=== PATIENT | female | born 1945 | race Caucasian/White ===

== ENCOUNTER 2024-04-16 16:54 | Observation (INO) | payer BC, SELFPAY ==
[2024-04-16] VITALS (7 sets, daily range): BP systolic 158–219; BP diastolic 82–92; PULSE 80–108; RESP 14–18; TEMP 36.3–36.9; O2SAT 91–98; BMI 30.1
--- NOTE | ~2024-04-16 | XR_ITS ---
CHEST RADIOGRAPH CLINICAL HISTORY: r sided weakness . COMPARISON: 08/12/2018 TECHNIQUE: Single portable view of the chest. FINDINGS Worsening prominence of the right hilum when compared with 2019 examination, possibly vascular in [place]. The remainder of the cardiomediastinal silhouette is otherwise unremarkable. Increased interstitial markings are identified bilaterally, findings suggesting mild pulmonary vascul ar congestion. The remainder of the lungs are clear. Visualized osseous structures and soft tissues are unremarkable. IMPRESSION: Mild pulmonary vascular congestion with worsening prominence of the right hilum, without focal infilt rate or effusion. Reviewed, dictated and finalized at location A. IMPRESSION: Mild pulmonary vascular congestion with worsening prominence of the right hilum , without focal infiltrate or effusion.
--- NOTE | ~2024-04-16 | US_ITS ---
EXAMINATION: US carotid duplex BI DATE: 04/19/2024 14:34 INDICATION: Transient ischemic attack. Infarct in left caudate nucleus. TECHNIQUE: Grayscale, color Doppler, and pulsed Doppler images of the cervical carotid arteries were obtained. The degree of vessel stenosis is placed in one of the following categories: normal, <50%, 5 0-69%, >=70% but less than near-occlusion, near-occlusion, or total occlusion. Note that percent sten osis relative to normal distal artery lumen diameter is indirectly measured from velocity measurement s as described by Wang, et al. Radiology 2003; 229:340-346. COMPARISON: Ultrasound 04/12/2019 FINDINGS: RIGHT: The right common carotid artery (CCA) peak systolic velocity (PSV) is 60 cm/s. The right internal car otid artery (ICA) PSV is 132 cm/s. The right ICA end-diastolic velocity (EDV) is 31 cm/s. The right I CA/CCA PSV ratio is 2.2. Grayscale and color Doppler images yield an estimate of <50% diameter reduct ion from plaque in the ICA. There is antegrade flow in the right vertebral artery. LEFT: The left CCA PSV is 67 cm/s. The left ICA PSV is 94 cm/s. The left ICA EDV is 27 cm/s. The left ICA/C CA PSV ratio is 1.4. Grayscale and color Doppler images yield an estimate of <50% diameter reduction from plaque in the ICA. There is antegrade flow in the left vertebral artery. IMPRESSION: 1. <50% stenosis in the right internal carotid artery. 2. <50% stenosis in the left internal carotid artery. Reviewed, dictated and finalized at location B.
--- NOTE | ~2024-04-16 | CT_ITS ---
CT brain wo con Ordering provider: Oh Huerta MD History: 79 years Female with . r sided weakness . Comparison: August 20, 2018 Technique: CT of the head without contrast. FINDINGS: BRAIN PARENCHYMA AND CSF SPACES: Mild leukoaraiosis and diffuse cortical atrophy. Mild atheromatous d isease. No midline shift, mass effect or hemorrhage. The brain parenchyma and CSF spaces are otherwi se normal. VISUALIZED PARANASAL SINUSES: Right maxillary sinus disease. MASTOIDS: Well aerated. BONES: The bones appear intact. SOFT TISSUES: Visualized nasopharynx is normal. Superficial soft tissues are normal. IMPRESSION: No acute intracranial findings. Reviewed, dictated and finalized at location A.
--- NOTE | ~2024-04-16 | MR_ITS ---
EXAMINATION: MR brain/brain stem wo con DATE: 04/17/2024 12:28 INDICATION: Right hemiparesis. Confusion. Stroke like symptoms. TECHNIQUE: Magnetic resonance imaging (MRI) of the brain and brainstem was performed without intraven ous contrast. COMPARISON: Brain MRI 08/13/2018, head CT 04/16/2024 FINDINGS: There are scattered areas of nonspecific increased T2-weighted signal intensity in the cere bral white matter and [place]. There is an old infarct involving the left caudate nucleus and adjacent w marcella matter. There is no intracranial hemorrhage, acute infarction, or abnormal intracranial mass les ion. The ventricles are normal in size. There are likely changes of ocular lens replacement surgeries . There is mild mucosal thickening in the paranasal sinuses. There are bilateral mastoid effusions. IMPRESSION: 1. 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 2. Mild nonspecific cerebral white matter disease and pontine disease, which likely represents chroni c small vessel ischemic disease. Reviewed, dictated and finalized at location A. IMPRESSION: 1. 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 2. Mild nonspecific cerebral white matter disease and pontine disease, which brooklynn bailon represents chronic small vessel ischemic disease.
--- NOTE | 2024-04-16 16:55 | ECG_ITS ---
Test Date: 2024-04-16 18:56:54 Measurements Intervals Amelia Rate: 96 P: 35 TX: 189 QRS: -1 QRSD: 84 T: 78 QT: 332 QTc: 421 Interpretive Statements SINUS RHYTHM LEFT VENTRICULAR HYPERTROPHY AND ST-T CHANGE [VOLTAGE CRITERIA PLUS ST/T ABNORMALITY] POOR R-WAVE PROGRESSION ABNORMAL ECG No previous ECG available for comparison Electronically Signed On 04-17-2024 13:11:21 CDT by Miguelangel Blevins M.D.
[2024-04-16] MEDS: LORazepam INJ (*CRX) 2 MG/ML VIAL 0.5 MG IV PUSH (17:15)
[2024-04-16 17:20] LABS: Estimated Glomerular Filt Rate 54
--- NOTE | 2024-04-16 17:20 | PC.NURSE ---
pt was unable to keep head/neck still for CT of head and was not following instructions. Dr. Huerta VORB 0.5mg Ativan IV to assist with pt anxiety.
[2024-04-16 17:36] LABS: Basophils Absolute Auto 0.1 K/mm3 (0.0-0.1); Basophils Percent Auto 0.7 % (0.2-1.2); Eosinophils Absolute Auto 0.1 K/mm3 (0-0.3); Eosinophils Percent Auto 1.5 % (0-4.4); Hematocrit 40.1 % (37.0-47.0); Hemoglobin 13.1 g/dL (12.0-15.0); Immature Granulocyte Absolute 0.03 K/mm3 (0.00-0.031); Immature Granulocyte Percent A 0.4 % (0-0.5); Lymphocytes Absolute Auto 2.12 K/mm3 (0.9-3.2); Lymphocytes Percent Auto 29.3 % (18.3-44.2); Mean Corpuscular HGB Conc 32.7 g/dl (32-36); Mean Corpuscular Hemoglobin 30.2 pg (26-34); Mean Corpuscular Volume 92.4 fl (80-100); Mean Platelet Volume 10.9 fl (7.4-10.4); Monocytes Absolute Auto 0.5 K/mm3 (0.1-0.6); Neutrophils Absolute Auto 4.4 K/mm3 (1.3-6.7); Neutrophils Percent Auto 61.1 % (45.5-73.1); Platelet Count Result 293 k/mm3 (150-375); Red Blood Count 4.34 M/mm3 (4.2-5.4); Red Cell Distribution Width 15.2 % (11.5-14.5); White Blood Count 7.2 K/mm3 (4.5-10.0)
--- NOTE | 2024-04-16 17:41 | ED_ITS ---
HPI - Neuro Symptoms/Deficit General Chief Complaint: Suspected CVA Stated Complaint: right sided weakness Time Seen by Provider: 04/16/24 16:56 History of Present Illness HPI Narrative: Patient is a 79-year-old female who presents ER with concerns for CVA according . Patient was last normal at 3:30 a.m. Patient woke up this morning and could not get off the toilet due to weakness in her leg and arm. She also could not feed herself food that he made her this afternoon because of weakness in her arm. He reports she has not been able to speak to him coherently. This is sim ilar to previous CVA she has had in the past. At this time patient is orient x1 and will occasionally slurs her speech. She can follow commands. She has no facial droop. No arm or leg drift. Her blood sugars within normal limits. She will be sent to the scanner for further evaluation. Chart review shows she is on aspirin and Plavix. Related Data Home Medications Medication Instructions Recorded Confirmed aspirin 81 mg tablet,delayed 81 mg PO DAILY 07/16/19 12/30/23 release flash glucose scanning reader #1 ea 07/16/19 12/30/23 (FreeStyle Arvin 14 Day [place]) sennosides 8.6 mg-docusate sodium 1 tab-cap PO QHS 01/16/22 12/30/23 50 mg tablet glucosamine HCl 1,500 mg tablet 1,500 mg PO BID 06/27/22 12/30/23 Allergies Allergy/AdvReac Type Severity Reaction Status Date / Time adhesive tape Allergy Mild Rash Verified 08/26/23 13:21 Iodinated Contrast Media Allergy Unknown Unknown Verified 08/26/23 13:21 iodine Allergy Unknown ITCHING Verified 08/26/23 13:21 tetracycline Allergy Unknown Unknown Verified 08/26/23 13:21 Tetracyclines Allergy Unknown Skin Verified 08/26/23 13:21 Reaction Review of Systems Review of Systems: ROS unobtainable: Yes unobtainable due to medical condition PMFSH Past Medical History Medical History Arthritis Diabetes GERD (gastroesophageal reflux disease) Heart disease Stroke Thyroid disorder Surgical History Surgical History History of thyroid surgery Hx of eye surgery Hx of total knee replacement Family History Family History Mother Family history of osteoporosis Family history of hearing loss Hypertension Sibling Family history of alcoholism Diabetes mellitus Family history of lymphoma Family history of throat cancer Grandparent Family history of arthritis Hypertension Family history of kidney disease Family history of malignant neoplasm of brain Father Family history of diabetes mellitus in first degree relative Diabetes mellitus Social History Social History Smoking status: Never smoker Alcohol intake: never Substance use: never Lack of Transportation: No Lack of Food: Never True Current Housing: I Have Housing Concerned About Future Housing: No Difficulty Paying Gas/Electric Bills: No Difficulty Paying for Meds: No Currently Unemployed: No Education: High School Diploma/GED Difficulty w/ Childcare or Family Care: No Living arrangements: with family Gender identity (if verbalized by the patient): Female Spiritual care concerns: No Exam Narrative: GENERAL: Well-appearing, well-nourished, and in no acute distress. HEAD: Normocephalic, atraumatic. ENT: Dry mucous membranes. NECK: Supple. CHEST: Clear to auscultation. No respiratory distress. HEART: Regular rate and rhythm. Normal peripheral pulses. ABDOMEN: Soft, nontender, nondistended. EXTREMITIES: Normal range of motion. No edema. SKIN: Warm, dry, no rash. NEURO: See NIH stroke scale. No facial droop. Mild slurred speech and aphasia the could be from altered mental status. No upper lower extremity drift. Normal finger-nose and [id number] testing. Sensation grossly intact in all extremities. Course Course Emergency Course: Patient resting comfortably but still confused. Oriented to self and place then slurs her speech. May be related to CVA. Blood pressure elevated will receive hydralazine. Admit to hospitalist service. reports patient cannot have IV contrast for CTA because she loses consciousness. Will have Neurology consult in the morning. Patient would not sit still in the CT scan originally and had to receive lorazepam 0.5 mg. Discussed that patient is not a candidate for TNK as her last known well was greater than 4-1/2 hours ago. Vital Signs Vital signs: Vital Signs Temperature 97.4 F L 04/16/24 17:27 Pulse Rate 92 04/16/24 17:27 Respiratory Rate 14 04/16/24 17:27 Blood Pressure 219/88 H 04/16/24 17:27 Pulse Oximetry 91 04/16/24 17:27 Oxygen Delivery Room Air 04/16/24 17:27 Temperature 97.4 F L 04/16/24 17:27 Pulse Rate 80 04/16/24 20:20 Respiratory Rate 16 04/16/24 20:20 Blood Pressure 190/83 H 04/16/24 20:20 Pulse Oximetry 96 04/16/24 20:20 Oxygen Delivery Room Air 04/16/24 17:27 MDM - Neuro Symptoms/Deficit Lab Data 04/16/24 17:25 04/16/24 18:11 Labs: Lab Results 04/16/24 04/16/24 04/16/24 Range/Units 17:05 17:25 17:53 WBC 7.2 (4.5-10.0) K/mm3 RBC 4.34 (4.2-5.4) M/mm3 Hgb 13.1 (12.0-15.0) g/dL Hct 40.1 (37.0-47.0) % MCV 92.4 (80-100) fl MCH 30.2 (26-34) pg MCHC 32.7 (32-36) g/dl RDW 15.2 H (11.5-14.5) % Plt Count 293 (150-375) k/mm3 MPV 10.9 H (7.4-10.4) fl Immature Gran % (Auto) 0.4 (0-0.5) % Neut % (Auto) 61.1 (45.5-73.1) % Lymph % (Auto) 29.3 (18.3-44.2) % [place] % (Auto) 7.0 (2.6-8.5) % Eos % (Auto) 1.5 (0-4.4) % Baso % (Auto) 0.7 (0.2-1.2) % Lymph # (Auto) 2.12 (0.9-3.2) K/mm3 [place] # (Auto) 0.5 (0.1-0.6) K/mm3 Eos # (Auto) 0.1 (0-0.3) K/mm3 Baso # (Auto) 0.1 (0.0-0.1) K/mm3 Abs Immat Gran (auto) 0.03 (0.00-0.031) K/mm3 Absolute Neuts (auto) 4.4 (1.3-6.7) K/mm3 Absolute Nucleated RBC 0.000 (0.0-0.012) K/mm3 Nucleated RBC % 0.0 (0.0-0.2) % PT 13.3 (11.1-14.7) Seconds INR 1.0 APTT 26.4 (22.3-36.8) Seconds Sodium (137-145) mmol/L Potassium (3.4-5.0) mmol/L Chloride (98-107) mmol/L Carbon Dioxide (22-30) mmol/L Anion Gap (4-12) mmol/L BUN (7-17) mg/dL Creatinine 1.00 (0.7-1.2) mg/dL Estim Creat Clear Calc Not Reportable Estimated GFR 54 L (59 - ) Glucose (65-110) mg/dL Calcium (8.4-10.2) mg/dL Total Bilirubin (0.2-1.3) mg/dL AST (14-36) U/L ALT (6-35) U/L Alkaline Phosphatase (38-126) U/L Troponin I (0.000-0.034) ng/mL Total Protein (6.3-8.2) g/dL Albumin (3.5-5.1) g/dL Urine Color Yellow (Yellow) Urine Appearance Clear (Clear) Urine pH 5.5 (5.0-9.0) Ur Specific [place] 1.016 (1.001-1.035) Urine Protein 2+ H (Negative) mg/dL Urine Glucose (UA) 1+ H (Negative) mg/dL Urine Ketones Trace H (Negative) mg/dL Ur Blood (Man) Negative (Negative) Urine Nitrate Negative (Negative) Urine Bilirubin Negative (Negative) Urine Urobilinogen 1.0 (<2.0) mg/dL Add Ur Microanalysis Reviewed Leukocyte Esterase Rfl Negative (Negative) ONEIDA/UL Urine RBC 0-2 (0-2) /hpf Urine WBC 0-5 (0-3) /hpf Ur Squamous Epith Cells None seen (Few) /hpf Urine Bacteria None seen /hpf Urine Casts 11-20 10/25/24 Range/Units 18:11 WBC (4.5-10.0) K/mm3 RBC (4.2-5.4) M/mm3 Hgb (12.0-15.0) g/dL Hct (37.0-47.0) % MCV (80-100) fl MCH (26-34) pg MCHC (32-36) g/dl RDW (11.5-14.5) % Plt Count (150-375) k/mm3 MPV (7.4-10.4) fl Immature Gran % (Auto) (0-0.5) % Neut % (Auto) (45.5-73.1) % Lymph % (Auto) (18.3-44.2) % [place] % (Auto) (2.6-8.5) % Eos % (Auto) (0-4.4) % Baso % (Auto) (0.2-1.2) % Lymph # (Auto) (0.9-3.2) K/mm3 [place] # (Auto) (0.1-0.6) K/mm3 Eos # (Auto) (0-0.3) K/mm3 Baso # (Auto) (0.0-0.1) K/mm3 Abs Immat Gran (auto) (0.00-0.031) K/mm3 Absolute Neuts (auto) (1.3-6.7) K/mm3 Absolute Nucleated RBC (0.0-0.012) K/mm3 Nucleated RBC % (0.0-0.2) % PT (11.1-14.7) Seconds INR APTT (22.3-36.8) Seconds Sodium 140 (137-145) mmol/L Potassium 4.0 (3.4-5.0) mmol/L Chloride 100 (98-107) mmol/L Carbon Dioxide 28 (22-30) mmol/L Anion Gap 12 (4-12) mmol/L BUN 20 H (7-17) mg/dL Creatinine 0.80 (0.7-1.2) mg/dL Estim Creat Clear Calc Not Reportable Estimated GFR > 60 (59 - ) Glucose 183 H (65-110) mg/dL Calcium 10.5 H (8.4-10.2) mg/dL Total Bilirubin 0.9 (0.2-1.3) mg/dL AST 23 (14-36) U/L ALT 16 (6-35) U/L Alkaline Phosphatase 81 (38-126) U/L Troponin I < 0.012 (0.000-0.034) ng/mL Total Protein 8.0 (6.3-8.2) g/dL Albumin 4.2 (3.5-5.1) g/dL Urine Color (Yellow) Urine Appearance (Clear) Urine pH (5.0-9.0) Ur Specific [place] (1.001-1.035) Urine Protein (Negative) mg/dL Urine Glucose (UA) (Negative) mg/dL Urine Ketones (Negative) mg/dL Ur Blood (Man) (Negative) Urine Nitrate (Negative) Urine Bilirubin (Negative) Urine Urobilinogen (<2.0) mg/dL Add Ur Microanalysis Leukocyte Esterase Rfl (Negative) ONEIDA/UL Urine RBC (0-2) /hpf Urine WBC (0-3) /hpf Ur Squamous Epith Cells (Few) /hpf Urine Bacteria /hpf Urine Casts Imaging Data Radiologist's impression: ITS Impressions Head CT 04/16/24 17:35 IMPRESSION: No acute intracranial findings. Chest X-Ray 04/16/24 17:39 IMPRESSION: Mild pulmonary vascular congestion with worsening prominence of the right hilum, without focal infiltrate or effusion. ECG Data EKG #1: ECG completion date: 04/16/24 ECG completion time: 18:56 EKG Interpretation: normal rate (96), sinus rhythm, no ectopy, no ST changes, normal QRS, normal QT and NL axis Critical Care Time Critical Care Time Critical Care Time: No Discharge Plan Discharge Clinical Impression: Stroke-like symptoms, Elevated blood pressure reading, Altered mental status Patient Disposition: Still a Patient Condition: Stable Prescriptions: No Action aspirin 81 mg tablet,delayed release (DR/EC) 81 mg PO DAILY (DME) FreeStyle Arvin 14 Day [place] Misc See Rx Instructions .ROUTE .MEDSUPPLY Qty: 1 Rx Instructions: As directed sennosides-docusate sodium 8.6-50 mg tablet 1 tab-cap PO QHS glucosamine HCl 1,500 mg tablet 1,500 mg PO BID Rx Instructions: administer with a meal Levemir FlexTouch U100 Insulin 100 unit/mL (3 mL) insulin pen See Rx Instructions .ROUTE .COMPLEX Qty: 45 5RF Dose Instruction: INJECT 50 UNITS SUBCUTANEOUSLY ONCE DAILY AT BEDTIME Rx Instructions: INJECT 50 UNITS SUBCUTANEOUSLY ONCE DAILY AT BEDTIME (DME) pen needle, diabetic 32 gauge x 5/32 needle See Rx Instructions .ROUTE .MEDSUPPLY Qty: 100 11RF Rx Instructions: 5x/day (DME) FreeStyle Arvin 14 Day Sensor Kit See Rx Instructions .ROUTE .MEDSUPPLY Qty: 6 8RF Rx Instructions: As directed atorvastatin 40 mg tablet See Rx Instructions .ROUTE .COMPLEX Qty: 90 1RF Dose Instruction: Take 1 tablet by mouth once daily Rx Instructions: Take 1 tablet by mouth once daily ferrous sulfate 324 mg (65 mg iron) tablet,delayed release (DR/EC) 324 mg PO DAILY Qty: 90 1RF lisinopril 20 mg tablet 20 mg PO DAILY Qty: 90 1RF pantoprazole 40 mg tablet,delayed release (DR/EC) 40 mg PO QAM Qty: 90 1RF clopidogrel 75 mg tablet 75 mg PO DAILY Qty: 90 1RF Mounjaro 2.5 mg/0.5 mL pen injector See Rx Instructions .ROUTE .COMPLEX Qty: 2 0RF Dose Instruction: INJECT 2.5MG SUBCUTANEOUSLY ONCE WEEKLY Rx Instructions: INJECT 2.5MG SUBCUTANEOUSLY ONCE WEEKLY insulin aspart U-100 [Novolog FlexPen U-100 Insulin] 100 unit/mL (3 mL) insulin pen 18 unit subcut TID Qty: 15 5RF metformin 1,000 mg tablet See Rx Instructions .ROUTE .COMPLEX Qty: 180 1RF Dose Instruction: Take 1 tablet by mouth twice daily Rx Instructions: Take 1 tablet by mouth twice daily Follow-up/Referrals: Cami Ng DO [Primary Care Provider] - Quality Stroke Scale Stroke Scale 1: Stroke scale date:: 04/16/24 Stroke scale time:: 16:57 1a Level of consciousness: alert-0 1b Level of consciousness questions: answers one correctly-1 1c Level of consciousness commands: obeys both correctly-0 2 Best gaze: normal-0 3 Visual: no visual loss-0 4 Facial palsy: normal-0 5a Motor: left arm: no drift-0 5b Motor: right arm: no drift-0 6a Motor: left leg: no drift-0 6b Motor: right leg: no drift-0 7 Limb ataxia: absent-0 8 Sensory: normal-0 9 Best language: some loss of fluency-1 10 Dysarthria: slurs some words-1 11 Extinction and inattention: no abnormality-0 Level:: 3
[2024-04-16 17:46] LABS: Prothrombin Time 13.3 Seconds (11.1-14.7)
[2024-04-16 17:47] LABS: Partial Thromboplastin Time 26.4 Seconds (22.3-36.8)
[2024-04-16 18:25] LABS: Add Urine Microscopic? YES; Appearance Urine Clear (Clear); Bacteria Urine None Seen /hpf; Bilirubin Urine Negative (Negative); Blood Urine Negative (Negative); Color Urine Yellow (Yellow); Glucose Urine UA 1+ mg/dL (Negative); Ketones Urine Trace mg/dL (Negative); Leukocyte Esterase Ur Negative LEU/UL (Negative); Need Manual Microscopic Reviewed; Nitrate Urine Negative (Negative); Protein Urine 2+ mg/dL (Negative); RBC Urine 0-2 /hpf (0-2); Specific Grav Ur 1.016 (1.001-1.035); Squamous Epithelial Cell Urine None Seen /hpf (Few); WBC Urine 0-5 /hpf (0-3); pH Urine 5.5 (5.0-9.0)
[2024-04-16 18:39] LABS: Alanine Aminotransferase 16 U/L (6-35); Albumin Level 4.2 g/dL (3.5-5.1); Alkaline Phosphatase 81 U/L (38-126); Anion Gap 12 mmol/L (4-12); Aspartate Amino Transferase 23 U/L (14-36); Bilirubin,Total 0.9 mg/dL (0.2-1.3); Blood Urea Nitrogen 20 mg/dL (7-17); Calcium 10.5 mg/dL (8.4-10.2); Carbon Dioxide 28 mmol/L (22-30); Chloride 100 mmol/L (98-107); Estimated Glomerular Filt Rate > 60; Glucose 183 mg/dL (65-110); Sodium 140 mmol/L (137-145)
[2024-04-16 18:46] LABS: Troponin I < 0.012 ng/mL (0.000-0.034)
[2024-04-16] MEDS: SODIUM CHLORIDE 0.9% IV 1,000 ML 999 ML IV CONT (19:34)
--- NOTE | 2024-04-16 19:34 | PC.NURSE ---
Per Md Huerta, no need to administer ordered hydralazine at this time d/t BP of 161/91.
[2024-04-16] MEDS: hydrALAZINE HCL 20 MG/ML VIAL 10 MG IV PUSH (20:19)
[2024-04-16] MEDS: ACETAMINOPHEN 325 MG TABLET 650 MG PO (21:21)
--- NOTE | 2024-04-16 22:36 | PM.IMHP ---
H&P: HPI History of Present Illness Date/Time: 04/16/24 22:36 Chief Complaint: Confusion, dysarthria/aphasia, right arm and leg weakness Narrative: 79-year-old female who lives at home with her . History is taken from the at bedside in ER. She has a history of RACIEL not wanting to use CPAP, history of remote CVA x2, insulin-dependent diabetes mellitus with diabetic neuropathy,, chronic anemia, GERD, arthritis status post bilateral knee replacement, chronic hypercalcemia asymptomatic, hypertension, mixed hyperlipidemia. Has been brings the patient in to [facility] ER on 04/16/2024 with complaint that the patient had stroke-like symptoms around 3:30 a.m.. After her last strokes many years ago she has had gait difficulties but no other residual deficits. When the patient woke up she was confused and appeared to not be able to speak. Her right arm and right leg were weak. The patient had been well up until waking up. She has been compliant with aspirin and statin. A few hours into the ER visit her symptoms had resolved completely. Blood pressure 219/88, temperature 97.4?, heart rate 92, respiratory rate 14, 90% O2 saturation on room air. WBC 7.2, hemoglobin 13.1, serum creatinine 0.8, glucose 183, calcium 10.5, troponin within normal limit, urinalysis not indicative infectious etiology. Chest x-ray with mild pulmonary vascular congestion. CT head without contrast does not demonstrate acute intracranial findings. Patient was given Ativan, hydralazine 10 mg IV x1, 1 L normal saline bolus. Admitted on 04/16/2024 under the hospitalist service for suspected TIA. Review of Systems Review of Systems: All systems reviewed & are unremarkable except as noted in HPI and below (Subjective) [facility] Past Medical History Medical History Arthritis Diabetes GERD (gastroesophageal reflux disease) Heart disease Stroke Thyroid disorder Surgical History Surgical History History of thyroid surgery Hx of eye surgery Hx of total knee replacement Family History Family History Mother Family history of osteoporosis Family history of hearing loss Hypertension Sibling Family history of alcoholism Diabetes mellitus Family history of lymphoma Family history of throat cancer Grandparent Family history of arthritis Hypertension Family history of kidney disease Family history of malignant neoplasm of brain Father Family history of diabetes mellitus in first degree relative Diabetes mellitus Social History Social History Smoking status: Never smoker Alcohol intake: never Substance use: never Do You Feel Safe in your Home?: Yes Lack of Transportation: No Lack of Food: Never True Current Housing: I Have Housing Concerned About Future Housing: No Difficulty Paying Gas/Electric Bills: No Difficulty Paying for Meds: No Currently Unemployed: No Education: High School Diploma/GED Difficulty w/ Childcare or Family Care: No Living arrangements: with family Gender identity (if verbalized by the patient): Female Spiritual care concerns: No Meds Home Medications and Allergies Home Medications Medication Instructions Recorded Confirmed Type aspirin 81 mg tablet,delayed 81 mg PO DAILY 07/16/19 04/16/24 History release flash glucose scanning reader #1 ea 07/16/19 04/16/24 History (FreeStyle Arvin 14 Day [place]) glucosamine HCl 1,500 mg tablet 1,500 mg PO BID 06/27/22 04/16/24 History insulin detemir U-100 100 unit/mL See Rx Instructions .Route 06/30/23 04/16/24 Rx (3 mL) subcutaneous pen .COMPLEX #45 mL pen needle, diabetic 32 gauge x #100 ea 09/08/23 04/16/24 Rx flash glucose sensor (FreeStyle #6 ea 12/11/23 04/16/24 Rx Arvin 14 Day Sensor kit) atorvastatin 40 mg tablet See Rx Instructions .Route 01/21/24 04/16/24 Rx .COMPLEX #90 tabs ferrous sulfate 324 mg (65 mg 324 mg PO DAILY #90 tabs 01/30/24 04/16/24 Rx iron) tablet,delayed release pantoprazole 40 mg tablet,delayed 40 mg PO QAM #90 tabs 03/11/24 04/16/24 Rx release clopidogrel 75 mg tablet 75 mg PO DAILY #90 tabs 03/12/24 04/16/24 Rx insulin aspart U-100 100 unit/mL 18 unit (0.18 mL) subcut TID #15 mL 03/18/24 04/16/24 Rx (3 mL) subcutaneous pen (Novolog FlexPen U-100 Insulin aspart) metformin 1,000 mg tablet See Rx Instructions .Route 04/12/24 04/16/24 Rx .COMPLEX #180 tabs biotin 1 mg tablet 1 mg PO ONCE 04/16/24 04/16/24 History quinapril-hydrochlorothiazide 10 mg PO ONCE 04/16/24 04/16/24 History tirzepatide 2.5 mg/0.5 mL mg subcut 04/16/24 History subcutaneous pen injector (Shawna) Allergies Allergy/AdvReac Type Severity Reaction Status Date / Time Iodinated Contrast Media Allergy Severe Unknown Verified 04/16/24 22:46 adhesive tape Allergy Mild Rash Verified 08/26/23 13:21 iodine Allergy Unknown ITCHING Verified 08/26/23 13:21 tetracycline Allergy Unknown Unknown Verified 08/26/23 13:21 Tetracyclines Allergy Unknown Skin Verified 08/26/23 13:21 Reaction Vital Signs Vital Signs - 24 hr 04/16/24 17:27 04/16/24 17:54 04/16/24 19:00 Temperature 97.4 F L Pulse Rate 92 100 97 Respiratory Rate 14 14 14 Blood Pressure 219/88 H 187/90 H 158/92 H Pulse Oximetry 91 91 92 Oxygen Delivery Room Air 04/16/24 19:35 04/16/24 20:20 04/16/24 21:15 Temperature Pulse Rate 84 80 108 H Respiratory Rate 18 16 16 Blood Pressure 161/91 H 190/83 H 187/82 H Pulse Oximetry 97 96 97 Oxygen Delivery 04/16/24 22:16 04/16/24 22:00 Temperature 98.4 F Pulse Rate 108 H Respiratory Rate 18 Blood Pressure 193/90 H Pulse Oximetry 98 Oxygen Delivery Room Air Exam Const: General: comfortable and no acute distress Eyes: Pupils: Equal, round and reactive pupils present Neck: Neck: supple Resp: Effort & Inspection: normal respiratory effort Auscultation: clear to auscultation bilaterally Cardio: Rate: regular rate Rhythm: regular rhythm Heart sounds: no gallops, no murmurs and no rubs GI: Inspection: non-distended GI Palp: Yes Soft to palpation and No Tenderness to palpation present (GI) Auscultation: normal bowel sounds : General: Yes bladder normal to palpation Neuro: Other: Cranial nerves 2-12 grossly intact. Sensation and strength intact. No ataxia. No facial droop. Extrem: General: no edema H&P: Results Labs Labs: Short CBC 04/16/24 Range/Units 17:25 WBC 7.2 (4.5-10.0) K/mm3 Hgb 13.1 (12.0-15.0) g/dL Hct 40.1 (37.0-47.0) % Plt Count 293 (150-375) k/mm3 BMP 04/16/24 04/16/24 17:05 18:11 Sodium 140 Potassium 4.0 Chloride 100 Carbon Dioxide 28 BUN 20 H Creatinine 1.00 0.80 Glucose 183 H Calcium 10.5 H Cardiac Enzymes 04/16/24 Range/Units 18:11 Troponin I < 0.012 (0.000-0.034) ng/mL Liver Function 04/16/24 Range/Units 18:11 Total Bilirubin 0.9 (0.2-1.3) mg/dL AST 23 (14-36) U/L ALT 16 (6-35) U/L Alkaline Phosphatase 81 (38-126) U/L Albumin 4.2 (3.5-5.1) g/dL Urine 04/16/24 Range/Units 17:53 Urine Color Yellow (Yellow) Urine Appearance Clear (Clear) Urine pH 5.5 (5.0-9.0) Ur Specific [place] 1.016 (1.001-1.035) Urine Protein 2+ H (Negative) mg/dL Urine Glucose (UA) 1+ H (Negative) mg/dL Assessment and Plan Assessment and plan (1) Stroke-like symptoms: Code(s): R29.90 - Unspecified symptoms and signs involving the nervous system Status: Acute (2) Elevated blood pressure reading: Code(s): R03.0 - Elevated blood-pressure reading, without diagnosis of hypertension Status: Acute (3) Altered mental status: Code(s): R41.82 - Altered mental status, unspecified Status: Acute (4) History of CVA (cerebrovascular accident): Code(s): Z86.73 - Personal history of transient ischemic attack (TIA), and cerebral infarction without residual deficits Status: Acute (5) Hypercalcemia: Code(s): E83.52 - Hypercalcemia Status: Acute (6) Essential (primary) hypertension: Code(s): I10 - Essential (primary) hypertension Status: Acute (7) Type 2 diabetes mellitus with diabetic neuropathy, unspecified: Code(s): E11.40 - Type 2 diabetes mellitus with diabetic neuropathy, unspecified Status: Acute Plan 79-year-old female who lives at home with her . History is taken from the at bedside in ER. She has a history of RACIEL not wanting to use CPAP, history of remote CVA x2, insulin-dependent diabetes mellitus with diabetic neuropathy,, chronic anemia, GERD, arthritis status post bilateral knee replacement, chronic hypercalcemia asymptomatic, hypertension, mixed hyperlipidemia. Has been brings the patient in to [facility] ER on 04/16/2024 with complaint that the patient had stroke-like symptoms around 3:30 a.m.. After her last strokes many years ago she has had gait difficulties but no other residual deficits. When the patient woke up she was confused and appeared to not be able to speak. Her right arm and right leg were weak. The patient had been well up until waking up. She has been compliant with aspirin and statin. A few hours into the ER visit her symptoms had resolved completely. Blood pressure 219/88, temperature 97.4?, heart rate 92, respiratory rate 14, 90% O2 saturation on room air. WBC 7.2, hemoglobin 13.1, serum creatinine 0.8, glucose 183, calcium 10.5, troponin within normal limit, urinalysis not indicative infectious etiology. Chest x-ray with mild pulmonary vascular congestion. CT head without contrast does not demonstrate acute intracranial findings. Patient was given Ativan, hydralazine 10 mg IV x1, 1 L normal saline bolus. Admitted on 04/16/2024 under the hospitalist service for suspected TIA. ----- The patient has stroke-like symptoms since the morning of 04/16/2024. They have resolved after being in the ER for a few hours. There is nothing suspicious so far to indicate etiology causing recrudescence of symptoms however previous strokes did affect her right side. CT brain negative. MRI brain with and without contrast pending. Neurology consultation pending. Restart ONLINE MERCHANDISING COORDINATOR aspirin. Increase her ONLINE MERCHANDISING COORDINATOR atorvastatin 40 mg to 80 mg p.o. q.day. Patient and refuse CT with contrast. Report patient previously had syncope with contrast. Stroke protocol. Permissive hypertension, elevate head of bed, PPI, check HbA1c. Neurologic checks q.4 hours. Fall precautions, PT OT speech therapy. Up with assistance. Telemetry. ----- Saline lock IV. Cardiac diet, heart healthy diet. Continue ONLINE MERCHANDISING COORDINATOR PPI SCDs only for now. Patient wishes to be DNR. She lives at home with her . She uses a walker at baseline. Hospitalist [facility] Advance Care Plan I have confirmed that the patient's Advanced Care Plan is present, code status is documented, or surrogate decision maker is listed in patient medical record.: Yes Medication Reconciliation I have utilized all available resources to obtain, update and review the patients current medications (includes all prescriptions, OTC, herbals, cannabis, and nutritional supplements).: Yes
[2024-04-16] MEDS: ASPIRIN 81 MG ENTERIC TABLET PO (23:06)
[2024-04-16] MEDS: ATORVASTATIN 40 MG TABLET 80 MG PO (23:06)
[2024-04-16] MEDS: FERROUS SULFATE 325 MG TABLET DR 324 MG PO (23:07)
[2024-04-16] MEDS: PANTOPRAZOLE 40 MG TABLET PO (23:07)
[2024-04-17] VITALS (10 sets, daily range): BP systolic 150–185; BP diastolic 68–84; PULSE 73–107; RESP 16–18; TEMP 36.4–37.2; O2SAT 92–95
--- NOTE | 2024-04-17 00:01 | ADMGEN ---
This patient, Kathe Wheeler, was admitted to Medical Room 345-. Patient/family oriented to hospital policies and general routines including ID bracelet, bed and alarms, visiting hours, pain management, procedures, bathroom and other care routines, personal items, smoking policy, room service/diet, and visiting hours. Information on how to activate the Rapid Response Team has been discussed. Patient/Family are encouraged to report perceived risks to care and to ask questions if they do not understand what they are told or what they should do.
[2024-04-17 05:42] LABS: Hematocrit 33.7 % (37.0-47.0); Mean Corpuscular HGB Conc 32.6 g/dl (32-36); Mean Corpuscular Hemoglobin 30.1 pg (26-34); Mean Corpuscular Volume 92.3 fl (80-100); Mean Platelet Volume 10.9 fl (7.4-10.4); Platelet Count Result 253 k/mm3 (150-375); Red Blood Count 3.65 M/mm3 (4.2-5.4); Red Cell Distribution Width 15.2 % (11.5-14.5); White Blood Count 6.7 K/mm3 (4.5-10.0)
[2024-04-17 05:53] LABS: Anion Gap 7 mmol/L (4-12); Blood Urea Nitrogen 19 mg/dL (7-17); Calcium 10.2 mg/dL (8.4-10.2); Carbon Dioxide 29 mmol/L (22-30); Chloride 103 mmol/L (98-107); Estimated CRCL calculation 43 ml/min; Estimated Glomerular Filt Rate > 60; Glucose 284 mg/dL (65-110); Potassium 4.1 mmol/L (3.4-5.0); Sodium 139 mmol/L (137-145)
[2024-04-17 06:02] LABS: Hemoglobin A1C 7.3 % (<5.7)
[2024-04-17 08:47] LABS: Glucose Point of Care 201 mg/dl (65-105)
[2024-04-17] MEDS: FERROUS SULFATE 325 MG TABLET DR 324 MG PO (09:03)
[2024-04-17] MEDS: MAGNESIUM SULFATE 3GM/D5W100ML 3 GM/100 ML BAG IVPB (09:03)
[2024-04-17] MEDS: ASPIRIN 81 MG ENTERIC TABLET PO (09:03)
[2024-04-17] MEDS: PANTOPRAZOLE 40 MG TABLET PO (09:03)
[2024-04-17] MEDS: INSULIN ASPART (*BKC) 100 UNITS/ML SUB-Q ×4 (09:04→20:26)
--- NOTE | 2024-04-17 09:54 | P.PNIM_ITS ---
Progress Note: A&P Assessment and Plan (1) Stroke-like symptoms: Code(s): R29.90 - Unspecified symptoms and signs involving the nervous system Status: Acute Assessment and Plan: * Neurology following. * Monitor symptoms and blood pressure. * Passed swallow study. (2) Hypomagnesemia: Code(s): E83.42 - Hypomagnesemia Status: Acute Assessment and Plan: * Magnesium 1.0. * Patient given a 3 gram Magnesium run, repeat magnesium 2.0. * Follow Magnesium. (3) Type 2 diabetes mellitus with diabetic neuropathy, unspecified: Code(s): E11.40 - Type 2 diabetes mellitus with diabetic neuropathy, unspecified Status: Acute Assessment and Plan: * Diabetes protocol * SSI (4) Altered mental status: Code(s): R41.82 - Altered mental status, unspecified Status: Acute Assessment and Plan: * Improved. Alert. Sitting up in chair watching TV. * Passed swallow test. (5) Essential (primary) hypertension: Code(s): I10 - Essential (primary) hypertension Status: Acute Assessment and Plan: * Blood pressure 151/68. * Lisinopril 20 mg PO daily. (6) History of CVA (cerebrovascular accident): Code(s): Z86.73 - Personal history of transient ischemic attack (TIA), and cerebral infarction without residual deficits Status: Acute Assessment and Plan: * Monitor symptoms. * Neurology following. Plan Patient and refuse CT with contrast. Report patient previously had syncope with contrast. Subjective Date/time seen: 04/17/24 09:54 Interval history: Patient sitting up in a chair. Patient denies chest pain, palpitations, headache, dizziness, nausea, or vomiting. Review of Systems Review of Systems: All systems reviewed & are unremarkable except as noted in HPI and below Exam Const: General: comfortable and no acute distress Eyes: Sclera: sclerae normal Resp: Effort & Inspection: normal respiratory effort Auscultation: clear to auscultation bilaterally Cardio: Rate: regular rate Rhythm: regular rhythm GI: GI Palp: Yes Soft to palpation Auscultation: normal bowel sounds Skin: General skin exam: no rashes or lesions noted Extrem: General: no pedal edema Psych: Affect: normal affect Objective Data Vital Signs Vital Signs: Vital Signs - 24 hr 04/16/24 17:27 04/16/24 17:54 04/16/24 19:00 Temperature 97.4 F L Pulse Rate 92 100 97 Respiratory Rate 14 14 14 Blood Pressure 219/88 H 187/90 H 158/92 H Pulse Oximetry 91 91 92 Oxygen Delivery Room Air Fraction of Inspired Oxygen 04/16/24 19:35 04/16/24 20:20 04/16/24 21:15 Temperature Pulse Rate 84 80 108 H Respiratory Rate 18 16 16 Blood Pressure 161/91 H 190/83 H 187/82 H Pulse Oximetry 97 96 97 Oxygen Delivery Fraction of Inspired Oxygen 04/16/24 22:16 04/16/24 22:00 04/17/24 00:00 Temperature 98.4 F Pulse Rate 108 H 107 H Respiratory Rate 18 Blood Pressure 193/90 H Pulse Oximetry 98 Oxygen Delivery Room Air Fraction of Inspired Oxygen 04/17/24 04:00 04/17/24 06:00 04/17/24 07:31 Temperature 98.4 F Pulse Rate 82 80 Respiratory Rate 18 Blood Pressure 150/79 H Pulse Oximetry 94 92 Oxygen Delivery Room Air Fraction of Inspired Oxygen 04/17/24 08:37 04/17/24 08:00 Temperature Pulse Rate Respiratory Rate Blood Pressure Pulse Oximetry Oxygen Delivery Room Air Room Air Fraction of Inspired Oxygen Intake/Output Intake/Output: Intake & Output 04/14/24 04/15/24 04/16/24 04/17/24 23:59 23:59 23:59 23:59 Intake Total 1000 720 Output Total 600 Balance 1000 120 Meds/Results Medications: Active Medications Generic Name Dose Route Start Last Admin Trade Name Freq PRN Reason Stop Dose Admin Acetaminophen 650 mg 04/16/24 20:21 04/16/24 21:21 Acetaminophen 325 Mg Tablet PO 650 mg Q4H PRN Administration Mild Pain (1-3) or Fever Aspirin 81 mg 04/16/24 22:35 04/17/24 09:03 Aspirin 81 Mg Enteric Tablet PO 81 mg DAILY ZENOBIA Administration Atorvastatin Calcium 80 mg 04/16/24 22:40 04/16/24 23:06 Atorvastatin 40 Mg Tablet PO 80 mg QHS ZENOBIA Administration Dextrose 12.5 gm 04/16/24 22:32 Dextrose 50% 25 Gm/50 Ml Syringe IV PUSH PRN PRN Hypoglycemia Protocol Ferrous Sulfate 324 mg 04/16/24 22:35 04/17/24 09:03 Ferrous Sulfate [address] PO 05/16/24 22:34 324 mg DAILY ZENOBIA Administration Glucagon 1 mg 04/16/24 22:32 Glucagon For Inj 1 Mg Vial IM PRN PRN Hypoglycemia Protocol Glucose 15 gm 04/16/24 22:32 Glucose Oral Gel 15 Gm Of Glucse In 37.5 Gm Tube PO PRN PRN Hypoglycemia Protocol Dextrose 1,000 mls @ 100 mls/hr 04/16/24 22:32 Dextrose 5% 1,000 Ml IVPB PRN PRN Hypoglycemia Protocol Magnesium Sulfate/Dextrose 3 gm in 100 mls @ 33.333 mls/hr 04/17/24 08:30 04/17/24 09:03 Magnesium Sulfate 3gm/[id number] IVPB 04/17/24 11:29 33.33 mls/hr ONCE ONE Administration Insulin Aspart 2 - 5 units 04/17/24 08:00 04/17/24 09:04 Insulin Aspart (*Bkc) 100 Units/Ml SUB-Q 2 units TIDWM ZENOBIA Administration Protocol Insulin Aspart 1 - 2 units 04/17/24 21:00 Insulin Aspart (*Bkc) 100 Units/Ml SUB-Q HS ZENOBIA Protocol Miscellaneous Information 1 each 04/16/24 00:01 Glucosamine Hcl 1,500 Mg Tablet Is Nonformulary, Can Patient Bring From Home? XX 05/16/24 00:00 CLARIFY ZENOBIA Non-Formulary Medication 1,500 mg 04/17/24 09:00 Glucosamine Hcl PO 05/17/24 08:59 BID ZENOBIA Ondansetron HCl 4 mg 04/16/24 20:21 Ondansetron Inj 4 Mg/2 Ml Vial IV PUSH Q4H PRN Nausea Pantoprazole Sodium 40 mg 04/16/24 22:35 04/17/24 09:03 Pantoprazole 40 Mg Tablet PO 40 mg QAM ZENOBIA Administration Radiology Results: ITS Impressions Head CT 04/16/24 17:35 IMPRESSION: No acute intracranial findings. Chest X-Ray 04/16/24 17:39 IMPRESSION: Mild pulmonary vascular congestion with worsening prominence of the right hilum, without focal infiltrate or effusion. Labs Labs: Laboratory Results - last 24 hr 04/16/24 04/16/24 04/16/24 17:05 17:25 17:53 WBC 7.2 RBC 4.34 Hgb 13.1 Hct 40.1 MCV 92.4 MCH 30.2 MCHC 32.7 RDW 15.2 H Plt Count 293 MPV 10.9 H Immature Gran % (Auto) 0.4 Neut % (Auto) 61.1 Lymph % (Auto) 29.3 [place] % (Auto) 7.0 Eos % (Auto) 1.5 Baso % (Auto) 0.7 Lymph # (Auto) 2.12 [place] # (Auto) 0.5 Eos # (Auto) 0.1 Baso # (Auto) 0.1 Abs Immat Gran (auto) 0.03 Absolute Neuts (auto) 4.4 Absolute Nucleated RBC 0.000 Nucleated RBC % 0.0 PT 13.3 INR 1.0 APTT 26.4 Sodium Potassium Chloride Carbon Dioxide Anion Gap BUN Creatinine 1.00 Estim Creat Clear Calc Not Reportable Estimated GFR 54 L Glucose POC Capillary Glucose Hemoglobin A1c Calcium Magnesium Total Bilirubin AST ALT Alkaline Phosphatase Troponin I Total Protein Albumin Urine Color Yellow Urine Appearance Clear Urine pH 5.5 Ur Specific [place] 1.016 Urine Protein 2+ H Urine Glucose (UA) 1+ H Urine Ketones Trace H Ur Blood (Man) Negative Urine Nitrate Negative Urine Bilirubin Negative Urine Urobilinogen 1.0 Add Ur Microanalysis Reviewed Leukocyte Esterase Rfl Negative Urine RBC 0-2 Urine WBC 0-5 Ur Squamous Epith Cells None seen Urine Bacteria None seen Urine Casts 11-20 04/16/24 04/17/24 04/17/24 18:11 05:28 08:41 WBC 6.7 RBC 3.65 L Hgb 11.0 L Hct 33.7 L MCV 92.3 MCH 30.1 MCHC 32.6 RDW 15.2 H Plt Count 253 MPV 10.9 H Immature Gran % (Auto) Neut % (Auto) Lymph % (Auto) [place] % (Auto) Eos % (Auto) Baso % (Auto) Lymph # (Auto) [place] # (Auto) Eos # (Auto) Baso # (Auto) Abs Immat Gran (auto) Absolute Neuts (auto) Absolute Nucleated RBC Nucleated RBC % PT INR APTT Sodium 140 139 Potassium 4.0 4.1 Chloride 100 103 Carbon Dioxide 28 29 Anion Gap 12 7 BUN 20 H 19 H Creatinine 0.80 0.90 Estim Creat Clear Calc Not Reportable 43 Estimated GFR > 60 > 60 Glucose 183 H 284 H POC Capillary Glucose 201 H Hemoglobin A1c 7.3 H Calcium 10.5 H 10.2 Magnesium 1.0 L Total Bilirubin 0.9 AST 23 ALT 16 Alkaline Phosphatase 81 Troponin I < 0.012 Total Protein 8.0 Albumin 4.2 Urine Color Urine Appearance Urine pH Ur Specific [place] Urine Protein Urine Glucose (UA) Urine Ketones Ur Blood (Man) Urine Nitrate Urine Bilirubin Urine Urobilinogen Add Ur Microanalysis Leukocyte Esterase Rfl Urine RBC Urine WBC Ur Squamous Epith Cells Urine Bacteria Urine Casts Quality VTE Prophylaxis VTE prophylaxis: mechanical ordered
--- NOTE | 2024-04-17 11:48 | P.CONNEU_ITS ---
Assessment and Plan Assessment and plan (1) TIA (transient ischemic attack): Code(s): G45.9 - Transient cerebral ischemic attack, unspecified Status: Acute (2) Encounter for immunization: Code(s): Z23 - Encounter for immunization Status: Acute (3) Type 2 diabetes mellitus with diabetic neuropathy, unspecified: Code(s): E11.40 - Type 2 diabetes mellitus with diabetic neuropathy, unspecified Status: Acute Plan With negative sed CT scan of the head a major bleed or major stroke treatment will be continued as such MRI of the brain will be obtained to document any new stroke and if that happened obtain the echocardiogram as well the meantime treatment will be continued as such I discussed thoroughly with her her symptomatology of gait dysfunction could be related to the diabetic peripheral neuropathy, as she is able to feed herself and talk as per the further evaluation will be done and she is more arousable On repeat exam. Consult date: 04/17/24 HPI: Kathe Wheeler is a 79 year old female Admitted to the hospital through the emergency room for the possibility of stroke. Patient was reportedly last normal at 3:30 a.m. woke up in the morning and could not get off the toilet due to weakness in her leg and arm. She was unable to feed herself because of the weakness in her arm and also she was unable to speak coherently patient's reported in the ER this is similar to previous stroke she has had in the past. By the time she was evaluated by the physician in the ER she was oriented x1 and was occasionally slurring her speech. She was able to follow the commands she had no obvious facial droop or drooping of the arms or legs. Her blood sugar was within normal limits. She has been taking aspirin 81mg daily, and she has been known to have multiple allergies as outlined, she has ongoing history of diabetes mellitus, cardiac disease, and previous stroke in addition to thyroid disorder. She has had total knee replacement in addition to the thyroid surgery and eye surgery. She has never smoker or alcohol intake. Initial exam in the emergency room documented mild slurring of the speech, with aphasia no obvious drift of the upper or lower extremities and her vital signs were with blood pressure of 219/88, initial CBC was normal, blood sugar of 183, otherwise mast scan was normal and initial head scan documented no bleed, x-ray chest was negative. Patient lives at home with her she does have a history of obstructive sleep apnea without the use of CPAP, and history of remote stroke x2 in the past in addition to diabetes insulin dependent with diabetic neuropathy and history of bilateral knee replacement. She has been continued on aspirin 81mg daily, atorvastatin daily, clopidogrel 75mg daily, and her insulin dosage as well. Review of Systems Review of Systems: All systems reviewed & are unremarkable except as noted in HPI and below PMFSH Past Medical History Medical History Arthritis Diabetes GERD (gastroesophageal reflux disease) Heart disease Stroke Thyroid disorder Surgical History Surgical History History of thyroid surgery Hx of eye surgery Hx of total knee replacement Family History Family History Mother Family history of osteoporosis Family history of hearing loss Hypertension Sibling Family history of alcoholism Diabetes mellitus Family history of lymphoma Family history of throat cancer Grandparent Family history of arthritis Hypertension Family history of kidney disease Family history of malignant neoplasm of brain Father Family history of diabetes mellitus in first degree relative Diabetes mellitus Social History Social History Smoking status: Never smoker Alcohol intake: never Substance use: never Do You Feel Safe in your Home?: Yes Lack of Transportation: No Lack of Food: Never True Current Housing: I Have Housing Concerned About Future Housing: No Difficulty Paying Gas/Electric Bills: No Difficulty Paying for Meds: No Currently Unemployed: No Education: High School Diploma/GED Difficulty w/ Childcare or Family Care: No Living arrangements: with family Gender identity (if verbalized by the patient): Female Spiritual care concerns: No Meds Home Medications and Allergies Home Medications Medication Instructions Recorded Confirmed Type aspirin 81 mg tablet,delayed 81 mg PO DAILY 07/16/19 04/16/24 History release flash glucose scanning reader #1 ea 07/16/19 04/16/24 History (FreeStyle Arvin 14 Day [place]) glucosamine HCl 1,500 mg tablet 1,500 mg PO BID 06/27/22 04/16/24 History insulin detemir U-100 100 unit/mL See Rx Instructions .Route 06/30/23 04/16/24 Rx (3 mL) subcutaneous pen .COMPLEX #45 mL pen needle, diabetic 32 gauge x #100 ea 09/08/23 04/16/24 Rx 5/32 flash glucose sensor (FreeStyle #6 ea 12/11/23 04/16/24 Rx Arvin 14 Day Sensor kit) atorvastatin 40 mg tablet See Rx Instructions .Route 01/21/24 04/16/24 Rx .COMPLEX #90 tabs ferrous sulfate 324 mg (65 mg 324 mg PO DAILY #90 tabs 01/30/24 04/16/24 Rx iron) tablet,delayed release pantoprazole 40 mg tablet,delayed 40 mg PO QAM #90 tabs 03/11/24 04/16/24 Rx release clopidogrel 75 mg tablet 75 mg PO DAILY #90 tabs 03/12/24 04/16/24 Rx insulin aspart U-100 100 unit/mL 18 unit (0.18 mL) subcut TID #15 mL 03/18/24 04/16/24 Rx (3 mL) subcutaneous pen (Novolog FlexPen U-100 Insulin aspart) metformin 1,000 mg tablet See Rx Instructions .Route 04/12/24 04/16/24 Rx .COMPLEX #180 tabs biotin 1 mg tablet 1 mg PO ONCE 04/16/24 04/16/24 History quinapril-hydrochlorothiazide 10 mg PO ONCE 04/16/24 04/16/24 History tirzepatide 2.5 mg/0.5 mL mg subcut 04/16/24 History subcutaneous pen injector (Shawna) Allergies Allergy/AdvReac Type Severity Reaction Status Date / Time Iodinated Contrast Media Allergy Severe Unknown Verified 04/16/24 22:46 adhesive tape Allergy Mild Rash Verified 08/26/23 13:21 iodine Allergy Unknown ITCHING Verified 08/26/23 13:21 tetracycline Allergy Unknown Unknown Verified 08/26/23 13:21 Tetracyclines Allergy Unknown Skin Verified 08/26/23 13:21 Reaction Vital Signs Vital Signs - 24 hr 04/16/24 17:27 04/16/24 17:54 04/16/24 19:00 Temperature 36.3 C L Pulse Rate 92 100 97 Respiratory Rate 14 14 14 Blood Pressure 219/88 H 187/90 H 158/92 H Pulse Oximetry 91 91 92 Oxygen Delivery Room Air Fraction of Inspired Oxygen 04/16/24 19:35 04/16/24 20:20 04/16/24 21:15 Temperature Pulse Rate 84 80 108 H Respiratory Rate 18 16 16 Blood Pressure 161/91 H 190/83 H 187/82 H Pulse Oximetry 97 96 97 Oxygen Delivery Fraction of Inspired Oxygen 04/16/24 22:16 04/16/24 22:00 04/17/24 00:00 Temperature 36.9 C Pulse Rate 108 H 107 H Respiratory Rate 18 Blood Pressure 193/90 H Pulse Oximetry 98 Oxygen Delivery Room Air Fraction of Inspired Oxygen 04/17/24 04:00 04/17/24 06:00 04/17/24 07:31 Temperature 36.9 C Pulse Rate 82 80 Respiratory Rate 18 Blood Pressure 150/79 H Pulse Oximetry 94 92 Oxygen Delivery Room Air Fraction of Inspired Oxygen 21 04/17/24 08:37 04/17/24 08:00 Temperature Pulse Rate Respiratory Rate Blood Pressure Pulse Oximetry Oxygen Delivery Room Air Room Air Fraction of Inspired Oxygen Exam Narrative: revealed her to be laying in bed sleeping with no obvious difficulties in breathing, at the bedside who gave the other information as outlined, head normocephalic with no bruit, ear nose throat examination normal, neck supple with no meningeal signs, and no cervical bruit, heart regular, lungs without any crepitations, abdomen is soft nontender with normal bowel sounds, neurologically she was arousable she was sluggish in following verbal commands appropriately at this particular time pupils were round regular feels the vision were unreliable but she responded to threat stimuli extraocular movements are spontaneously full with no nystagmus, MS was symmetric and motor examination revealed to have generally decreased strength in upper and lower extremities with sluggish reflexes and downgoing plantar responses she also had decreased sensation distally in both lower extremities. Results Labs 04/17/24 05:28 04/17/24 05:28 Labs: Short CBC 04/16/24 04/17/24 Range/Units 17:25 05:28 WBC 7.2 6.7 (4.5-10.0) K/mm3 Hgb 13.1 11.0 L (12.0-15.0) g/dL Hct 40.1 33.7 L (37.0-47.0) % Plt Count 293 253 (150-375) k/mm3 BMP 04/16/24 04/16/24 04/17/24 17:05 18:11 05:28 Sodium 140 139 Potassium 4.0 4.1 Chloride 100 103 Carbon Dioxide 28 29 BUN 20 H 19 H Creatinine 1.00 0.80 0.90 Glucose 183 H 284 H Calcium 10.5 H 10.2 Cardiac Enzymes 04/16/24 Range/Units 18:11 Troponin I < 0.012 (0.000-0.034) ng/mL Liver Function 04/16/24 Range/Units 18:11 Total Bilirubin 0.9 (0.2-1.3) mg/dL AST 23 (14-36) U/L ALT 16 (6-35) U/L Alkaline Phosphatase 81 (38-126) U/L Albumin 4.2 (3.5-5.1) g/dL Urine 04/16/24 Range/Units 17:53 Urine Color Yellow (Yellow) Urine Appearance Clear (Clear) Urine pH 5.5 (5.0-9.0) Ur Specific [place] 1.016 (1.001-1.035) Urine Protein 2+ H (Negative) mg/dL Urine Glucose (UA) 1+ H (Negative) mg/dL
--- NOTE | 2024-04-17 12:41 | PCSTNOTE ---
Please refer to the Bedside Swallow Evaluation in the EMR. Please note, silent aspiration cannot be ruled out at bedside.
[2024-04-17 12:45] LABS: Glucose Point of Care 246 mg/dl (65-105)
[2024-04-17 17:49] LABS: Glucose Point of Care 210 mg/dl (65-105)
[2024-04-17] MEDS: lisinopriL 20 MG TABLET PO (18:01)
[2024-04-17] MEDS: ATORVASTATIN 40 MG TABLET 80 MG PO (20:11)
[2024-04-17 20:46] LABS: Glucose Point of Care 285 mg/dl (65-105)
[2024-04-18] VITALS (7 sets, daily range): BP systolic 137–185; BP diastolic 79–87; PULSE 69–79; RESP 14–16; TEMP 36.7–36.8; O2SAT 90–97
--- NOTE | 2024-04-18 05:28 | PC.NURSE ---
[facility] spoke with Dr Alexis by telephone at 0515. Verbal order given to [facility] tele at this time.
[2024-04-18 05:53] LABS: Basophils Percent Auto 0.6 % (0.2-1.2); Eosinophils Absolute Auto 0.2 K/mm3 (0-0.3); Eosinophils Percent Auto 3.5 % (0-4.4); Hematocrit 35.1 % (37.0-47.0); Hemoglobin 11.4 g/dL (12.0-15.0); Immature Granulocyte Absolute 0.03 K/mm3 (0.00-0.031); Immature Granulocyte Percent A 0.4 % (0-0.5); Lymphocytes Absolute Auto 2.34 K/mm3 (0.9-3.2); Lymphocytes Percent Auto 33.7 % (18.3-44.2); Mean Corpuscular HGB Conc 32.5 g/dl (32-36); Mean Corpuscular Hemoglobin 30.2 pg (26-34); Mean Corpuscular Volume 93.1 fl (80-100); Mean Platelet Volume 10.6 fl (7.4-10.4); Monocytes Absolute Auto 0.5 K/mm3 (0.1-0.6); Monocytes Percent Auto 6.8 % (2.6-8.5); Neutrophils Absolute Auto 3.8 K/mm3 (1.3-6.7); Platelet Count Result 259 k/mm3 (150-375); Red Blood Count 3.77 M/mm3 (4.2-5.4); Red Cell Distribution Width 15.5 % (11.5-14.5); White Blood Count 6.9 K/mm3 (4.5-10.0)
[2024-04-18 06:06] LABS: Alanine Aminotransferase 16 U/L (6-35); Albumin Level 4.1 g/dL (3.5-5.1); Alkaline Phosphatase 85 U/L (38-126); Anion Gap 7 mmol/L (4-12); Aspartate Amino Transferase 18 U/L (14-36); Blood Urea Nitrogen 14 mg/dL (7-17); Calcium 11.1 mg/dL (8.4-10.2); Carbon Dioxide 31 mmol/L (22-30); Chloride 101 mmol/L (98-107); Estimated CRCL calculation 43 ml/min; Estimated Glomerular Filt Rate > 60; Glucose 208 mg/dL (65-110); Magnesium 1.4 mg/dL (1.6-2.3); Potassium 4.3 mmol/L (3.4-5.0); Sodium 139 mmol/L (137-145)
[2024-04-18 08:29] LABS: Glucose Point of Care 182 mg/dl (65-105)
[2024-04-18] MEDS: lisinopriL 20 MG TABLET PO (08:54)
[2024-04-18] MEDS: ASPIRIN 81 MG ENTERIC TABLET PO (08:54)
[2024-04-18] MEDS: PANTOPRAZOLE 40 MG TABLET PO (08:54)
[2024-04-18] MEDS: FERROUS SULFATE 325 MG TABLET DR 324 MG PO (08:54)
[2024-04-18] MEDS: MAGNESIUM SULF 2 GM/WATER 50ML 2 GM/50 ML BAG IVPB (08:55)
--- NOTE | 2024-04-18 10:06 | P.PNIM_ITS ---
Progress Note: A&P Assessment and Plan (1) Stroke-like symptoms: Code(s): R29.90 - Unspecified symptoms and signs involving the nervous system Status: Acute Assessment and Plan: * Neurology following. * Monitor symptoms and blood pressure. * Passed swallow study. (2) Hypomagnesemia: Code(s): E83.42 - Hypomagnesemia Status: Acute Assessment and Plan: * Magnesium 1.4 today. * Patient given a 2 gram Magnesium run IVPB, repeat magnesium 1.9. * Follow Magnesium. (3) Type 2 diabetes mellitus with diabetic neuropathy, unspecified: Code(s): E11.40 - Type 2 diabetes mellitus with diabetic neuropathy, unspecified Status: Acute Assessment and Plan: * Blood sugars 182-344. * Diabetes protocol * SSI increased to moderate. * Add Lantus 20 units subq at bedtime. (4) Altered mental status: Code(s): R41.82 - Altered mental status, unspecified Status: Acute Assessment and Plan: * Improved. Alert. Sitting up in chair watching TV. * Passed swallow test. (5) Essential (primary) hypertension: Code(s): I10 - Essential (primary) hypertension Status: Acute Assessment and Plan: * Blood pressure 160/84. * Lisinopril 20 mg PO daily. (6) History of CVA (cerebrovascular accident): Code(s): Z86.73 - Personal history of transient ischemic attack (TIA), and cerebral infarction without residual deficits Status: Acute Assessment and Plan: * Monitor symptoms. * Neurology following. Plan Patient and refuse CT with contrast. Report patient previously had syncope with contrast. Subjective Date/time seen: 04/18/24 10:06 Interval history: Patient sitting up in bed. Patient denies chest pain, palpitations, headache, dizziness, nausea, or vomiting. Review of Systems Review of Systems: All systems reviewed & are unremarkable except as noted in HPI and below Exam Const: General: comfortable and no acute distress Eyes: Sclera: sclerae normal Resp: Effort & Inspection: normal respiratory effort Auscultation: clear to auscultation bilaterally Cardio: Rate: regular rate Rhythm: regular rhythm GI: GI Palp: Yes Soft to palpation Auscultation: normal bowel sounds Skin: General skin exam: no rashes or lesions noted Extrem: General: no pedal edema Psych: Affect: normal affect Objective Data Vital Signs Vital Signs: Vital Signs - 24 hr 04/17/24 13:23 04/17/24 14:00 04/17/24 12:00 Temperature 97.6 F Pulse Rate 85 85 Respiratory Rate 16 Blood Pressure 151/68 H Pulse Oximetry 94 Oxygen Delivery Room Air 04/17/24 16:00 04/17/24 20:31 04/17/24 20:54 Temperature 99.0 F Pulse Rate 73 78 Respiratory Rate 18 Blood Pressure 185/84 H Pulse Oximetry 95 Oxygen Delivery Room Air 04/17/24 20:00 04/18/24 00:00 04/18/24 04:00 Temperature Pulse Rate 73 77 69 Respiratory Rate Blood Pressure Pulse Oximetry Oxygen Delivery 04/18/24 06:00 04/18/24 07:36 04/18/24 08:50 Temperature 98.2 F Pulse Rate 72 Respiratory Rate 16 Blood Pressure 160/84 H Pulse Oximetry 94 95 Oxygen Delivery Room Air Room Air Intake/Output Intake/Output: Intake & Output 04/15/24 04/16/24 04/17/24 04/18/24 23:59 23:59 23:59 23:59 Intake Total 1000 1600 720 Output Total 1050 800 Balance 1000 550 -80 Meds/Results Medications: Active Medications Generic Name Dose Route Start Last Admin Trade Name Freq PRN Reason Stop Dose Admin Acetaminophen 650 mg 04/16/24 20:21 04/16/24 21:21 Acetaminophen 325 Mg Tablet PO 650 mg Q4H PRN Administration Mild Pain (1-3) or Fever Aspirin 81 mg 04/16/24 22:35 04/18/24 08:54 Aspirin 81 Mg Enteric Tablet PO 81 mg DAILY ZENOBIA Administration Atorvastatin Calcium 80 mg 04/16/24 22:40 04/17/24 20:11 Atorvastatin 40 Mg Tablet PO 80 mg QHS ZENOBIA Administration Dextrose 12.5 gm 04/16/24 22:32 Dextrose 50% 25 Gm/50 Ml Syringe IV PUSH PRN PRN Hypoglycemia Protocol Ferrous Sulfate 324 mg 04/16/24 22:35 04/18/24 08:54 Ferrous Sulfate [address] PO 05/16/24 22:34 324 mg DAILY ZENOBIA Administration Glucagon 1 mg 04/16/24 22:32 Glucagon For Inj 1 Mg Vial IM PRN PRN Hypoglycemia Protocol Glucose 15 gm 04/16/24 22:32 Glucose Oral Gel 15 Gm Of Glucse In 37.5 Gm Tube PO PRN PRN Hypoglycemia Protocol Dextrose 1,000 mls @ 100 mls/hr 04/16/24 22:32 Dextrose 5% 1,000 Ml IVPB PRN PRN Hypoglycemia Protocol Insulin Aspart 2 - 5 units 04/17/24 08:00 04/18/24 08:33 Insulin Aspart (*Bkc) 100 Units/Ml SUB-Q Not Given TIDWM ZENOBIA Protocol Insulin Aspart 1 - 2 units 04/17/24 21:00 04/17/24 20:26 Insulin Aspart (*Bkc) 100 Units/Ml SUB-Q 1 units HS ZENOBIA Administration Protocol Lisinopril 20 mg 04/17/24 16:20 04/18/24 08:54 Lisinopril 20 Mg Tablet PO 20 mg QAM ZENOBIA Administration Ondansetron HCl 4 mg 04/16/24 20:21 Ondansetron Inj 4 Mg/2 Ml Vial IV PUSH Q4H PRN Nausea Pantoprazole Sodium 40 mg 04/16/24 22:35 04/18/24 08:54 Pantoprazole 40 Mg Tablet PO 40 mg QAM ZENOBIA Administration Radiology Results: ITS Impressions Head CT 04/16/24 17:35 IMPRESSION: No acute intracranial findings. Chest X-Ray 04/16/24 17:39 IMPRESSION: Mild pulmonary vascular congestion with worsening prominence of the right hilum, without focal infiltrate or effusion. Brain MRI 04/17/24 12:47 IMPRESSION: 1. 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 2. Mild nonspecific cerebral white matter disease and pontine disease, which likely represents chronic small vessel ischemic disease. Labs Labs: Laboratory Results - last 24 hr 04/17/24 04/17/24 04/17/24 12:37 14:02 17:06 WBC RBC Hgb Hct MCV MCH MCHC RDW Plt Count MPV Immature Gran % (Auto) Neut % (Auto) Lymph % (Auto) [place] % (Auto) Eos % (Auto) Baso % (Auto) Lymph # (Auto) [place] # (Auto) Eos # (Auto) Baso # (Auto) Abs Immat Gran (auto) Absolute Neuts (auto) Absolute Nucleated RBC Nucleated RBC % Sodium Potassium Chloride Carbon Dioxide Anion Gap BUN Creatinine Estim Creat Clear Calc Estimated GFR Glucose POC Capillary Glucose 246 H 210 H Calcium Magnesium 2.0 Total Bilirubin AST ALT Alkaline Phosphatase Total Protein Albumin 04/17/24 04/18/24 04/18/24 20:11 05:45 08:23 WBC 6.9 RBC 3.77 L Hgb 11.4 L Hct 35.1 L MCV 93.1 MCH 30.2 MCHC 32.5 RDW 15.5 H Plt Count 259 MPV 10.6 H Immature Gran % (Auto) 0.4 Neut % (Auto) 55.0 Lymph % (Auto) 33.7 [place] % (Auto) 6.8 Eos % (Auto) 3.5 Baso % (Auto) 0.6 Lymph # (Auto) 2.34 [place] # (Auto) 0.5 Eos # (Auto) 0.2 Baso # (Auto) 0.0 Abs Immat Gran (auto) 0.03 Absolute Neuts (auto) 3.8 Absolute Nucleated RBC 0.000 Nucleated RBC % 0.0 Sodium 139 Potassium 4.3 Chloride 101 Carbon Dioxide 31 H Anion Gap 7 BUN 14 D Creatinine 0.90 Estim Creat Clear Calc 43 Estimated GFR > 60 Glucose 208 H POC Capillary Glucose 285 H 182 H Calcium 11.1 H Magnesium 1.4 L Total Bilirubin 1.0 AST 18 ALT 16 Alkaline Phosphatase 85 Total Protein 7.0 Albumin 4.1 Quality VTE Prophylaxis VTE prophylaxis: mechanical ordered
[2024-04-18 11:45] LABS: Glucose Point of Care 344 mg/dl (65-105)
[2024-04-18] MEDS: INSULIN ASPART (*BKC) 100 UNITS/ML SUB-Q ×3 (12:13→21:06)
[2024-04-18 13:52] LABS: Glucose Point of Care 304 mg/dl (65-105)
[2024-04-18 14:43] LABS: Magnesium 1.9 mg/dL (1.6-2.3)
[2024-04-18 17:04] LABS: Glucose Point of Care 268 mg/dl (65-105)
[2024-04-18] MEDS: ATORVASTATIN 40 MG TABLET 80 MG PO (20:56)
[2024-04-18 21:05] LABS: Glucose Point of Care 274 mg/dl (65-105)
[2024-04-18] MEDS: INSULIN GLARGINE (*BKC) 100 UNITS/ML 20 UNITS SUB-Q (21:06)
[2024-04-19] VITALS (8 sets, daily range): BP systolic 154–178; BP diastolic 60–86; PULSE 67–91; RESP 18; TEMP 36.1–37.2; O2SAT 94–97
[2024-04-19 05:45] LABS: Basophils Percent Auto 0.5 % (0.2-1.2); Eosinophils Absolute Auto 0.2 K/mm3 (0-0.3); Eosinophils Percent Auto 3.2 % (0-4.4); Hematocrit 34.6 % (37.0-47.0); Hemoglobin 11.3 g/dL (12.0-15.0); Immature Granulocyte Absolute 0.02 K/mm3 (0.00-0.031); Immature Granulocyte Percent A 0.3 % (0-0.5); Lymphocytes Absolute Auto 1.57 K/mm3 (0.9-3.2); Mean Corpuscular HGB Conc 32.7 g/dl (32-36); Mean Corpuscular Hemoglobin 30.3 pg (26-34); Mean Corpuscular Volume 92.8 fl (80-100); Mean Platelet Volume 10.9 fl (7.4-10.4); Monocytes Absolute Auto 0.5 K/mm3 (0.1-0.6); Monocytes Percent Auto 8.1 % (2.6-8.5); Neutrophils Absolute Auto 3.7 K/mm3 (1.3-6.7); Neutrophils Percent Auto 61.9 % (45.5-73.1); Platelet Count Result 263 k/mm3 (150-375); Red Blood Count 3.73 M/mm3 (4.2-5.4); Red Cell Distribution Width 15.5 % (11.5-14.5)
[2024-04-19 05:57] LABS: Alanine Aminotransferase 18 U/L (6-35); Albumin Level 3.8 g/dL (3.5-5.1); Alkaline Phosphatase 91 U/L (38-126); Anion Gap 7 mmol/L (4-12); Aspartate Amino Transferase 20 U/L (14-36); Bilirubin,Total 0.9 mg/dL (0.2-1.3); Blood Urea Nitrogen 16 mg/dL (7-17); Calcium 10.9 mg/dL (8.4-10.2); Carbon Dioxide 29 mmol/L (22-30); Chloride 101 mmol/L (98-107); Estimated CRCL calculation 43 ml/min; Estimated Glomerular Filt Rate > 60; Glucose 294 mg/dL (65-110); Magnesium 1.6 mg/dL (1.6-2.3); Potassium 4.2 mmol/L (3.4-5.0); Sodium 137 mmol/L (137-145)
[2024-04-19 07:32] LABS: Glucose Point of Care 282 mg/dl (65-105)
[2024-04-19] MEDS: MAGNESIUM SULF 2 GM/WATER 50ML 2 GM/50 ML BAG IVPB (08:54)
[2024-04-19] MEDS: lisinopriL 20 MG TABLET PO (08:54)
[2024-04-19] MEDS: FERROUS SULFATE 325 MG TABLET DR 324 MG PO (08:54)
[2024-04-19] MEDS: ASPIRIN 81 MG ENTERIC TABLET PO (08:54)
[2024-04-19] MEDS: PANTOPRAZOLE 40 MG TABLET PO (08:54)
[2024-04-19] MEDS: INSULIN ASPART (*BKC) 100 UNITS/ML SUB-Q ×5 (08:59→21:36)
--- NOTE | 2024-04-19 10:50 | P.PNIM_ITS ---
Progress Note: A&P Assessment and Plan (1) Stroke-like symptoms: Code(s): R29.90 - Unspecified symptoms and signs involving the nervous system Status: Acute Assessment and Plan: * Neurology following. * Monitor symptoms and blood pressure. * Passed swallow study. * Add Carotid Dopplers: results showed IMPRESSION: 1. <50% stenosis in the right internal carotid artery. 2. <50% stenosis in the left internal carotid artery. * Add Lipid panel (2) Hypomagnesemia: Code(s): E83.42 - Hypomagnesemia Status: Acute Assessment and Plan: * Magnesium 1.6 today. * Patient given a 2 gram Magnesium run IVPB. * Follow Magnesium. (3) Type 2 diabetes mellitus with diabetic neuropathy, unspecified: Code(s): E11.40 - Type 2 diabetes mellitus with diabetic neuropathy, unspecified Status: Acute Assessment and Plan: * Blood sugars 258-282. * Diabetes protocol * SSI increased to moderate. * Increase Lantus 30 units subq at bedtime. (4) Altered mental status: Code(s): R41.82 - Altered mental status, unspecified Status: Acute Assessment and Plan: * Improved. Alert. * Passed swallow test. (5) Essential (primary) hypertension: Code(s): I10 - Essential (primary) hypertension Status: Acute Assessment and Plan: * Blood pressure 166/75. * Lisinopril 20 mg PO daily. (6) History of CVA (cerebrovascular accident): Code(s): Z86.73 - Personal history of transient ischemic attack (TIA), and cerebral infarction without residual deficits Status: Acute Assessment and Plan: * Monitor symptoms. * Neurology following. Plan Patient and refuse CT with contrast. Report patient previously had sync ope with contrast. Subjective Date/time seen: 04/19/24 10:50 Interval history: Patient sitting up in bed with at bedside. Patient denies chest pain, palpitations, headache, dizziness, nausea, or vomiting. Review of Systems Review of Systems: All systems reviewed & are unremarkable except as noted in HPI and below Exam Const: General: comfortable and no acute distress Eyes: Sclera: sclerae normal Resp: Effort & Inspection: normal respiratory effort Auscultation: clear to auscultation bilaterally Cardio: Rate: regular rate Rhythm: regular rhythm Other: Telemetry- SR 73. GI: GI Palp: Yes Soft to palpation Auscultation: normal bowel sounds Skin: General skin exam: no rashes or lesions noted Extrem: General: no pedal edema Psych: Affect: normal affect Objective Data Vital Signs Vital Signs: Vital Signs - 24 hr 04/18/24 14:39 04/18/24 21:36 04/18/24 20:00 Temperature 98.2 F 98.1 F Pulse Rate 72 79 77 Respiratory Rate 16 14 Blood Pressure 137/87 185/79 H Pulse Oximetry 90 97 Oxygen Delivery 04/19/24 04:00 04/19/24 06:00 04/19/24 09:05 Temperature 98.4 F Pulse Rate 74 73 Respiratory Rate 18 Blood Pressure 165/75 H Pulse Oximetry 94 Oxygen Delivery Room Air 04/19/24 08:00 Temperature Pulse Rate 67 Respiratory Rate Blood Pressure Pulse Oximetry Oxygen Delivery Intake/Output Intake/Output: Intake & Output 04/16/24 04/17/24 04/18/24 04/19/24 23:59 23:59 23:59 23:59 Intake Total 1000 1600 1300 360 Output Total 1050 1650 250 Balance 1000 550 -350 110 Meds/Results Medications: Active Medications Generic Name Dose Route Start Last Admin Trade Name Freq PRN Reason Stop Dose Admin Acetaminophen 650 mg 04/16/24 20:21 04/16/24 21:21 Acetaminophen 325 Mg Tablet PO 650 mg Q4H PRN Administration Mild Pain (1-3) or Fever Aspirin 81 mg 04/16/24 22:35 04/19/24 08:54 Aspirin 81 Mg Enteric Tablet PO 81 mg DAILY ZENOBIA Administration Atorvastatin Calcium 80 mg 04/16/24 22:40 04/18/24 20:56 Atorvastatin 40 Mg Tablet PO 80 mg QHS ZENOBIA Administration Dextrose 12.5 gm 04/16/24 22:32 Dextrose 50% 25 Gm/50 Ml Syringe IV PUSH PRN PRN Hypoglycemia Protocol Ferrous Sulfate 324 mg 04/16/24 22:35 04/19/24 08:54 Ferrous Sulfate [address] PO 05/16/24 22:34 324 mg DAILY ZENOBIA Administration Glucagon 1 mg 04/16/24 22:32 Glucagon For Inj 1 Mg Vial IM PRN PRN Hypoglycemia Protocol Glucose 15 gm 04/16/24 22:32 Glucose Oral Gel 15 Gm Of Glucse In 37.5 Gm Tube PO PRN PRN Hypoglycemia Protocol Dextrose 1,000 mls @ 100 mls/hr 04/16/24 22:32 Dextrose 5% 1,000 Ml IVPB PRN PRN Hypoglycemia Protocol Insulin Aspart 3 - 6 units 04/18/24 17:00 04/19/24 08:59 Insulin Aspart (*Bkc) 100 Units/Ml SUB-Q 4 units TIDWM ZENOBIA Administration Protocol Insulin Aspart 1 - 3 units 04/18/24 21:00 04/18/24 21:06 Insulin Aspart (*Bkc) 100 Units/Ml SUB-Q 2 units HS ZENOBIA Administration Protocol Insulin Glargine 20 units 04/18/24 21:00 04/18/24 21:06 Insulin Glargine (*Bkc) 100 Units/Ml SUB-Q 20 units HS ZENOBIA Administration Lisinopril 20 mg 04/17/24 16:20 04/19/24 08:54 Lisinopril 20 Mg Tablet PO 20 mg QAM ZENOBIA Administration Ondansetron HCl 4 mg 04/16/24 20:21 Ondansetron Inj 4 Mg/2 Ml Vial IV PUSH Q4H PRN Nausea Pantoprazole Sodium 40 mg 04/16/24 22:35 04/19/24 08:54 Pantoprazole 40 Mg Tablet PO 40 mg QAM ZENOBIA Administration Radiology Results: ITS Impressions Head CT 04/16/24 17:35 IMPRESSION: No acute intracranial findings. Chest X-Ray 04/16/24 17:39 IMPRESSION: Mild pulmonary vascular congestion with worsening prominence of the right hilum, without focal infiltrate or effusion. Brain MRI 04/17/24 12:47 IMPRESSION: 1. 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 2. Mild nonspecific cerebral white matter disease and pontine disease, which likely represents chronic small vessel ischemic disease. Labs Labs: Laboratory Results - last 24 hr 04/18/24 04/18/24 04/18/24 11:39 13:48 14:26 WBC RBC Hgb Hct MCV MCH MCHC RDW Plt Count MPV Immature Gran % (Auto) Neut % (Auto) Lymph % (Auto) [place] % (Auto) Eos % (Auto) Baso % (Auto) Lymph # (Auto) [place] # (Auto) Eos # (Auto) Baso # (Auto) Abs Immat Gran (auto) Absolute Neuts (auto) Absolute Nucleated RBC Nucleated RBC % Sodium Potassium Chloride Carbon Dioxide Anion Gap BUN Creatinine Estim Creat Clear Calc Estimated GFR Glucose POC Capillary Glucose 344 H 304 H Calcium Magnesium 1.9 Total Bilirubin AST ALT Alkaline Phosphatase Total Protein Albumin 04/18/24 04/18/24 04/19/24 16:43 21:02 05:26 WBC 6.0 RBC 3.73 L Hgb 11.3 L Hct 34.6 L MCV 92.8 MCH 30.3 MCHC 32.7 RDW 15.5 H Plt Count 263 MPV 10.9 H Immature Gran % (Auto) 0.3 Neut % (Auto) 61.9 Lymph % (Auto) 26.0 [place] % (Auto) 8.1 Eos % (Auto) 3.2 Baso % (Auto) 0.5 Lymph # (Auto) 1.57 [place] # (Auto) 0.5 Eos # (Auto) 0.2 Baso # (Auto) 0.0 Abs Immat Gran (auto) 0.02 Absolute Neuts (auto) 3.7 Absolute Nucleated RBC 0.000 Nucleated RBC % 0.0 Sodium 137 Potassium 4.2 Chloride 101 Carbon Dioxide 29 Anion Gap 7 BUN 16 Creatinine 0.90 Estim Creat Clear Calc 43 Estimated GFR > 60 Glucose 294 H POC Capillary Glucose 268 H 274 H Calcium 10.9 H Magnesium 1.6 Total Bilirubin 0.9 AST 20 ALT 18 Alkaline Phosphatase 91 Total Protein 7.0 Albumin 3.8 04/19/24 07:27 WBC RBC Hgb Hct MCV MCH MCHC RDW Plt Count MPV Immature Gran % (Auto) Neut % (Auto) Lymph % (Auto) [place] % (Auto) Eos % (Auto) Baso % (Auto) Lymph # (Auto) [place] # (Auto) Eos # (Auto) Baso # (Auto) Abs Immat Gran (auto) Absolute Neuts (auto) Absolute Nucleated RBC Nucleated RBC % Sodium Potassium Chloride Carbon Dioxide Anion Gap BUN Creatinine Estim Creat Clear Calc Estimated GFR Glucose POC Capillary Glucose 282 H Calcium Magnesium Total Bilirubin AST ALT Alkaline Phosphatase Total Protein Albumin Quality VTE Prophylaxis VTE prophylaxis: mechanical ordered
--- NOTE | 2024-04-19 11:29 | P.PNNEUR_ITS ---
Progress Note: A&P Assessment and Plan (1) TIA (transient ischemic attack): Code(s): G45.9 - Transient cerebral ischemic attack, unspecified Status: Acute (2) History of CVA (cerebrovascular accident): Code(s): Z86.73 - Personal history of transient ischemic attack (TIA), and cerebral infarction without residual deficits Status: Acute (3) Type 2 diabetes mellitus with diabetic neuropathy, unspecified: Code(s): E11.40 - Type 2 diabetes mellitus with diabetic neuropathy, unspecified Status: Acute Plan Patient has had several episodes of weakness in the right side as well as speech disturbance suggestive of left hemispheric event. I would suggest at least a carotid Doppler study and recheck her lipid profile increase atorvastatin to 80 mg a day. Subjective Date/time seen: 04/19/24 11:29 Interval history: The patient is 79-year-old presented with the slurring of speech and right-sided weakness. This is a 30 spell in the last 2 years according to . The spell lasted for about a on hour or so. The patient has history of diabetes mellitus for around 10 years or so. She is already on aspirin Plavix and Lipi tor. There is also history of obstructive sleep apnea syndrome but she is not on CPAP. MRI of the brain shows old infarct in the left caudate nucleus area. After the last stroke she was left with some difficulty with walking and has some residual weakness in the right lower limb and some slurring of the speech. She is also hard of hearing. Review of Systems Review of Systems: All systems reviewed & are unremarkable except as noted in HPI and below Exam Narrative: Fully conscious alert oriented to self time place and person. She appears to have some difficulty with comprehension due to hearing problem otherwise she does seem to follow commands. Examination head and neck were unremarkable. Cranial nerves annual testing did not show any facial weakness visual [place]anez by confrontation are normal. Facial sensation is normal. Motor system normal power and both upper and lower limbs. Rapid alternating movement of the upper and lower limbs also did not show any significant asymmetry. She appears to have since he had normal strength in both upper and lower limbs. Objective Data Vital Signs Vital Signs: Vital Signs - 24 hr 04/18/24 14:39 04/18/24 21:36 04/18/24 20:00 Temperature 98.2 F 98.1 F Pulse Rate 72 79 77 Respiratory Rate 16 14 Blood Pressure 137/87 185/79 H Pulse Oximetry 90 97 Oxygen Delivery 04/19/24 04:00 04/19/24 06:00 04/19/24 09:05 Temperature 98.4 F Pulse Rate 74 73 Respiratory Rate 18 Blood Pressure 165/75 H Pulse Oximetry 94 Oxygen Delivery Room Air 04/19/24 08:00 Temperature Pulse Rate 67 Respiratory Rate Blood Pressure Pulse Oximetry Oxygen Delivery Intake/Output Intake/Output: Intake & Output 04/16/24 04/17/24 04/18/24 04/19/24 23:59 23:59 23:59 23:59 Intake Total 1000 1600 1300 360 Output Total 1050 1650 250 Balance 1000 550 -350 110 Meds/Results Medications: Active Medications Generic Name Dose Route Start Last Admin Trade Name Freq PRN Reason Stop Dose Admin Acetaminophen 650 mg 04/16/24 20:21 04/16/24 21:21 Acetaminophen 325 Mg Tablet PO 650 mg Q4H PRN Administration Mild Pain (1-3) or Fever Aspirin 81 mg 04/16/24 22:35 04/19/24 08:54 Aspirin 81 Mg Enteric Tablet PO 81 mg DAILY ZENOBIA Administration Atorvastatin Calcium 80 mg 04/16/24 22:40 04/18/24 20:56 Atorvastatin 40 Mg Tablet PO 80 mg QHS ZENOBIA Administration Dextrose 12.5 gm 04/16/24 22:32 Dextrose 50% 25 Gm/50 Ml Syringe IV PUSH PRN PRN Hypoglycemia Protocol Ferrous Sulfate 324 mg 04/16/24 22:35 04/19/24 08:54 Ferrous Sulfate [address] PO 05/16/24 22:34 324 mg DAILY ZENOBIA Administration Glucagon 1 mg 04/16/24 22:32 Glucagon For Inj 1 Mg Vial IM PRN PRN Hypoglycemia Protocol Glucose 15 gm 04/16/24 22:32 Glucose Oral Gel 15 Gm Of Glucse In 37.5 Gm Tube PO PRN PRN Hypoglycemia Protocol Dextrose 1,000 mls @ 100 mls/hr 04/16/24 22:32 Dextrose 5% 1,000 Ml IVPB PRN PRN Hypoglycemia Protocol Insulin Aspart 3 - 6 units 04/18/24 17:00 04/19/24 08:59 Insulin Aspart (*Bkc) 100 Units/Ml SUB-Q 4 units TIDWM ZENOBIA Administration Protocol Insulin Aspart 1 - 3 units 04/18/24 21:00 04/18/24 21:06 Insulin Aspart (*Bkc) 100 Units/Ml SUB-Q 2 units HS ZENOBIA Administration Protocol Insulin Glargine 20 units 04/18/24 21:00 04/18/24 21:06 Insulin Glargine (*Bkc) 100 Units/Ml SUB-Q 20 units HS ZENOBIA Administration Lisinopril 20 mg 04/17/24 16:20 04/19/24 08:54 Lisinopril 20 Mg Tablet PO 20 mg QAM ZENOBIA Administration Ondansetron HCl 4 mg 04/16/24 20:21 Ondansetron Inj 4 Mg/2 Ml Vial IV PUSH Q4H PRN Nausea Pantoprazole Sodium 40 mg 04/16/24 22:35 04/19/24 08:54 Pantoprazole 40 Mg Tablet PO 40 mg QAM ZENOBIA Administration Radiology Results: ITS Impressions Head CT 04/16/24 17:35 IMPRESSION: No acute intracranial findings. Chest X-Ray 04/16/24 17:39 IMPRESSION: Mild pulmonary vascular congestion with worsening prominence of the right hilum, without focal infiltrate or effusion. Brain MRI 04/17/24 12:47 IMPRESSION: 1. 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 2. Mild nonspecific cerebral white matter disease and pontine disease, which likely represents chronic small vessel ischemic disease. Labs Labs: Laboratory Results - last 24 hr 04/18/24 04/18/24 04/18/24 11:39 13:48 14:26 WBC RBC Hgb Hct MCV MCH MCHC RDW Plt Count MPV Immature Gran % (Auto) Neut % (Auto) Lymph % (Auto) [place] % (Auto) Eos % (Auto) Baso % (Auto) Lymph # (Auto) [place] # (Auto) Eos # (Auto) Baso # (Auto) Abs Immat Gran (auto) Absolute Neuts (auto) Absolute Nucleated RBC Nucleated RBC % Sodium Potassium Chloride Carbon Dioxide Anion Gap BUN Creatinine Estim Creat Clear Calc Estimated GFR Glucose POC Capillary Glucose 344 H 304 H Calcium Magnesium 1.9 Total Bilirubin AST ALT Alkaline Phosphatase Total Protein Albumin 04/18/24 04/18/24 04/19/24 16:43 21:02 05:26 WBC 6.0 RBC 3.73 L Hgb 11.3 L Hct 34.6 L MCV 92.8 MCH 30.3 MCHC 32.7 RDW 15.5 H Plt Count 263 MPV 10.9 H Immature Gran % (Auto) 0.3 Neut % (Auto) 61.9 Lymph % (Auto) 26.0 [place] % (Auto) 8.1 Eos % (Auto) 3.2 Baso % (Auto) 0.5 Lymph # (Auto) 1.57 [place] # (Auto) 0.5 Eos # (Auto) 0.2 Baso # (Auto) 0.0 Abs Immat Gran (auto) 0.02 Absolute Neuts (auto) 3.7 Absolute Nucleated RBC 0.000 Nucleated RBC % 0.0 Sodium 137 Potassium 4.2 Chloride 101 Carbon Dioxide 29 Anion Gap 7 BUN 16 Creatinine 0.90 Estim Creat Clear Calc 43 Estimated GFR > 60 Glucose 294 H POC Capillary Glucose 268 H 274 H Calcium 10.9 H Magnesium 1.6 Total Bilirubin 0.9 AST 20 ALT 18 Alkaline Phosphatase 91 Total Protein 7.0 Albumin 3.8 04/19/24 07:27 WBC RBC Hgb Hct MCV MCH MCHC RDW Plt Count MPV Immature Gran % (Auto) Neut % (Auto) Lymph % (Auto) [place] % (Auto) Eos % (Auto) Baso % (Auto) Lymph # (Auto) [place] # (Auto) Eos # (Auto) Baso # (Auto) Abs Immat Gran (auto) Absolute Neuts (auto) Absolute Nucleated RBC Nucleated RBC % Sodium Potassium Chloride Carbon Dioxide Anion Gap BUN Creatinine Estim Creat Clear Calc Estimated GFR Glucose POC Capillary Glucose 282 H Calcium Magnesium Total Bilirubin AST ALT Alkaline Phosphatase Total Protein Albumin
[2024-04-19 11:34] LABS: Cholesterol 98 mg/dL (0-200); HDL Direct 30 mg/dL; Triglycerides 103 mg/dL (<150)
[2024-04-19 11:45] LABS: LDL Cholesterol Direct 45 mg/dL
[2024-04-19 11:46] LABS: Glucose Point of Care 258 mg/dl (65-105)
--- NOTE | 2024-04-19 13:53 | PCOTNOTE ---
Attempted to see Patient at this time. Patient being taken down for for testing (ultrasound). Patient unable to be seen.
[2024-04-19 17:02] LABS: Glucose Point of Care 313 mg/dl (65-105)
[2024-04-19 21:34] LABS: Glucose Point of Care 372 mg/dl (65-105)
[2024-04-19] MEDS: ATORVASTATIN 40 MG TABLET 80 MG PO (21:36)
[2024-04-19] MEDS: INSULIN GLARGINE (*BKC) 100 UNITS/ML 30 UNITS SUB-Q (21:36)
[2024-04-20] VITALS: PULSE 76
[2024-04-20 04:00] VITALS: PULSE 71
[2024-04-20 04:51] VITALS: BP 168/84; PULSE 77; RESP 18; TEMP 36.6; O2SAT 97
[2024-04-20 06:31] LABS: Basophils Percent Auto 0.4 % (0.2-1.2); Eosinophils Absolute Auto 0.2 K/mm3 (0-0.3); Eosinophils Percent Auto 2.5 % (0-4.4); Hemoglobin 11.1 g/dL (12.0-15.0); Immature Granulocyte Absolute 0.03 K/mm3 (0.00-0.031); Immature Granulocyte Percent A 0.4 % (0-0.5); Lymphocytes Absolute Auto 1.62 K/mm3 (0.9-3.2); Lymphocytes Percent Auto 22.8 % (18.3-44.2); Mean Corpuscular HGB Conc 32.6 g/dl (32-36); Mean Corpuscular Hemoglobin 30.7 pg (26-34); Mean Corpuscular Volume 94.2 fl (80-100); Mean Platelet Volume 10.6 fl (7.4-10.4); Monocytes Absolute Auto 0.6 K/mm3 (0.1-0.6); Monocytes Percent Auto 8.9 % (2.6-8.5); Neutrophils Absolute Auto 4.6 K/mm3 (1.3-6.7); Platelet Count Result 244 k/mm3 (150-375); Red Blood Count 3.61 M/mm3 (4.2-5.4); Red Cell Distribution Width 15.3 % (11.5-14.5); White Blood Count 7.1 K/mm3 (4.5-10.0)
[2024-04-20 06:46] LABS: Alanine Aminotransferase 21 U/L (6-35); Albumin Level 3.8 g/dL (3.5-5.1); Alkaline Phosphatase 90 U/L (38-126); Anion Gap 6 mmol/L (4-12); Aspartate Amino Transferase 23 U/L (14-36); Bilirubin,Total 0.8 mg/dL (0.2-1.3); Blood Urea Nitrogen 18 mg/dL (7-17); Carbon Dioxide 33 mmol/L (22-30); Chloride 100 mmol/L (98-107); Estimated CRCL calculation 39 ml/min; Estimated Glomerular Filt Rate 54; Glucose 249 mg/dL (65-110); Magnesium 1.6 mg/dL (1.6-2.3); Sodium 139 mmol/L (137-145)
[2024-04-20 07:30] LABS: Glucose Point of Care 242 mg/dl (65-105)
[2024-04-20 08:00] VITALS: PULSE 80
[2024-04-20] MEDS: lisinopriL 20 MG TABLET PO ×2 (09:20→12:49)
[2024-04-20] MEDS: MAGNESIUM OXIDE 400 MG TABLET PO (09:20)
[2024-04-20] MEDS: ASPIRIN 81 MG ENTERIC TABLET PO (09:20)
[2024-04-20] MEDS: PANTOPRAZOLE 40 MG TABLET PO (09:20)
[2024-04-20] MEDS: FERROUS SULFATE 325 MG TABLET DR 324 MG PO (09:21)
[2024-04-20] MEDS: INSULIN ASPART (*BKC) 100 UNITS/ML SUB-Q ×2 (09:22→12:47)
[2024-04-20] MEDS: MAGNESIUM SULF 2 GM/WATER 50ML 2 GM/50 ML BAG IVPB (09:23)
--- NOTE | 2024-04-20 09:53 | PM.DS ---
DS: Admitting Diagnosis Discharge Date 04/20/2024 Admitting Diagnosis Right sided weakness DS: Discharge Diagnosis Discharge Diagnosis (1) TIA (transient ischemic attack): Code(s): G45.9 - Transient cerebral ischemic attack, unspecified Status: Acute (2) Hypomagnesemia: Code(s): E83.42 - Hypomagnesemia Status: Acute (3) Type 2 diabetes mellitus with diabetic neuropathy, unspecified: Code(s): E11.40 - Type 2 diabetes mellitus with diabetic neuropathy, unspecified Status: Acute (4) Essential (primary) hypertension: Code(s): I10 - Essential (primary) hypertension Status: Acute DS: Summary Hospital Course Hospital Course: Patient in ER on 04/16/2024 with complaint that the patient had stroke-like symptoms around 3:30 a.m. After her last strokes many years ago she has had gait difficulties but no other residual deficits. When the patient woke up she was confused and appeared to not be able to speak. Her right arm and right leg were weak. The patient had been well up until waking up. She has been compliant with aspirin and statin.A few hours into the ER visit her symptoms had resolved completely. Blood pressure 219/88, temperature 97.4?, heart rate 92, respiratory rate 14, 90% O2 saturation on room air. WBC 7.2, hemoglobin 13.1, serum creatinine 0.8, glucose 183, calcium 10.5, troponin within normal limit, urinalysis not indicative infectious etiology. Chest x-ray with mild pulmonary vascular congestion. CT head without contrast does not demonstrate acute intracranial findings.Patient was given Ativan, hydralazine 10 mg IV x1, 1 L normal saline bolus. Patient improved, right sided weakness improved. Neurology consulted. Carotid dopplers completed and <50% in both the right and left. PT/OT worked with patient. Patient did have a low magnesium of 1.0 and received Magnesium replacement, patient given oral Magnesium to take daily and do a follow up Magnesium in one week post discharge. Patient and requested that patient be discharged to home. Status at Discharge Functional status at discharge: uses cane/walker Overall status at discharge: patient is progressing back to baseline Time Spent with Patient Time attestation: Total time spent providing and/or coordinating discharge services: Time spent: Greater than 30 minutes Exam Const: General: comfortable and no acute distress Eyes: Sclera: sclerae normal Resp: Effort & Inspection: normal respiratory effort Auscultation: clear to auscultation bilaterally Cardio: Rate: regular rate Rhythm: regular rhythm GI: GI Palp: Yes Soft to palpation Auscultation: normal bowel sounds Extrem: General: no pedal edema Psych: Affect: normal affect DS: Data Data Completed and Pending Labs on day of discharge: Labs from last 24 hours 04/20/24 04/20/24 04/19/24 07:21 06:20 20:32 WBC 7.1 RBC 3.61 L Hgb 11.1 L Hct 34.0 L MCV 94.2 MCH 30.7 MCHC 32.6 RDW 15.3 H Plt Count 244 MPV 10.6 H Immature Gran % (Auto) 0.4 Neut % (Auto) 65.0 Lymph % (Auto) 22.8 [place] % (Auto) 8.9 H Eos % (Auto) 2.5 Baso % (Auto) 0.4 Lymph # (Auto) 1.62 [place] # (Auto) 0.6 Eos # (Auto) 0.2 Baso # (Auto) 0.0 Abs Immat Gran (auto) 0.03 Absolute Neuts (auto) 4.6 Absolute Nucleated RBC 0.000 Nucleated RBC % 0.0 Sodium 139 Potassium 5.0 Chloride 100 Carbon Dioxide 33 H Anion Gap 6 BUN 18 H Creatinine 1.00 Estim Creat Clear Calc 39 Estimated GFR 54 L Glucose 249 H POC Capillary Glucose 242 H 372 H Calcium 11.0 H Magnesium 1.6 Total Bilirubin 0.8 AST 23 ALT 21 Alkaline Phosphatase 90 Total Protein 7.0 Albumin 3.8 Triglycerides Cholesterol LDL Cholesterol Direct HDL Direct 04/19/24 04/19/24 04/19/24 16:58 11:44 05:26 WBC RBC Hgb Hct MCV MCH MCHC RDW Plt Count MPV Immature Gran % (Auto) Neut % (Auto) Lymph % (Auto) [place] % (Auto) Eos % (Auto) Baso % (Auto) Lymph # (Auto) [place] # (Auto) Eos # (Auto) Baso # (Auto) Abs Immat Gran (auto) Absolute Neuts (auto) Absolute Nucleated RBC Nucleated RBC % Sodium Potassium Chloride Carbon Dioxide Anion Gap BUN Creatinine Estim Creat Clear Calc Estimated GFR Glucose POC Capillary Glucose 313 H 258 H Calcium Magnesium Total Bilirubin AST ALT Alkaline Phosphatase Total Protein Albumin Triglycerides 103 Cholesterol 98 LDL Cholesterol Direct 45 HDL Direct 30 Discharge Plan Discharge Attending physician on discharge: Timothy Cohn Consulting providers: Valentin Amaya Discharging Clinician: Brielle Reynolds Anticipated Discharge Date/Time: 04/20/24 12:30 Patient Disposition: Home, Self-Care Activity: may shower Diet: heart healthy and diabetic Discharge Instructions: Have Magnesium level checked in 1 week. Discuss with primary Mounjaro and if you should restart. Patient Instructions: Antibiotic Form, Apixaban (By mouth), Transient Ischemic Attack (DC), Hypomagnesemia (DC) Stand Alone Forms: General Discharge Information Follow-up/Referrals: Cami Ng DO [Primary Care Provider] - 1 Week Discharge Medications: New magnesium oxide 400 mg (241.3 mg magnesium) Tablet 400 mg PO DAILY Qty: 30 0RF atorvastatin 80 mg tablet 80 mg PO HS Qty: 30 0RF lisinopril 40 mg tablet 40 mg PO DAILY Qty: 30 0RF Continued aspirin 81 mg tablet,delayed release (DR/EC) 81 mg PO DAILY (DME) FreeStyle Arvin 14 Day [place] Misc See Rx Instructions .ROUTE .MEDSUPPLY Qty: 1 Rx Instructions: As directed glucosamine HCl 1,500 mg tablet 1,500 mg PO BID Rx Instructions: administer with a meal biotin 1 mg Tablet 1 mg PO ONCE Rx Instructions: once daily in the morning insulin detemir U-100 100 unit/mL (3 mL) insulin pen See Rx Instructions .ROUTE .COMPLEX Qty: 45 5RF Dose Instruction: INJECT 50 UNITS SUBCUTANEOUSLY ONCE DAILY AT BEDTIME Rx Instructions: INJECT 40 UNITS SUBCUTANEOUSLY ONCE DAILY AT BEDTIME (DME) pen needle, diabetic 32 gauge x 5/32 needle See Rx Instructions .ROUTE .MEDSUPPLY Qty: 100 11RF Rx Instructions: 5x/day (DME) FreeStyle Arvin 14 Day Sensor Kit See Rx Instructions .ROUTE .MEDSUPPLY Qty: 6 8RF Rx Instructions: As directed ferrous sulfate 324 mg (65 mg iron) tablet,delayed release (DR/EC) 324 mg PO DAILY Qty: 90 1RF pantoprazole 40 mg tablet,delayed release (DR/EC) 40 mg PO QAM Qty: 90 1RF clopidogrel 75 mg tablet 75 mg PO DAILY Qty: 90 1RF insulin aspart U-100 [Novolog FlexPen U-100 Insulin] 100 unit/mL (3 mL) insulin pen 18 unit subcut TID Qty: 15 5RF metformin 1,000 mg tablet See Rx Instructions .ROUTE .COMPLEX Qty: 180 1RF Dose Instruction: Take 1 tablet by mouth twice daily Rx Instructions: Take 1 tablet by mouth twice daily Discontinued Mounjaro 2.5 mg/0.5 mL pen injector SUBCUT Rx Instructions: given once weekly on wednesdays lisinopril 20 mg tablet 20 mg PO DAILY atorvastatin 40 mg tablet See Rx Instructions .ROUTE .COMPLEX Qty: 90 1RF Dose Instruction: Take 1 tablet by mouth once daily Rx Instructions: Take 1 tablet by mouth once daily Other Ambulatory Orders: OT Outpatient Eval and Treat (ONCE) Timeframe: 20240421 Location: Determined by Patient Ordered By: Brielle Reynolds PT Outpatient Eval and Treat (ONCE) Timeframe: 20240421 Location: Determined by Patient Ordered By: Brielle Reynolds Magnesium (Routine) Timeframe: 1 Week Location: Determined by Patient Ordered By: Brielle Reynolds Date of admission: 04/16/24 20:21 Primary Care Provider: Cami Ng Admitting Provider: Marie Alexis Attending physician on admission: Marie Alexis Condition: Stable Hospitalist MIPS Heart Failure (Exclusion) Patient has history of Heart Transplant or Left Ventricular Assistive Device?: No IF YES, STOP HERE Heart Failure (Qualifier) Patient has current or prior documentation of LVEF less than or equal to 40%, or mod/servere depressed LVSF?: No IF NO, STOP HERE
[2024-04-20 12:00] VITALS: PULSE 72
[2024-04-20 12:28] LABS: Glucose Point of Care 397 mg/dl (65-105)
== END 2024-04-20 14:36 | disposition home or self-care (01) ==
LOC: ANHED 21:13 → ANH3MED 21:25
PROVIDERS: Admitting Provider General Practice; Emergency Provider Emergency Medicine; PCP Family Medicine; Visit Provider Nurse Practitioner Family
DX: G45.9 Transient cerebral ischemic attack, unspecified (principal); E83.42 Hypomagnesemia; E83.52 Hypercalcemia; E11.40 Type 2 diabetes mellitus with diabetic neuropathy, unspecified; I10 Essential (primary) hypertension; E78.2 Mixed hyperlipidemia; G47.33 Obstructive sleep apnea (adult) (pediatric); D64.9 Anemia, unspecified; K21.9 Gastro-esophageal reflux disease without esophagitis; R29.703 NIHSS score 3; Z23 Encounter for immunization; Z79.4 Long term (current) use of insulin; Z79.85 Long-term (current) use of injectable non-insulin antidiabetic drugs; Z79.02 Long term (current) use of antithrombotics/antiplatelets; Z79.84 Long term (current) use of oral hypoglycemic drugs; Z79.82 Long term (current) use of aspirin; Z86.73 Personal history of transient ischemic attack (TIA), and cerebral infarction without residual deficits; Z96.653 Presence of artificial knee joint, bilateral; Z66 Do not resuscitate
CPT/HCPCS: 36415; 70450; 70551; 71045; 80048; 80053; 80061; 81001; 82948; 83036; 83735; 84484; 85025; 85027; 85610; 85730; 92610; 93005; 93880; 96361; 96365; 96366; 96374; 96375; 96376; 97110; 97116; 97161; 97165; 99285; A9270; G0378; J0360; J1815; J2060; J3475; J7030

== ENCOUNTER 2024-07-26 16:54 | Inpatient (IN) | payer MEDICARE, BC, SELFPAY ==
--- NOTE | ~2024-07-26 | XR_ITS ---
EXAMINATION: XR chest 1V portable Exam Date/Time: 07/26/2024 23:04 ANIMAL ECOLOGIST HISTORY: Cough Comparison: 04/16/2024, 08/12/2018, 12/27/2017, 03/17/2007. RESULT: Lines, tubes, and devices: None. Lungs and pleura: No focal consolidation, pleural effusion, or pneumothorax. Senescent/emphysematous change. Cardiomediastinal silhouette: Lobular appearance of the right hilum, stable since at least 2017 given interval differences in technique, may represent chronic adjacent lymphadenopathy or prominence of a vascular structure. Other: No acute osseous or upper abdominal finding. IMPRESSION: No acute cardiopulmonary process. Reviewed, dictated and finalized at location K. AL ECOLOGIST
--- NOTE | ~2024-07-26 | CT_ITS ---
CT head without contrast Indication: Dysarthria, altered mental status COMPARISON: 04/16/2024 Technique: Serial scans were obtained through the brain without the administration of contrast. Dose reduction technique was used on this scan by utilizing automated exposure control and iterative recon struction technique. The dose-length product (DLP) was 1059.33 mGy-cm. Findings: There is no evidence of intracranial hemorrhage, mass lesion, or acute infarct. The ventri cles and subarachnoid spaces are dilated, consistent with mild atrophy. Low attenuation regions are seen within the periventricular white matter bilaterally, likely representing changes from chronic mi crovascular ischemic disease. There is no evidence of edema, mass effect or midline shift. The visu alized paranasal sinuses and mastoid air cells are clear. Impression: No intracranial hemorrhage, mass, or acute infarct. Atrophy and chronic white matter changes, as above. Reviewed, dictated and finalized at [facility]. IT COLLECTIONS SPECIALIST Impression: No intracranial hemorrhage, mass, or acute infarct. Atrophy and chronic white matter changes, as above.
--- NOTE | ~2024-07-26 | XR_ITS ---
EXAMINATION: XR chest 1V portable DATE: 07/31/2024 06:57 INDICATION: Shortness of breath. TECHNIQUE: A single frontal view of the chest was obtained. COMPARISON: Chest view 07/26/2024 FINDINGS: There is no pneumonia, pleural effusion, or pneumothorax. The heart size is normal. IMPRESSION: 1. No acute cardiopulmonary disease. Reviewed, dictated and finalized at location [facility]. [facility]
--- OUTSIDE RECORDS SUMMARY | 2024-07-26 16:57 | XMS_ITS | Clinical Summary ---
Author Organization [facility] [place] [address] Address [address] [place] [address] Care Team Providers Care Physical Medicine Physician Name Role Phone Cami Ng DO Primary Care Provider [phone] Allergies Active Allergy Reactions Criticality Noted Date Comments Adhesive Tape-Silicones Unknown 11/05/2018 Dye Unknown 11/05/2018 Tetracycline Unknown 11/05/2018 Medications atorvastatin (LIPITOR) 40 mg tablet 1 tablet daily 3 09/10/2018 Active NOVOLOG FLEXPEN U-100 INSULIN 100 unit/mL (3 mL) insulin pen 3 10/22/2018 Act farooq multivitamin-Ca- iron-minerals tablet Take by mouth Active pantoprazole DR (PROTONIX) 40 mg EC tablet Take 40 mg by mouth daily Active aspirin 81 mg enteric coated tablet Take 81 mg by mouth daily Active metFORMIN (GLUCOPHAGE) 1,000 mg tablet Take 1,000 mg by mouth 2 (two) times a day with meals Active quinapril-hydroc hlorothiazide (ACCURETIC) 10-12.5 mg per tablet Take 1 tablet by mouth daily Active docusate sodium (COLACE) 50 mg capsuleIndicatio ns:constipation Take by mouth 2 (two) times a day Active Active Problems Problem Noted Date Diagnosed Date 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/05/2018 Social History Tobacco Use Types Packs/Day Years Used Date Smoking Tobacco: Never Smokeless Tobacco: Never Alcohol Use Standard Drinks/Week Comments Never 0 (1 standard drink = 0.6 oz pur e alcohol) AUDIT-C Answer Date Recorded Frequency of Alcohol Consumption Never 11/05/2018 Average Number of Drinks Not on file 019 Frequency of Binge Drinking Not on file 10/21 Personal Safety Answer Date Recorded Getting School Help Needed Not on file 09/05 Comments Unknown Sex and Gender Information Value Date Recorded Sex Assigned at Not on file Legal 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 Gender Identity Not on file Sexual Orientation Not on file Obstetrics History Last Filed Vital Signs Vital Sign Reading Time Taken Comments Blood Pressure 138/64 11/05/2018 4:30 PM CDT Pulse 98 11/05/2018 4:30 PM CDT Temperature - - Respiratory Rate - - Oxygen Saturation 95% 11/05/2018 4:30 PM CDT Inhaled Oxygen Concentration - - Weight 80.7 kg (178 lb) 11/05/2018 4:30 PM CDT Height 157.5 cm (5' 2 ) 11/05/2018 4:30 PM CDT Body Mass Index 32.56 11/05/2018 4:30 PM CDT Plan of Treatment Not on file Insurance MEDICARE [facility] Care Teams Physical Medicine Physician Relationship Specialty Start Date End Date Cami Ng DO PCP - General Family Medicine 05/26/20
--- OUTSIDE RECORDS SUMMARY | 2024-07-26 16:57 | XMS_ITS | Clinical Summary ---
Author Organization [facility] Address [address] [place] [address] Care Team Providers Care Supervisor [employer] Name Role Phone Cami Ng DO Primary Care Provider [phone] Source Comments [facility],non-owned Affiliates and Associated Physician Practices is amultiple site organization consisting of ambulatory clinics and hospital sitesin [place], [place], [place] and [place]. This disclosure is being madepursuant to the Care Everywhere program and may not contain all information available regarding this patient. Last updated 18.[facility] [email or web address] Social History Tobacco Use Types Packs/Day Years Used Date Smoking Tobacco: Never Assessed Sex and Gender Information Value Date Recorded Sex Assigned at Not on file Gender Identity Not on file Sexual Orientation Not on file Plan of Treatment Health Maintenance Due Date Last Done Comments BONE DENSITY TESTING 1945 HEPATITIS C SCREENING 03/09/1965 DTAP/TDAP/TD VACCINES (1 - Tdap) 1966 PNEUMOCOCCAL VACCINE 50+ (1 of 1 - PCV) 1997 ZOSTER VACCINE (1 of 2) 1997 Respiratory Syncytial Virus (RSV) Vaccine Pt: or over 60 yrs (1 - 1-dose 75+ series) 2022 COVID-19 VACCINE ( - 2023-2 5 season) 2024 INFLUENZA VACCINE (#1) 2024 DEPRESSION SCREENING 06/23/2024 HEPATITIS B VACCINE Aged Out No longe r eligible based on patient's age to complete this topic HIB VACCINE Aged Out No longer eligi ble based on patient's age to complete this topic HPV VACCINE Aged Out No longer eligi ble based on patient's age to complete this topic MENINGOCOCCAL (Group B) VACCINE Aged Out No longer eligible based on patient's age to complete this topic MENINGOCOCCAL VACCINE Aged Out No mirza maria de jesus eligible based on patient's age to complete this topic Care Teams Supervisor [employer] Relationship Specialty Start Date End Date Cami Ng DO [address] [place] [address] PCP - General Family Medicine 06/19/20
--- OUTSIDE RECORDS SUMMARY | 2024-07-26 16:57 | XMS_ITS | Referral Summary ---
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
--- OUTSIDE RECORDS SUMMARY | 2024-07-26 16:57 | XMS_ITS | Patient Health Summary ---
Author Organization [facility] Address [address] [place] [address] Care Team Providers Care Practice Or Student Teacher Name Role Phone Cami Ng DO Primary Care Provider [phone] Note from [facility],non-owned Affiliates and Associated Physician Practices is amultiple site organization consisting of ambulatory clinics and hospital sitesin [place], [place], [place] and [place]. This disclosure is being madepursuant to the Care Everywhere program and may not contain all information available regarding this patient. Last updated 18.[facility] Social History Tobacco Use Types Packs/Day Years Used Date Smoking Tobacco: Never Assessed Sex and Gender Information Value Date Recorded Sex Assigned at Not on file Gender Identity Not on file Sexual Orientation Not on file Procedures * SARS-COV-2 (COVID-19) IN HOUSE(Performed 09/08/2020) Performed for Preop examination * SARS-COV-2 (COVID-19) IN HOUSE(Performed 06/19/2020) Performed for Preop examination Results * SARS-COV-2 (COVID-19) IN HOUSE (09/08/2020 12:04 PM CDT) Only the most recent of2 resultswithin the time period is included. COVID-19 PCR Not detected Not detected 09/08/2020 8:02 PM CDT [facility] Microbiology SPECIMEN FROM NASOPHARYNGEAL STRUCTURE / Unknown Collection / Unknown 09/08/2020 12:04 PM CDT 09/08/2020 2:07 PM CDT Narrative [facility] - 09/08/2020 8:02 PM CDT This nucleic acid amplification assay performance was validated by [facility]. This test has been authorized by the Food and Drug administration (FDA)under an Emergency??Use Authorization (EUA). This test has been validated in accordance with the FDA's guidance document Policy for Diagnostic Testing in Laboratories Certified to perform High Complexity Testing under CLIA prior to Emergency Use Authorization for Coronavirus Disease-2019 during the Public Health Emergency issued on August 21, 2019. FDA independent review of this validation is pending. This test is only authorized for the duration of time the declaration that circumstances exist justifying the authorization of emergency use of in vitro diagnostic tests for detection of SARS-CoV-2 virus and/or diagnosis of COVID-19 infection under section 564(b)(1) of the Act, 21 U.S.C 360bbb-3 (b)(1), unless the authorization is terminated or revoked sooner. Fact Sheets for this EUA assay are available upon request. Trent Jurado MD LAB - MICROBIOLOGY O [facility] [address] [place] [address], [facility] [phone] Care Teams Practice Or Student Teacher Relationship Specialty Start Date End Date Cami Ng DO [address] [place] [address] PCP - General Family Medicine 06/19/20
--- OUTSIDE RECORDS SUMMARY | 2024-07-26 16:57 | XMS_ITS | Referral Summary ---
Author Organization [facility] Address [address] [place] [address] Care Team Providers Care Environmental Restoration Planner Name Role Phone Cami Ng DO Primary Care Provider [phone] Source Comments [facility],non-owned Affiliates and Associated Physician Practices is amultiple site organization consisting of ambulatory clinics and hospital sitesin [place], [place], [place] and [place]. This disclosure is being madepursuant to the Care Everywhere program and may not contain all information available regarding this patient. Last updated 18.[facility] Social History Tobacco Use Types Packs/Day Years Used Date Smoking Tobacco: Never Assessed Sex and Gender Information Value Date Recorded Sex Assigned at Not on file Gender Identity Not on file Sexual Orientation Not on file Plan of Treatment Not on file Care Teams Environmental Restoration Planner Relationship Specialty Start Date End Date Cami Ng DO [address] [place] [address] PCP - General Family Medicine 06/19/20
[2024-07-26 17:33] VITALS: BP 137/64; PULSE 87; RESP 15; TEMP 36.9; O2SAT 95
--- NOTE | 2024-07-26 22:35 | ECG_ITS ---
Test Date: 2024-07-26 23:21:20 Measurements Intervals [place] Rate: 81 P: 73 MI: 171 QRS: 1 QRSD: 88 T: 61 QT: 344 QTc: 400 Interpretive Statements SINUS RHYTHM LEFT VENTRICULAR HYPERTROPHY MINIMAL Q WAVES- HIGH LATERAL LEADS POSSIBLE ANTERIOR MYOCARDIAL INFARCTION , OF INDETERMINATE AGE BASELINE ARTIFACT- I, II, AVR, V4-V6 ABNORMAL ECG Compared to ECG 04/16/2024 18:56:54 NO SIGNIFICANT CHANGE Electronically Signed On 07-27-2024 07:12:38 GOLF BALL MARKER by Jack Lopez D.O.
--- OUTSIDE RECORDS SUMMARY | 2024-07-26 22:42 | XMS_ITS | Referral Summary ---
Author Organization [facility] Address [address] [place] [address] Care Team Providers Care Drawstring Knotter Name Role Phone Cami Ng DO Primary Care Provider [phone] Source Comments [facility],non-owned Affiliates and Associated Physician Practices is amultiple site organization consisting of ambulatory clinics and hospital sitesin [place], [place], [place] and [place]. This disclosure is being madepursuant to the Care Everywhere program and may not contain all information available regarding this patient. Last updated 18.[facility] Social History Tobacco Use Types Packs/Day Years Used Date Smoking Tobacco: Never Assessed Sex and Gender Information Value Date Recorded Sex Assigned at Not on file Gender Identity Not on file Sexual Orientation Not on file Plan of Treatment Not on file Care Teams Drawstring Knotter Relationship Specialty Start Date End Date Cami Ng DO [address] [place] [address] PCP - General Family Medicine 06/19/20
--- OUTSIDE RECORDS SUMMARY | 2024-07-26 22:42 | XMS_ITS | Clinical Summary ---
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
--- OUTSIDE RECORDS SUMMARY | 2024-07-26 22:42 | XMS_ITS | Patient Health Summary ---
Author Organization [facility] Address [address] [place] [address] Care Team Providers Care Residential Treatment Staff Name Role Phone Cami Ng DO Primary Care Provider [phone] Note from [facility],non-owned Affiliates and Associated Physician Practices is amultiple site organization consisting of ambulatory clinics and hospital sitesin [place], [place] and [place]. This disclosure is being madepursuant to the Care Everywhere program and may not contain all information available regarding this patient. Last updated 18.[facility] Social History Tobacco Use Types Packs/Day Years [...] detected Not detected 09/08/2020 8:02 PM CDT [facility]CRO[facility] Microbiology SPECIMEN FROM NASOPHARYNGEAL STRUCTURE / Unknown Collection / Unknown 09/08/2020 12:04 PM CDT 09/08/2020 2:07 PM CDT Narrative [facility] - 09/08/2020 8:02 PM CDT This nucleic acid amplification assay performance was validated by [facility]. This test has been authorized [...] Jurado MD LAB - MICROBIOLOGY O [facility]INA [facility] [address] [place] [address], [facility] [phone] Care Teams Residential Treatment Staff Relationship Specialty Start Date End Date Cami Ng DO [address] [place] [address] PCP - General Family Medicine 06/19/20
--- OUTSIDE RECORDS SUMMARY | 2024-07-26 22:42 | XMS_ITS | Clinical Summary ---
Author Organization [facility] Address [address] [place] [address] Care Team Providers Care Air Quality Engineer Name Role Phone Cami Ng DO Primary Care Provider [phone] Source Comments [facility],non-owned Affiliates and Associated Physician Practices is amultiple site organization consisting of ambulatory clinics and hospital sitesin [place], [place], [place] and [place]. This disclosure is being madepursuant to the Care Everywhere program and may not contain all information available regarding this patient. Last updated 18.[facility] [facility] Social History Tobacco Use Types Packs/Day Years [...] age to complete this topic Care Teams Air Quality Engineer Relationship Specialty Start Date End Date Cami Ng DO [address] [place] [address] PCP - General Family Medicine 06/19/20
--- OUTSIDE RECORDS SUMMARY | 2024-07-26 22:42 | XMS_ITS | Referral Summary ---
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
[2024-07-26] MEDS: SODIUM CHLORIDE 0.9% IV 1,000 ML 999 ML IV CONT (23:16)
[2024-07-26 23:27] LABS: Basophils Absolute Auto 0.1 K/mm3 (0.0-0.1); Basophils Percent Auto 0.6 % (0.2-1.2); Eosinophils Absolute Auto 0.2 K/mm3 (0-0.3); Eosinophils Percent Auto 2.3 % (0-4.4); Hematocrit 36.1 % (37.0-47.0); Hemoglobin 11.6 g/dL (12.0-15.0); Immature Granulocyte Absolute 0.05 K/mm3 (0.00-0.031); Immature Granulocyte Percent A 0.6 % (0-0.5); Lymphocytes Percent Auto 19.9 % (18.3-44.2); Mean Corpuscular HGB Conc 32.1 g/dl (32-36); Mean Corpuscular Hemoglobin 30.7 pg (26-34); Mean Corpuscular Volume 95.5 fl (80-100); Mean Platelet Volume 10.7 fl (7.4-10.4); Monocytes Absolute Auto 0.5 K/mm3 (0.1-0.6); Monocytes Percent Auto 6.2 % (2.6-8.5); Neutrophils Percent Auto 70.4 % (45.5-73.1); Platelet Count Result 266 k/mm3 (150-375); Red Blood Count 3.78 M/mm3 (4.2-5.4); Red Cell Distribution Width 15.9 % (11.5-14.5); White Blood Count 8.5 K/mm3 (4.5-10.0)
[2024-07-26 23:36] LABS: Lactic Acid Reflex 1.6 mmol/L (0.7-2.0)
[2024-07-26 23:38] LABS: Alanine Aminotransferase 17 U/L (6-35); Albumin Level 4.1 g/dL (3.5-5.1); Alkaline Phosphatase 90 U/L (38-126); Anion Gap 12 mmol/L (4-12); Aspartate Amino Transferase 17 U/L (14-36); Blood Urea Nitrogen 36 mg/dL (7-17); Calcium 11.3 mg/dL (8.4-10.2); Carbon Dioxide 26 mmol/L (22-30); Chloride 102 mmol/L (98-107); Estimated Glomerular Filt Rate 30; Glucose 148 mg/dL (65-110); Magnesium 1.2 mg/dL (1.6-2.3); Potassium 5.7 mmol/L (3.4-5.0); Sodium 140 mmol/L (137-145)
[2024-07-26 23:47] VITALS: BP 144/92; PULSE 81; RESP 17; O2SAT 98
[2024-07-26 23:49] LABS: NT Pro B Type Natriuretic Pept 361 pg/mL (19.9-100); Troponin I < 0.012 ng/mL (0.000-0.034)
[2024-07-26 23:55] LABS: INR 1.1; Prothrombin Time 14.1 Seconds (11.1-14.7)
[2024-07-26 23:56] LABS: Partial Thromboplastin Time 28.5 Seconds (22.3-36.8); Procalcitonin 0.1 ng/mL
[2024-07-27] VITALS (13 sets, daily range): BP systolic 150–208; BP diastolic 60–104; PULSE 73–96; RESP 14–23; TEMP 36.2–36.9; O2SAT 94–98; BMI 29.0
--- NOTE | 2024-07-27 | ECHO_ITS ---
Patient Info Name: Kathe Wheeler Age: 79 years : 1945 Gender: Female Ht: 61 in Wt: 159 lbs BSA: 1.79 m2 HR: 90 bpm BP: 189 / 89 mmHg Technical Quality: Poor Exam Date: 07/27/2024 11:29 AM Exam Location: Echo Lab Patient Status: Outpatient Admit Date: 07/27/2024 Staff Ordering Physician: Veto Dalton MD [employer] Set Up Operator Radial: Lilia Cali RDCS Attending Provider: Bela Tamez APRN Referring Physician: Krystle TUTTLE; Exam Type: CA echo dop bubble study w con Study Info Indications - STROKE LIKE SYMPTOMS Complete two-dimentional, color flow and Doppler transthoracic echocardiogram is performed with agitated saline and with contrast to opacify the left ventricle and to improve the delineation of the left ventricle endocardial borders. Contrast/Agitated Saline Contrast/Ag. Saline: Definity Amount: 2.00 ml Existing IV Access: Yes Contrast/Ag. Saline: Agitated Saline Amount: 20.00 ml Existing IV Access: Yes Reason for Poor Study: poor echocardiographic windows Summary 1. Left ventricular chamber dimension is normal. 2. Left ventricular systolic function is normal, estimated at >70%. 3. The left ventricular diastolic function is grade I diastolic dysfunction. 4. Right ventricular systolic function is normal. 5. The mitral valve annulus is severely calcified. 6. There is mild tricuspid valve regurgitation. Left Ventricle Left ventricular chamber dimension is normal. Left ventricular systolic function is normal, estimated at >70%. There is moderately increased left ventricular wall thickness. The left ventricular diastolic function is grade I diastolic dysfunction. Right Ventricle Right ventricular chamber dimension is normal. Right ventricular systolic function is normal. Left Atria Left atrial chamber dimension is normal. Right Atria Right atrial chamber dimension is normal. Atrial Septum Intact interatrial septum visualized by color flow and agitated saline imaging. Aortic Valve The aortic valve is not well visualized. There is no aortic valve stenosis. There is no aortic valve regurgitation. Pulmonic Valve The pulmonic valve is not well visualized. There is trace pulmonic regurgitation. Mitral Valve There is trace mitral valve regurgitation. The mitral valve annulus is severely calcified. Tricuspid Valve There is mild tricuspid valve regurgitation. Pericardium/Pleural There is no pericardial effusion. Inferior Vena Cava Normal inferior vena cava with >50% collapse upon inspiration consistent with normal right atrial pressure, 3 mmHg. Aorta The aortic root size at the sinus of Valsalva is normal. Left Ventricular Outflow Tract Name Value Normal LVOT 2D LVOT Diameter 1.8 cm LVOT Doppler LVOT Peak Gradient 5 mmHg LVOT Mean Gradient 3 mmHg LVOT VTI 20 cm LVOT VTI/AV VTI Ratio 0.8 LVOT Stroke Volume 51 ml LVOT CO 4.6 l/min LVOT CI 2.6 l/min/m2 Pulmonic Valve Name Value Normal RVOT Doppler RVOT Peak Gradient 3 mmHg PV Doppler PV Peak Gradient 7 mmHg PV Regurgitation Doppler SD Peak End Diastolic Velocity 81 cm/s Mitral Valve Name Value Normal MV Doppler MV Decel [place] 2,093 cm/s2 MV PHT 12 ms MV Area (PHT) 18.7 cm2 4.0-5.0 MV Diastolic Function MV E Peak Velocity 85 cm/s MV A Peak Velocity 154 cm/s MV E/A 0.6 MV Decel Time 40 ms MV Annular TDI MV E/e' (Septal) 34.1 <=8.0 MV E/e' (Lateral) 18.0 <=8.0 MV E/e' (Average) 26.1 Tricuspid Valve Name Value Normal TV Regurgitation Doppler TR Peak Velocity 312 cm/s TR Peak Gradient 38 mmHg Estimated PAP/RSVP RA Pressure 3 mmHg <=5 PA Systolic Pressure 42 mmHg <36 RV Systolic Pressure 42 mmHg <36 Aorta Name Value Normal Ascending Aorta Ao Root Diameter (MM) 4.8 cm Ao Root Diam Index (MM) 2.7 cm/m2 Aortic Valve Name Value Normal AV Doppler AV Peak Velocity 123 cm/s AV Peak Gradient 5 mmHg AV Mean Gradient 3 mmHg AV VTI 25 cm AV Area (Cont Eq VTI) 2.0 cm2 >=3.0 AV Area (Cont Eq Jonn) 2.3 cm2 AV Regurgitation 2D LVOT Area 2.6 cm2 Ventricles Name Value Normal LV Dimensions 2D/MM IVS Diastolic Thickness (2D) 1.5 cm 0.6-1.0 LVID Diastole (2D) 3.1 cm 3.8-5.2 LVIW Diastolic Thickness (2D) 1.1 cm 0.6-0.9 LVID Systole (2D) 1.7 cm 2.2-3.5 LVOT Diameter 1.8 cm LV Mass (2D Cubed) 129.60 g 67.00-162.00 LV Mass Index (2D Cubed) 72 g/m2 43-95 Relative Wall Thickness (2D) 0.69 LV Fractional Shortening/Ejection Fraction 2D/MM LV Fractional Shortening (2D) 38 % 27-45 LV EF (2D Teicholz) 70 % 54-74 LV Diastolic Volume (4C MOD) 54 ml LV EF (4C MOD) 77 % LV Diastolic Volume (2C MOD) 53 ml LV EF (2C MOD) 70 % LV Diastolic Volume (BP MOD) 57 ml 46-106 LV Diastolic Volume Index (BP MOD) 32 ml/m2 29-61 LV Systolic Volume (BP MOD) 14 ml 14-42 LV Systolic Volume Index (BP MOD) 8 ml/m2 8-24 LV EF (BP MOD) 76 % 54-74 LV Diastolic Length (4C) 6.6 cm LV Systolic Length (4C) 5.1 cm LV Stroke Volume (4C MOD) 42 ml Atria Name Value Normal LA Dimensions LA Dimension (MM) 1.7 cm 2.7-3.8 LA Volume (4C A-L) 50 ml LA Volume (BP A-L) 46 ml RA Dimensions RA Area (4C) 8.4 cm2 <=18.0 Report Signatures
[2024-07-27 00:07] LABS: Add Urine Microscopic? YES; Appearance Urine Clear (Clear); Bacteria Urine None Seen /hpf; Bilirubin Urine Negative (Negative); Blood Urine Negative (Negative); Color Urine Dark Yellow (Yellow); Glucose Urine UA Negative (Negative); Ketones Urine Trace mg/dL (Negative); Leukocyte Esterase Ur Trace LEU/UL (Negative); Need Manual Microscopic Reviewed; Nitrate Urine Negative (Negative); Non Pathogenic Casts >20; Protein Urine 1+ mg/dL (Negative); RBC Urine 0-2 /hpf (0-2); Specific Grav Ur 1.021 (1.001-1.035); Squamous Epithelial Cell Urine Occasional /hpf (Few); WBC Urine 0-5 /hpf (0-3)
[2024-07-27 00:15] LABS: Influenza A QL RT-PCR Negative (Negative); Influenza B QL RT-PCR Negative (Negative); RSV RNA, RT-PCR Negative (Negative); SARS-CoV-2 RNA PCR Negative (Negative)
[2024-07-27] MEDS: MAGNESIUM SULF 2 GM/WATER 50ML 2 GM/50 ML BAG IVPB (00:33)
--- NOTE | 2024-07-27 01:37 | ED.GENADULT ---
HPI - General Adult General Chief complaint: Neuro Symptoms/Deficit Stated complaint: poss cva Time Seen by Provider: 07/26/24 22:24 History of Present Illness HPI narrative: Patient 79-year-old female who presents emergency department chief complaint stroke-like symptoms. Patient reports that for the last 5 days she has been having increasing weakness unable to walk unable to care for herself and has had garbled speech. The patient is only able to provide alert orientation x2 the family reports the symptoms been ongoing since reports that she has prior history of a TIA reports that she takes aspirin and Plavix Related Data Home Medications ?Medication ?Instructions ?Recorded ?Confirmed ?Last Taken ?Type aspirin 81 mg tablet,delayed 81 mg PO DAILY 07/16/19 07/06/24 04/15/24 History release flash glucose scanning reader #1 ea 07/16/19 07/06/24 Unknown History (FreeStyle Arvin 14 Day [place]) biotin 1 mg tablet 1 mg PO ONCE 04/16/24 07/06/24 04/15/24 History Allergies Allergy/AdvReac Type Severity Reaction Status Date / Time Iodinated Contrast Media Allergy Severe Unknown Verified 07/06/24 14:04 adhesive tape Allergy Mild Rash Verified 07/06/24 14:04 iodine Allergy Unknown ITCHING Verified 07/06/24 14:04 tetracycline Allergy Unknown Unknown Verified 07/06/24 14:04 Tetracyclines Allergy Unknown Skin Verified 07/06/24 14:04 Reaction Review of Systems Review of Systems: A 10 system review of systems was completed on the patient and is negative except for what is stated in the HPI. Nursing and ancillary documentation was reviewed. FOR[facility]LY [facility] Past Medical History Medical History Thyroid disorder Stroke Heart disease GERD (gastroesophageal reflux disease) Diabetes Arthritis Surgical History Surgical History History of thyroid surgery Hx of total knee replacement Hx of eye surgery Family History Family History Mother Family history of osteoporosis Family history of hearing loss Hypertension Sibling Family history of alcoholism Diabetes mellitus Family history of lymphoma Family history of throat cancer Grandparent Family history of arthritis Hypertension Family history of kidney disease Family history of malignant neoplasm of brain Father Family history of diabetes mellitus in first degree relative Diabetes mellitus Social History Social History Smoking status: Never smoker Alcohol intake: never Substance use: never Do You Feel Safe in your Home?: Yes Lack of Transportation: No Lack of Food: Never True Current Housing: I Have Housing Concerned About Future Housing: No Difficulty Paying Gas/Electric Bills: No Difficulty Paying for Meds: No Currently Unemployed: No Education: High School Diploma/GED Difficulty w/ Childcare or Family Care: No Living arrangements: with family Gender identity (if verbalized by the patient): Female Spiritual care concerns: No Exam Narrative: GENERAL: Ill-appearing, well-nourished, and in no acute distress. HEAD: Normocephalic, atraumatic. EYES: PERRLA and EOMI. ENT: Nares clear, no rhinorrhea or epistaxis. Mucous membranes dry. NECK: Supple. CHEST: Clear to auscultation. No respiratory distress. HEART: Regular rate and rhythm. No murmur heard. Normal peripheral pulses. ABDOMEN: Soft, nontender, nondistended, normal active bowel sounds. EXTREMITIES: Normal range of motion very slow. No edema. SKIN: Warm, dry, no rash. NEURO: No focal deficits. Alert and oriented x2. Very slow speed inappropriate responses PSYCH: Normal mood and affect. Course Vital Signs Vital signs: Vital Signs Temperature 36.9 C 07/26/24 17:33 Pulse Rate 87 07/26/24 17:33 Respiratory Rate 15 07/26/24 17:33 Blood Pressure 137/64 07/26/24 17:33 Pulse Oximetry 95 07/26/24 17:33 Temperature 36.9 C 07/26/24 17:33 Pulse Rate 79 07/27/24 01:24 Respiratory Rate 14 07/27/24 01:24 Blood Pressure 150/75 H 07/27/24 01:24 Pulse Oximetry 97 07/27/24 01:24 Medical Decision Making Vital Signs Vital Signs: Vital Signs Temperature 36.9 C 07/26/24 17:33 Pulse Rate 87 07/26/24 17:33 Respiratory Rate 15 07/26/24 17:33 Blood Pressure 137/64 07/26/24 17:33 Pulse Oximetry 95 07/26/24 17:33 Temperature 36.9 C 07/26/24 17:33 Pulse Rate 79 07/27/24 01:24 Respiratory Rate 14 07/27/24 01:24 Blood Pressure 150/75 H 07/27/24 01:24 Pulse Oximetry 97 07/27/24 01:24 Lab Data 07/26/24 23:18 07/26/24 23:18 Labs: Lab Results 07/26/24 07/26/24 07/27/24 Range/Units 23:18 23:29 02:19 WBC 8.5 (4.5-10.0) K/mm3 RBC 3.78 L (4.2-5.4) M/mm3 Hgb 11.6 L (12.0-15.0) g/dL Hct 36.1 L (37.0-47.0) % MCV 95.5 (80-100) fl MCH 30.7 (26-34) pg MCHC 32.1 (32-36) g/dl RDW 15.9 H (11.5-14.5) % Plt Count 266 (150-375) k/mm3 MPV 10.7 H (7.4-10.4) fl Immature Gran % (Auto) 0.6 H (0-0.5) % Neut % (Auto) 70.4 (45.5-73.1) % Lymph % (Auto) 19.9 (18.3-44.2) % [place] % (Auto) 6.2 (2.6-8.5) % Eos % (Auto) 2.3 (0-4.4) % Baso % (Auto) 0.6 (0.2-1.2) % Lymph # (Auto) 1.70 (0.9-3.2) K/mm3 [place] # (Auto) 0.5 (0.1-0.6) K/mm3 Eos # (Auto) 0.2 (0-0.3) K/mm3 Baso # (Auto) 0.1 (0.0-0.1) K/mm3 Abs Immat Gran (auto) 0.05 H (0.00-0.031) K/mm3 Absolute Neuts (auto) 6.0 (1.3-6.7) K/mm3 Absolute Nucleated RBC 0.000 (0.0-0.012) K/mm3 Nucleated RBC % 0.0 (0.0-0.2) % PT 14.1 (11.1-14.7) Seconds INR 1.1 APTT 28.5 (22.3-36.8) Seconds Sodium 140 (137-145) mmol/L Potassium 5.7 H (3.4-5.0) mmol/L Chloride 102 (98-107) mmol/L Carbon Dioxide 26 (22-30) mmol/L Anion Gap 12 (4-12) mmol/L BUN 36 H D (7-17) mg/dL Creatinine 1.66 H (0.7-1.0) mg/dL Estim Creat Clear Calc Not Reportable Estimated GFR 30 L (59 - ) Glucose 148 H (65-110) mg/dL Lactic Acid 1.6 (0.7-2.0) mmol/L Calcium 11.3 H (8.4-10.2) mg/dL Magnesium 1.2 L (1.6-2.3) mg/dL Total Bilirubin 1.0 (0.2-1.3) mg/dL AST 17 (14-36) U/L ALT 17 (6-35) U/L Alkaline Phosphatase 90 (38-126) U/L Troponin I < 0.012 < 0.012 (0.000-0.034) ng/mL NT-Pro-B Natriuret Pep 361 H (19.9-100) pg/mL Total Protein 7.0 (6.3-8.2) g/dL Albumin 4.1 (3.5-5.1) g/dL Procalcitonin 0.1 ng/mL Urine Color Dark yellow (Yellow) Urine Appearance Clear (Clear) Urine pH 5.0 (5.0-9.0) Ur Specific [place] 1.021 (1.001-1.035) Urine Protein 1+ H (Negative) mg/dL Urine Glucose (UA) Negative (Negative) mg/dL Urine Ketones Trace H (Negative) mg/dL Ur Blood (Man) Negative (Negative) Urine Nitrate Negative (Negative) Urine Bilirubin Negative (Negative) Urine Urobilinogen 1.0 (<2.0) mg/dL Add Ur Microanalysis Reviewed Leukocyte Esterase Rfl Trace H (Negative) ONEIDA/UL Urine RBC 0-2 (0-2) /hpf Urine WBC 0-5 (0-3) /hpf Ur Squamous Epith Cells Occasional (Few) /hpf Urine Bacteria None seen /hpf Urine Casts >20 Influenza A (RT-PCR) Negative (Negative) Influenza B (RT-PCR) Negative (Negative) RSV (RT-PCR) Negative (Negative) SARS-CoV-2 RNA (RT-PCR) Negative (Negative) Discharge Plan Discharge Clinical Impression: Altered mental status, Hypomagnesemia Patient Disposition: Still a Patient Condition: Stable
[2024-07-27 02:45] LABS: Troponin I < 0.012 ng/mL (0.000-0.034)
[2024-07-27] MEDS: SODIUM CHLORIDE 0.9% IV 1,000 ML 100 ML IV CONT ×2 (03:21→17:36)
--- NOTE | 2024-07-27 05:21 | ADMGEN ---
This patient, Kathe Wheeler, was admitted to Medical Room 343-01. Patient/family oriented to hospital policies and general routines including ID bracelet, bed and alarms, visiting hours, pain management, procedures, bathroom and other care routines, personal items, smoking policy, room service/diet, and visiting hours. Information on how to activate the Rapid Response Team has been discussed. Patient/Family are encouraged to report perceived risks to care and to ask questions if they do not understand what they are told or what they should do.
[2024-07-27] MEDS: METOPROLOL TARTRATE INJ 5 MG/5 ML VIAL IV PUSH (06:31)
[2024-07-27 06:38] LABS: Anion Gap 11 mmol/L (4-12); Blood Urea Nitrogen 32 mg/dL (7-17); Calcium 11.2 mg/dL (8.4-10.2); Carbon Dioxide 27 mmol/L (22-30); Chloride 104 mmol/L (98-107); Estimated Glomerular Filt Rate 40; Glucose 121 mg/dL (65-110); Potassium 5.3 mmol/L (3.4-5.0); Sodium 142 mmol/L (137-145)
[2024-07-27 07:19] LABS: Magnesium 3.5 mg/dL (1.6-2.3)
--- NOTE | 2024-07-27 08:49 | PCSTNOTE ---
Please refer to the Bedside Swallow Evaluation in the EMR. Please note, silent aspiration cannot be ruled out at bedside. The above pleasant and cooperative pt was seen for a swallow evaluation at bedside. The pt was positioned upright in the bed. She was alert & able to follow commands. She is currently NPO awaiting swallow eval. Pt denies dysphagia. Oral mucosa is dry normal; natural dentition is in fair/poor condition; oral peripheral exam revealed lingual and labial structures to be within functional limits. She was able to dry swallow on command and exhibited a strong cough and clear vocal quality. She was tested with ice chips, pudding, cracker, and thin liquids in controlled and uncontrolled amounts. The oral stages appeared WFL. No oral leakage or pocketing was noted. During the pharyngeal stage, swallow reflex appeared prompt & laryngeal elevation adequate. No overt s/s of aspiration were exhibited; however, silent aspiration cannot be ruled out at bedside. General impression is normal swallow ability. Recommendation: Regular diet and regular liquids. Thank you for this referral.
[2024-07-27] MEDS: PERFLUTREN LIPID MICROSPHERES 1.5 ML VIAL DILUTED TO 10 ML TOTAL VOLUME IV PUSH (12:10)
[2024-07-27 12:14] LABS: Glucose Point of Care 194 mg/dl (65-105)
--- NOTE | 2024-07-27 13:17 | P.HP_ITS ---
H&P: HPI History of Present Illness Date/Time: 07/27/24 13:17 Chief Complaint: AMS stroke-like symptoms Narrative: This is a 79-year-old female with a significant past medical history thyroid disorder, stroke, heart disease, GERD, diabetes, arthritis presented to the hospital with stroke-like symptoms. Patient is a poor historian and most medical history was obtained from the EMR. She was reported to have increased weakness, unable to walk, unable to care for herself along with garbled speech. family who was at the bedside in the ED stated that she had prior history of TIA and has been taking aspirin and Plavix. Workup in the hospital included a chest x-ray which was negative. Head CT which was negative for any acute intracranial hemorrhage, mass, acute infarct, shown atrophy and chronic white matter changes. Initial labs showed Normal white blood cell count of 8.5, hemoglobin 11.6, potassium 5.7, creatinine 1.66, EGFR 30, blood sugars ranging 121-148, lactic acid was normal at 1.6, magnesium was 1.2, calcium level 11.3, troponin was negative x2, proBNP 361, procalcitonin 0.1. UA was obtained which showed 1+ urine protein, trace urine ketone, trace leukocytes, Urine cast greater than 20, otherwise negative. respiratory panel was negative for influenza a and B, RSV, COVID. EKG showed sinus rhythm with a rate of 81, QTC 400. Patient was given 1 L of normal saline, 2 g of magnesium while in the ED. neurology was consulted. Review of Systems Review of Systems: ROS unobtainable: Yes unobtainable due to mental status PMFSH Past Medical History Medical History Thyroid disorder Stroke Heart disease GERD (gastroesophageal reflux disease) Diabetes Arthritis Surgical History Surgical History History of thyroid surgery Hx of total knee replacement Hx of eye surgery Family History Family History Mother Family history of osteoporosis Family history of hearing loss Hypertension Sibling Family history of alcoholism Diabetes mellitus Family history of lymphoma Family history of throat cancer Grandparent Family history of arthritis Hypertension Family history of kidney disease Family history of malignant neoplasm of brain Father Family history of diabetes mellitus in first degree relative Diabetes mellitus Social History Social History Smoking status: Never smoker Alcohol intake: never Substance use: never Do You Feel Safe in your Home?: Yes Lack of Transportation: No Lack of Food: Never True Current Housing: I Have Housing Concerned About Future Housing: No Difficulty Paying Gas/Electric Bills: No Difficulty Paying for Meds: No Currently Unemployed: No Education: High School Diploma/GED Difficulty w/ Childcare or Family Care: No Living arrangements: with family Gender identity (if verbalized by the patient): Female Spiritual care concerns: No Meds Home Medications and Allergies Home Medications ?Medication ?Instructions ?Recorded ?Confirmed ?Type aspirin 81 mg tablet,delayed 81 mg PO DAILY 07/16/19 07/27/24 History release flash glucose scanning reader #1 ea 07/16/19 07/27/24 History (FreeStyle Arvin 14 Day [place]) pen needle, diabetic 32 gauge x #100 ea 09/08/23 07/27/24 Rx flash glucose sensor (FreeStyle #6 ea 12/11/23 07/27/24 Rx Arvin 14 Day Sensor kit) pantoprazole 40 mg tablet,delayed 40 mg PO QAM #90 tabs 03/11/24 07/27/24 Rx release clopidogrel 75 mg tablet 75 mg PO DAILY #90 tabs 03/12/24 07/27/24 Rx metformin 1,000 mg tablet See Rx Instructions .Route 04/12/24 07/27/24 Rx .COMPLEX #180 tabs biotin 1 mg tablet 5,000 mg PO ONCE 04/16/24 07/27/24 History magnesium oxide 400 mg (241.3 mg 400 mg PO DAILY #90 tabs 04/22/24 07/27/24 Rx magnesium) tablet tirzepatide 2.5 mg/0.5 mL 2.5 mg (0.5 mL) subcut WEEKLY #6 mL 04/22/24 07/27/24 Rx subcutaneous pen injector (Shawna) atorvastatin 80 mg tablet 80 mg PO HS #90 tabs 05/18/24 07/27/24 Rx lisinopril 40 mg tablet 80 mg (2 x 40 mg) PO DAILY #180 05/18/24 07/27/24 Rx tabs ondansetron 8 mg disintegrating See Rx Instructions .Route 05/25/24 07/27/24 Rx tablet .COMPLEX #30 tabs insulin glargine 100 unit/mL (3 40 unit (0.4 mL) subcut QPM #15 mL 06/22/24 07/27/24 Rx mL) subcutaneous pen (Basaglar KwikPen U-100 Insulin) ferrous sulfate 324 mg (65 mg 324 mg PO DAILY #90 tabs 07/26/24 07/27/24 Rx iron) tablet,delayed release Allergies Allergy/AdvReac Type Severity Reaction Status Date / Time Iodinated Contrast Media Allergy Severe Unknown Verified 07/06/24 14:04 adhesive tape Allergy Mild Rash Verified 07/06/24 14:04 iodine Allergy Unknown ITCHING Verified 07/06/24 14:04 tetracycline Allergy Unknown Unknown Verified 07/06/24 14:04 Tetracyclines Allergy Unknown Skin Verified 07/06/24 14:04 Reaction Vital Signs Vital Signs - 24 hr 07/26/24 17:33 07/26/24 23:47 07/26/24 23:47 Temperature 98.5 F Pulse Rate 87 81 Respiratory Rate 15 Blood Pressure 137/64 Pulse Oximetry 95 98 Oxygen Delivery 07/26/24 23:47 07/27/24 01:24 07/27/24 03:00 Temperature Pulse Rate 81 79 Respiratory Rate 17 14 Blood Pressure 144/92 H 150/75 H Pulse Oximetry 98 97 95 Oxygen Delivery 07/27/24 04:59 07/27/24 05:45 07/27/24 05:48 Temperature Pulse Rate 90 Respiratory Rate 23 H Blood Pressure 189/89 H 208/104 H 172/86 H Pulse Oximetry 98 Oxygen Delivery 07/27/24 06:31 07/27/24 08:04 07/27/24 09:25 Temperature Pulse Rate 96 Respiratory Rate Blood Pressure Pulse Oximetry 96 Oxygen Delivery Room Air Room Air 07/27/24 09:25 07/27/24 12:00 07/27/24 12:44 Temperature 98.4 F Pulse Rate 81 81 73 Respiratory Rate 18 Blood Pressure 152/66 H Pulse Oximetry 94 Oxygen Delivery Exam Narrative: General: In no acute distress, well nourished Head: atraumatic, no encephalopathy Eyes: PERRLA, sclera clear ENT: tachy mucous membranes, nasal passages clear Neck: supple, no JVD, no adenopathy, trachea midline Cardiac: Normal S1 and S2. No murmur, gallops or friction rubs, peripheral pulses intact. Respiratory: Lungs clear to auscultation, no adventitious lung sounds, currently on room air Gastrointestinal: soft, non-distended, non-tender, normoactive bowel sounds. : voiding without difficulty. Extremities: moves all extremities well, no edema Skin: clean, dry, intact. No wounds or lesions. Neuro: Alert and oriented x1, cranial nerves intact, no neuro deficits. slurred/garbled speech Psych: normal mood, normal affect, interactive H&P: Results Labs Labs: Short CBC 07/26/24 Range/Units 23:18 WBC 8.5 (4.5-10.0) K/mm3 Hgb 11.6 L (12.0-15.0) g/dL Hct 36.1 L (37.0-47.0) % Plt Count 266 (150-375) k/mm3 BMP 07/26/24 07/27/24 23:18 06:19 Sodium 140 142 Potassium 5.7 H 5.3 H Chloride 102 104 Carbon Dioxide 26 27 BUN 36 H D 32 H Creatinine 1.66 H 1.29 H Glucose 148 H 121 H Calcium 11.3 H 11.2 H Cardiac Enzymes 07/26/24 07/27/24 Range/Units 23:18 02:19 Troponin I < 0.012 < 0.012 (0.000-0.034) ng/mL Liver Function 07/26/24 Range/Units 23:18 Total Bilirubin 1.0 (0.2-1.3) mg/dL AST 17 (14-36) U/L ALT 17 (6-35) U/L Alkaline Phosphatase 90 (38-126) U/L Albumin 4.1 (3.5-5.1) g/dL Urine 07/26/24 Range/Units 23:29 Urine Color Dark yellow (Yellow) Urine Appearance Clear (Clear) Urine pH 5.0 (5.0-9.0) Ur Specific [place] 1.021 (1.001-1.035) Urine Protein 1+ H (Negative) mg/dL Urine Glucose (UA) Negative (Negative) mg/dL Imaging Chest x-ray: Radiologist's impression: EXAMINATION: XR chest 1V portable Exam Date/Time: 07/26/2024 23:04 RN INTERVENTIONAL HISTORY: Cough Comparison: 04/16/2024, 08/12/2018, 12/27/2017, 03/17/2007. RESULT: Lines, tubes, and devices: None. Lungs and pleura: No focal consolidation, pleural effusion, or pneumothorax. Senescent/emphysematous change. Cardiomediastinal silhouette: Lobular appearance of the right hilum, stable since at least 2018 given interval differences in technique, may represent chronic adjacent lymphadenopathy or prominence of a vascular structure. Other: No acute osseous or upper abdominal finding. IMPRESSION: No acute cardiopulmonary process. Reviewed, dictated and finalized at location K. INTERVENTIONAL CT scan - head: Radiologist's impression: CT head without contrast Indication: Dysarthria, altered mental status COMPARISON: 04/16/2024 Technique: Serial scans were obtained through the brain without the administration of contrast. Dose reduction technique was used on this scan by utilizing automated exposure control and iterative reconstruction technique. The dose-length product (DLP) was 1059.33 mGy-cm. Findings: There is no evidence of intracranial hemorrhage, mass lesion, or acute infarct. The ventricles and subarachnoid spaces are dilated, consistent with mild atrophy. Low attenuation regions are seen within the periventricular white matter bilaterally, likely representing changes from chronic microvascular ischemic disease. There is no evidence of edema, mass effect or midline shift. The visualized paranasal sinuses and mastoid air cells are clear. Impression: No intracranial hemorrhage, mass, or acute infarct. Atrophy and chronic white matter changes, as above. Reviewed, dictated and finalized at location M. INTERVENTIONAL Assessment and Plan Assessment and plan (1) Altered mental status: Code(s): R41.82 - Altered mental status, unspecified Status: Acute Assessment and Plan: * head CT showed atrophy and chronic white matter changes, no acute intracranial process * could be do to electrolyte imbalance versus hypercalcemia, versus TIA * patient passed to the bedside swallow with speech therapy today * PT and OT ordered * echocardiogram ordered * brain MRI ordered * neurology consulted * continue neuro checks q.4 hour * continue telemetry monitoring for now (2) Hypercalcemia: Code(s): E83.52 - Hypercalcemia Status: Acute Assessment and Plan: * initial calcium 11.3, now 11.2 * Will check thyroid panel, parathyroid, vitamin D * Calcitonin ordered daily (3) Hypomagnesemia: Code(s): E83.42 - Hypomagnesemia Status: Acute Assessment and Plan: * initial magnesium 1.2 * she was given 2g of magnesium while in the ED * repeat magnesium 3.5 (4) Mixed hyperlipidemia: Code(s): E78.2 - Mixed hyperlipidemia Status: Acute Assessment and Plan: * continue aspirin, atorvastatin, Plavix (5) Essential (primary) hypertension: Code(s): I10 - Essential (primary) hypertension Status: Acute Assessment and Plan: * blood pressures ranging 152/66 to 208/104 * continue lisinopril, 1st dose starting now (6) Type 2 diabetes mellitus with diabetic neuropathy, unspecified: Code(s): E11.40 - Type 2 diabetes mellitus with diabetic neuropathy, unspecified Status: Acute Assessment and Plan: * Blood sugars ranging 121-194 * Hgb A1C 7.3 on 04/17/2024 * will repeat hemoglobin A1c today * Accu checks AC/HS * moderate dose SSI ordered * restart Lantus at half the dose that she normally takes 20 units at HS * Hold Mounjaro and metformin * hypoglycemic protocol in place * Diabetic diet ordered (7) Weakness: Code(s): R53.1 - Weakness Status: Acute Assessment and Plan: * PT and OT ordered Quality VTE Prophylaxis VTE prophylaxis: pharmacologic ordered
--- NOTE | 2024-07-27 13:18 | IVDEFINITY ---
Prior to administration of IV Definity the patient was educated on the risks and benefits of the imaging enhancing agent including potential adverse side effects. The patient verbalized understanding. Allergies were verified. No exclusion criteria were identified and at least one of the following inclusion criteria were met: 1) physician request, 2) patient technically difficult to image (per the [place] [employer] guidelines of two or more segments not discernable within the apical view), or 3) questionable left ventricular function. ?
--- NOTE | 2024-07-27 14:20 | P.CONNEU_ITS ---
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 History of left basal gangliar stroke, in the past also history of left frontoparietal coronal radiata and posterior limb internal as documented by the MRI in 2018 2 considering her present neurological status and ongoing neurological dysfunction give a trial to the carbidopa levodopa if I can see some response in her speech and the general ambulation. And see her back with a follow-up tomorrow other problems remain as such Consult date: 07/27/24 HPI: Kathe Wheeler is a 79 year old female Has been admitted to the hospital through the emergency room for the complaints of stroke-like symptom and with the description that over the last 5 days she was having increasing weakness inability to walk, along with the garbled speech though at the time of initial evaluation in the emergency room she was awake alert and oriented x2 it does mention that she does have prior history of TIA and she has been taking aspirin and Plavix she has been documented to have multiple allergies as outlined and in the past in addition to stroke she has ongoing history of diabetes mellitus arthritis thyroid disorder. She has undergone thyroid surgery and total knee replacement in addition to the eye surgery as well. She is never a smoker never alcohol intake or on initial examination she appeared ill appearing but well nourished in no acute distress and there was no specific abnormal neurological finding except very slow speech and inappropriate responses. Her vital signs were normal CBC and BMP were normal except that her BUN was 36 with creatinine 1.66 her BNP was 361 he was negative for all the routine viral infections such as influenza a B RSV and SARs COVID. Subsequent evaluation included a CT scan of the head without contrast which revealed no space-occupying lesion and no bleed chest x-ray was negative. Review of Systems 2 Review of Systems: All systems reviewed & are unremarkable except as noted in HPI and below PMFSH Past Medical History Medical History Thyroid disorder Stroke Heart disease GERD (gastroesophageal reflux disease) Diabetes Arthritis Surgical History Surgical History History of thyroid surgery Hx of total knee replacement Hx of eye surgery Family History Family History Mother Family history of osteoporosis Family history of hearing loss Hypertension Sibling Family history of alcoholism Diabetes mellitus Family history of lymphoma Family history of throat cancer Grandparent Family history of arthritis Hypertension Family history of kidney disease Family history of malignant neoplasm of brain Father Family history of diabetes mellitus in first degree relative Diabetes mellitus Social History Social History Smoking status: Never smoker Alcohol intake: never Substance use: never Do You Feel Safe in your Home?: Yes Lack of Transportation: No Lack of Food: Never True Current Housing: I Have Housing Concerned About Future Housing: No Difficulty Paying Gas/Electric Bills: No Difficulty Paying for Meds: No Currently Unemployed: No Education: High School Diploma/GED Difficulty w/ Childcare or Family Care: No Living arrangements: with family Gender identity (if verbalized by the patient): Female Spiritual care concerns: No Meds Home Medications and Allergies Home Medications ?Medication ?Instructions ?Recorded ?Confirmed ?Type aspirin 81 mg tablet,delayed 81 mg PO DAILY 07/16/19 07/27/24 History release flash glucose scanning reader #1 ea 07/16/19 07/27/24 History (FreeStyle Arvin 14 Day [place]) pen needle, diabetic 32 gauge x #100 ea 09/08/23 07/27/24 Rx flash glucose sensor (FreeStyle #6 ea 12/11/23 07/27/24 Rx Arvin 14 Day Sensor kit) pantoprazole 40 mg tablet,delayed 40 mg PO QAM #90 tabs 03/11/24 07/27/24 Rx release clopidogrel 75 mg tablet 75 mg PO DAILY #90 tabs 03/12/24 07/27/24 Rx metformin 1,000 mg tablet See Rx Instructions .Route 04/12/24 07/27/24 Rx .COMPLEX #180 tabs biotin 1 mg tablet 5,000 mg PO ONCE 04/16/24 07/27/24 History magnesium oxide 400 mg (241.3 mg 400 mg PO DAILY #90 tabs 04/22/24 07/27/24 Rx magnesium) tablet tirzepatide 2.5 mg/0.5 mL 2.5 mg (0.5 mL) subcut WEEKLY #6 mL 04/22/24 07/27/24 Rx subcutaneous pen injector (Shawna) atorvastatin 80 mg tablet 80 mg PO HS #90 tabs 05/18/24 07/27/24 Rx lisinopril 40 mg tablet 80 mg (2 x 40 mg) PO DAILY #180 05/18/24 07/27/24 Rx tabs ondansetron 8 mg disintegrating See Rx Instructions .Route 05/25/24 07/27/24 Rx tablet .COMPLEX #30 tabs insulin glargine 100 unit/mL (3 40 unit (0.4 mL) subcut QPM #15 mL 06/22/24 07/27/24 Rx mL) subcutaneous pen (Basaglar KwikPen U-100 Insulin) ferrous sulfate 324 mg (65 mg 324 mg PO DAILY #90 tabs 07/26/24 07/27/24 Rx iron) tablet,delayed release Allergies Allergy/AdvReac Type Severity Reaction Status Date / Time Iodinated Contrast Media Allergy Severe Unknown Verified 07/06/24 14:04 adhesive tape Allergy Mild Rash Verified 07/06/24 14:04 iodine Allergy Unknown ITCHING Verified 07/06/24 14:04 tetracycline Allergy Unknown Unknown Verified 07/06/24 14:04 Tetracyclines Allergy Unknown Skin Verified 07/06/24 14:04 Reaction Vital Signs Vital Signs - 24 hr 07/26/24 17:33 07/26/24 23:47 07/26/24 23:47 Temperature 36.9 C Pulse Rate 87 81 Respiratory Rate 15 Blood Pressure 137/64 Pulse Oximetry 95 98 Oxygen Delivery 07/26/24 23:47 07/27/24 01:24 07/27/24 03:00 Temperature Pulse Rate 81 79 Respiratory Rate 17 14 Blood Pressure 144/92 H 150/75 H Pulse Oximetry 98 97 95 Oxygen Delivery 07/27/24 04:59 07/27/24 05:45 07/27/24 05:48 Temperature Pulse Rate 90 Respiratory Rate 23 H Blood Pressure 189/89 H 208/104 H 172/86 H Pulse Oximetry 98 Oxygen Delivery 07/27/24 06:31 07/27/24 08:04 07/27/24 09:25 Temperature Pulse Rate 96 Respiratory Rate Blood Pressure Pulse Oximetry 96 Oxygen Delivery Room Air Room Air 07/27/24 09:25 07/27/24 12:00 07/27/24 12:44 Temperature 36.9 C Pulse Rate 81 81 73 Respiratory Rate 18 Blood Pressure 152/66 H Pulse Oximetry 94 Oxygen Delivery Exam 2 Narrative: Exam today revealed her to be awake alert unable to carry on the conversation with this particular physician subsequently was able to follow the verbal commands appropriately, been happened to be at the bedside head was normocephalic with no cranial bruits, ear nose throat examination was normal, neck was supple with no cervical bruit no meningeal signs, heart was regular with no murmur, lungs were clear to auscultation with no rhonchi or crepitations, abdomen is soft nontender with normal bowel sounds, neurologically she was awake alert was able to follow the verbal command but had difficulties in responding verbally his speech at times was not coherent and also dysarthric pupils were round regular feels the vision were full to finger confrontation extraocular movements spontaneously full there was no nystagmus she was able to move her eyes in upper vertical and horizontal gaze and there was no nystagmus station was intact face was symmetric motor examination revealed her to have decreased strength generally more so on the right reflexes were kind of sluggish plantars were downgoing. She was unable to follow the verbal commands of heel to knee to fabian was able to grab some physicians hands there was no obvious ataxia. Results Labs 07/26/24 23:18 07/27/24 06:19 Labs: Short CBC 07/26/24 Range/Units 23:18 WBC 8.5 (4.5-10.0) K/mm3 Hgb 11.6 L (12.0-15.0) g/dL Hct 36.1 L (37.0-47.0) % Plt Count 266 (150-375) k/mm3 BMP 07/26/24 07/27/24 23:18 06:19 Sodium 140 142 Potassium 5.7 H 5.3 H Chloride 102 104 Carbon Dioxide 26 27 BUN 36 H D 32 H Creatinine 1.66 H 1.29 H Glucose 148 H 121 H Calcium 11.3 H 11.2 H Cardiac Enzymes 07/26/24 07/27/24 Range/Units 23:18 02:19 Troponin I < 0.012 < 0.012 (0.000-0.034) ng/mL Liver Function 07/26/24 Range/Units 23:18 Total Bilirubin 1.0 (0.2-1.3) mg/dL AST 17 (14-36) U/L ALT 17 (6-35) U/L Alkaline Phosphatase 90 (38-126) U/L Albumin 4.1 (3.5-5.1) g/dL Urine 07/26/24 Range/Units 23:29 Urine Color Dark yellow (Yellow) Urine Appearance Clear (Clear) Urine pH 5.0 (5.0-9.0) Ur Specific [place] 1.021 (1.001-1.035) Urine Protein 1+ H (Negative) mg/dL Urine Glucose (UA) Negative (Negative) mg/dL
--- NOTE | 2024-07-27 15:12 | PC.NURSE ---
Patient unable to complete MRI due to altered mental status. Patient not following commands and trying to grab at the machine.
[2024-07-27] MEDS: lisinopriL 20 MG TABLET 80 MG PO (15:39)
[2024-07-27] MEDS: CALCITONIN SALMON INJ 400 UNITS/2 ML VIAL 100 UNITS SUB-Q (15:39)
--- NOTE | 2024-07-27 17:30 | PC.NURSE ---
Addendum entered by Giuseppe Moody RN 07/27/24 18:27: RN spoke with Jeffrey () at bedside in regards to patient's evening medications as he had questions. Jeffrey monitors patient's blood sugar at home and does not want her to have the scheduled novolog for dinner. RN explained the risks and benefits and educated him that we closely monitor blood sugars. Despite education, Jeffrey states he would prefer her not have the scheduled novolog for dinner. Jeffrey also states that she takes her long acting insulin at home around 2200. RN put in orders to change long acting insulin from 1800 to 2100. Original Note: ROSANNA
[2024-07-27 17:31] LABS: Vitamin D 25 Hydroxy 29.5 ng/mL
[2024-07-27 17:31] LABS: Glucose Point of Care 206 mg/dl (65-105)
[2024-07-27] MEDS: CARBIDOPA/LEVODOPA 25/100 MG TABLET 1 TABLET PO (17:36)
[2024-07-27] MEDS: INSULIN ASPART (*BKC) 100 UNITS/ML SUB-Q (20:36)
[2024-07-27] MEDS: INSULIN GLARGINE (*BKC) 100 UNITS/ML 20 UNITS SUB-Q (20:37)
[2024-07-27 21:03] LABS: Glucose Point of Care 248 mg/dl (65-105)
[2024-07-28] VITALS (11 sets, daily range): BP systolic 145–230; BP diastolic 85–98; PULSE 81–99; RESP 18–20; TEMP 36.3–36.7; O2SAT 94–98
[2024-07-28] MEDS: SODIUM CHLORIDE 0.9% IV 1,000 ML 100 ML IV CONT (05:55)
[2024-07-28 06:35] LABS: Basophils Percent Auto 0.4 % (0.2-1.2); Eosinophils Absolute Auto 0.3 K/mm3 (0-0.3); Eosinophils Percent Auto 3.3 % (0-4.4); Hematocrit 33.1 % (37.0-47.0); Immature Granulocyte Absolute 0.04 K/mm3 (0.00-0.031); Immature Granulocyte Percent A 0.4 % (0-0.5); Lymphocytes Absolute Auto 1.84 K/mm3 (0.9-3.2); Lymphocytes Percent Auto 18.8 % (18.3-44.2); Mean Corpuscular HGB Conc 33.2 g/dl (32-36); Mean Corpuscular Hemoglobin 30.6 pg (26-34); Mean Corpuscular Volume 92.2 fl (80-100); Mean Platelet Volume 11.2 fl (7.4-10.4); Monocytes Absolute Auto 0.7 K/mm3 (0.1-0.6); Monocytes Percent Auto 6.6 % (2.6-8.5); Neutrophils Absolute Auto 6.9 K/mm3 (1.3-6.7); Neutrophils Percent Auto 70.5 % (45.5-73.1); Platelet Count Result 272 k/mm3 (150-375); Red Blood Count 3.59 M/mm3 (4.2-5.4); Red Cell Distribution Width 15.4 % (11.5-14.5); White Blood Count 9.8 K/mm3 (4.5-10.0)
[2024-07-28 06:50] LABS: Alanine Aminotransferase 9 U/L (6-35); Albumin Level 3.9 g/dL (3.5-5.1); Alkaline Phosphatase 97 U/L (38-126); Anion Gap 10 mmol/L (4-12); Aspartate Amino Transferase 16 U/L (14-36); Bilirubin,Total 1.1 mg/dL (0.2-1.3); Blood Urea Nitrogen 20 mg/dL (7-17); Calcium 10.6 mg/dL (8.4-10.2); Carbon Dioxide 27 mmol/L (22-30); Chloride 102 mmol/L (98-107); Estimated CRCL calculation 53 ml/min; Estimated Glomerular Filt Rate > 60; Glucose 229 mg/dL (65-110); Magnesium 1.1 mg/dL (1.6-2.3); Potassium 4.5 mmol/L (3.4-5.0); Sodium 139 mmol/L (137-145)
[2024-07-28 07:43] LABS: Glucose Point of Care 208 mg/dl (65-105)
[2024-07-28] MEDS: lisinopriL 20 MG TABLET 80 MG PO (09:58)
[2024-07-28] MEDS: PANTOPRAZOLE 40 MG TABLET PO (09:58)
[2024-07-28] MEDS: CLOPIDOGREL BISULFATE 75 MG TABLET PO (09:58)
[2024-07-28] MEDS: ASPIRIN 81 MG ENTERIC TABLET PO (09:58)
[2024-07-28] MEDS: CARBIDOPA/LEVODOPA 25/100 MG TABLET 1 TABLET PO ×3 (09:58→17:26)
[2024-07-28] MEDS: FERROUS SULFATE 325 MG TABLET DR BY MOUTH (09:58)
[2024-07-28] MEDS: CALCITONIN SALMON INJ 400 UNITS/2 ML VIAL 100 UNITS SUB-Q (09:59)
[2024-07-28] MEDS: MAGNESIUM SULF 4 GM/WATER100ML 4 GM/100 ML BAG IVPB (09:59)
[2024-07-28] MEDS: ENOXAPARIN 40 MG/0.4 ML SYRINGE SUB-Q (10:10)
[2024-07-28 11:18] LABS: Glucose Point of Care 298 mg/dl (65-105)
[2024-07-28] MEDS: INSULIN ASPART (*BKC) 100 UNITS/ML SUB-Q ×3 (12:35→20:20)
--- NOTE | 2024-07-28 16:19 | P.PNIM_ITS ---
Progress Note: A&P Assessment and Plan (1) Altered mental status: Code(s): R41.82 - Altered mental status, unspecified Status: Acute Assessment and Plan: * head CT showed atrophy and chronic white matter changes, no acute intracranial process * could be do to electrolyte imbalance versus hypercalcemia, versus TIA * patient passed to the bedside swallow with speech therapy today * PT and OT ordered * echocardiogram ordered * brain MRI ordered * neurology consulted * continue neuro checks q.4 hour * continue telemetry monitoring for now 2 * continue carbidopa levodopa * continue neuro checks * echocardiogram shown normal LV systolic function with an estimated EF of greater than 70%, grade 1 diastolic dysfunction * MRI was canceled * Neurology following * PT and OT are ordered * speech therapy will continue to work with her (2) Hypercalcemia: Code(s): E83.52 - Hypercalcemia Status: Acute Assessment and Plan: * initial calcium 11.3, now 11.2 * Will check thyroid panel, parathyroid, vitamin D * Calcitonin ordered daily 2/ * calcium 10.6 * continue calcitonin (3) Hypomagnesemia: Code(s): E83.42 - Hypomagnesemia Status: Acute Assessment and Plan: * initial magnesium 1.2 * she was given 2g of magnesium while in the ED * repeat magnesium 3.5 2/ * magnesium 1.1 this morning * patient was given 4 g of magnesium * continue to trend (4) Mixed hyperlipidemia: Code(s): E78.2 - Mixed hyperlipidemia Status: Acute Assessment and Plan: * continue aspirin, atorvastatin, Plavix 2/ * no change to current treatment plan (5) Essential (primary) hypertension: Code(s): I10 - Essential (primary) hypertension Status: Acute Assessment and Plan: * blood pressures ranging 152/66 to 208/104 * continue lisinopril, 1st dose starting now 07/28 * blood pressures ranging 145/95 to 177/60 * continue lisinopril * will start amlodipine 5 mg (6) Type 2 diabetes mellitus with diabetic neuropathy, unspecified: Code(s): E11.40 - Type 2 diabetes mellitus with diabetic neuropathy, unspecified Status: Acute Assessment and Plan: * Blood sugars ranging 121-194 * Hgb A1C 7.3 on 04/17/2024 * will repeat hemoglobin A1c today * Accu checks AC/HS * moderate dose SSI ordered * restart Lantus at half the dose that she normally takes 20 units at HS * Hold Mounjaro and metformin * hypoglycemic protocol in place * Diabetic diet ordered 07/28 * will increase Lantus to 40 units at bedtime * blood sugars ranging [id number] (7) Weakness: Code(s): R53.1 - Weakness Status: Acute Assessment and Plan: * PT and OT ordered 07/28 * no change Time Spent With Patient Time with patient: Greater than 35 minutes Subjective Date/time seen: 07/28/24 16:19 Interval history: interval history: This is a 79-year-old female with a significant past medical history thyroid disorder, stroke, heart disease, GERD, diabetes, arthritis presented to the hospital with stroke-like symptoms. Patient is a poor historian and most medical history was obtained from the EMR. She was reported to have increased weakness, unable to walk, unable to care for herself along with garbled speech. family who was at the bedside in the ED stated that she had prior history of TIA and has been taking aspirin and Plavix. Workup in the hospital included a chest x-ray which was negative. Head CT which was negative for any acute intracranial hemorrhage, mass, acute infarct, shown atrophy and chronic white matter changes. Initial labs showed Normal white blood cell count of 8.5, hemoglobin 11.6, potassium 5.7, creatinine 1.66, EGFR 30, blood sugars ranging 121-148, lactic acid was normal at 1.6, magnesium was 1.2, calcium level 11.3, troponin was negative x2, proBNP 361, procalcitonin 0.1. UA was obtained which showed 1+ urine protein, trace urine ketone, trace leukocytes, Urine cast greater than 20, otherwise negative. respiratory panel was negative for influenza a and B, RSV, COVID. EKG showed sinus rhythm with a rate of 81, QTC 400. Patient was given 1 L of normal saline, 2 g of magnesium while in the ED. neurology was consulted. subjective: speech is improving. is at the bedside and questions were answered. Labs reviewed. Review of Systems Review of Systems: ROS unobtainable: Yes unobtainable due to mental status Exam Narrative: General: In no acute distress, well nourished Cardiac: Normal S1 and S2. No murmur, gallops or friction rubs, peripheral pulses intact. Respiratory: Lungs clear to auscultation, no adventitious lung sounds, currently on room air Gastrointestinal: soft, non-distended, non-tender, normoactive bowel sounds. : voiding without difficulty. Neuro: Alert and oriented x1-2, cranial nerves intact, no neuro deficits. Speech improving Psych: normal mood, normal affect, interactive Objective Data Vital Signs Vital Signs: Vital Signs - 24 hr 07/27/24 20:00 07/27/24 20:00 07/27/24 21:18 Temperature 97.2 F L Pulse Rate 78 81 Respiratory Rate 16 Blood Pressure 177/60 H Pulse Oximetry 94 Oxygen Delivery Room Air 07/28/24 00:00 07/28/24 04:00 07/28/24 06:00 Temperature 97.3 F L Pulse Rate 90 92 81 Respiratory Rate 18 Blood Pressure 145/95 H Pulse Oximetry 97 Oxygen Delivery 07/28/24 10:20 07/28/24 10:20 07/28/24 12:00 Temperature Pulse Rate 97 94 Respiratory Rate Blood Pressure Pulse Oximetry Oxygen Delivery Room Air 07/28/24 14:00 Temperature 98.1 F Pulse Rate 87 Respiratory Rate 18 Blood Pressure 169/85 H Pulse Oximetry 96 Oxygen Delivery Intake/Output Intake/Output: Intake & Output 07/25/24 07/26/24 07/27/24 07/28/24 23:59 23:59 23:59 23:59 Intake Total 2640 1880 Output Total 150 2000 Balance 2490 -120 Meds/Results Medications: Active Medications Generic Name Dose Route Start Last Admin Trade Name Freq PRN Reason Stop Dose Admin Acetaminophen 650 mg 07/27/24 02:59 Acetaminophen 325 Mg Tablet PO Q4H PRN Mild Pain (1-3) or Fever Aspirin 81 mg 07/28/24 09:00 07/28/24 09:58 Aspirin 81 Mg Enteric Tablet PO 81 mg DAILY ZENOBIA Administration Atorvastatin Calcium 80 mg 07/27/24 21:00 07/27/24 20:36 Atorvastatin 40 Mg Tablet PO Not Given HS ZENOBIA Calcitonin [place] 100 units 07/27/24 15:00 07/28/24 09:59 Calcitonin [place] Inj 400 Units/2 Ml Vial SUB-Q 100 units DAILY ZENOBIA Administration Carbidopa/Levodopa 1 tablet 07/27/24 17:00 07/28/24 12:36 Carbidopa/Levodopa 25/100 Mg Tablet PO 1 tablet TID ZENOBIA Administration Clopidogrel Bisulfate 75 mg 07/28/24 09:00 07/28/24 09:58 Clopidogrel Bisulfate 75 Mg Tablet PO 75 mg DAILY ZENOBIA Administration Dextrose 12.5 gm 07/27/24 13:36 Dextrose 50% 25 Gm/50 Ml Syringe IV PUSH PRN PRN Hypoglycemia Protocol Enoxaparin Sodium 40 mg 07/28/24 09:00 07/28/24 10:10 Enoxaparin 40 Mg/0.4 Ml Syringe SUB-Q 40 mg DAILY ZENOBIA Administration Ferrous Sulfate 325 mg 07/28/24 09:00 07/28/24 09:58 Ferrous Sulfate [address] BY MOUTH 325 mg DAILY ZENOBIA Administration Glucagon 1 mg 07/27/24 13:36 Glucagon For Inj 1 Mg Vial IM PRN PRN Hypoglycemia Protocol Glucose 15 gm 07/27/24 13:36 Glucose Oral Gel 15 Gm Of Glucse In 37.5 Gm Tube PO PRN PRN Hypoglycemia Protocol Sodium Chloride 1,000 mls @ 100 mls/hr 07/27/24 03:00 07/28/24 10:12 Normal Saline Iv IV CONT Not Given .Q10H ZENOBIA Dextrose 1,000 mls @ 100 mls/hr 07/27/24 13:36 Dextrose 5% 1,000 Ml IVPB PRN PRN Hypoglycemia Protocol Insulin Aspart 3 - 6 units 07/27/24 17:00 07/28/24 12:35 Insulin Aspart (*Bkc) 100 Units/Ml SUB-Q 4 units TIDWM ZENOBIA Administration Protocol Insulin Aspart 1 - 3 units 07/27/24 21:00 07/27/24 20:36 Insulin Aspart (*Bkc) 100 Units/Ml SUB-Q 1 units HS ZENOBIA Administration Protocol Insulin Glargine 20 units 07/27/24 21:00 07/27/24 20:37 Insulin Glargine (*Bkc) 100 Units/Ml SUB-Q 20 units HS ZENOBAI Administration Lisinopril 80 mg 07/27/24 13:50 07/28/24 09:58 Lisinopril 20 Mg Tablet PO 80 mg DAILY ZENOBIA Administration Pantoprazole Sodium 40 mg 07/28/24 09:00 07/28/24 09:58 Pantoprazole 40 Mg Tablet PO 40 mg QAM ZENOBIA Administration Radiology Results: ITS Impressions Chest X-Ray 07/26/24 23:26 IMPRESSION: No acute cardiopulmonary process. Head CT 07/27/24 05:31 Impression: No intracranial hemorrhage, mass, or acute infarct. Atrophy and chronic white matter changes, as above. Labs Labs: Laboratory Results - last 24 hr 07/27/24 07/27/24 07/27/24 00:01 15:32 15:44 WBC RBC Hgb Hct MCV MCH MCHC RDW Plt Count MPV Immature Gran % (Auto) Neut % (Auto) Lymph % (Auto) [place] % (Auto) Eos % (Auto) Baso % (Auto) Lymph # (Auto) [place] # (Auto) Eos # (Auto) Baso # (Auto) Abs Immat Gran (auto) Absolute Neuts (auto) Absolute Nucleated RBC Nucleated RBC % Sodium Potassium Chloride Carbon Dioxide Anion Gap BUN Creatinine Estim Creat Clear Calc Estimated GFR Glucose POC Capillary Glucose Hemoglobin A1c 7.0 H Calcium Magnesium Total Bilirubin AST ALT Alkaline Phosphatase Total Protein Albumin Vitamin D 25-Hydroxy 29.5 TSH 1.470 Thyroxine (T4) 7.60 07/27/24 07/27/24 07/28/24 17:26 20:23 05:49 WBC 9.8 RBC 3.59 L Hgb 11.0 L Hct 33.1 L MCV 92.2 MCH 30.6 MCHC 33.2 RDW 15.4 H Plt Count 272 MPV 11.2 H Immature Gran % (Auto) 0.4 Neut % (Auto) 70.5 Lymph % (Auto) 18.8 [place] % (Auto) 6.6 Eos % (Auto) 3.3 Baso % (Auto) 0.4 Lymph # (Auto) 1.84 [place] # (Auto) 0.7 H Eos # (Auto) 0.3 Baso # (Auto) 0.0 Abs Immat Gran (auto) 0.04 H Absolute Neuts (auto) 6.9 H Absolute Nucleated RBC 0.000 Nucleated RBC % 0.0 Sodium 139 Potassium 4.5 Chloride 102 Carbon Dioxide 27 Anion Gap 10 BUN 20 H D Creatinine 0.72 Estim Creat Clear Calc 53 Estimated GFR > 60 Glucose 229 H POC Capillary Glucose 206 H 248 H Hemoglobin A1c Calcium 10.6 H Magnesium 1.1 L Total Bilirubin 1.1 AST 16 ALT 9 Alkaline Phosphatase 97 Total Protein 7.0 Albumin 3.9 Vitamin D 25-Hydroxy TSH Thyroxine (T4) 07/28/24 07/28/24 07:38 11:15 WBC RBC Hgb Hct MCV MCH MCHC RDW Plt Count MPV Immature Gran % (Auto) Neut % (Auto) Lymph % (Auto) [place] % (Auto) Eos % (Auto) Baso % (Auto) Lymph # (Auto) [place] # (Auto) Eos # (Auto) Baso # (Auto) Abs Immat Gran (auto) Absolute Neuts (auto) Absolute Nucleated RBC Nucleated RBC % Sodium Potassium Chloride Carbon Dioxide Anion Gap BUN Creatinine Estim Creat Clear Calc Estimated GFR Glucose POC Capillary Glucose 208 H 298 H Hemoglobin A1c Calcium Magnesium Total Bilirubin AST ALT Alkaline Phosphatase Total Protein Albumin Vitamin D 25-Hydroxy TSH Thyroxine (T4) Quality VTE Prophylaxis VTE prophylaxis: pharmacologic ordered
[2024-07-28 16:43] LABS: Glucose Point of Care 319 mg/dl (65-105)
[2024-07-28] MEDS: ACETAMINOPHEN 325 MG TABLET 650 MG PO (19:50)
[2024-07-28] MEDS: amLODIPine BESYLATE 5 MG TABLET PO (19:51)
[2024-07-28] MEDS: ATORVASTATIN 40 MG TABLET 80 MG PO (19:51)
[2024-07-28] MEDS: INSULIN GLARGINE (*BKC) 100 UNITS/ML 40 UNITS SUB-Q (20:21)
[2024-07-28] MEDS: LORazepam INJ (*CRX) 2 MG/ML VIAL 0.25 MG IV PUSH (21:36)
[2024-07-28 21:39] LABS: Glucose Point of Care 360 mg/dl (65-105)
[2024-07-28] MEDS: hydrALAZINE HCL 20 MG/ML VIAL 10 MG IV PUSH (22:59)
[2024-07-29] VITALS (8 sets, daily range): BP systolic 170–210; BP diastolic 74–100; PULSE 82–100; RESP 20; TEMP 36.1–36.7; O2SAT 95–100
[2024-07-29] MEDS: METOPROLOL TARTRATE INJ 5 MG/5 ML VIAL IV PUSH ×3 (01:40→15:20)
[2024-07-29 05:18] LABS: Triiodothyronine T3 Free 2.8 pg/mL (2.3-4.2)
[2024-07-29 06:31] LABS: Basophils Percent Auto 0.3 % (0.2-1.2); Eosinophils Absolute Auto 0.1 K/mm3 (0-0.3); Eosinophils Percent Auto 1.3 % (0-4.4); Hematocrit 34.4 % (37.0-47.0); Hemoglobin 11.4 g/dL (12.0-15.0); Immature Granulocyte Absolute 0.03 K/mm3 (0.00-0.031); Immature Granulocyte Percent A 0.3 % (0-0.5); Lymphocytes Absolute Auto 1.07 K/mm3 (0.9-3.2); Lymphocytes Percent Auto 11.1 % (18.3-44.2); Mean Corpuscular HGB Conc 33.1 g/dl (32-36); Mean Corpuscular Volume 93.5 fl (80-100); Monocytes Absolute Auto 0.6 K/mm3 (0.1-0.6); Monocytes Percent Auto 6.2 % (2.6-8.5); Neutrophils Absolute Auto 7.8 K/mm3 (1.3-6.7); Neutrophils Percent Auto 80.8 % (45.5-73.1); Platelet Count Result 263 k/mm3 (150-375); Red Blood Count 3.68 M/mm3 (4.2-5.4); Red Cell Distribution Width 15.9 % (11.5-14.5); White Blood Count 9.7 K/mm3 (4.5-10.0)
[2024-07-29 06:40] LABS: Alanine Aminotransferase 13 U/L (6-35); Albumin Level 3.9 g/dL (3.5-5.1); Alkaline Phosphatase 114 U/L (38-126); Anion Gap 11 mmol/L (4-12); Aspartate Amino Transferase 20 U/L (14-36); Bilirubin,Total 0.8 mg/dL (0.2-1.3); Blood Urea Nitrogen 21 mg/dL (7-17); Carbon Dioxide 27 mmol/L (22-30); Chloride 101 mmol/L (98-107); Estimated CRCL calculation 49 ml/min; Estimated Glomerular Filt Rate > 60; Glucose 336 mg/dL (65-110); Magnesium 1.7 mg/dL (1.6-2.3); Potassium 4.9 mmol/L (3.4-5.0); Sodium 139 mmol/L (137-145)
--- NOTE | 2024-07-29 08:26 | P.PNIM_ITS ---
Progress Note: A&P Assessment and Plan (1) Altered mental status: Code(s): R41.82 - Altered mental status, unspecified Status: Acute Assessment and Plan: * head CT showed atrophy and chronic white matter changes, no acute intracranial process * could be do to electrolyte imbalance versus hypercalcemia, versus TIA * patient passed to the bedside swallow with speech therapy today * PT and OT ordered * echocardiogram ordered * brain MRI ordered * neurology consulted * continue neuro checks q.4 hour * continue telemetry monitoring for now 07/28 * continue carbidopa levodopa * continue neuro checks * echocardiogram shown normal LV systolic function with an estimated EF of greater than 70%, grade 1 diastolic dysfunction * MRI was canceled * Neurology following * PT and OT are ordered * speech therapy will continue to work with her 2 * Continue neuro checks * Continue PT and OT * Continue speech therapy (2) Hypercalcemia: Code(s): E83.52 - Hypercalcemia Status: Acute Assessment and Plan: * initial calcium 11.3, now 11.2 * Will check thyroid panel, parathyroid, vitamin D * Calcitonin ordered daily 07/28 * calcium 10.6 * continue calcitonin 2 * Calcium 11.0 * Continue to trend * Continue calcitonin (3) Hypomagnesemia: Code(s): E83.42 - Hypomagnesemia Status: Acute Assessment and Plan: * initial magnesium 1.2 * she was given 2g of magnesium while in the ED * repeat magnesium 3.5 2/ * magnesium 1.1 this morning * patient was given 4 g of magnesium * continue to trend 2/ * Magnesium 1.7 * Continue to trend (4) Mixed hyperlipidemia: Code(s): E78.2 - Mixed hyperlipidemia Status: Acute Assessment and Plan: * continue aspirin, atorvastatin, Plavix 2/ * no change to current treatment plan (5) Essential (primary) hypertension: Code(s): I10 - Essential (primary) hypertension Status: Acute Assessment and Plan: * blood pressures ranging 152/66 to 208/104 * continue lisinopril, 1st dose starting now 07/28 * blood pressures ranging 145/95 to 177/60 * continue lisinopril * will start amlodipine 5 mg 2/ * Continue lisinopril * Stop amlodipine and start Coreg (6) Type 2 diabetes mellitus with diabetic neuropathy, unspecified: Code(s): E11.40 - Type 2 diabetes mellitus with diabetic neuropathy, unspecified Status: Acute Assessment and Plan: * Blood sugars ranging 121-194 * Hgb A1C 7.3 on 04/17/2024 * will repeat hemoglobin A1c today * Accu checks AC/HS * moderate dose SSI ordered * restart Lantus at half the dose that she normally takes 20 units at HS * Hold Mounjaro and metformin * hypoglycemic protocol in place * Diabetic diet ordered 07/28 * will increase Lantus to 40 units at bedtime * blood sugars ranging 208-319 / * Will start mealtime dose of 4 units with meals and at bedtime for better glycemic control (7) Weakness: Code(s): R53.1 - Weakness Status: Acute Assessment and Plan: * PT and OT ordered 07/28 * no change Time Spent With Patient Time with patient: 25 - 35 minutes Subjective Date/time seen: 07/29/24 08:26 Interval history: interval history: This is a 79-year-old female with a significant past medical history thyroid disorder, stroke, heart disease, GERD, diabetes, arthritis presented to the hospital with stroke-like symptoms. Patient is a poor historian and most medical history was obtained from the EMR. She was reported to have increased weakness, unable to walk, unable to care for herself along with garbled speech. family who was at the bedside in the ED stated that she had prior history of TIA and has been taking aspirin and Plavix. Workup in the hospital included a chest x-ray which was negative. Head CT which was negative for any acute intracranial hemorrhage, mass, acute infarct, shown atrophy and chronic white matter changes. Initial labs showed Normal white blood cell count of 8.5, hemoglobin 11.6, potassium 5.7, creatinine 1.66, EGFR 30, blood sugars ranging 121-148, lactic acid was normal at 1.6, magnesium was 1.2, calcium level 11.3, troponin was negative x2, proBNP 361, procalcitonin 0.1. UA was obtained which showed 1+ urine protein, trace urine ketone, trace leukocytes, Urine cast greater than 20, otherwise negative. respiratory panel was negative for influenza a and B, RSV, COVID. EKG showed sinus rhythm with a rate of 81, QTC 400. Patient was given 1 L of normal saline, 2 g of magnesium while in the ED. neurology was consulted. subjective: Patient was given Ativan overnight and is overly sedated with obstructive breathing pattern. Patient was given dose of flumazenil to reverse the benzodiazepine. Labs reviewed Review of Systems Review of Systems: ROS unobtainable: Yes unobtainable due to mental status Exam Narrative: General: In no acute distress, well nourished Cardiac: Normal S1 and S2. No murmur, gallops or friction rubs, peripheral pulses intact. Respiratory: Lungs clear to auscultation, no adventitious lung sounds, currently on room air Gastrointestinal: soft, non-distended, non-tender, normoactive bowel sounds. : voiding without difficulty. Neuro: Alert to stimulation and confused this morning, cranial nerves intact, no neuro deficits. Objective Data Vital Signs Vital Signs: Vital Signs - 24 hr 07/28/24 10:20 07/28/24 10:20 07/28/24 12:00 Temperature Pulse Rate 97 94 Respiratory Rate Blood Pressure Pulse Oximetry Oxygen Delivery Room Air 07/28/24 14:00 07/28/24 16:00 07/28/24 20:00 Temperature 98.1 F Pulse Rate 87 89 Respiratory Rate 18 Blood Pressure 169/85 H Pulse Oximetry 96 Oxygen Delivery Room Air 07/28/24 20:10 07/28/24 22:45 07/28/24 22:48 Temperature 97.9 F Pulse Rate 87 93 Respiratory Rate 18 20 Blood Pressure 190/90 H 190/92 H 230/98 H Pulse Oximetry 95 94 Oxygen Delivery 07/28/24 23:45 07/29/24 00:50 07/29/24 05:46 Temperature 98.0 F Pulse Rate 99 94 86 Respiratory Rate 20 20 Blood Pressure 165/85 H 187/84 H 190/100 H Pulse Oximetry 98 95 96 Oxygen Delivery Intake/Output Intake/Output: Intake & Output 07/26/24 07/27/24 07/28/24 07/29/24 23:59 23:59 23:59 23:59 Intake Total 2640 2720 60 Output Total 150 2000 500 Balance 2490 659 -440 Meds/Results Medications: Active Medications Generic Name Dose Route Start Last Admin Trade Name Freq PRN Reason Stop Dose Admin Acetaminophen 650 mg 07/27/24 02:59 07/28/24 19:50 Acetaminophen 325 Mg Tablet PO 650 mg Q4H PRN Administration Mild Pain (1-3) or Fever Amlodipine Besylate 5 mg 07/28/24 18:15 07/28/24 19:51 Amlodipine Besylate 5 Mg Tablet PO 5 mg DAILY ZENOBIA Administration Aspirin 81 mg 07/28/24 09:00 07/28/24 09:58 Aspirin 81 Mg Enteric Tablet PO 81 mg DAILY ZENOBIA Administration Atorvastatin Calcium 80 mg 07/27/24 21:00 07/28/24 19:51 Atorvastatin 40 Mg Tablet PO 80 mg HS ZENOBIA Administration Calcitonin [place] 100 units 07/27/24 15:00 07/28/24 09:59 Calcitonin [place] Inj 400 Units/2 Ml Vial SUB-Q 100 units DAILY ZENOBIA Administration Carbidopa/Levodopa 1 tablet 07/27/24 17:00 07/28/24 17:26 Carbidopa/Levodopa 25/100 Mg Tablet PO 1 tablet TID ZENOBIA Administration Clopidogrel Bisulfate 75 mg 07/28/24 09:00 07/28/24 09:58 Clopidogrel Bisulfate 75 Mg Tablet PO 75 mg DAILY ZENOBIA Administration Dextrose 12.5 gm 07/27/24 13:36 Dextrose 50% 25 Gm/50 Ml Syringe IV PUSH PRN PRN Hypoglycemia Protocol Enoxaparin Sodium 40 mg 07/28/24 09:00 07/28/24 10:10 Enoxaparin 40 Mg/0.4 Ml Syringe SUB-Q 40 mg DAILY ZENOBIA Administration Ferrous Sulfate 325 mg 07/28/24 09:00 07/28/24 09:58 Ferrous Sulfate [address] BY MOUTH 325 mg DAILY ZENOBIA Administration Glucagon 1 mg 07/27/24 13:36 Glucagon For Inj 1 Mg Vial IM PRN PRN Hypoglycemia Protocol Glucose 15 gm 07/27/24 13:36 Glucose Oral Gel 15 Gm Of Glucse In 37.5 Gm Tube PO PRN PRN Hypoglycemia Protocol Dextrose 1,000 mls @ 100 mls/hr 07/27/24 13:36 Dextrose 5% 1,000 Ml IVPB PRN PRN Hypoglycemia Protocol Insulin Aspart 3 - 6 units 07/27/24 17:00 07/28/24 17:26 Insulin Aspart (*Bkc) 100 Units/Ml SUB-Q 5 units TIDWM ZENOBIA Administration Protocol Insulin Aspart 1 - 3 units 07/27/24 21:00 07/28/24 20:20 Insulin Aspart (*Bkc) 100 Units/Ml SUB-Q 3 units HS ZENOBIA Administration Protocol Insulin Glargine 40 units 07/28/24 21:00 07/28/24 20:21 Insulin Glargine (*Bkc) 100 Units/Ml SUB-Q 40 units HS ZENOBIA Administration Lisinopril 80 mg 07/27/24 13:50 07/28/24 09:58 Lisinopril 20 Mg Tablet PO 80 mg DAILY ZENOBIA Administration Metoprolol Tartrate 5 mg 07/29/24 01:05 07/29/24 05:48 Metoprolol Tartrate Inj 5 Mg/5 Ml Vial IV PUSH 5 mg Q4H PRN Administration SBP greater than 180 Pantoprazole Sodium 40 mg 07/28/24 09:00 07/28/24 09:58 Pantoprazole 40 Mg Tablet PO 40 mg QAM ZENOBIA Administration Radiology Results: ITS Impressions Chest X-Ray 07/26/24 23:26 IMPRESSION: No acute cardiopulmonary process. Head CT 07/27/24 05:31 Impression: No intracranial hemorrhage, mass, or acute infarct. Atrophy and chronic white matter changes, as above. Labs Labs: Laboratory Results - last 24 hr 07/27/24 07/28/24 07/28/24 15:44 11:15 16:34 WBC RBC Hgb Hct MCV MCH MCHC RDW Plt Count MPV Immature Gran % (Auto) Neut % (Auto) Lymph % (Auto) [place] % (Auto) Eos % (Auto) Baso % (Auto) Lymph # (Auto) [place] # (Auto) Eos # (Auto) Baso # (Auto) Abs Immat Gran (auto) Absolute Neuts (auto) Absolute Nucleated RBC Nucleated RBC % Sodium Potassium Chloride Carbon Dioxide Anion Gap BUN Creatinine Estim Creat Clear Calc Estimated GFR Glucose POC Capillary Glucose 298 H 319 H Calcium Magnesium Total Bilirubin AST ALT Alkaline Phosphatase Total Protein Albumin Free T3 2.8 07/28/24 07/29/24 20:19 06:18 WBC 9.7 RBC 3.68 L Hgb 11.4 L Hct 34.4 L MCV 93.5 MCH 31.0 MCHC 33.1 RDW 15.9 H Plt Count 263 MPV 11.0 H Immature Gran % (Auto) 0.3 Neut % (Auto) 80.8 H Lymph % (Auto) 11.1 L [place] % (Auto) 6.2 Eos % (Auto) 1.3 Baso % (Auto) 0.3 Lymph # (Auto) 1.07 [place] # (Auto) 0.6 Eos # (Auto) 0.1 Baso # (Auto) 0.0 Abs Immat Gran (auto) 0.03 Absolute Neuts (auto) 7.8 H Absolute Nucleated RBC 0.000 Nucleated RBC % 0.0 Sodium 139 Potassium 4.9 Chloride 101 Carbon Dioxide 27 Anion Gap 11 BUN 21 H Creatinine 0.77 Estim Creat Clear Calc 49 Estimated GFR > 60 Glucose 336 H POC Capillary Glucose 360 H Calcium 11.0 H Magnesium 1.7 Total Bilirubin 0.8 AST 20 ALT 13 Alkaline Phosphatase 114 Total Protein 7.0 Albumin 3.9 Free T3 Quality VTE Prophylaxis VTE prophylaxis: pharmacologic ordered
[2024-07-29 08:28] LABS: Glucose Point of Care 306 mg/dl (65-105)
--- NOTE | 2024-07-29 10:50 | PC.NURSE ---
During hospitalist Bela's assessment periods of apnea were noticed along with possible obstructive breathing. Patient received chemical restraint medication last night and patient is possibly suffering from delayed effects of medication. RN took pulse ox and patient read 96% but during periods of apnea oxygen saturation would drop down as low as 80%. appliance counselor counted breaths and patient is taking 6 breaths per min with up to 25 seconds of apnea in between breaths. RN attempted to get blood pressure on patient. Patient yelling, not lying still, patient moving. Hospitalist stated to wait on retaking blood pressure as patient is not being cooperative. Hospitalist ordered for ABG (see labs). Hospitalist ordered biapap. RN, RT, Hospitalist, and appliance counselor attempted to place bipap on patient multiple times. Patient pulling at mask, screaming, whaling, not allowing for mask to stay on. Hospitalist ordered to hold off on bipap and place 2L nasal cannula on patient. RN and Hospitalist attempted nasal cannula placement. Patient screaming, ripping at tubing, and pulling off nasal cannula constantly. Patient laying on left side refusing to follow any commands, refusing to wear bipap, and refusing to wear nasal cannula. Hospitalist ordered medication (see MAR) in hopes to get orientation back and patient to be less lethargic and drowsy.
[2024-07-29] MEDS: CALCITONIN SALMON INJ 400 UNITS/2 ML VIAL 100 UNITS SUB-Q (11:14)
[2024-07-29 11:15] LABS: Alveolar/Arterial O2 Gradient 28.2 mmHg; Base Excess ABG 3.6 mEq/l (+/-2.0); Fractional Inspired Oxygen 21 %; HCO3 ABG 27.7 mEq/l (22.0-26.0); Oxygen Content ABG 16.5 %vol (16.0-22.0); Oxygen Saturation ABG 95.4 % (95.0-100.0); Oxyhemoglobin 93.5 % THb (90.0-100.0); PCO2 ABG 40.3 mmHg (35.0-45.0); PO2 ABG 73.3 mmHg (80.0-100.0); PO2 FiO2 Ratio Arterial Blood 3.49 %; Total Hemoglobin 12.5 g/dL (12.0-18.0); pH ABG 7.455 (7.350-7.450)
[2024-07-29] MEDS: ENOXAPARIN 40 MG/0.4 ML SYRINGE SUB-Q (11:15)
[2024-07-29 11:16] LABS: Device ROOM AIR; Site Drawn LEFT BRACHIAL
--- NOTE | 2024-07-29 11:16 | PCOTNOTE ---
The patient initial evaluation for occupational therapy was not able to be completed on 07/29 due to increased altered mental status and respiratory concerns. Will plan to continue to follow patient and evaluate when appropriate.
[2024-07-29] MEDS: WATER FOR IRRIGATION, STERILE 1,000 ML BOTTLE 1000 ML (11:25)
[2024-07-29] MEDS: flumazeniL 0.5 MG/5 ML VIAL 0.2 MG IV PUSH (12:00)
[2024-07-29 12:11] LABS: Glucose Point of Care 282 mg/dl (65-105)
--- NOTE | 2024-07-29 14:19 | PC.NURSE ---
RN called hospitalist due to patients elevated blood pressure (see vitals). No answer at this time.
--- NOTE | 2024-07-29 14:49 | PC.NURSE ---
RN called hospitalist office to get ahold of Hospitalist Bela in regards to patient's blood pressure (see vitals). No answer.
--- NOTE | 2024-07-29 15:11 | PC.NURSE ---
RN called hospitalist Bela pickard again and no answer.
--- NOTE | 2024-07-29 15:12 | PC.NURSE ---
RN called [facility] to see if hospitalist Bela was on that unit and would call RN back. Sarah IBRAHIM stated she was not down there.
--- NOTE | 2024-07-29 15:12 | PC.NURSE ---
RN called [facility] and spoke with director Trever asking if Hospitalist Bela was on that unit and could call RN back. Trever stated she was not on that unit either.
--- NOTE | 2024-07-29 15:13 | PC.NURSE ---
RN called hospitalist office again trying to reach Hospitalist Bela in regards to patient's blood pressure. No answer.
[2024-07-29] MEDS: CARBIDOPA/LEVODOPA 25/100 MG TABLET 1 TABLET PO (18:13)
[2024-07-29] MEDS: INSULIN ASPART (*BKC) 100 UNITS/ML SUB-Q ×2 (18:16→20:01)
[2024-07-29 18:18] LABS: Glucose Point of Care 244 mg/dl (65-105)
--- NOTE | 2024-07-29 18:44 | PC.NURSE ---
During physical assessment this morning Hospitalist Bela verbally stated she would change PRN blood pressure medications as the ordered PRN metoprolol was not the medication she wanted ordered. RN made several phone calls attempting to get ahold of Hospitalantonette Cramer (see previous notes). PRN blood pressure medication metoprolol was never changed as it was previously discussed verbally it would be. RN gave PRN metoprolol that was previously ordered for patient's elevated blood pressure. Hospitalist aftab.
[2024-07-29] MEDS: ATORVASTATIN 40 MG TABLET 80 MG PO (19:54)
[2024-07-29] MEDS: carvediloL 3.125 MG TABLET PO (19:54)
[2024-07-29] MEDS: INSULIN GLARGINE (*BKC) 100 UNITS/ML 40 UNITS SUB-Q (20:01)
[2024-07-29 21:44] LABS: Glucose Point of Care 396 mg/dl (65-105)
[2024-07-30] VITALS (9 sets, daily range): BP systolic 132–180; BP diastolic 58–92; PULSE 102–109; RESP 14–20; TEMP 36.6; O2SAT 94–100; BMI 10.0
[2024-07-30] MEDS: hydrALAZINE HCL 20 MG/ML VIAL 10 MG IV PUSH ×2 (05:55→10:34)
[2024-07-30 06:20] LABS: Basophils Percent Auto 0.4 % (0.2-1.2); Eosinophils Absolute Auto 0.2 K/mm3 (0-0.3); Eosinophils Percent Auto 1.6 % (0-4.4); Hemoglobin 11.7 g/dL (12.0-15.0); Immature Granulocyte Absolute 0.04 K/mm3 (0.00-0.031); Immature Granulocyte Percent A 0.4 % (0-0.5); Lymphocytes Absolute Auto 1.25 K/mm3 (0.9-3.2); Lymphocytes Percent Auto 13.3 % (18.3-44.2); Mean Corpuscular HGB Conc 32.5 g/dl (32-36); Mean Corpuscular Hemoglobin 30.8 pg (26-34); Mean Corpuscular Volume 94.7 fl (80-100); Mean Platelet Volume 11.1 fl (7.4-10.4); Monocytes Absolute Auto 0.7 K/mm3 (0.1-0.6); Neutrophils Absolute Auto 7.3 K/mm3 (1.3-6.7); Neutrophils Percent Auto 77.3 % (45.5-73.1); Platelet Count Result 266 k/mm3 (150-375); Red Cell Distribution Width 15.8 % (11.5-14.5); White Blood Count 9.4 K/mm3 (4.5-10.0)
[2024-07-30 06:45] LABS: Alanine Aminotransferase 14 U/L (6-35); Albumin Level 4.1 g/dL (3.5-5.1); Alkaline Phosphatase 111 U/L (38-126); Anion Gap 9 mmol/L (4-12); Aspartate Amino Transferase 17 U/L (14-36); Bilirubin,Total 0.8 mg/dL (0.2-1.3); Blood Urea Nitrogen 28 mg/dL (7-17); Calcium 11.6 mg/dL (8.4-10.2); Carbon Dioxide 30 mmol/L (22-30); Chloride 103 mmol/L (98-107); Estimated CRCL calculation 57 ml/min; Estimated Glomerular Filt Rate > 60; Glucose 343 mg/dL (65-110); Magnesium 1.6 mg/dL (1.6-2.3); Potassium 4.9 mmol/L (3.4-5.0); Sodium 142 mmol/L (137-145)
[2024-07-30] MEDS: INSULIN ASPART (*BKC) 100 UNITS/ML SUB-Q ×7 (10:03→21:06)
[2024-07-30 10:04] LABS: Glucose Point of Care 330 mg/dl (65-105)
[2024-07-30] MEDS: CALCITONIN SALMON INJ 400 UNITS/2 ML VIAL 100 UNITS SUB-Q (10:04)
[2024-07-30] MEDS: ENOXAPARIN 40 MG/0.4 ML SYRINGE SUB-Q (10:04)
[2024-07-30 11:53] LABS: Glucose Point of Care 320 mg/dl (65-105)
--- NOTE | 2024-07-30 14:31 | P.PNIM_ITS ---
Progress Note: A&P Assessment and Plan (1) Altered mental status: Code(s): R41.82 - Altered mental status, unspecified Status: Acute Assessment and Plan: * head CT showed atrophy and chronic white matter changes, no acute intracranial process * could be do to electrolyte imbalance versus hypercalcemia, versus TIA * patient passed to the bedside swallow with speech therapy today * PT and OT ordered * echocardiogram ordered * brain MRI ordered * neurology consulted * continue neuro checks q.4 hour * continue telemetry monitoring for now 07/28 * continue carbidopa levodopa * continue neuro checks * echocardiogram shown normal LV systolic function with an estimated EF of greater than 70%, grade 1 diastolic dysfunction * MRI was canceled * Neurology following * PT and OT are ordered * speech therapy will continue to work with her 07/29 * Continue neuro checks * Continue PT and OT * Continue speech therapy 07/30 * No change (2) Hypercalcemia: Code(s): E83.52 - Hypercalcemia Status: Acute Assessment and Plan: * initial calcium 11.3, now 11.2 * Will check thyroid panel, parathyroid, vitamin D * Calcitonin ordered daily 07/28 * calcium 10.6 * continue calcitonin 2 * Calcium 11.0 * Continue to trend * Continue calcitonin 07/30 * Calcium 11.6 * discontinue calcitonin * Will start Sensipar 30 mg daily for hyperparathyroidism * PTH 82 (3) Hypomagnesemia: Code(s): E83.42 - Hypomagnesemia Status: Acute Assessment and Plan: * initial magnesium 1.2 * she was given 2g of magnesium while in the ED * repeat magnesium 3.5 2 * magnesium 1.1 this morning * patient was given 4 g of magnesium * continue to trend 07/29 * Magnesium 1.7 * Continue to trend 07/30 * Magnesium 1.6 * Will give 2gm Magnesium now * Start Magnesium oxide 400 mg daily (4) Mixed hyperlipidemia: Code(s): E78.2 - Mixed hyperlipidemia Status: Acute Assessment and Plan: * continue aspirin, atorvastatin, Plavix 07/28 * no change to current treatment plan (5) Essential (primary) hypertension: Code(s): I10 - Essential (primary) hypertension Status: Acute Assessment and Plan: * blood pressures ranging 152/66 to 208/104 * continue lisinopril, 1st dose starting now 07/28 * blood pressures ranging 145/95 to 177/60 * continue lisinopril * will start amlodipine 5 mg 07/29 * Continue lisinopril * Stop amlodipine and start Coreg 07/30 * B/P ranging 132/58-180/78 * Increased Coreg dose * continue to hold Lisinopril and HCTZ for YARON (6) Type 2 diabetes mellitus with diabetic neuropathy, unspecified: Code(s): E11.40 - Type 2 diabetes mellitus with diabetic neuropathy, unspecified Status: Acute Assessment and Plan: * Blood sugars ranging 121-194 * Hgb A1C 7.3 on 04/17/2024 * will repeat hemoglobin A1c today * Accu checks AC/HS * moderate dose SSI ordered * restart Lantus at half the dose that she normally takes 20 units at HS * Hold Mounjaro and metformin * hypoglycemic protocol in place * Diabetic diet ordered 07/28 * will increase Lantus to 40 units at bedtime * blood sugars ranging 208-319 07/29 * Will start mealtime dose of 4 units with meals and at bedtime for better glycemic control 07/30 * blood sugars ranging 320-396 * will increase Lantus to 50 units * will increase to high-dose sliding scale insulin (7) Weakness: Code(s): R53.1 - Weakness Status: Acute Assessment and Plan: * PT and OT ordered 07/28 * no change (8) RACIEL (obstructive sleep apnea): Code(s): G47.33 - Obstructive sleep apnea (adult) (pediatric) Status: Acute Assessment and Plan: * patient has never been treated for her sleep apnea. reports that she has had this for at least 50 years. Long discussion with about the c orrelation between her RACIEL, hypertension, stroke, and brain fog. * Patient having apnea periods with periods of not breathing for 45 seconds or longer. * Bipap ordered for use when sleeping. * She will need proper sleep study on discharge. Time Spent With Patient Time with patient: Greater than 35 minutes Subjective Date/time seen: 07/30/24 14:31 Interval history: Interval history: This is a 79-year-old female with a significant past medical history thyroid disorder, stroke, heart disease, GERD, diabetes, arthritis presented to the hospital with stroke-like symptoms. Patient is a poor historian and most medical history was obtained from the EMR. She was reported to have increased weakness, unable to walk, unable to care for herself along with garbled speech. family who was at the bedside in the ED stated that she had prior history of TIA and has been taking aspirin and Plavix. Workup in the hospital included a chest x-ray which was negative. Head CT which was negative for any acute intracranial hemorrhage, mass, acute infarct, shown atrophy and chronic white matter changes. Initial labs showed Normal white blood cell count of 8.5, hemoglobin 11.6, potassium 5.7, creatinine 1.66, EGFR 30, blood sugars ranging 121-148, lactic acid was normal at 1.6, magnesium was 1.2, calcium level 11.3, troponin was negative x2, proBNP 361, procalcitonin 0.1. UA was obtained which showed 1+ urine protein, trace urine ketone, trace leukocytes, Urine cast greater than 20, otherwise negative. respiratory panel was negative for influenza a and B, RSV, COVID. EKG showed sinus rhythm with a rate of 81, QTC 400. Patient was given 1 L of normal saline, 2 g of magnesium while in the ED. neurology was consulted. Subjective: Patient is sleepy today. She still continues to have apnea periods and long pauses without breathing. Discussed these findings with the at the bedside. He states that she has been doing this for more than 50 years. He even stated that sometimes he nudges her at night to get her to take a breath. I discussed the risks of RACIEL including stroke, hypertension, and brain fog which she has all three. This can be contributing significantly to her altered mental status. Labs reviewed. Review of Systems Review of Systems: ROS unobtainable: Yes unobtainable due to mental status Exam Narrative: General: In no acute distress, well nourished Cardiac: Normal S1 and S2. No murmur, gallops or friction rubs, peripheral pulses intact. Respiratory: Lungs clear to auscultation, no adventitious lung sounds, currently on 2L NC, sonorous/obstructive breathing pattern with sleeping. Gastrointestinal: soft, non-distended, non-tender, normoactive bowel sounds. : voiding without difficulty. Neuro: Alert to voice and confused this morning, cranial nerves intact, no neuro deficits. Objective Data Vital Signs Vital Signs: Vital Signs - 24 hr 07/29/24 15:20 07/29/24 18:57 07/29/24 19:54 Temperature Pulse Rate 82 85 Respiratory Rate Blood Pressure 180/74 H Pulse Oximetry Oxygen Delivery Oxygen Flow Rate 07/29/24 19:54 07/29/24 20:00 07/30/24 05:50 Temperature 97.7 F 97.8 F Pulse Rate 85 105 H Respiratory Rate 20 20 Blood Pressure 170/100 H 180/92 H Pulse Oximetry 95 95 100 Oxygen Delivery Nasal Cannula Oxygen Flow Rate 2 07/30/24 08:40 07/30/24 09:03 07/30/24 10:00 Temperature Pulse Rate Respiratory Rate Blood Pressure Pulse Oximetry Oxygen Delivery Nasal Cannula Nasal Cannula Nasal Cannula Oxygen Flow Rate 2 3 2 07/30/24 10:01 07/30/24 10:07 07/30/24 11:36 Temperature Pulse Rate 96 Respiratory Rate Blood Pressure 180/78 H 132/58 L Pulse Oximetry Oxygen Delivery Oxygen Flow Rate 07/30/24 13:20 Temperature Pulse Rate Respiratory Rate Blood Pressure Pulse Oximetry 95 Oxygen Delivery Autopap Oxygen Flow Rate Intake/Output Intake/Output: Intake & Output 07/27/24 07/28/24 07/29/24 07/30/24 23:59 23:59 23:59 23:59 Intake Total 2640 2720 180 297 Output Total 150 2000 500 1375 Balance 7487 [phone] Meds/Results Medications: Active Medications Generic Name Dose Route Start Last Admin Trade Name Robertoq PRN Reason Stop Dose Admin Acetaminophen 650 mg 07/27/24 02:59 07/28/24 19:50 Acetaminophen 325 Mg Tablet PO 650 mg Q4H PRN Administration Mild Pain (1-3) or Fever Aspirin 81 mg 07/28/24 09:00 07/29/24 12:29 Aspirin 81 Mg Enteric Tablet PO Not Given DAILY ZENOBIA Atorvastatin Calcium 80 mg 07/27/24 21:00 07/29/24 19:54 Atorvastatin 40 Mg Tablet PO 80 mg HS ZENOBIA Administration Carbidopa/Levodopa 1 tablet 07/27/24 17:00 07/29/24 18:13 Carbidopa/Levodopa 25/100 Mg Tablet PO 1 tablet TID ZENOBIA Administration Carvedilol 6.25 mg 07/30/24 21:00 Carvedilol 6.25 Mg Tablet PO Q12HR ZENOBIA Cinacalcet 30 mg 07/30/24 11:00 Cinacalcet 30 Mg Tablet PO QAM [facility] Clopidogrel Bisulfate 75 mg 07/28/24 09:00 02/06/25 12:29 Clopidogrel Bisulfate 75 Mg Tablet PO Not Given DAILY ZENOBIA Dextrose 12.5 gm 07/27/24 13:36 Dextrose 50% 25 Gm/50 Ml Syringe IV PUSH PRN PRN Hypoglycemia Protocol Enoxaparin Sodium 40 mg 07/28/24 09:00 07/30/24 10:04 Enoxaparin 40 Mg/0.4 Ml Syringe SUB-Q 40 mg DAILY ZENOBIA Administration Ferrous Sulfate 325 mg 07/28/24 09:00 07/29/24 12:29 Ferrous Sulfate [address] BY MOUTH Not Given DAILY ZENOBIA Glucagon 1 mg 07/27/24 13:36 Glucagon For Inj 1 Mg Vial IM PRN PRN Hypoglycemia Protocol Glucose 15 gm 07/27/24 13:36 Glucose Oral Gel 15 Gm Of Glucse In 37.5 Gm Tube PO PRN PRN Hypoglycemia Protocol Hydralazine HCl 10 mg 07/29/24 19:07 07/30/24 05:55 Hydralazine Hcl 20 Mg/Ml Vial IV PUSH 10 mg Q8H PRN Administration Blood Pressure - High Dextrose 1,000 mls @ 100 mls/hr 07/27/24 13:36 Dextrose 5% 1,000 Ml IVPB PRN PRN Hypoglycemia Protocol Insulin Aspart 3 - 6 units 07/27/24 17:00 07/30/24 13:21 Insulin Aspart (*Bkc) 100 Units/Ml SUB-Q 5 units TIDWM [facility] Administration Protocol Insulin Aspart 1 - 3 units 07/27/24 21:00 07/29/24 20:01 Insulin Aspart (*Bkc) 100 Units/Ml SUB-Q 3 units HS [facility] Administration Protocol Insulin Aspart 4 units 07/30/24 08:00 07/30/24 13:20 Insulin Aspart (*Bkc) 100 Units/Ml 0.05 units/kg (4 units) 4 units SUB-Q Administration TIDWM [facility] Insulin Glargine 40 units 07/28/24 21:00 07/29/24 20:01 Insulin Glargine (*Bkc) 100 Units/Ml SUB-Q 40 units HS [facility] Administration Lisinopril 80 mg 07/27/24 13:50 07/30/24 10:04 Lisinopril 20 Mg Tablet PO 80 mg DAILY ZENOBIA Administration Pantoprazole Sodium 40 mg 07/28/24 09:00 07/29/24 12:31 Pantoprazole 40 Mg Tablet PO [facility] [place] [facility] Results: ITS Impressions Chest X-Ray 07/26/24 23:26 IMPRESSION: No acute cardiopulmonary process. Head CT 07/27/24 05:31 Impression: No intracranial hemorrhage, mass, or acute infarct. Atrophy and chronic white matter changes, as above. Labs Labs: Laboratory Results - last 24 hr 07/29/24 07/29/24 07/30/24 18:15 19:59 06:09 WBC 9.4 RBC 3.80 L Hgb 11.7 L Hct 36.0 L MCV 94.7 MCH 30.8 MCHC 32.5 RDW 15.8 H Plt Count 266 MPV 11.1 H Immature Gran % (Auto) 0.4 Neut % (Auto) 77.3 H Lymph % (Auto) 13.3 L [place] % (Auto) 7.0 Eos % (Auto) 1.6 Baso % (Auto) 0.4 Lymph # (Auto) 1.25 [place] # (Auto) 0.7 H Eos # (Auto) 0.2 Baso # (Auto) 0.0 Abs Immat Gran (auto) 0.04 H Absolute Neuts (auto) 7.3 H Absolute Nucleated RBC 0.000 Nucleated RBC % 0.0 Sodium 142 Potassium 4.9 Chloride 103 Carbon Dioxide 30 Anion Gap 9 BUN 28 H Creatinine 0.66 L Estim Creat Clear Calc 57 Estimated GFR > 60 Glucose 343 H POC Capillary Glucose 244 H 396 H Calcium 11.6 H Magnesium 1.6 Total Bilirubin 0.8 AST 17 ALT 14 Alkaline Phosphatase 111 Total Protein 7.0 Albumin 4.1 07/30/24 07/30/24 10:02 11:44 WBC RBC Hgb Hct MCV MCH MCHC RDW Plt Count MPV Immature Gran % (Auto) Neut % (Auto) Lymph % (Auto) [place] % (Auto) Eos % (Auto) Baso % (Auto) Lymph # (Auto) [place] # (Auto) Eos # (Auto) Baso # (Auto) Abs Immat Gran (auto) Absolute Neuts (auto) Absolute Nucleated RBC Nucleated RBC % Sodium Potassium Chloride Carbon Dioxide Anion Gap BUN Creatinine Estim Creat Clear Calc Estimated GFR Glucose POC Capillary Glucose 330 H 320 H Calcium Magnesium Total Bilirubin AST ALT Alkaline Phosphatase Total Protein Albumin Quality VTE Prophylaxis VTE prophylaxis: pharmacologic ordered
[2024-07-30 16:15] LABS: Alveolar/Arterial O2 Gradient 18.5 mmHg; Base Excess ABG 4.3 mEq/l (+/-2.0); Fractional Inspired Oxygen 21 %; HCO3 ABG 28.5 mEq/l (22.0-26.0); Oxygen Content ABG 16.5 %vol (16.0-22.0); Oxygen Saturation ABG 96.6 % (95.0-100.0); Oxyhemoglobin 94.9 % THb (90.0-100.0); PO2 ABG 82.1 mmHg (80.0-100.0); PO2 FiO2 Ratio Arterial Blood 3.91 %; Total Hemoglobin 12.3 g/dL (12.0-18.0)
[2024-07-30 16:16] LABS: Modified Allen's Test Pass; Site Drawn RIGHT BRACHIAL
[2024-07-30 16:17] LABS: Device BIPAP; Expiratory Pressure 5 cmH2O; Inspiratory Pressure 12 cmH2O
[2024-07-30 17:10] LABS: Glucose Point of Care 336 mg/dl (65-105)
[2024-07-30] MEDS: MAGNESIUM SULF 2 GM/WATER 50ML 2 GM/50 ML BAG IVPB (18:26)
[2024-07-30] MEDS: INSULIN GLARGINE (*BKC) 100 UNITS/ML 50 UNITS SUB-Q (21:06)
[2024-07-30 23:07] LABS: Glucose Point of Care 245 mg/dl (65-105)
[2024-07-31] VITALS (12 sets, daily range): BP systolic 99–189; BP diastolic 52–90; PULSE 74–106; RESP 16–18; TEMP 36.3–36.6; O2SAT 94–100
[2024-07-31 05:47] LABS: Basophils Absolute Auto 0.1 K/mm3 (0.0-0.1); Basophils Percent Auto 0.5 % (0.2-1.2); Eosinophils Absolute Auto 0.1 K/mm3 (0-0.3); Eosinophils Percent Auto 0.5 % (0-4.4); Hematocrit 35.1 % (37.0-47.0); Hemoglobin 11.6 g/dL (12.0-15.0); Immature Granulocyte Absolute 0.04 K/mm3 (0.00-0.031); Immature Granulocyte Percent A 0.4 % (0-0.5); Lymphocytes Absolute Auto 1.31 K/mm3 (0.9-3.2); Lymphocytes Percent Auto 12.7 % (18.3-44.2); Mean Corpuscular Hemoglobin 31.5 pg (26-34); Mean Corpuscular Volume 95.4 fl (80-100); Mean Platelet Volume 11.2 fl (7.4-10.4); Monocytes Absolute Auto 0.7 K/mm3 (0.1-0.6); Neutrophils Absolute Auto 8.1 K/mm3 (1.3-6.7); Neutrophils Percent Auto 78.9 % (45.5-73.1); Platelet Count Result 278 k/mm3 (150-375); Red Blood Count 3.68 M/mm3 (4.2-5.4); White Blood Count 10.3 K/mm3 (4.5-10.0)
[2024-07-31 06:03] LABS: Alanine Aminotransferase 18 U/L (6-35); Alkaline Phosphatase 97 U/L (38-126); Anion Gap 10 mmol/L (4-12); Aspartate Amino Transferase 18 U/L (14-36); Bilirubin,Total 0.9 mg/dL (0.2-1.3); Blood Urea Nitrogen 45 mg/dL (7-17); Calcium 12.3 mg/dL (8.4-10.2); Carbon Dioxide 27 mmol/L (22-30); Chloride 107 mmol/L (98-107); Estimated CRCL calculation 39 ml/min; Estimated Glomerular Filt Rate 54; Glucose 236 mg/dL (65-110); Magnesium 2.2 mg/dL (1.6-2.3); Potassium 4.8 mmol/L (3.4-5.0); Sodium 144 mmol/L (137-145)
--- NOTE | 2024-07-31 06:46 | P.PNCROSS_ITS ---
Event Note Event Note Event Note: Serum calcium again elevated to 12.3. Patient dehydrated. Starting normal avis ine at 150 cc per hour while concomitantly checking a BNP and chest x-ray. Checking intact PTH. Checking ionized calcium now and again in 6 hours. Consider bisphosphonate/calcitonin.
[2024-07-31 07:41] LABS: NT Pro B Type Natriuretic Pept 818 pg/mL (19.9-100)
[2024-07-31] MEDS: ENOXAPARIN 40 MG/0.4 ML SYRINGE SUB-Q (09:20)
[2024-07-31] MEDS: INSULIN ASPART (*BKC) 100 UNITS/ML SUB-Q ×4 (09:21→13:05)
[2024-07-31 09:27] LABS: Glucose Point of Care 241 mg/dl (65-105)
[2024-07-31] MEDS: SODIUM CHLORIDE 0.9% IV 1,000 ML 150 ML IV CONT ×2 (10:03→16:39)
--- NOTE | 2024-07-31 10:51 | P.PNIM_ITS ---
Progress Note: A&P Assessment and Plan (1) Altered mental status: Code(s): R41.82 - Altered mental status, unspecified Status: Acute Assessment and Plan: * head CT showed atrophy and chronic white matter changes, no acute intracranial process * could be do to electrolyte imbalance versus hypercalcemia, versus TIA * patient passed to the bedside swallow with speech therapy today * PT and OT ordered * echocardiogram ordered * brain MRI ordered * neurology consulted * continue neuro checks q.4 hour * continue telemetry monitoring for now 07/28 * continue carbidopa levodopa * continue neuro checks * echocardiogram shown normal LV systolic function with an estimated EF of greater than 70%, grade 1 diastolic dysfunction * MRI was canceled * Neurology following * PT and OT are ordered * speech therapy will continue to work with her 07/29 * Continue neuro checks * Continue PT and OT * Continue speech therapy 07/30 * No change (2) Hypercalcemia: Code(s): E83.52 - Hypercalcemia Status: Acute Assessment and Plan: * initial calcium 11.3, now 11.2 * Will check thyroid panel, parathyroid, vitamin D * Calcitonin ordered daily 07/28 * calcium 10.6 * continue calcitonin 07/29 * Calcium 11.0 * Continue to trend * Continue calcitonin 07/30 * Calcium 11.6 * discontinue calcitonin * Will start Sensipar 30 mg daily for hyperparathyroidism * PTH 82 07/31 * Calcium 12.3 * No change (3) Hypomagnesemia: Code(s): E83.42 - Hypomagnesemia Status: Acute Assessment and Plan: * initial magnesium 1.2 * she was given 2g of magnesium while in the ED * repeat magnesium 3.5 07/28 * magnesium 1.1 this morning * patient was given 4 g of magnesium * continue to trend 07/29 * Magnesium 1.7 * Continue to trend 07/30 * Magnesium 1.6 * Will give 2gm Magnesium now * Start Magnesium oxide 400 mg daily 07/31 * magnesium 2.2 (4) Mixed hyperlipidemia: Code(s): E78.2 - Mixed hyperlipidemia Status: Acute Assessment and Plan: * continue aspirin, atorvastatin, Plavix 07/28 * no change to current treatment plan (5) Essential (primary) hypertension: Code(s): I10 - Essential (primary) hypertension Status: Acute Assessment and Plan: * blood pressures ranging 152/66 to 208/104 * continue lisinopril, 1st dose starting now 07/28 * blood pressures ranging 145/95 to 177/60 * continue lisinopril * will start amlodipine 5 mg 07/29 * Continue lisinopril * Stop amlodipine and start Coreg 07/30 * B/P ranging 132/58-180/78 * Increased Coreg dose * continue to hold Lisinopril and HCTZ for YARON 07/31 * no change to current treatment plan (6) Type 2 diabetes mellitus with diabetic neuropathy, unspecified: Code(s): E11.40 - Type 2 diabetes mellitus with diabetic neuropathy, unspecified Status: Acute Assessment and Plan: * Blood sugars ranging 121-194 * Hgb A1C 7.3 on 04/17/2024 * will repeat hemoglobin A1c today * Accu checks AC/HS * moderate dose SSI ordered * restart Lantus at half the dose that she normally takes 20 units at HS * Hold Mounjaro and metformin * hypoglycemic protocol in place * Diabetic diet ordered 07/28 * will increase Lantus to 40 units at bedtime * blood sugars ranging 208-319 07/29 * Will start mealtime dose of 4 units with meals and at bedtime for better glycemic control 07/30 * blood sugars ranging 320-396 * will increase Lantus to 50 units * will increase to high-dose sliding scale insulin 07/31 * increased mealtime dose to 10 units with meals and at bedtime (7) Weakness: Code(s): R53.1 - Weakness Status: Acute Assessment and Plan: * PT and OT ordered 07/28 * no change (8) RACIEL (obstructive sleep apnea): Code(s): G47.33 - Obstructive sleep apnea (adult) (pediatric) Status: Acute Assessment and Plan: * patient has never been treated for her sleep apnea. reports that she has had this for at least 50 years. Long discussion with about the correlation between her RACIEL, hypertension, stroke, and brain fog. * Patient having apnea periods with periods of not breathing for 45 seconds or longer. * Bipap ordered for use when sleeping. * She will need proper sleep study on discharge. 07/31 * [facility] for tonight to assess for need of a BiPAP Time Spent With Patient Time with patient: 25 - 35 minutes Subjective Date/time seen: 07/31/24 10:51 Interval history: Interval history: This is a 79-year-old female with a significant past medical history thyroid disorder, stroke, heart disease, GERD, diabetes, arthritis presented to the hospital with stroke-like symptoms. Patient is a poor historian and most medical history was obtained from the EMR. She was reported to have increased weakness, unable to walk, unable to care for herself along with garbled speech. family who was at the bedside in the ED stated that she had prior history of TIA and has been taking aspirin and Plavix. Workup in the hospital included a chest x-ray which was negative. Head CT which was negative for any acute intracranial hemorrhage, mass, acute infarct, shown atrophy and chronic white matter changes. Initial labs showed Normal white blood cell count of 8.5, hemoglobin 11.6, potassium 5.7, creatinine 1.66, EGFR 30, blood sugars ranging 121-148, lactic acid was normal at 1.6, magnesium was 1.2, calcium level 11.3, troponin was negative x2, proBNP 361, procalcitonin 0.1. UA was obtained which showed 1+ urine protein, trace urine ketone, trace leukocytes, Urine cast greater than 20, otherwise negative. respiratory panel was negative for influenza a and B, RSV, COVID. EKG showed sinus rhythm with a rate of 81, QTC 400. Patient was given 1 L of normal saline, 2 g of magnesium while in the ED. neurology was consulted. Subjective: Patient appears restless in the bed. She does follow commands at times. Labs reviewed. Review of Systems Review of Systems: ROS unobtainable: Yes unobtainable due to mental status Exam Narrative: General: In no acute distress, well nourished Cardiac: Normal S1 and S2. No murmur, gallops or friction rubs, peripheral pulses intact. Respiratory: Lungs clear to auscultation, no adventitious lung sounds, currently on 2L NC, sonorous/obstructive breathing pattern with sleeping. Gastrointestinal: soft, non-distended, non-tender, normoactive bowel sounds. : voiding without difficulty. Neuro: Alert to voice and confused this morning, cranial nerves intact, no neuro deficits. Objective Data Vital Signs Vital Signs: Vital Signs - 24 hr 07/30/24 11:36 07/30/24 13:20 07/30/24 14:00 Temperature Pulse Rate 102 H Respiratory Rate Blood Pressure 132/58 L Pulse Oximetry 95 97 Oxygen Delivery BiPAP 07/30/24 16:54 07/30/24 18:18 07/30/24 20:00 Temperature Pulse Rate Respiratory Rate 14 Blood Pressure Pulse Oximetry 94 Oxygen Delivery BiPAP BiPAP BiPAP 07/30/24 20:00 07/30/24 20:39 07/30/24 22:30 Temperature 97.9 F Pulse Rate 109 H 106 H Respiratory Rate 18 14 Blood Pressure 144/76 H Pulse Oximetry 95 Oxygen Delivery BiPAP 07/31/24 00:00 07/31/24 04:00 07/31/24 06:00 Temperature 98 F Pulse Rate 105 H 101 H 90 Respiratory Rate 18 Blood Pressure 139/77 Pulse Oximetry 99 Oxygen Delivery Intake/Output Intake/Output: Intake & Output 07/28/24 07/29/24 07/30/24 07/31/24 23:59 23:59 23:59 23:59 Intake Total 2720 180 297 390 Output Total 1999 500 1585 Balance 183 -251 -1569 390 Meds/Results Medications: Active Medications Generic Name Dose Route Start Last Admin Trade Name Freq PRN Reason Stop Dose Admin Acetaminophen 650 mg 07/27/24 02:59 07/28/24 19:50 Acetaminophen 325 Mg Tablet PO 650 mg Q4H PRN Administration Mild Pain (1-3) or Fever Aspirin 81 mg 07/28/24 09:00 07/30/24 10:03 Aspirin 81 Mg Enteric Tablet PO Not Given DAILY ZENOBIA Atorvastatin Calcium 80 mg 07/27/24 21:00 07/30/24 21:06 Atorvastatin 40 Mg Tablet PO Not Given HS ZENOBIA Carbidopa/Levodopa 1 tablet 07/27/24 17:00 07/30/24 18:22 Carbidopa/Levodopa 25/100 Mg Tablet PO Not Given TID ZENOBIA Carvedilol 6.25 mg 07/30/24 21:00 07/30/24 21:06 Carvedilol 6.25 Mg Tablet PO Not Given Q12HR ZENOBIA Cinacalcet 30 mg 07/30/24 11:00 07/30/24 10:03 Cinacalcet 30 Mg Tablet PO Not Given QAM ZENOBIA Clopidogrel Bisulfate 75 mg 07/28/24 09:00 07/30/24 10:03 Clopidogrel Bisulfate 75 Mg Tablet PO Not Given DAILY ZENOBIA Dextrose 12.5 gm 07/27/24 13:36 Dextrose 50% 25 Gm/50 Ml Syringe IV PUSH PRN PRN Hypoglycemia Protocol Enoxaparin Sodium 40 mg 07/28/24 09:00 07/31/24 09:20 Enoxaparin 40 Mg/0.4 Ml Syringe SUB-Q 40 mg DAILY ZENOBIA Administration Ferrous Sulfate 325 mg 07/28/24 09:00 07/30/24 10:03 Ferrous Sulfate [address] BY MOUTH Not Given DAILY ZENOBIA Glucagon 1 mg 07/27/24 13:36 Glucagon For Inj 1 Mg Vial IM PRN PRN Hypoglycemia Protocol Glucose 15 gm 07/27/24 13:36 Glucose Oral Gel 15 Gm Of Glucse In 37.5 Gm Tube PO PRN PRN Hypoglycemia Protocol Hydralazine HCl 10 mg 07/29/24 19:07 07/30/24 05:55 Hydralazine Hcl 20 Mg/Ml Vial IV PUSH 10 mg Q8H PRN Administration Blood Pressure - High Dextrose 1,000 mls @ 100 mls/hr 07/27/24 13:36 Dextrose 5% 1,000 Ml IVPB PRN PRN Hypoglycemia Protocol Sodium Chloride 1,000 mls @ 150 mls/hr 07/31/24 06:45 07/31/24 10:03 Normal Saline Iv IV CONT 150 mls/hr .[id number] ZENOBIA Administration Insulin Aspart 4 units 07/30/24 08:00 07/31/24 09:21 Insulin Aspart (*Bkc) 100 Units/Ml 0.05 units/kg (4 units) 4 units SUB-Q Administration [facility] Insulin Aspart 4 - 8 units 07/30/24 17:00 07/31/24 09:21 Insulin Aspart (*Bkc) 100 Units/Ml SUB-Q 4 units [facility] Administration Protocol Insulin Aspart 2 - 4 units 07/30/24 21:00 07/30/24 21:06 Insulin Aspart (*Bkc) 100 Units/Ml SUB-Q 2 units [facility] Administration Protocol Insulin Glargine 50 units 07/30/24 21:00 07/30/24 21:06 Insulin Glargine (*Bkc) 100 Units/Ml SUB-Q 50 units [facility] Administration Lisinopril 80 mg 07/27/24 13:50 07/30/24 10:04 Lisinopril 20 Mg Tablet PO Not Given DAILY [facility] Magnesium Oxide 400 mg 07/31/24 09:00 Magnesium Oxide 400 Mg Tablet PO DAILY [facility] Pantoprazole Sodium 40 mg 07/28/24 09:00 07/30/24 10:03 Pantoprazole 40 Mg Tablet PO Not Given [facility] Radiology Results: ITS Impressions Head CT 07/27/24 05:31 Impression: No intracranial hemorrhage, mass, or acute infarct. Atrophy and chronic white matter changes, as above. Chest X-Ray 07/31/24 06:59 IMPRESSION: 1. No acute cardiopulmonary disease. Labs Labs: Laboratory Results - last 24 hr 07/30/24 07/30/24 07/30/24 11:44 16:11 16:49 WBC RBC Hgb Hct MCV MCH MCHC RDW Plt Count MPV Immature Gran % (Auto) Neut % (Auto) Lymph % (Auto) [place] % (Auto) Eos % (Auto) Baso % (Auto) Lymph # (Auto) [place] # (Auto) Eos # (Auto) Baso # (Auto) Abs Immat Gran (auto) Absolute Neuts (auto) Absolute Nucleated RBC Nucleated RBC % Puncture Site Right brachial ABG pH 7.460 H ABG pCO2 41.0 ABG pO2 82.1 ABG PO2/FiO2 Ratio 3.91 ABG HCO3 28.5 H ABG O2 Saturation 96.6 ABG O2 Content 16.5 ABG Base Excess 4.3 A-a Gradient 18.5 Oxyhemoglobin 94.9 Total Hemoglobin 12.3 O2 Delivery Device Bipap O2 Liters/Min Not Reportable FiO2 21 Expiratory Pressure 5 Inspiratory Pressure 12 Sodium Potassium Chloride Carbon Dioxide Anion Gap BUN Creatinine Estim Creat Clear Calc Estimated GFR Glucose POC Capillary Glucose 320 H 336 H Calcium Magnesium Total Bilirubin AST ALT Alkaline Phosphatase NT-Pro-B Natriuret Pep Total Protein Albumin PTH Intact 07/30/24 07/31/24 07/31/24 20:46 05:37 05:39 WBC 10.3 H RBC 3.68 L Hgb 11.6 L Hct 35.1 L MCV 95.4 MCH 31.5 MCHC 33.0 RDW 16.0 H Plt Count 278 MPV 11.2 H Immature Gran % (Auto) 0.4 Neut % (Auto) 78.9 H Lymph % (Auto) 12.7 L [place] % (Auto) 7.0 Eos % (Auto) 0.5 Baso % (Auto) 0.5 Lymph # (Auto) 1.31 [place] # (Auto) 0.7 H Eos # (Auto) 0.1 Baso # (Auto) 0.1 Abs Immat Gran (auto) 0.04 H Absolute Neuts (auto) 8.1 H Absolute Nucleated RBC 0.000 Nucleated RBC % 0.0 Puncture Site ABG pH ABG pCO2 ABG pO2 ABG PO2/FiO2 Ratio ABG HCO3 ABG O2 Saturation ABG O2 Content ABG Base Excess A-a Gradient Oxyhemoglobin Total Hemoglobin O2 Delivery Device O2 Liters/Min FiO2 Expiratory Pressure Inspiratory Pressure Sodium 144 Potassium 4.8 Chloride 107 Carbon Dioxide 27 Anion Gap 10 BUN 45 H D Creatinine 0.99 Estim Creat Clear Calc 39 Estimated GFR 54 L Glucose 236 H POC Capillary Glucose 245 H Calcium 12.3 H* Magnesium 2.2 Total Bilirubin 0.9 AST 18 ALT 18 Alkaline Phosphatase 97 NT-Pro-B Natriuret Pep 818 H Total Protein 7.0 Albumin 4.0 PTH Intact 171.0 H 07/31/24 09:09 WBC RBC Hgb Hct MCV MCH MCHC RDW Plt Count MPV Immature Gran % (Auto) Neut % (Auto) Lymph % (Auto) [place] % (Auto) Eos % (Auto) Baso % (Auto) Lymph # (Auto) [place] # (Auto) Eos # (Auto) Baso # (Auto) Abs Immat Gran (auto) Absolute Neuts (auto) Absolute Nucleated RBC Nucleated RBC % Puncture Site ABG pH ABG pCO2 ABG pO2 ABG PO2/FiO2 Ratio ABG HCO3 ABG O2 Saturation ABG O2 Content ABG Base Excess A-a Gradient Oxyhemoglobin Total Hemoglobin O2 Delivery Device O2 Liters/Min FiO2 Expiratory Pressure Inspiratory Pressure Sodium Potassium Chloride Carbon Dioxide Anion Gap BUN Creatinine Estim Creat Clear Calc Estimated GFR Glucose POC Capillary Glucose 241 H Calcium Magnesium Total Bilirubin AST ALT Alkaline Phosphatase NT-Pro-B Natriuret Pep Total Protein Albumin PTH Intact Quality VTE Prophylaxis VTE prophylaxis: pharmacologic ordered
[2024-07-31 12:48] LABS: Glucose Point of Care > 500 mg/dl (65-105)
[2024-07-31 12:48] LABS: Glucose Point of Care > 500 mg/dl (65-105)
[2024-07-31] MEDS: INSULIN ASPART (*BKC) 100 UNITS/ML 8 UNITS SUB-Q (13:04)
[2024-07-31 14:45] LABS: Glucose Point of Care 357 mg/dl (65-105)
[2024-07-31 16:05] LABS: Add Urine Microscopic? YES; Appearance Urine Clear (Clear); Bacteria Urine 4+ /hpf; Bilirubin Urine Negative (Negative); Blood Urine Negative (Negative); Color Urine Yellow (Yellow); Glucose Urine UA 3+ mg/dL (Negative); Ketones Urine Trace mg/dL (Negative); Leukocyte Esterase Ur Negative LEU/UL (Negative); Nitrate Urine Negative (Negative); Non Pathogenic Casts 0-2; Protein Urine Trace mg/dL (Negative); RBC Urine 0-2 /hpf (0-2); Specific Grav Ur 1.028 (1.001-1.035); Squamous Epithelial Cell Urine None Seen /hpf (Few); Urobilinogen Urine 0.2 mg/dL (<2.0); WBC Urine 0-5 /hpf (0-3); pH Urine 5.5 (5.0-9.0)
[2024-07-31 18:00] LABS: Glucose Point of Care 181 mg/dl (65-105)
[2024-07-31] MEDS: INSULIN GLARGINE (*BKC) 100 UNITS/ML 50 UNITS SUB-Q (21:25)
[2024-08-01] VITALS (12 sets, daily range): BP systolic 120–181; BP diastolic 45–97; PULSE 72–105; RESP 13–19; TEMP 35.8–36.4; O2SAT 97–99
[2024-08-01] MEDS: hydrALAZINE HCL 20 MG/ML VIAL 10 MG IV PUSH (00:50)
[2024-08-01] MEDS: SODIUM CHLORIDE 0.9% IV 1,000 ML 150 ML IV CONT (04:49)
[2024-08-01 05:39] LABS: Basophils Percent Auto 0.4 % (0.2-1.2); Eosinophils Absolute Auto 0.2 K/mm3 (0-0.3); Eosinophils Percent Auto 1.4 % (0-4.4); Hematocrit 32.6 % (37.0-47.0); Hemoglobin 10.5 g/dL (12.0-15.0); Immature Granulocyte Absolute 0.05 K/mm3 (0.00-0.031); Immature Granulocyte Percent A 0.5 % (0-0.5); Lymphocytes Absolute Auto 1.64 K/mm3 (0.9-3.2); Lymphocytes Percent Auto 14.9 % (18.3-44.2); Mean Corpuscular HGB Conc 32.2 g/dl (32-36); Mean Corpuscular Hemoglobin 30.6 pg (26-34); Mean Platelet Volume 11.1 fl (7.4-10.4); Monocytes Absolute Auto 0.8 K/mm3 (0.1-0.6); Monocytes Percent Auto 7.6 % (2.6-8.5); Neutrophils Absolute Auto 8.3 K/mm3 (1.3-6.7); Neutrophils Percent Auto 75.2 % (45.5-73.1); Platelet Count Result 280 k/mm3 (150-375); Red Blood Count 3.43 M/mm3 (4.2-5.4); Red Cell Distribution Width 16.2 % (11.5-14.5)
[2024-08-01 05:50] LABS: Alanine Aminotransferase 20 U/L (6-35); Albumin Level 3.4 g/dL (3.5-5.1); Alkaline Phosphatase 92 U/L (38-126); Anion Gap 8 mmol/L (4-12); Aspartate Amino Transferase 18 U/L (14-36); Bilirubin,Total 0.7 mg/dL (0.2-1.3); Blood Urea Nitrogen 38 mg/dL (7-17); Calcium 12.1 mg/dL (8.4-10.2); Carbon Dioxide 27 mmol/L (22-30); Chloride 115 mmol/L (98-107); Estimated CRCL calculation 51 ml/min; Estimated Glomerular Filt Rate > 60; Glucose 129 mg/dL (65-110); Magnesium 1.8 mg/dL (1.6-2.3); Sodium 150 mmol/L (137-145)
[2024-08-01 06:40] LABS: Glucose Point of Care 186 mg/dl (65-105)
--- NOTE | 2024-08-01 07:16 | PCRCNOTE ---
unfortunately, RT was unable to retrieve/print the apnea report.
[2024-08-01 08:28] LABS: Alanine Aminotransferase 19 U/L (6-35); Albumin Level 3.5 g/dL (3.5-5.1); Alkaline Phosphatase 93 U/L (38-126); Anion Gap 7 mmol/L (4-12); Aspartate Amino Transferase 18 U/L (14-36); Bilirubin,Total 0.8 mg/dL (0.2-1.3); Blood Urea Nitrogen 35 mg/dL (7-17); Carbon Dioxide 26 mmol/L (22-30); Chloride 116 mmol/L (98-107); Estimated CRCL calculation 56 ml/min; Estimated Glomerular Filt Rate > 60; Glucose 120 mg/dL (65-110); Sodium 149 mmol/L (137-145)
[2024-08-01 09:05] LABS: Glucose Point of Care 117 mg/dl (65-105)
--- NOTE | 2024-08-01 09:20 | PC.NURSE ---
Patient has not received lisinopril since 07/28/2024. RN took patient's blood pressure (see vitals). RN spoke wtsaida Cramer NP in regards to patient's blood pressure and blood pressure medication. Hospitalist Bela stated she would make changed to patient's blood pressure medication.
[2024-08-01] MEDS: FERROUS SULFATE 325 MG TABLET DR BY MOUTH (09:38)
[2024-08-01] MEDS: CINACALCET 30 MG TABLET PO (09:38)
[2024-08-01] MEDS: CARBIDOPA/LEVODOPA 25/100 MG TABLET 1 TABLET PO ×2 (09:38→16:27)
[2024-08-01] MEDS: CLOPIDOGREL BISULFATE 75 MG TABLET PO (09:38)
[2024-08-01] MEDS: PANTOPRAZOLE 40 MG TABLET PO (09:38)
[2024-08-01] MEDS: carvediloL 6.25 MG TABLET PO ×2 (09:39→21:29)
[2024-08-01] MEDS: ASPIRIN 81 MG ENTERIC TABLET PO (09:39)
[2024-08-01] MEDS: MAGNESIUM OXIDE 400 MG TABLET PO (09:39)
[2024-08-01] MEDS: SODIUM CHLORIDE 0.9% IV 1,000 ML 250 ML IV CONT (09:39)
[2024-08-01] MEDS: ENOXAPARIN 40 MG/0.4 ML SYRINGE SUB-Q (09:39)
--- NOTE | 2024-08-01 11:04 | P.PNIM_ITS ---
Progress Note: A&P Assessment and Plan (1) Altered mental status: Code(s): R41.82 - Altered mental status, unspecified Status: Acute Assessment and Plan: * head CT showed atrophy and chronic white matter changes, no acute intracranial process * could be do to electrolyte imbalance versus hypercalcemia, versus TIA * patient passed to the bedside swallow with speech therapy today * PT and OT ordered * echocardiogram ordered * brain MRI ordered * neurology consulted * continue neuro checks q.4 hour * continue telemetry monitoring for now 07/28 * continue carbidopa levodopa * continue neuro checks * echocardiogram shown normal LV systolic function with an estimated EF of greater than 70%, grade 1 diastolic dysfunction * MRI was canceled * Neurology following * PT and OT are ordered * speech therapy will continue to work with her 07/29 * Continue neuro checks * Continue PT and OT * Continue speech therapy 07/30 * No change (2) Hypercalcemia: Code(s): E83.52 - Hypercalcemia Status: Acute Assessment and Plan: * initial calcium 11.3, now 11.2 * Will check thyroid panel, parathyroid, vitamin D * Calcitonin ordered daily 07/28 * calcium 10.6 * continue calcitonin 07/29 * Calcium 11.0 * Continue to trend * Continue calcitonin 07/30 * Calcium 11.6 * discontinue calcitonin * Will start Sensipar 30 mg daily for hyperparathyroidism * PTH 82 07/31 * Calcium 12.3 * No change 08/01 * Calcium 12.0 * Continue IV fluids with D5W at 125 ml/hr * Continue calcitonin daily * Will increase sensipar to 60 mg BID (3) Hypomagnesemia: Code(s): E83.42 - Hypomagnesemia Status: Acute Assessment and Plan: * initial magnesium 1.2 * she was given 2g of magnesium while in the ED * repeat magnesium 3.5 07/28 * magnesium 1.1 this morning * patient was given 4 g of magnesium * continue to trend 07/29 * Magnesium 1.7 * Continue to trend 07/30 * Magnesium 1.6 * Will give 2gm Magnesium now * Start Magnesium oxide 400 mg daily 07/31 * magnesium 2.2 08/01 * Magnesium 1.8 * Continue Mag oxide (4) Mixed hyperlipidemia: Code(s): E78.2 - Mixed hyperlipidemia Status: Acute Assessment and Plan: * continue aspirin, atorvastatin, Plavix 07/28 * no change to current treatment plan (5) Essential (primary) hypertension: Code(s): I10 - Essential (primary) hypertension Status: Acute Assessment and Plan: * blood pressures ranging 152/66 to 208/104 * continue lisinopril, 1st dose starting now 07/28 * blood pressures ranging 145/95 to 177/60 * continue lisinopril * will start amlodipine 5 mg 07/29 * Continue lisinopril * Stop amlodipine and start Coreg 07/30 * B/P ranging 132/58-180/78 * Increased Coreg dose * continue to hold Lisinopril and HCTZ for YARON 07/31 * no change to current treatment plan (6) Type 2 diabetes mellitus with diabetic neuropathy, unspecified: Code(s): E11.40 - Type 2 diabetes mellitus with diabetic neuropathy, unspecified Status: Acute Assessment and Plan: * Blood sugars ranging 121-194 * Hgb A1C 7.3 on 04/17/2024 * will repeat hemoglobin A1c today * Accu checks AC/HS * moderate dose SSI ordered * restart Lantus at half the dose that she normally takes 20 units at HS * Hold Mounjaro and metformin * hypoglycemic protocol in place * Diabetic diet ordered 07/28 * will increase Lantus to 40 units at bedtime * blood sugars ranging 208-319 07/29 * Will start mealtime dose of 4 units with meals and at bedtime for better glycemic control 07/30 * blood sugars ranging 320-396 * will increase Lantus to 50 units * will increase to high-dose sliding scale insulin 07/31 * increased mealtime dose to 10 units with meals and at bedtime (7) Weakness: Code(s): R53.1 - Weakness Status: Acute Assessment and Plan: * PT and OT ordered 07/28 * no change (8) RACIEL (obstructive sleep apnea): Code(s): G47.33 - Obstructive sleep apnea (adult) (pediatric) Status: Acute Assessment and Plan: * patient has never been treated for her sleep apnea. reports that she has had this for at least 50 years. Long discussion with about the correlation between her RACIEL, hypertension, stroke, and brain fog. * Patient having apnea periods with periods of not breathing for 45 seconds or longer. * Bipap ordered for use when sleeping. * She will need proper sleep study on discharge. 07/31 * [facility] for tonight to assess for need of a BiPAP 08/01 * Patient did not cooperate with [facility] overnight * Continue Bipap at night Time Spent With Patient Time with patient: 25 - 35 minutes Subjective Date/time seen: 08/01/24 11:04 Interval history: Interval history: This is a 79-year-old female with a significant past medical history thyroid disorder, stroke, heart disease, GERD, diabetes, arthritis presented to the hospital with stroke-like symptoms. Patient is a poor historian and most medical history was obtained from the EMR. She was reported to have increased weakness, unable to walk, unable to care for herself along with garbled speech. family who was at the bedside in the ED stated that she had prior history of TIA and has been taking aspirin and Plavix. Workup in the hospital included a chest x-ray which was negative. Head CT which was negative for any acute intracranial hemorrhage, mass, acute infarct, shown atrophy and chronic white matter changes. Initial labs showed Normal white blood cell count of 8.5, hemoglobin 11.6, potassium 5.7, creatinine 1.66, EGFR 30, blood sugars ranging 121-148, lactic acid was normal at 1.6, magnesium was 1.2, calcium level 11.3, troponin was negative x2, proBNP 361, procalcitonin 0.1. UA was obtained which showed 1+ urine protein, trace urine ketone, trace leukocytes, Urine cast greater than 20, otherwise negative. respiratory panel was negative for influenza a and B, RSV, COVID. EKG showed sinus rhythm with a rate of 81, QTC 400. Patient was given 1 L of normal saline, 2 g of magnesium while in the ED. neurology was consulted. Subjective: Patient still sleepy. Medications and imaging reviewed with Dr. Amaya and he recommends outpatient sleep study as RACIEL may be the culprit to her mental status changes. Dr. Amaya she is stable from his standpoint to return home with her when medically stable. Labs reviewed. Review of Systems Review of Systems: ROS unobtainable: Yes unobtainable due to mental status Exam Narrative: General: In no acute distress, well nourished Cardiac: Normal S1 and S2. No murmur, gallops or friction rubs, peripheral pulses intact. Respiratory: Lungs clear to auscultation, no adventitious lung sounds, currently on 2L NC, sonorous/obstructive breathing pattern with sleeping. Gastrointestinal: soft, non-distended, non-tender, normoactive bowel sounds. : voiding without difficulty. Neuro: Alert to voice Objective Data Vital Signs Vital Signs: Vital Signs - 24 hr 07/31/24 12:00 07/31/24 14:56 07/31/24 15:50 Temperature 97.5 F L Pulse Rate 106 H 104 H Respiratory Rate 16 Blood Pressure 99/59 L 162/70 H Pulse Oximetry 98 Oxygen Delivery Oxygen Flow Rate 07/31/24 16:00 07/31/24 18:45 07/31/24 20:00 Temperature 97.5 F L Pulse Rate 93 88 Respiratory Rate 16 Blood Pressure 120/52 L Pulse Oximetry 94 95 Oxygen Delivery Nasal Cannula Oxygen Flow Rate 2 07/31/24 20:00 07/31/24 22:27 07/31/24 22:38 Temperature 97.4 F L Pulse Rate 91 74 Respiratory Rate 18 Blood Pressure 189/90 H Pulse Oximetry 94 100 Oxygen Delivery Nasal Cannula Oxygen Flow Rate 2 08/01/24 00:00 08/01/24 02:23 08/01/24 04:00 Temperature 97.4 F L Pulse Rate 77 80 82 Respiratory Rate 18 Blood Pressure 181/55 H Pulse Oximetry 99 Oxygen Delivery Oxygen Flow Rate 08/01/24 06:45 08/01/24 09:28 08/01/24 09:39 Temperature 96.4 F L Pulse Rate 96 105 H 105 H Respiratory Rate 18 13 Blood Pressure 150/97 H 120/97 H Pulse Oximetry 98 99 Oxygen Delivery Oxygen Flow Rate Intake/Output Intake/Output: Intake & Output 07/29/24 07/30/24 07/31/24 08/01/24 23:59 23:59 23:59 23:59 Intake Total 243 669 0816 996.7 Output Total 500 3364 513 2364 Balance -320 -1238 1905 -3.3 Meds/Results Medications: Active Medications Generic Name Dose Route Start Last Admin Trade Name Freq PRN Reason Stop Dose Admin Acetaminophen 650 mg 07/27/24 02:59 07/28/24 19:50 Acetaminophen 325 Mg Tablet PO 650 mg Q4H PRN Administration Mild Pain (1-3) or Fever Aspirin 81 mg 07/28/24 09:00 08/01/24 09:39 Aspirin 81 Mg Enteric Tablet PO 81 mg DAILY ZENOBIA Administration Atorvastatin Calcium 80 mg 07/27/24 21:00 07/31/24 21:18 Atorvastatin 40 Mg Tablet PO Not Given HS ZENOBIA Carbidopa/Levodopa 1 tablet 07/27/24 17:00 08/01/24 09:38 Carbidopa/Levodopa 25/100 Mg Tablet PO 1 tablet TID ZENOBIA Administration Carvedilol 6.25 mg 07/30/24 21:00 08/01/24 09:39 Carvedilol 6.25 Mg Tablet PO 6.25 mg Q12HR ZENOBIA Administration Cinacalcet 30 mg 07/30/24 11:00 08/01/24 09:38 Cinacalcet 30 Mg Tablet PO 30 mg QAM ZENOBIA Administration Clopidogrel Bisulfate 75 mg 07/28/24 09:00 08/01/24 09:38 Clopidogrel Bisulfate 75 Mg Tablet PO 75 mg DAILY ZENOBIA Administration Dextrose 12.5 gm 07/27/24 13:36 Dextrose 50% 25 Gm/50 Ml Syringe IV PUSH PRN PRN Hypoglycemia Protocol Enoxaparin Sodium 40 mg 07/28/24 09:00 08/01/24 09:39 Enoxaparin 40 Mg/0.4 Ml Syringe SUB-Q 40 mg DAILY ZENOBIA Administration Ferrous Sulfate 325 mg 07/28/24 09:00 08/01/24 09:38 Ferrous Sulfate [address] BY MOUTH 325 mg DAILY ZENOBIA Administration Glucagon 1 mg 07/27/24 13:36 Glucagon For Inj 1 Mg Vial IM PRN PRN Hypoglycemia Protocol Glucose 15 gm 07/27/24 13:36 Glucose Oral Gel 15 Gm Of Glucse In 37.5 Gm Tube PO PRN PRN Hypoglycemia Protocol Hydralazine HCl 10 mg 07/29/24 19:07 08/01/24 00:50 Hydralazine Hcl 20 Mg/Ml Vial IV PUSH 10 mg Q8H PRN Administration Blood Pressure - High Dextrose 1,000 mls @ 100 mls/hr 07/27/24 13:36 Dextrose 5% 1,000 Ml IVPB PRN PRN Hypoglycemia Protocol Sodium Chloride 1,000 mls @ 250 mls/hr 07/31/24 06:45 08/01/24 09:39 Normal Saline Iv IV CONT 250 mls/hr .Q4H ZENOBIA Administration Insulin Aspart 4 - 8 units 07/30/24 17:00 08/01/24 09:25 Insulin Aspart (*Bkc) 100 Units/Ml SUB-Q Not Given TIDWM [facility] Protocol Insulin Aspart 2 - 4 units 07/30/24 21:00 07/31/24 21:26 Insulin Aspart (*Bkc) 100 Units/Ml SUB-Q Not Given HS [facility] Protocol Insulin Aspart 10 units 07/31/24 17:00 08/01/24 09:25 Insulin Aspart (*Bkc) 100 Units/Ml SUB-Q Not Given TIDWM ZENOBIA Insulin Glargine 50 units 07/30/24 21:00 07/31/24 21:25 Insulin Glargine (*Bkc) 100 Units/Ml SUB-Q 50 units HS ZENOBIA Administration Lisinopril 80 mg 07/27/24 13:50 07/31/24 10:52 Lisinopril 20 Mg Tablet PO Not Given DAILY ZENOBIA Magnesium Oxide 400 mg 07/31/24 09:00 08/01/24 09:39 Magnesium Oxide 400 Mg Tablet PO 400 mg DAILY ZENOBIA Administration Pantoprazole Sodium 40 mg 07/28/24 09:00 08/01/24 09:38 Pantoprazole 40 Mg Tablet PO 40 mg QAM ZENOBIA Administration Radiology Results: ITS Impressions Head CT 07/27/24 05:31 Impression: No intracranial hemorrhage, mass, or acute infarct. Atrophy and chronic white matter changes, as above. Chest X-Ray 07/31/24 06:59 IMPRESSION: 1. No acute cardiopulmonary disease. Labs Labs: Laboratory Results - last 24 hr 07/31/24 07/31/24 07/31/24 12:43 12:45 14:43 WBC RBC Hgb Hct MCV MCH MCHC RDW Plt Count MPV Immature Gran % (Auto) Neut % (Auto) Lymph % (Auto) [place] % (Auto) Eos % (Auto) Baso % (Auto) Lymph # (Auto) [place] # (Auto) Eos # (Auto) Baso # (Auto) Abs Immat Gran (auto) Absolute Neuts (auto) Absolute Nucleated RBC Nucleated RBC % Sodium Potassium Chloride Carbon Dioxide Anion Gap BUN Creatinine Estim Creat Clear Calc Estimated GFR Glucose POC Capillary Glucose > 500 H* > 500 H* 357 H Calcium Magnesium Total Bilirubin AST ALT Alkaline Phosphatase Total Protein Albumin Urine Color Urine Appearance Urine pH Ur Specific Happy Urine Protein Urine Glucose (UA) Urine Ketones Ur Blood (Man) Urine Nitrate Urine Bilirubin Urine Urobilinogen Ur Leukocyte Esterase Urine RBC Urine WBC Ur Squamous Epith Cells Urine Bacteria Urine Casts 07/31/24 07/31/24 07/31/24 15:54 17:59 21:24 WBC RBC Hgb Hct MCV MCH MCHC RDW Plt Count MPV Immature Gran % (Auto) Neut % (Auto) Lymph % (Auto) [place] % (Auto) Eos % (Auto) Baso % (Auto) Lymph # (Auto) [place] # (Auto) Eos # (Auto) Baso # (Auto) Abs Immat Gran (auto) Absolute Neuts (auto) Absolute Nucleated RBC Nucleated RBC % Sodium Potassium Chloride Carbon Dioxide Anion Gap BUN Creatinine Estim Creat Clear Calc Estimated GFR Glucose POC Capillary Glucose 181 H 186 H Calcium Magnesium Total Bilirubin AST ALT Alkaline Phosphatase Total Protein Albumin Urine Color Yellow Urine Appearance Clear Urine pH 5.5 Ur Specific Happy 1.028 Urine Protein Trace Urine Glucose (UA) 3+ H Urine Ketones Trace H Ur Blood (Man) Negative Urine Nitrate Negative Urine Bilirubin Negative Urine Urobilinogen 0.2 Ur Leukocyte Esterase Negative Urine RBC 0-2 Urine WBC 0-5 Ur Squamous Epith Cells None seen Urine Bacteria 4+ H Urine Casts 0-2 08/01/24 08/01/24 08/01/24 05:25 08:03 09:00 WBC 11.0 H RBC 3.43 L Hgb 10.5 L Hct 32.6 L MCV 95.0 MCH 30.6 MCHC 32.2 RDW 16.2 H Plt Count 280 MPV 11.1 H Immature Gran % (Auto) 0.5 Neut % (Auto) 75.2 H Lymph % (Auto) 14.9 L [place] % (Auto) 7.6 Eos % (Auto) 1.4 Baso % (Auto) 0.4 Lymph # (Auto) 1.64 [place] # (Auto) 0.8 H Eos # (Auto) 0.2 Baso # (Auto) 0.0 Abs Immat Gran (auto) 0.05 H Absolute Neuts (auto) 8.3 H Absolute Nucleated RBC 0.000 Nucleated RBC % 0.0 Sodium 150 H 149 H Potassium 4.0 4.0 Chloride 115 H 116 H Carbon Dioxide 27 26 Anion Gap 8 7 BUN 38 H 35 H Creatinine 0.75 0.67 L Estim Creat Clear Calc 51 56 Estimated GFR > 60 > 60 Glucose 129 H 120 H POC Capillary Glucose 117 H Calcium 12.1 H* 12.0 H Magnesium 1.8 Total Bilirubin 0.7 0.8 AST 18 18 ALT 20 19 Alkaline Phosphatase 92 93 Total Protein 7.0 7.0 Albumin 3.4 L 3.5 Urine Color Urine Appearance Urine pH Ur Specific Happy Urine Protein Urine Glucose (UA) Urine Ketones Ur Blood (Man) Urine Nitrate Urine Bilirubin Urine Urobilinogen Ur Leukocyte Esterase Urine RBC Urine WBC Ur Squamous Epith Cells Urine Bacteria Urine Casts Quality VTE Prophylaxis VTE prophylaxis: pharmacologic ordered
[2024-08-01] MEDS: CALCITONIN SALMON INJ 400 UNITS/2 ML VIAL 280 UNITS SUB-Q (12:38)
[2024-08-01 12:48] LABS: Glucose Point of Care 248 mg/dl (65-105)
--- NOTE | 2024-08-01 14:46 | PC.NURSE ---
RN called hospitalist Bela in regards to patient's MAR. No answer at this time.
[2024-08-01] MEDS: DEXTROSE 5% 1,000 ML 1,000 ML 125 ML IV CONT (16:26)
[2024-08-01 17:57] LABS: Glucose Point of Care 228 mg/dl (65-105)
[2024-08-01] MEDS: INSULIN ASPART (*BKC) 100 UNITS/ML SUB-Q ×2 (18:34→21:31)
[2024-08-01] MEDS: CINACALCET 30 MG TABLET 60 MG PO (21:29)
[2024-08-01] MEDS: ATORVASTATIN 40 MG TABLET 80 MG PO (21:29)
[2024-08-01] MEDS: INSULIN GLARGINE (*BKC) 100 UNITS/ML 50 UNITS SUB-Q (21:30)
[2024-08-02] VITALS (12 sets, daily range): BP systolic 139–178; BP diastolic 50–74; PULSE 65–90; RESP 16–20; TEMP 36.4–36.6; O2SAT 96–100
[2024-08-02] MEDS: DEXTROSE 5% 1,000 ML 1,000 ML 125 ML IV CONT ×3 (05:03→17:44)
[2024-08-02 06:04] LABS: Basophils Percent Auto 0.5 % (0.2-1.2); Eosinophils Absolute Auto 0.4 K/mm3 (0-0.3); Eosinophils Percent Auto 5.5 % (0-4.4); Hemoglobin 9.6 g/dL (12.0-15.0); Immature Granulocyte Absolute 0.02 K/mm3 (0.00-0.031); Immature Granulocyte Percent A 0.3 % (0-0.5); Lymphocytes Absolute Auto 1.09 K/mm3 (0.9-3.2); Lymphocytes Percent Auto 13.9 % (18.3-44.2); Mean Corpuscular Hemoglobin 30.8 pg (26-34); Mean Corpuscular Volume 96.2 fl (80-100); Mean Platelet Volume 11.3 fl (7.4-10.4); Monocytes Absolute Auto 0.4 K/mm3 (0.1-0.6); Monocytes Percent Auto 5.2 % (2.6-8.5); Neutrophils Absolute Auto 5.8 K/mm3 (1.3-6.7); Neutrophils Percent Auto 74.6 % (45.5-73.1); Platelet Count Result 248 k/mm3 (150-375); Red Blood Count 3.12 M/mm3 (4.2-5.4); Red Cell Distribution Width 15.8 % (11.5-14.5); White Blood Count 7.8 K/mm3 (4.5-10.0)
[2024-08-02 06:14] LABS: Alanine Aminotransferase 14 U/L (6-35); Albumin Level 3.2 g/dL (3.5-5.1); Alkaline Phosphatase 85 U/L (38-126); Anion Gap 8 mmol/L (4-12); Aspartate Amino Transferase 19 U/L (14-36); Bilirubin,Total 0.8 mg/dL (0.2-1.3); Blood Urea Nitrogen 20 mg/dL (7-17); Calcium 10.8 mg/dL (8.4-10.2); Carbon Dioxide 28 mmol/L (22-30); Chloride 103 mmol/L (98-107); Estimated CRCL calculation 61 ml/min; Estimated Glomerular Filt Rate > 60; Glucose 219 mg/dL (65-110); Magnesium 1.2 mg/dL (1.6-2.3); Potassium 3.8 mmol/L (3.4-5.0); Sodium 139 mmol/L (137-145)
[2024-08-02 06:43] LABS: Glucose Point of Care 245 mg/dl (65-105)
[2024-08-02 08:55] LABS: Glucose Point of Care 184 mg/dl (65-105)
[2024-08-02 09:44] LABS: Ionized Calcium 6.5 mg/dL (4.7-5.5)
[2024-08-02] MEDS: ASPIRIN 81 MG ENTERIC TABLET PO (09:59)
[2024-08-02] MEDS: lisinopriL 20 MG TABLET 80 MG PO (09:59)
[2024-08-02] MEDS: ENOXAPARIN 40 MG/0.4 ML SYRINGE SUB-Q (09:59)
[2024-08-02] MEDS: MAGNESIUM OXIDE 400 MG TABLET PO (09:59)
[2024-08-02] MEDS: CARBIDOPA/LEVODOPA 25/100 MG TABLET 1 TABLET PO (09:59)
[2024-08-02] MEDS: FERROUS SULFATE 325 MG TABLET DR BY MOUTH (09:59)
[2024-08-02] MEDS: CLOPIDOGREL BISULFATE 75 MG TABLET PO (10:00)
[2024-08-02] MEDS: PANTOPRAZOLE 40 MG TABLET PO (10:00)
[2024-08-02] MEDS: carvediloL 6.25 MG TABLET PO (10:00)
[2024-08-02] MEDS: CINACALCET 30 MG TABLET 60 MG PO (10:11)
--- NOTE | 2024-08-02 11:41 | PCNFU ---
Nutrition Follow-Up Complete: Suboptimal Intake as related to AMS as evidenced by NPO/swallow study. Adequate Intake of at least 75% of meals/supplements - Not progressing. Intakes poor 0-25%. Continue same goal Goal: Pt current nutrition is Diabetic consistent carb diet, Glucerna TID (220 kcal, 20 g protein). Nutrition recommendation: No new recommendations. May consider adding an appetite stimulant if appropriate. Continue current nutrition care plan and orders. Agree with orders Last recorded weight is 72 kg. Bowel Motility: +2 BMs 07/31/24 Labs Reviewed: Hgb 9.6, Hct 30, Alb 3.2, BUN 20, Cre 0.62, Glu 219, Lui 10.8 Meds Noted: Plavix, protonix, Lantus, Novolog Skin: No skin issues Additional Notes: Intakes remain poor. Drinking some supplements. Continue current nutrition care plan and orders. RD will monitor weight, labs, skin, diet orders, meds every 5 days.
[2024-08-02 11:45] LABS: Glucose Point of Care 254 mg/dl (65-105)
--- NOTE | 2024-08-02 11:55 | PCOTNOTE ---
Attempted to see Patient for OT treatment session. Patient very difficulty to arouse, lethargic and unable to participate in functional activity at this time. RN notified and aware
--- NOTE | 2024-08-02 13:17 | P.PNIM_ITS ---
Progress Note: A&P Assessment and Plan (1) Altered mental status: Code(s): R41.82 - Altered mental status, unspecified Status: Acute Assessment and Plan: * head CT showed atrophy and chronic white matter changes, no acute intracranial process * could be do to electrolyte imbalance versus hypercalcemia, versus TIA * patient passed to the bedside swallow with speech therapy today * PT and OT ordered * echocardiogram ordered * brain MRI ordered * neurology consulted * continue neuro checks q.4 hour * continue telemetry monitoring for now 07/28 * continue carbidopa levodopa * continue neuro checks * echocardiogram shown normal LV systolic function with an estimated EF of greater than 70%, grade 1 diastolic dysfunction * MRI was canceled * Neurology following * PT and OT are ordered * speech therapy will continue to work with her 07/29 * Continue neuro checks * Continue PT and OT * Continue speech therapy 07/30 * No change 08/02 * Patient not making much improvement with therapy and has remained sleepy for the last 3-4 days * Will likely need to discuss hospice with the (2) Hypercalcemia: Code(s): E83.52 - Hypercalcemia Status: Acute Assessment and Plan: * initial calcium 11.3, now 11.2 * Will check thyroid panel, parathyroid, vitamin D * Calcitonin ordered daily 07/28 * calcium 10.6 * continue calcitonin 07/29 * Calcium 11.0 * Continue to trend * Continue calcitonin 07/30 * Calcium 11.6 * discontinue calcitonin * Will start Sensipar 30 mg daily for hyperparathyroidism * PTH 82 07/31 * Calcium 12.3 * No change 08/01 * Calcium 12.0 * Continue IV fluids with D5W at 125 ml/hr * Continue calcitonin daily * Will increase sensipar to 60 mg BID 08/02 * Continue calcitonin and Sensipar * Calcium level 10.8 today * Continue to trend (3) Hypomagnesemia: Code(s): E83.42 - Hypomagnesemia Status: Acute Assessment and Plan: * initial magnesium 1.2 * she was given 2g of magnesium while in the ED * repeat magnesium 3.5 07/28 * magnesium 1.1 this morning * patient was given 4 g of magnesium * continue to trend 07/29 * Magnesium 1.7 * Continue to trend 07/30 * Magnesium 1.6 * Will give 2gm Magnesium now * Start Magnesium oxide 400 mg daily 07/31 * magnesium 2.2 08/01 * Magnesium 1.8 * Continue Mag oxide 08/02 * Magnesium 1.2 * 4 g of magnesium given today * Recheck in a.m. (4) Mixed hyperlipidemia: Code(s): E78.2 - Mixed hyperlipidemia Status: Acute Assessment and Plan: * continue aspirin, atorvastatin, Plavix 07/28 * no change to current treatment plan (5) Essential (primary) hypertension: Code(s): I10 - Essential (primary) hypertension Status: Acute Assessment and Plan: * blood pressures ranging 152/66 to 208/104 * continue lisinopril, 1st dose starting now 07/28 * blood pressures ranging 145/95 to 177/60 * continue lisinopril * will start amlodipine 5 mg 07/29 * Continue lisinopril * Stop amlodipine and start Coreg 07/30 * B/P ranging 132/58-180/78 * Increased Coreg dose * continue to hold Lisinopril and HCTZ for YARON 07/31 * no change to current treatment plan 08/01 * Patient was restarted on lisinopril 08/02 * No change to current treatment plan (6) Type 2 diabetes mellitus with diabetic neuropathy, unspecified: Code(s): E11.40 - Type 2 diabetes mellitus with diabetic neuropathy, unspecified Status: Acute Assessment and Plan: * Blood sugars ranging 121-194 * Hgb A1C 7.3 on 04/17/2024 * will repeat hemoglobin A1c today * Accu checks AC/HS * moderate dose SSI ordered * restart Lantus at half the dose that she normally takes 20 units at HS * Hold Mounjaro and metformin * hypoglycemic protocol in place * Diabetic diet ordered 07/28 * will increase Lantus to 40 units at bedtime * blood sugars ranging 208-319 07/29 * Will start mealtime dose of 4 units with meals and at bedtime for better glycemic control 07/30 * blood sugars ranging 320-396 * will increase Lantus to 50 units * will increase to high-dose sliding scale insulin 07/31 * increased mealtime dose to 10 units with meals and at bedtime 08/02 * Blood sugars ranging 219-254 * Continue with current treatment plan (7) Weakness: Code(s): R53.1 - Weakness Status: Acute Assessment and Plan: * PT and OT ordered 07/28 * no change (8) RACIEL (obstructive sleep apnea): Code(s): G47.33 - Obstructive sleep apnea (adult) (pediatric) Status: Acute Assessment and Plan: * patient has never been treated for her sleep apnea. reports that she has had this for at least 50 years. Long discussion with about the correlation between her RACIEL, hypertension, stroke, and brain fog. * Patient having apnea periods with periods of not breathing for 45 seconds or longer. * Bipap ordered for use when sleeping. * She will need proper sleep study on discharge. 07/31 * [facility] for tonight to assess for need of a BiPAP 08/01 * Patient did not cooperate with [facility] overnight * Continue Bipap at night * Medications and imaging reviewed with Dr. Amaya and he recommends outpatient sleep study as RACIEL may be the culprit to her mental status changes. Dr. Amaya she is stable from his standpoint to return home with her when medically stable. 08/02 * No change to current treatment Subjective Date/time seen: 08/02/24 13:17 Interval history: Interval history: This is a 79-year-old female with a significant past medical history thyroid disorder, stroke, heart disease, GERD, diabetes, arthritis presented to the hospital with stroke-like symptoms. Patient is a poor historian and most medical history was obtained from the EMR. She was reported to have increased weakness, unable to walk, unable to care for herself along with garbled speech. family who was at the bedside in the ED stated that she had prior history of TIA and has been taking aspirin and Plavix. Workup in the hospital included a chest x-ray which was negative. Head CT which was negative for any acute intracranial hemorrhage, mass, acute infarct, shown atrophy and chronic white matter changes. Initial labs showed Normal white blood cell count of 8.5, hemoglobin 11.6, potassium 5.7, creatinine 1.66, EGFR 30, blood sugars ranging 121-148, lactic acid was normal at 1.6, magnesium was 1.2, calcium level 11.3, troponin was negative x2, proBNP 361, procalcitonin 0.1. UA was obtained which showed 1+ urine protein, trace urine ketone, trace leukocytes, Urine cast greater than 20, otherwise negative. respiratory panel was negative for influenza a and B, RSV, COVID. EKG showed sinus rhythm with a rate of 81, QTC 400. Patient was given 1 L of normal saline, 2 g of magnesium while in the ED. neurology was con sulted. Subjective: Patient still sleepy. Labs reviewed. Review of Systems Review of Systems: ROS unobtainable: Yes unobtainable due to mental status Exam Narrative: General: In no acute distress, well nourished Cardiac: Normal S1 and S2. No murmur, gallops or friction rubs, peripheral pulses intact. Respiratory: Lungs clear to auscultation, no adventitious lung sounds, currently on 2L NC, sonorous/obstructive breathing pattern with sleeping. Gastrointestinal: soft, non-distended, non-tender, normoactive bowel sounds. : voiding without difficulty. Neuro: Alert to voice Objective Data Vital Signs Vital Signs: Vital Signs - 24 hr 08/01/24 15:28 08/01/24 16:00 08/01/24 20:00 Temperature 97.6 F 97.0 F L Pulse Rate 84 81 74 Respiratory Rate 19 18 Blood Pressure 172/83 H 166/45 H Pulse Oximetry 98 97 Oxygen Delivery Oxygen Flow Rate 08/01/24 20:00 08/01/24 20:00 08/02/24 00:00 Temperature Pulse Rate 72 72 Respiratory Rate Blood Pressure Pulse Oximetry 98 Oxygen Delivery Nasal Cannula Oxygen Flow Rate 2 08/02/24 04:00 08/02/24 06:00 08/02/24 08:00 Temperature 97.5 F L 97.6 F Pulse Rate 72 72 74 Respiratory Rate 16 18 Blood Pressure 146/57 H 139/74 Pulse Oximetry 96 98 Oxygen Delivery Oxygen Flow Rate 08/02/24 08:00 08/02/24 10:00 08/02/24 10:13 Temperature Pulse Rate 77 71 Respiratory Rate Blood Pressure Pulse Oximetry 97 Oxygen Delivery Nasal Cannula Oxygen Flow Rate 2 08/02/24 12:25 Temperature 97.6 F Pulse Rate 67 Respiratory Rate 18 Blood Pressure 155/50 H Pulse Oximetry 100 Oxygen Delivery Oxygen Flow Rate Intake/Output Intake/Output: Intake & Output 07/30/24 07/31/24 08/01/24 08/02/24 23:59 23:59 23:59 23:59 Intake Total 347 2380 1236.7 1602.5 Output Total 3703 802 7087 2500 Balance -1238 1905 -188.3 -897.5 Meds/Results Medications: Active Medications Generic Name Dose Route Start Last Admin Trade Name Freq PRN Reason Stop Dose Admin Acetaminophen 650 mg 07/27/24 02:59 07/28/24 19:50 Acetaminophen 325 Mg Tablet PO 650 mg Q4H PRN Administration Mild Pain (1-3) or Fever Aspirin 81 mg 07/28/24 09:00 08/02/24 09:59 Aspirin 81 Mg Enteric Tablet PO 81 mg DAILY ZENOBIA Administration Atorvastatin Calcium 80 mg 07/27/24 21:00 08/01/24 21:29 Atorvastatin 40 Mg Tablet PO 80 mg HS ZENOBIA Administration Calcitonin Ransom 100 units 08/02/24 12:00 Calcitonin Ransom Inj 400 Units/2 Ml Vial SUB-Q Q24H ZENOBIA Carbidopa/Levodopa 1 tablet 07/27/24 17:00 08/02/24 09:59 Carbidopa/Levodopa 25/100 Mg Tablet PO 1 tablet TID ZENOBIA Administration Carvedilol 6.25 mg 07/30/24 21:00 08/02/24 10:00 Carvedilol 6.25 Mg Tablet PO 6.25 mg Q12HR ZENOBIA Administration Cinacalcet 60 mg 08/01/24 21:00 08/02/24 10:11 Cinacalcet 30 Mg Tablet PO 60 mg Q12HR ZENOBIA Administration Clopidogrel Bisulfate 75 mg 07/28/24 09:00 08/02/24 10:00 Clopidogrel Bisulfate 75 Mg Tablet PO 75 mg DAILY ZENOBIA Administration Dextrose 12.5 gm 07/27/24 13:36 Dextrose 50% 25 Gm/50 Ml Syringe IV PUSH PRN PRN Hypoglycemia Protocol Enoxaparin Sodium 40 mg 07/28/24 09:00 08/02/24 09:59 Enoxaparin 40 Mg/0.4 Ml Syringe SUB-Q 40 mg DAILY ZENOBIA Administration Ferrous Sulfate 325 mg 07/28/24 09:00 08/02/24 09:59 Ferrous Sulfate [address] BY MOUTH 325 mg DAILY ZENOBIA Administration Glucagon 1 mg 07/27/24 13:36 Glucagon For Inj 1 Mg Vial IM PRN PRN Hypoglycemia Protocol Glucose 15 gm 07/27/24 13:36 Glucose Oral Gel 15 Gm Of Glucse In 37.5 Gm Tube PO PRN PRN Hypoglycemia Protocol Hydralazine HCl 10 mg 07/29/24 19:07 08/01/24 00:50 Hydralazine Hcl 20 Mg/Ml Vial IV PUSH 10 mg Q8H PRN Administration Blood Pressure - High Dextrose 1,000 mls @ 100 mls/hr 07/27/24 13:36 Dextrose 5% 1,000 Ml IVPB PRN PRN Hypoglycemia Protocol Dextrose 1,000 mls @ 125 mls/hr 08/01/24 13:55 08/02/24 06:21 Dextrose 5% 1,000 Ml IV CONT 125 mls/hr .Q8H ZENOBIA Administration Magnesium Sulfate 4 gm in 100 mls @ 25 mls/hr 08/02/24 13:15 Magnesium Sulf 4 Gm/[id number] IVPB 08/02/24 17:14 ONCE ONE Insulin Aspart 4 - 8 units 07/30/24 17:00 08/02/24 09:27 Insulin Aspart (*Bkc) 100 Units/Ml SUB-Q Not Given TIDWM ZENOBIA Protocol Insulin Aspart 2 - 4 units 07/30/24 21:00 08/01/24 21:31 Insulin Aspart (*Bkc) 100 Units/Ml SUB-Q 2 units HS ZENOBIA Administration Protocol Insulin Aspart 10 units 07/31/24 17:00 08/02/24 10:11 Insulin Aspart (*Bkc) 100 Units/Ml SUB-Q Not Given TIDWM ZENOBIA Insulin Glargine 50 units 07/30/24 21:00 08/01/24 21:30 Insulin Glargine (*Bkc) 100 Units/Ml SUB-Q 50 units HS ZENOBIA Administration Lisinopril 80 mg 07/27/24 13:50 08/02/24 09:59 Lisinopril 20 Mg Tablet PO 80 mg DAILY ZENOBIA Administration Magnesium Oxide 400 mg 07/31/24 09:00 08/02/24 09:59 Magnesium Oxide 400 Mg Tablet PO 400 mg DAILY ZENOBIA Administration Pantoprazole Sodium 40 mg 07/28/24 09:00 08/02/24 10:00 Pantoprazole 40 Mg Tablet PO 40 mg QAM ZENOBIA Administration Radiology Results: ITS Impressions Head CT 07/27/24 05:31 Impression: No intracranial hemorrhage, mass, or acute infarct. Atrophy and chronic white matter changes, as above. Chest X-Ray 07/31/24 06:59 IMPRESSION: 1. No acute cardiopulmonary disease. Labs Labs: Laboratory Results - last 24 hr 07/30/24 08/01/24 08/01/24 06:07 17:48 20:15 WBC RBC Hgb Hct MCV MCH MCHC RDW Plt Count MPV Immature Gran % (Auto) Neut % (Auto) Lymph % (Auto) [place] % (Auto) Eos % (Auto) Baso % (Auto) Lymph # (Auto) [place] # (Auto) Eos # (Auto) Baso # (Auto) Abs Immat Gran (auto) Absolute Neuts (auto) Absolute Nucleated RBC Nucleated RBC % Sodium Potassium Chloride Carbon Dioxide Anion Gap BUN Creatinine Estim Creat Clear Calc Estimated GFR Glucose POC Capillary Glucose 228 H 245 H Calcium Ionized Calcium [place] 6.5 H Magnesium Total Bilirubin AST ALT Alkaline Phosphatase Total Protein Albumin 08/02/24 08/02/24 08/02/24 05:30 08:24 11:37 WBC 7.8 RBC 3.12 L Hgb 9.6 L Hct 30.0 L MCV 96.2 MCH 30.8 MCHC 32.0 RDW 15.8 H Plt Count 248 MPV 11.3 H Immature Gran % (Auto) 0.3 Neut % (Auto) 74.6 H Lymph % (Auto) 13.9 L [place] % (Auto) 5.2 Eos % (Auto) 5.5 H Baso % (Auto) 0.5 Lymph # (Auto) 1.09 [place] # (Auto) 0.4 Eos # (Auto) 0.4 H Baso # (Auto) 0.0 Abs Immat Gran (auto) 0.02 Absolute Neuts (auto) 5.8 Absolute Nucleated RBC 0.000 Nucleated RBC % 0.0 Sodium 139 Potassium 3.8 Chloride 103 Carbon Dioxide 28 Anion Gap 8 BUN 20 H D Creatinine 0.61 L Estim Creat Clear Calc 61 Estimated GFR > 60 Glucose 219 H POC Capillary Glucose 184 H 254 H Calcium 10.8 H Ionized Calcium [place] Magnesium 1.2 L Total Bilirubin 0.8 AST 19 ALT 14 Alkaline Phosphatase 85 Total Protein 6.0 L Albumin 3.2 L Quality VTE Prophylaxis VTE prophylaxis: pharmacologic ordered
[2024-08-02] MEDS: MAGNESIUM SULF 4 GM/WATER100ML 4 GM/100 ML BAG IVPB (14:15)
[2024-08-02] MEDS: CALCITONIN SALMON INJ 400 UNITS/2 ML VIAL 100 UNITS SUB-Q (14:17)
[2024-08-02] MEDS: INSULIN ASPART (*BKC) 100 UNITS/ML SUB-Q (14:17)
[2024-08-02 16:52] LABS: Glucose Point of Care 198 mg/dl (65-105)
[2024-08-02] MEDS: INSULIN GLARGINE (*BKC) 100 UNITS/ML 50 UNITS SUB-Q (20:24)
[2024-08-03] VITALS (12 sets, daily range): BP systolic 130–178; BP diastolic 58–82; PULSE 76–103; RESP 8–18; TEMP 36.2–37.5; O2SAT 92–99
[2024-08-03 02:35] LABS: Glucose Point of Care 177 mg/dl (65-105)
[2024-08-03] MEDS: DEXTROSE 5% 1,000 ML 1,000 ML 125 ML IV CONT ×3 (06:01→18:45)
[2024-08-03] MEDS: hydrALAZINE HCL 20 MG/ML VIAL 10 MG IV PUSH (06:02)
[2024-08-03 07:18] LABS: Basophils Percent Auto 0.6 % (0.2-1.2); Eosinophils Absolute Auto 0.5 K/mm3 (0-0.3); Eosinophils Percent Auto 6.8 % (0-4.4); Hematocrit 30.3 % (37.0-47.0); Hemoglobin 10.2 g/dL (12.0-15.0); Immature Granulocyte Absolute 0.02 K/mm3 (0.00-0.031); Immature Granulocyte Percent A 0.3 % (0-0.5); Lymphocytes Percent Auto 10.7 % (18.3-44.2); Mean Corpuscular HGB Conc 33.7 g/dl (32-36); Mean Corpuscular Hemoglobin 31.1 pg (26-34); Mean Corpuscular Volume 92.4 fl (80-100); Mean Platelet Volume 11.4 fl (7.4-10.4); Monocytes Absolute Auto 0.5 K/mm3 (0.1-0.6); Monocytes Percent Auto 7.5 % (2.6-8.5); Neutrophils Absolute Auto 4.9 K/mm3 (1.3-6.7); Neutrophils Percent Auto 74.1 % (45.5-73.1); Platelet Count Result 233 k/mm3 (150-375); Red Blood Count 3.28 M/mm3 (4.2-5.4); Red Cell Distribution Width 15.3 % (11.5-14.5); White Blood Count 6.6 K/mm3 (4.5-10.0)
[2024-08-03 07:42] LABS: Alanine Aminotransferase 19 U/L (6-35); Albumin Level 3.3 g/dL (3.5-5.1); Alkaline Phosphatase 92 U/L (38-126); Anion Gap 4 mmol/L (4-12); Aspartate Amino Transferase 18 U/L (14-36); Bilirubin,Total 0.7 mg/dL (0.2-1.3); Blood Urea Nitrogen 13 mg/dL (7-17); Calcium 9.9 mg/dL (8.4-10.2); Carbon Dioxide 31 mmol/L (22-30); Chloride 98 mmol/L (98-107); Estimated CRCL calculation 58 ml/min; Estimated Glomerular Filt Rate > 60; Glucose 125 mg/dL (65-110); Magnesium 1.7 mg/dL (1.6-2.3); Potassium 3.8 mmol/L (3.4-5.0); Sodium 133 mmol/L (137-145)
[2024-08-03 08:42] LABS: Glucose Point of Care 132 mg/dl (65-105)
[2024-08-03] MEDS: ENOXAPARIN 40 MG/0.4 ML SYRINGE SUB-Q (10:10)
--- NOTE | 2024-08-03 11:00 | PC.NURSE ---
RN feels it is not safe to feed/give patient medications at this time as she is not following commands to swallow. RN updated hospitalist Brielle.
--- NOTE | 2024-08-03 11:09 | P.PNIM_ITS ---
Progress Note: A&P Assessment and Plan (1) Altered mental status: Code(s): R41.82 - Altered mental status, unspecified Status: Acute Assessment and Plan: * head CT showed atrophy and chronic white matter changes, no acute intracranial process * could be do to electrolyte imbalance versus hypercalcemia, versus TIA * patient passed to the bedside swallow with speech therapy today * PT and OT ordered * echocardiogram ordered * brain MRI ordered * neurology consulted * continue neuro checks q.4 hour * continue telemetry monitoring for now 07/28 * continue carbidopa levodopa * continue neuro checks * echocardiogram shown normal LV systolic function with an estimated EF of greater than 70%, grade 1 diastolic dysfunction * MRI was canceled * Neurology following * PT and OT are ordered * speech therapy will continue to work with her 07/29 * Continue neuro checks * Continue PT and OT * Continue speech therapy 07/30 * No change 08/02 * Patient not making much improvement with therapy and has remained sleepy for the last 3-4 days * Will likely need to discuss hospice with the 08/03 * Not making improvement with therapy. * Not eating or taking medication today. * Spoke with and agreeable to proceed with hospice consult. Hospice meeting tomorrow. (2) Hypercalcemia: Code(s): E83.52 - Hypercalcemia Status: Acute Assessment and Plan: * initial calcium 11.3, now 11.2 * Will check thyroid panel, parathyroid, vitamin D * Calcitonin ordered daily 07/28 * calcium 10.6 * continue calcitonin 07/29 * Calcium 11.0 * Continue to trend * Continue calcitonin 07/30 * Calcium 11.6 * discontinue calcitonin * Will start Sensipar 30 mg daily for hyperparathyroidism * PTH 82 07/31 * Calcium 12.3 * No change 08/01 * Calcium 12.0 * Continue IV fluids with D5W at 125 ml/hr * Continue calcitonin daily * Will increase sensipar to 60 mg BID 08/02 * Continue calcitonin and Sensipar * Calcium level 10.8 today * Continue to trend 08/03 * Continue calcitonin and Sensipar * Calcium level 9.9 today * Continue IV fluids with D5W at 125 ml/hr * Continue to trend (3) Hypomagnesemia: Code(s): E83.42 - Hypomagnesemia Status: Acute Assessment and Plan: * initial magnesium 1.2 * she was given 2g of magnesium while in the ED * repeat magnesium 3.5 07/28 * magnesium 1.1 this morning * patient was given 4 g of magnesium * continue to trend 07/29 * Magnesium 1.7 * Continue to trend 07/30 * Magnesium 1.6 * Will give 2gm Magnesium now * Start Magnesium oxide 400 mg daily 07/31 * magnesium 2.2 08/01 * Magnesium 1.8 * Continue Mag oxide 08/02 * Magnesium 1.2 * 4 g of magnesium given today * Recheck in a.m. 08/03 * Magnesium 1.7. * Monitor labs. (4) Mixed hyperlipidemia: Code(s): E78.2 - Mixed hyperlipidemia Status: Acute Assessment and Plan: * continue aspirin, atorvastatin, Plavix 07/28 * no change to current treatment plan (5) Essential (primary) hypertension: Code(s): I10 - Essential (primary) hypertension Status: Acute Assessment and Plan: * blood pressures ranging 152/66 to 208/104 * continue lisinopril, 1st dose starting now 07/28 * blood pressures ranging 145/95 to 177/60 * continue lisinopril * will start amlodipine 5 mg 07/29 * Continue lisinopril * Stop amlodipine and start Coreg 07/30 * B/P ranging 132/58-180/78 * Increased Coreg dose * continue to hold Lisinopril and HCTZ for YARON 07/31 * no change to current treatment plan 08/01 * Patient was restarted on lisinopril 08/02 * No change to current treatment plan 08/03 * Blood pressure range 156/67-178/74. * Not taking oral medication today. * Hydralazine 10 mg ivp q 8 PRN for systolic > 160 or diastolic >100. (6) Type 2 diabetes mellitus with diabetic neuropathy, unspecified: Code(s): E11.40 - Type 2 diabetes mellitus with diabetic neuropathy, unspecified Status: Acute Assessment and Plan: * Blood sugars ranging 121-194 * Hgb A1C 7.3 on 04/17/2024 * will repeat hemoglobin A1c today * Accu checks AC/HS * moderate dose SSI ordered * restart Lantus at half the dose that she normally takes 20 units at HS * Hold Mounjaro and metformin * hypoglycemic protocol in place * Diabetic diet ordered 07/28 * will increase Lantus to 40 units at bedtime * blood sugars ranging 208-319 07/29 * Will start mealtime dose of 4 units with meals and at bedtime for better glycemic control 07/30 * blood sugars ranging 320-396 * will increase Lantus to 50 units * will increase to high-dose sliding scale insulin 07/31 * increased mealtime dose to 10 units with meals and at bedtime 08/02 * Blood sugars ranging 219-254 * Continue with current treatment plan 08/03 * Blood sugars ranging 120-163. (7) Weakness: Code(s): R53.1 - Weakness Status: Acute Assessment and Plan: * PT and OT ordered 07/28 * no change (8) RACIEL (obstructive sleep apnea): Code(s): G47.33 - Obstructive sleep apnea (adult) (pediatric) Status: Acute Assessment and Plan: * patient has never been treated for her sleep apnea. reports that she has had this for at least 50 years. Long discussion with about the correlation between her RACIEL, hypertension, stroke, and brain fog. * Patient having apnea periods with periods of not breathing for 45 seconds or longer. * Bipap ordered for use when sleeping. * She will need proper sleep study on discharge. 07/31 * [facility] for tonight to assess for need of a BiPAP 08/01 * Patient did not cooperate with [facility] overnight * Continue Bipap at night * Medications and imaging reviewed with Dr. Amaya and he recommends outpatient sleep study as RACIEL may be the culprit to her mental status changes. Dr. Amaya she is stable from his standpoint to return home with her when medically stable. 08/02 * No change to current treatment Subjective Date/time seen: 08/03/24 11:09 Interval history: Patient arousable to voice. Patient not eating or taking medications today. Spoke with at bedside and would like to proceed with a hospice consult. Hospice meeting to be set up for tomorrow. Review of Systems Review of Systems: All systems reviewed & are unremarkable except as noted in HPI and below Exam Const: General: no acute distress Resp: Effort & Inspection: normal respiratory effort Auscultation: clear to auscultation bilaterally Cardio: Rate: regular rate Rhythm: regular rhythm GI: GI Palp: Yes Soft to palpation Auscultation: normal bowel sounds Neuro: Other: Alert to voice. Right sided weakness. Extrem: General: no pedal edema Objective Data Vital Signs Vital Signs: Vital Signs - 24 hr 08/02/24 12:00 08/02/24 12:25 08/02/24 16:00 Temperature 97.6 F Pulse Rate 65 67 66 Respiratory Rate 18 Blood Pressure 155/50 H Pulse Oximetry 100 Oxygen Delivery Oxygen Flow Rate 08/02/24 16:54 08/02/24 20:00 08/02/24 20:00 Temperature 97.6 F Pulse Rate 67 81 Respiratory Rate 20 Blood Pressure 154/63 H Pulse Oximetry 97 98 Oxygen Delivery Nasal Cannula Oxygen Flow Rate 2 08/02/24 20:35 08/03/24 00:00 08/03/24 00:40 Temperature 97.8 F 97.1 F L Pulse Rate 90 79 77 Respiratory Rate 18 18 Blood Pressure 178/71 H 143/58 H Pulse Oximetry 98 99 Oxygen Delivery Oxygen Flow Rate 08/03/24 04:00 08/03/24 05:00 08/03/24 08:00 Temperature 97.5 F L 97.9 F Pulse Rate 95 76 102 H Respiratory Rate 18 Blood Pressure 176/69 H 178/74 H Pulse Oximetry 99 93 Oxygen Delivery Oxygen Flow Rate 08/03/24 10:15 08/03/24 10:15 Temperature Pulse Rate 89 Respiratory Rate Blood Pressure Pulse Oximetry 93 Oxygen Delivery Nasal Cannula Oxygen Flow Rate 2 Intake/Output Intake/Output: Intake & Output 07/31/24 08/01/24 08/02/24 08/03/24 23:59 23:59 23:59 23:59 Intake Total 2380 1236.7 2552.5 2000 Output Total 475 1425 3000 2800 Balance 1905 -188.3 -447.5 -800 Meds/Results Medications: Active Medications Generic Name Dose Route Start Last Admin Trade Name Freq PRN Reason Stop Dose Admin Acetaminophen 650 mg 07/27/24 02:59 07/28/24 19:50 Acetaminophen 325 Mg Tablet PO 650 mg Q4H PRN Administration Mild Pain (1-3) or Fever Aspirin 81 mg 07/28/24 09:00 08/03/24 11:00 Aspirin 81 Mg Enteric Tablet PO Not Given DAILY [facility] Atorvastatin Calcium 80 mg 07/27/24 21:00 08/02/24 20:25 Atorvastatin 40 Mg Tablet PO Not Given HS [facility] Calcitonin [place] 100 units 08/02/24 12:00 08/02/24 14:17 Calcitonin [place] Inj 400 Units/2 Ml Vial SUB-Q 100 units Q24H [facility] Administration Carbidopa/Levodopa 1 tablet 07/27/24 17:00 08/03/24 11:00 Carbidopa/Levodopa 25/100 Mg Tablet PO Not Given TID [facility] Carvedilol 6.25 mg 07/30/24 21:00 08/03/24 11:00 Carvedilol 6.25 Mg Tablet PO Not Given Q12HR [facility] Cinacalcet 60 mg 08/01/24 21:00 08/03/24 11:00 Cinacalcet 30 Mg Tablet PO Not Given Q12HR [facility] Clopidogrel Bisulfate 75 mg 07/28/24 09:00 08/03/24 11:00 Clopidogrel Bisulfate 75 Mg Tablet PO Not Given DAILY [facility] Dextrose 12.5 gm 07/27/24 13:36 Dextrose 50% 25 Gm/50 Ml Syringe IV PUSH PRN PRN Hypoglycemia Protocol Enoxaparin Sodium 40 mg 07/28/24 09:00 08/03/24 10:10 Enoxaparin 40 Mg/0.4 Ml Syringe SUB-Q 40 mg DAILY [facility] Administration Ferrous Sulfate 325 mg 07/28/24 09:00 08/03/24 11:00 Ferrous Sulfate [address] BY MOUTH Not Given DAILY [facility] Glucagon 1 mg 07/27/24 13:36 Glucagon For Inj 1 Mg Vial IM PRN PRN Hypoglycemia Protocol Glucose 15 gm 07/27/24 13:36 Glucose Oral Gel 15 Gm Of Glucse In 37.5 Gm Tube PO PRN PRN Hypoglycemia Protocol Hydralazine HCl 10 mg 07/29/24 19:07 08/03/24 06:02 Hydralazine Hcl 20 Mg/Ml Vial IV PUSH 10 mg Q8H PRN Administration Blood Pressure - High Dextrose 1,000 mls @ 100 mls/hr 07/27/24 13:36 Dextrose 5% 1,000 Ml IVPB PRN PRN Hypoglycemia Protocol Dextrose 1,000 mls @ 125 mls/hr 08/01/24 13:55 08/03/24 10:03 Dextrose 5% 1,000 Ml IV CONT 125 mls/hr .Q8H [facility] Administration Insulin Aspart 4 - 8 units 07/30/24 17:00 08/03/24 09:50 Insulin Aspart (*Bkc) 100 Units/Ml SUB-Q Not Given TIDWM [facility] Protocol Insulin Aspart 2 - 4 units 02/07/25 21:00 08/02/24 20:25 Insulin Aspart (*Bkc) 100 Units/Ml SUB-Q Not Given HS [facility] Protocol Insulin Aspart 10 units 07/31/24 17:00 08/03/24 09:50 Insulin Aspart (*Bkc) 100 Units/Ml SUB-Q Not Given TIDWM [facility] Insulin Glargine 50 units 07/30/24 21:00 08/02/24 20:24 Insulin Glargine (*Bkc) 100 Units/Ml SUB-Q 50 units HS [facility] Administration Lisinopril 80 mg 07/27/24 13:50 08/03/24 11:00 Lisinopril 20 Mg Tablet PO Not Given DAILY [facility] Magnesium Oxide 400 mg 08/03/24 10:00 08/03/24 11:00 Magnesium Oxide 400 Mg Tablet PO Not Given DAILY [facility] Pantoprazole Sodium 40 mg 07/28/24 09:00 08/03/24 11:00 Pantoprazole 40 Mg Tablet PO Not Given QAM [facility] Radiology Results: ITS Impressions Head CT 07/27/24 05:31 Impression: No intracranial hemorrhage, mass, or acute infarct. Atrophy and chronic white matter changes, as above. Chest X-Ray 07/31/24 06:59 IMPRESSION: 1. No acute cardiopulmonary disease. Labs Labs: Laboratory Results - last 24 hr 08/02/24 08/02/24 08/02/24 11:37 16:44 20:13 WBC RBC Hgb Hct MCV MCH MCHC RDW Plt Count MPV Immature Gran % (Auto) Neut % (Auto) Lymph % (Auto) [place] % (Auto) Eos % (Auto) Baso % (Auto) Lymph # (Auto) [place] # (Auto) Eos # (Auto) Baso # (Auto) Abs Immat Gran (auto) Absolute Neuts (auto) Absolute Nucleated RBC Nucleated RBC % Sodium Potassium Chloride Carbon Dioxide Anion Gap BUN Creatinine Estim Creat Clear Calc Estimated GFR Glucose POC Capillary Glucose 254 H 198 H 177 H Calcium Magnesium Total Bilirubin AST ALT Alkaline Phosphatase Total Protein Albumin 08/03/24 08/03/24 06:39 08:29 WBC 6.6 RBC 3.28 L Hgb 10.2 L Hct 30.3 L MCV 92.4 MCH 31.1 MCHC 33.7 RDW 15.3 H Plt Count 233 MPV 11.4 H Immature Gran % (Auto) 0.3 Neut % (Auto) 74.1 H Lymph % (Auto) 10.7 L [place] % (Auto) 7.5 Eos % (Auto) 6.8 H Baso % (Auto) 0.6 Lymph # (Auto) 0.70 L [place] # (Auto) 0.5 Eos # (Auto) 0.5 H Baso # (Auto) 0.0 Abs Immat Gran (auto) 0.02 Absolute Neuts (auto) 4.9 Absolute Nucleated RBC 0.000 Nucleated RBC % 0.0 Sodium 133 L Potassium 3.8 Chloride 98 Carbon Dioxide 31 H Anion Gap 4 BUN 13 D Creatinine 0.64 L Estim Creat Clear Calc 58 Estimated GFR > 60 Glucose 125 H POC Capillary Glucose 132 H Calcium 9.9 Magnesium 1.7 Total Bilirubin 0.7 AST 18 ALT 19 Alkaline Phosphatase 92 Total Protein 6.0 L Albumin 3.3 L Quality VTE Prophylaxis VTE prophylaxis: pharmacologic ordered
--- NOTE | 2024-08-03 11:09 | PM.IMPN ---
Progress Note: A&P Assessment and Plan (1) Altered mental status: Code(s): R41.82 - Altered mental status, unspecified Status: Acute Assessment and Plan: head CT showed atrophy and chronic white matter changes, no acute intracranial process could be do to electrolyte imbalance versus hypercalcemia, versus TIA patient passed to the bedside swallow with speech therapy today PT and OT ordered echocardiogram ordered brain MRI ordered neurology consulted continue neuro checks q.4 hour continue telemetry monitoring for now 07/28 continue carbidopa levodopa continue neuro checks echocardiogram shown normal LV systolic function with an estimated EF of greater than 70%, grade 1 diastolic dysfunction MRI was canceled Neurology following PT and OT are ordered speech therapy will continue to work with her 07/29 Continue neuro checks Continue PT and OT Continue speech therapy 07/30 No change 08/02 Patient not making much improvement with therapy and has remained sleepy for the last 3-4 days Will likely need to discuss hospice with the 08/03 Not making improvement with therapy. Not eating or taking medication today. Spoke with and agreeable to proceed with hospice consult. Hospice meeting tomorrow. (2) Hypercalcemia: Code(s): E83.52 - Hypercalcemia Status: Acute Assessment and Plan: initial calcium 11.3, now 11.2 Will check thyroid panel, parathyroid, vitamin D Calcitonin ordered daily 2/ calcium 10.6 continue calcitonin 07/29 Calcium 11.0 Continue to trend Continue calcitonin 07/30 Calcium 11.6 discontinue calcitonin Will start Sensipar 30 mg daily for hyperparathyroidism PTH 82 07/31 Calcium 12.3 No change 08/01 Calcium 12.0 Continue IV fluids with D5W at 125 ml/hr Continue calcitonin daily Will increase sensipar to 60 mg BID 08/02 Continue calcitonin and Sensipar Calcium level 10.8 today Continue to trend 08/03 Continue calcitonin and Sensipar Calcium level 9.9 today Continue IV fluids with D5W at 125 ml/hr Continue to trend (3) Hypomagnesemia: Code(s): E83.42 - Hypomagnesemia Status: Acute Assessment and Plan: initial magnesium 1.2 she was given 2g of magnesium while in the ED repeat magnesium 3.5 2/ magnesium 1.1 this morning patient was given 4 g of magnesium continue to trend 2/6 Magnesium 1.7 Continue to trend 2/7 Magnesium 1.6 Will give 2gm Magnesium now Start Magnesium oxide 400 mg daily 07/31 magnesium 2.2 08/01 Magnesium 1.8 Continue Mag oxide 08/02 Magnesium 1.2 4 g of magnesium given today Recheck in a.m. 08/03 Magnesium 1.7. Monitor labs. (4) Mixed hyperlipidemia: Code(s): E78.2 - Mixed hyperlipidemia Status: Acute Assessment and Plan: continue aspirin, atorvastatin, Plavix 07/28 no change to current treatment plan (5) Essential (primary) hypertension: Code(s): I10 - Essential (primary) hypertension Status: Acute Assessment and Plan: blood pressures ranging 152/66 to 208/104 continue lisinopril, 1st dose starting now 07/28 blood pressures ranging 145/95 to 177/60 continue lisinopril will start amlodipine 5 mg 07/29 Continue lisinopril Stop amlodipine and start Coreg 07/30 B/P ranging 132/58-180/78 Increased Coreg dose continue to hold Lisinopril and HCTZ for YARON 07/31 no change to current treatment plan 08/01 Patient was restarted on lisinopril 08/02 No change to current treatment plan 08/03 Blood pressure range 156/67-178/74. Not taking oral medication today. Hydralazine 10 mg ivp q 8 PRN for systolic > 160 or diastolic >100. (6) Type 2 diabetes mellitus with diabetic neuropathy, unspecified: Code(s): E11.40 - Type 2 diabetes mellitus with diabetic neuropathy, unspecified Status: Acute Assessment and Plan: Blood sugars ranging 121-194 Hgb A1C 7.3 on 04/17/2024 will repeat hemoglobin A1c today Accu checks AC/HS moderate dose SSI ordered restart Lantus at half the dose that she normally takes 20 units at HS Hold Mounjaro and metformin hypoglycemic protocol in place Diabetic diet ordered 07/28 will increase Lantus to 40 units at bedtime blood sugars ranging 208-319 07/29 Will start mealtime dose of 4 units with meals and at bedtime for better glycemic control 07/30 blood sugars ranging 320-396 will increase Lantus to 50 units will increase to high-dose sliding scale insulin 07/31 increased mealtime dose to 10 units with meals and at bedtime 08/02 Blood sugars ranging 219-254 Continue with current treatment plan 08/03 Blood sugars ranging 120-163. (7) Weakness: Code(s): R53.1 - Weakness Status: Acute Assessment and Plan: PT and OT ordered 07/28 no change (8) RACIEL (obstructive sleep apnea): Code(s): G47.33 - Obstructive sleep apnea (adult) (pediatric) Status: Acute Assessment and Plan: patient has never been treated for her sleep apnea. reports that she has had this for at least 50 years. Long discussion with about the correlation between her RACIEL, hypertension, stroke, and brain fog. Patient having apnea periods with periods of not breathing for 45 seconds or longer. Bipap ordered for use when sleeping. She will need proper sleep study on discharge. 07/31 [facility] for tonight to assess for need of a BiPAP 08/01 Patient did not cooperate with [facility] overnight Continue Bipap at night Medications and imaging reviewed with Dr. Amaya and he recommends outpatient sleep study as RACIEL may be the culprit to her mental status changes. Dr. Amaya she is stable from his standpoint to return home with her when medically stable. 08/02 No change to current treatment Subjective Date/time seen: 08/03/24 11:09 Interval history: Patient arousable to voice. Patient not eating or taking medications today. Spoke with at bedside and would like to proceed with a hospice consult. Hospice meeting to be set up for tomorrow. Review of Systems Review of Systems: All systems reviewed & are unremarkable except as noted in HPI and below Exam Const: General: no acute distress Resp: Effort & Inspection: normal respiratory effort Auscultation: clear to auscultation bilaterally Cardio: Rate: regular rate Rhythm: regular rhythm GI: GI Palp: Yes Soft to palpation Auscultation: normal bowel sounds Neuro: Other: Alert to voice. Right sided weakness. Extrem: General: no pedal edema Objective Data Vital Signs Vital Signs: Vital Signs - 24 hr 08/02/24 12:00 08/02/24 12:25 08/02/24 16:00 Temperature 97.6 F Pulse Rate 65 67 66 Respiratory Rate 18 Blood Pressure 155/50 H Pulse Oximetry 100 Oxygen Delivery Oxygen Flow Rate 08/02/24 16:54 08/02/24 20:00 08/02/24 20:00 Temperature 97.6 F Pulse Rate 67 81 Respiratory Rate 20 Blood Pressure 154/63 H Pulse Oximetry 97 98 Oxygen Delivery Nasal Cannula Oxygen Flow Rate 2 08/02/24 20:35 08/03/24 00:00 08/03/24 00:40 Temperature 97.8 F 97.1 F L Pulse Rate 90 79 77 Respiratory Rate 18 18 Blood Pressure 178/71 H 143/58 H Pulse Oximetry 98 99 Oxygen Delivery Oxygen Flow Rate 08/03/24 04:00 08/03/24 05:00 08/03/24 08:00 Temperature 97.5 F L 97.9 F Pulse Rate 95 76 102 H Respiratory Rate 18 Blood Pressure 176/69 H 178/74 H Pulse Oximetry 99 93 Oxygen Delivery Oxygen Flow Rate 08/03/24 10:15 08/03/24 10:15 Temperature Pulse Rate 89 Respiratory Rate Blood Pressure Pulse Oximetry 93 Oxygen Delivery Nasal Cannula Oxygen Flow Rate 2 Intake/Output Intake/Output: Intake & Output 07/31/24 08/01/24 08/02/24 08/03/24 23:59 23:59 23:59 23:59 Intake Total 2380 1236.7 2552.5 2000 Output Total 475 1425 3000 2800 Balance 1905 -188.3 -447.5 -800 Meds/Results Medications: Active Medications Generic Name Dose Route Start Last Admin Trade Name Freq PRN Reason Stop Dose Admin Acetaminophen 650 mg 07/27/24 02:59 07/28/24 19:50 Acetaminophen 325 Mg Tablet PO 650 mg Q4H PRN Administration Mild Pain (1-3) or Fever Aspirin 81 mg 07/28/24 09:00 08/03/24 11:00 Aspirin 81 Mg Enteric Tablet PO Not Given DAILY [facility] Atorvastatin Calcium 80 mg 07/27/24 21:00 08/02/24 20:25 Atorvastatin 40 Mg Tablet PO Not Given HS [facility] Calcitonin [place] 100 units 08/02/24 12:00 08/02/24 14:17 Calcitonin [place] Inj 400 Units/2 Ml Vial SUB-Q 100 units Q24H [facility] Administration Carbidopa/Levodopa 1 tablet 07/27/24 17:00 08/03/24 11:00 Carbidopa/Levodopa 25/100 Mg Tablet PO Not Given TID [facility] Carvedilol 6.25 mg 07/30/24 21:00 08/03/24 11:00 Carvedilol 6.25 Mg Tablet PO Not Given Q12HR [facility] Cinacalcet 60 mg 08/01/24 21:00 08/03/24 11:00 Cinacalcet 30 Mg Tablet PO Not Given Q12HR [facility] Clopidogrel Bisulfate 75 mg 07/28/24 09:00 08/03/24 11:00 Clopidogrel Bisulfate 75 Mg Tablet PO Not Given DAILY [facility] Dextrose 12.5 gm 07/27/24 13:36 Dextrose 50% 25 Gm/50 Ml Syringe IV PUSH PRN PRN Hypoglycemia Protocol Enoxaparin Sodium 40 mg 07/28/24 09:00 08/03/24 10:10 Enoxaparin 40 Mg/0.4 Ml Syringe SUB-Q 40 mg DAILY [facility] Administration Ferrous Sulfate 325 mg 07/28/24 09:00 08/03/24 11:00 Ferrous Sulfate [address] BY MOUTH Not Given DAILY [facility] Glucagon 1 mg 07/27/24 13:36 Glucagon For Inj 1 Mg Vial IM PRN PRN Hypoglycemia Protocol Glucose 15 gm 07/27/24 13:36 Glucose Oral Gel 15 Gm Of Glucse In 37.5 Gm Tube PO PRN PRN Hypoglycemia Protocol Hydralazine HCl 10 mg 07/29/24 19:07 08/03/24 06:02 Hydralazine Hcl 20 Mg/Ml Vial IV PUSH 10 mg Q8H PRN Administration Blood Pressure - High Dextrose 1,000 mls @ 100 mls/hr 07/27/24 13:36 Dextrose 5% 1,000 Ml IVPB PRN PRN Hypoglycemia Protocol Dextrose 1,000 mls @ 125 mls/hr 08/01/24 13:55 08/03/24 10:03 Dextrose 5% 1,000 Ml IV CONT 125 mls/hr .Q8H [facility] Administration Insulin Aspart 4 - 8 units 07/30/24 17:00 08/03/24 09:50 Insulin Aspart (*Bkc) 100 Units/Ml SUB-Q Not Given TIDWM [facility] Protocol Insulin Aspart 2 - 4 units 07/30/24 21:00 08/02/24 20:25 Insulin Aspart (*Bkc) 100 Units/Ml SUB-Q Not Given HS [facility] Protocol Insulin Aspart 10 units 07/31/24 17:00 08/03/24 09:50 Insulin Aspart (*Bkc) 100 Units/Ml SUB-Q Not Given TIDWM [facility] Insulin Glargine 50 units 07/30/24 21:00 08/02/24 20:24 Insulin Glargine (*Bkc) 100 Units/Ml SUB-Q 50 units HS [facility] Administration Lisinopril 80 mg 07/27/24 13:50 08/03/24 11:00 Lisinopril 20 Mg Tablet PO Not Given DAILY [facility] Magnesium Oxide 400 mg 08/03/24 10:00 08/03/24 11:00 Magnesium Oxide 400 Mg Tablet PO Not Given DAILY [facility] Pantoprazole Sodium 40 mg 07/28/24 09:00 08/03/24 11:00 Pantoprazole 40 Mg Tablet PO Not Given QAM [facility] Radiology Results: ITS Impressions Head CT 07/27/24 05:31 Impression: No intracranial hemorrhage, mass, or acute infarct. Atrophy and chronic white matter changes, as above. Chest X-Ray 07/31/24 06:59 IMPRESSION: 1. No acute cardiopulmonary disease. Labs Labs: Laboratory Results - last 24 hr 08/02/24 08/02/24 08/02/24 11:37 16:44 20:13 WBC RBC Hgb Hct MCV MCH MCHC RDW Plt Count MPV Immature Gran % (Auto) Neut % (Auto) Lymph % (Auto) [place] % (Auto) Eos % (Auto) Baso % (Auto) Lymph # (Auto) [place] # (Auto) Eos # (Auto) Baso # (Auto) Abs Immat Gran (auto) Absolute Neuts (auto) Absolute Nucleated RBC Nucleated RBC % Sodium Potassium Chloride Carbon Dioxide Anion Gap BUN Creatinine Estim Creat Clear Calc Estimated GFR Glucose POC Capillary Glucose 254 H 198 H 177 H Calcium Magnesium Total Bilirubin AST ALT Alkaline Phosphatase Total Protein Albumin 08/03/24 08/03/24 06:39 08:29 WBC 6.6 RBC 3.28 L Hgb 10.2 L Hct 30.3 L MCV 92.4 MCH 31.1 MCHC 33.7 RDW 15.3 H Plt Count 233 MPV 11.4 H Immature Gran % (Auto) 0.3 Neut % (Auto) 74.1 H Lymph % (Auto) 10.7 L [place] % (Auto) 7.5 Eos % (Auto) 6.8 H Baso % (Auto) 0.6 Lymph # (Auto) 0.70 L [place] # (Auto) 0.5 Eos # (Auto) 0.5 H Baso # (Auto) 0.0 Abs Immat Gran (auto) 0.02 Absolute Neuts (auto) 4.9 Absolute Nucleated RBC 0.000 Nucleated RBC % 0.0 Sodium 133 L Potassium 3.8 Chloride 98 Carbon Dioxide 31 H Anion Gap 4 BUN 13 D Creatinine 0.64 L Estim Creat Clear Calc 58 Estimated GFR > 60 Glucose 125 H POC Capillary Glucose 132 H Calcium 9.9 Magnesium 1.7 Total Bilirubin 0.7 AST 18 ALT 19 Alkaline Phosphatase 92 Total Protein 6.0 L Albumin 3.3 L Quality VTE Prophylaxis VTE prophylaxis: pharmacologic ordered
[2024-08-03 11:49] LABS: Glucose Point of Care 163 mg/dl (65-105)
[2024-08-03] MEDS: CALCITONIN SALMON INJ 400 UNITS/2 ML VIAL 100 UNITS SUB-Q (12:38)
--- NOTE | 2024-08-03 13:02 | PC.NURSE ---
RN spoke with patient's Brandt via telephone in regards to patient status. RN stated the hospitalist Brielle will be calling him today to update him. RN called hospitalist Brielle and updated her and she stated she would call patient's later today.
[2024-08-03 16:54] LABS: Glucose Point of Care 120 mg/dl (65-105)
[2024-08-03 20:18] LABS: Glucose Point of Care 239 mg/dl (65-105)
[2024-08-03] MEDS: INSULIN ASPART (*BKC) 100 UNITS/ML SUB-Q (21:28)
[2024-08-03] MEDS: INSULIN GLARGINE (*BKC) 100 UNITS/ML 50 UNITS SUB-Q (21:29)
[2024-08-04] VITALS (10 sets, daily range): BP systolic 128–149; BP diastolic 51–83; PULSE 67–103; RESP 8–17; TEMP 36.1–36.7; O2SAT 91–99
[2024-08-04] MEDS: DEXTROSE 5% 1,000 ML 1,000 ML 125 ML IV CONT ×3 (01:57→17:50)
[2024-08-04 06:43] LABS: Basophils Percent Auto 0.7 % (0.2-1.2); Eosinophils Absolute Auto 0.2 K/mm3 (0-0.3); Eosinophils Percent Auto 3.5 % (0-4.4); Hematocrit 29.7 % (37.0-47.0); Hemoglobin 9.8 g/dL (12.0-15.0); Immature Granulocyte Absolute 0.02 K/mm3 (0.00-0.031); Immature Granulocyte Percent A 0.4 % (0-0.5); Lymphocytes Absolute Auto 0.57 K/mm3 (0.9-3.2); Lymphocytes Percent Auto 10.1 % (18.3-44.2); Mean Corpuscular Hemoglobin 30.5 pg (26-34); Mean Corpuscular Volume 92.5 fl (80-100); Mean Platelet Volume 11.2 fl (7.4-10.4); Monocytes Absolute Auto 0.7 K/mm3 (0.1-0.6); Monocytes Percent Auto 12.2 % (2.6-8.5); Neutrophils Absolute Auto 4.1 K/mm3 (1.3-6.7); Neutrophils Percent Auto 73.1 % (45.5-73.1); Platelet Count Result 218 k/mm3 (150-375); Red Blood Count 3.21 M/mm3 (4.2-5.4); Red Cell Distribution Width 15.1 % (11.5-14.5); White Blood Count 5.7 K/mm3 (4.5-10.0)
[2024-08-04 06:52] LABS: Magnesium 1.5 mg/dL (1.6-2.3)
[2024-08-04 06:54] LABS: Alanine Aminotransferase 19 U/L (6-35); Albumin Level 3.2 g/dL (3.5-5.1); Alkaline Phosphatase 84 U/L (38-126); Anion Gap 8 mmol/L (4-12); Aspartate Amino Transferase 24 U/L (14-36); Bilirubin,Total 0.6 mg/dL (0.2-1.3); Blood Urea Nitrogen 18 mg/dL (7-17); Calcium 9.6 mg/dL (8.4-10.2); Carbon Dioxide 28 mmol/L (22-30); Chloride 94 mmol/L (98-107); Estimated CRCL calculation 43 ml/min; Estimated Glomerular Filt Rate > 60; Glucose 154 mg/dL (65-110); Potassium 3.7 mmol/L (3.4-5.0); Sodium 130 mmol/L (137-145)
[2024-08-04 08:55] LABS: Glucose Point of Care 228 mg/dl (65-105)
[2024-08-04] MEDS: INSULIN ASPART (*BKC) 100 UNITS/ML SUB-Q ×3 (09:18→17:39)
[2024-08-04] MEDS: ENOXAPARIN 40 MG/0.4 ML SYRINGE SUB-Q (09:18)
--- NOTE | 2024-08-04 10:14 | PC.NURSE ---
RN gave update to Jeffrey via telephone on patient status.
[2024-08-04] MEDS: MAGNESIUM SULF 2 GM/WATER 50ML 2 GM/50 ML BAG IVPB (10:46)
--- NOTE | 2024-08-04 11:52 | P.PNIM_ITS ---
Progress Note: A&P Assessment and Plan (1) Altered mental status: Code(s): R41.82 - Altered mental status, unspecified Status: Acute Assessment and Plan: * head CT showed atrophy and chronic white matter changes, no acute intracranial process * could be do to electrolyte imbalance versus hypercalcemia, versus TIA * patient passed to the bedside swallow with speech therapy today * PT and OT ordered * echocardiogram ordered * brain MRI ordered * neurology consulted * continue neuro checks q.4 hour * continue telemetry monitoring for now 07/28 * continue carbidopa levodopa * continue neuro checks * echocardiogram shown normal LV systolic function with an estimated EF of greater than 70%, grade 1 diastolic dysfunction * MRI was canceled * Neurology following * PT and OT are ordered * speech therapy will continue to work with her 07/29 * Continue neuro checks * Continue PT and OT * Continue speech therapy 07/30 * No change 08/02 * Patient not making much improvement with therapy and has remained sleepy for the last 3-4 days * Will likely need to discuss hospice with the 08/03 * Not making improvement with therapy. * Not eating or taking medication today. * Spoke with and agreeable to proceed with hospice consult. Hospice meeting tomorrow. 08/04 * Hospice meeting to take place on 08/05 due to not feeling well today. * Patient did eat supper last night and talk with nurse a little per nurse. (2) Hypercalcemia: Code(s): E83.52 - Hypercalcemia Status: Acute Assessment and Plan: * initial calcium 11.3, now 11.2 * Will check thyroid panel, parathyroid, vitamin D * Calcitonin ordered daily 07/28 * calcium 10.6 * continue calcitonin 07/29 * Calcium 11.0 * Continue to trend * Continue calcitonin 07/30 * Calcium 11.6 * discontinue calcitonin * Will start Sensipar 30 mg daily for hyperparathyroidism * PTH 82 07/31 * Calcium 12.3 * No change 08/01 * Calcium 12.0 * Continue IV fluids with D5W at 125 ml/hr * Continue calcitonin daily * Will increase sensipar to 60 mg BID 08/02 * Continue calcitonin and Sensipar * Calcium level 10.8 today * Continue to trend 08/03 * Continue calcitonin and Sensipar * Calcium level 9.9 today * Continue IV fluids with D5W at 125 ml/hr * Continue to trend 08/04 * Decrease Sensipar 30 mg PO q 12. Continue Calcitonin. * Calcium level 9.6 today. * Continue IV fluids with D5W at 125 ml/hr * Continue to trend (3) Hypomagnesemia: Code(s): E83.42 - Hypomagnesemia Status: Acute Assessment and Plan: * initial magnesium 1.2 * she was given 2g of magnesium while in the ED * repeat magnesium 3.5 07/28 * magnesium 1.1 this morning * patient was given 4 g of magnesium * continue to trend 07/29 * Magnesium 1.7 * Continue to trend 07/30 * Magnesium 1.6 * Will give 2gm Magnesium now * Start Magnesium oxide 400 mg daily 07/31 * magnesium 2.2 08/01 * Magnesium 1.8 * Continue Mag oxide 08/02 * Magnesium 1.2 * 4 g of magnesium given today * Recheck in a.m. 08/03 * Magnesium 1.7. * Monitor labs. 08/04 * Magnesium 1.5. * Magnesium Sulfate 2 gram IVPB x 1 given. * Monitor labs. (4) Mixed hyperlipidemia: Code(s): E78.2 - Mixed hyperlipidemia Status: Acute Assessment and Plan: * continue aspirin, atorvastatin, Plavix 07/28 * no change to current treatment plan (5) Essential (primary) hypertension: Code(s): I10 - Essential (primary) hypertension Status: Acute Assessment and Plan: * blood pressures ranging 152/66 to 208/104 * continue lisinopril, 1st dose starting now 07/28 * blood pressures ranging 145/95 to 177/60 * continue lisinopril * will start amlodipine 5 mg 07/29 * Continue lisinopril * Stop amlodipine and start Coreg 07/30 * B/P ranging 132/58-180/78 * Increased Coreg dose * continue to hold Lisinopril and HCTZ for YARON 07/31 * no change to current treatment plan 08/01 * Patient was restarted on lisinopril 08/02 * No change to current treatment plan 08/03 * Blood pressure range 156/67-178/74. * Not taking oral medication today. * Hydralazine 10 mg ivp q 8 PRN for systolic > 160 or diastolic >100. 08/04 * Blood pressure 128/83. (6) Type 2 diabetes mellitus with diabetic neuropathy, unspecified: Code(s): E11.40 - Type 2 diabetes mellitus with diabetic neuropathy, unspecified Status: Acute Assessment and Plan: * Blood sugars ranging 121-194 * Hgb A1C 7.3 on 04/17/2024 * will repeat hemoglobin A1c today * Accu checks AC/HS * moderate dose SSI ordered * restart Lantus at half the dose that she normally takes 20 units at HS * Hold Mounjaro and metformin * hypoglycemic protocol in place * Diabetic diet ordered 07/28 * will increase Lantus to 40 units at bedtime * blood sugars ranging 208-319 07/29 * Will start mealtime dose of 4 units with meals and at bedtime for better glycemic control 07/30 * blood sugars ranging 320-396 * will increase Lantus to 50 units * will increase to high-dose sliding scale insulin 07/31 * increased mealtime dose to 10 units with meals and at bedtime 08/02 * Blood sugars ranging 219-254 * Continue with current treatment plan 08/03 * Blood sugars ranging 120-163. 08/04 * Blood sugars ranging 228-244. (7) Weakness: Code(s): R53.1 - Weakness Status: Acute Assessment and Plan: * PT and OT ordered 07/28 * no change (8) RACIEL (obstructive sleep apnea): Code(s): G47.33 - Obstructive sleep apnea (adult) (pediatric) Status: Acute Assessment and Plan: * patient has never been treated for her sleep apnea. reports that she has had this for at least 50 years. Long discussion with about the correlation between her RACIEL, hypertension, stroke, and brain fog. * Patient having apnea periods with periods of not breathing for 45 seconds or longer. * Bipap ordered for use when sleeping. * She will need proper sleep study on discharge. 07/31 * [facility] for tonight to assess for need of a BiPAP 08/01 * Patient did not cooperate with [facility] overnight * Continue Bipap at night * Medications and imaging reviewed with Dr. Amaya and he recommends outpatient sleep study as RACIEL may be the culprit to her mental status changes. Dr. Amaya she is stable from his standpoint to return home with her when medically stable. 08/02 * No change to current treatment Subjective Date/time seen: 08/04/24 11:52 Interval history: Patient arousable to voice. Patient denies pain. Nurse reports that patient was able to eat some supper and talked some last evening. Hospice meeting moved to tomorrow due to not feeling well. Review of Systems Review of Systems: All systems reviewed & are unremarkable except as noted in HPI and below Exam Const: General: comfortable and no acute distress Resp: Effort & Inspection: normal respiratory effort Auscultation: clear to auscultation bilaterally Cardio: Rate: regular rate Rhythm: regular rhythm Other: Telemetry SR 76. GI: GI Palp: Yes Soft to palpation Auscultation: normal bowel sounds Neuro: Other: Alert to voice. Right sided weakness. Extrem: General: no pedal edema Objective Data Vital Signs Vital Signs: Vital Signs - 24 hr 08/03/24 12:00 08/03/24 12:00 08/03/24 16:00 Temperature 99.5 F Pulse Rate 98 84 87 Respiratory Rate 8 L Blood Pressure 156/67 H Pulse Oximetry 99 Oxygen Delivery Oxygen Flow Rate 08/03/24 18:59 08/03/24 19:42 08/03/24 20:00 Temperature 98.7 F 97.7 F Pulse Rate 99 95 Respiratory Rate 9 L 18 Blood Pressure 130/70 168/68 H Pulse Oximetry 97 92 95 Oxygen Delivery Nasal Cannula Oxygen Flow Rate 2 08/03/24 20:00 08/03/24 23:45 08/04/24 00:00 Temperature 97.7 F Pulse Rate 103 H 86 99 Respiratory Rate 18 Blood Pressure 139/82 Pulse Oximetry 92 Oxygen Delivery Oxygen Flow Rate 08/04/24 03:49 08/04/24 04:00 08/04/24 08:00 Temperature 98.0 F Pulse Rate 94 103 H 75 Respiratory Rate 17 Blood Pressure 145/51 H Pulse Oximetry 91 Oxygen Delivery Oxygen Flow Rate Intake/Output Intake/Output: Intake & Output 08/01/24 08/02/24 08/03/24 08/04/24 23:59 23:59 23:59 23:59 Intake Total 1236.7 2652.5 3150 1700 Output Total 1425 3000 4350 850 Balance -188.3 -347.5 -1200 850 Meds/Results Medications: Active Medications Generic Name Dose Route Start Last Admin Trade Name Freq PRN Reason Stop Dose Admin Acetaminophen 650 mg 07/27/24 02:59 07/28/24 19:50 Acetaminophen 325 Mg Tablet PO 650 mg Q4H PRN Administration Mild Pain (1-3) or Fever Aspirin 81 mg 07/28/24 09:00 08/04/24 10:11 Aspirin 81 Mg Enteric Tablet PO Not Given DAILY [facility] Atorvastatin Calcium 80 mg 07/27/24 21:00 08/03/24 21:25 Atorvastatin 40 Mg Tablet PO Not Given HS ZENOBIA Calcitonin [place] 100 units 08/02/24 12:00 08/03/24 12:38 Calcitonin [place] Inj 400 Units/2 Ml Vial SUB-Q 100 units Q24H ZENOBIA Administration Carbidopa/Levodopa 1 tablet 07/27/24 17:00 08/04/24 10:12 Carbidopa/Levodopa 25/100 Mg Tablet PO Not Given TID [facility] Carvedilol 6.25 mg 07/30/24 21:00 08/04/24 10:12 Carvedilol 6.25 Mg Tablet PO Not Given Q12HR [facility] Cinacalcet 30 mg 08/04/24 21:00 Cinacalcet 30 Mg Tablet PO Q12HR [facility] Clopidogrel Bisulfate 75 mg 07/28/24 09:00 08/04/24 10:12 Clopidogrel Bisulfate 75 Mg Tablet PO Not Given DAILY [facility] Dextrose 12.5 gm 07/27/24 13:36 Dextrose 50% 25 Gm/50 Ml Syringe IV PUSH PRN PRN Hypoglycemia Protocol Enoxaparin Sodium 40 mg 07/28/24 09:00 08/04/24 09:18 Enoxaparin 40 Mg/0.4 Ml Syringe SUB-Q 40 mg DAILY [facility]ENOBIA Administration Ferrous Sulfate 325 mg 07/28/24 09:00 08/04/24 10:12 Ferrous Sulfate [address] BY MOUTH Not Given DAILY [facility] Glucagon 1 mg 07/27/24 13:36 Glucagon For Inj 1 Mg Vial IM PRN PRN Hypoglycemia Protocol Glucose 15 gm 07/27/24 13:36 Glucose Oral Gel 15 Gm Of Glucse In 37.5 Gm Tube PO PRN PRN Hypoglycemia Protocol Hydralazine HCl 10 mg 07/29/24 19:07 08/03/24 06:02 Hydralazine Hcl 20 Mg/Ml Vial IV PUSH 10 mg Q8H PRN Administration Blood Pressure - High Dextrose 1,000 mls @ 100 mls/hr 07/27/24 13:36 Dextrose 5% 1,000 Ml IVPB PRN PRN Hypoglycemia Protocol Dextrose 1,000 mls @ 125 mls/hr 08/01/24 13:55 08/04/24 09:19 Dextrose 5% 1,000 Ml IV CONT 125 mls/hr .Q8H ZENOBIA Administration Insulin Aspart 4 - 8 units 07/30/24 17:00 08/04/24 09:18 Insulin Aspart (*Bkc) 100 Units/Ml SUB-Q 5 units TIDWM [facility] Administration Protocol Insulin Aspart 2 - 4 units 07/30/24 21:00 08/03/24 21:28 Insulin Aspart (*Bkc) 100 Units/Ml SUB-Q 2 units HS [facility] Administration Protocol Insulin Aspart 10 units 07/31/24 17:00 08/04/24 09:20 Insulin Aspart (*Bkc) 100 Units/Ml SUB-Q Not Given TIDWM [facility]ENOBIA Insulin Glargine 50 units 07/30/24 21:00 08/03/24 21:29 Insulin Glargine (*Bkc) 100 Units/Ml SUB-Q 50 units HS ZENOBIA Administration Lisinopril 80 mg 07/27/24 13:50 08/04/24 10:12 Lisinopril 20 Mg Tablet PO Not Given DAILY [facility] Magnesium Oxide 400 mg 08/03/24 10:00 08/04/24 10:12 Magnesium Oxide 400 Mg Tablet PO Not Given DAILY [facility]OB[facility] Pantoprazole Sodium 40 mg 07/28/24 09:00 08/04/24 10:12 Pantoprazole 40 Mg Tablet PO Not Given QAM [facility] Radiology Results: ITS Impressions Head CT 07/27/24 05:31 Impression: No intracranial hemorrhage, mass, or acute infarct. Atrophy and chronic white matter changes, as above. Chest X-Ray 07/31/24 06:59 IMPRESSION: 1. No acute cardiopulmonary disease. Labs Labs: Laboratory Results - last 24 hr 07/27/24 08/03/24 08/03/24 15:44 16:51 19:40 WBC RBC Hgb Hct MCV MCH MCHC RDW Plt Count MPV Immature Gran % (Auto) Neut % (Auto) Lymph % (Auto) [place] % (Auto) Eos % (Auto) Baso % (Auto) Lymph # (Auto) [place] # (Auto) Eos # (Auto) Baso # (Auto) Abs Immat Gran (auto) Absolute Neuts (auto) Absolute Nucleated RBC Nucleated RBC % Sodium Potassium Chloride Carbon Dioxide Anion Gap BUN Creatinine Estim Creat Clear Calc Estimated GFR Glucose POC Capillary Glucose 120 H 239 H Calcium Magnesium Total Bilirubin AST ALT Alkaline Phosphatase Total Protein Albumin PTH Related Protein TNP 08/04/24 08/04/24 06:06 08:35 WBC 5.7 RBC 3.21 L Hgb 9.8 L Hct 29.7 L MCV 92.5 MCH 30.5 MCHC 33.0 RDW 15.1 H Plt Count 218 MPV 11.2 H Immature Gran % (Auto) 0.4 Neut % (Auto) 73.1 Lymph % (Auto) 10.1 L [place] % (Auto) 12.2 H Eos % (Auto) 3.5 Baso % (Auto) 0.7 Lymph # (Auto) 0.57 L [place] # (Auto) 0.7 H Eos # (Auto) 0.2 Baso # (Auto) 0.0 Abs Immat Gran (auto) 0.02 Absolute Neuts (auto) 4.1 Absolute Nucleated RBC 0.000 Nucleated RBC % 0.0 Sodium 130 L Potassium 3.7 Chloride 94 L Carbon Dioxide 28 Anion Gap 8 BUN 18 H Creatinine 0.89 Estim Creat Clear Calc 43 Estimated GFR > 60 Glucose 154 H POC Capillary Glucose 228 H Calcium 9.6 Magnesium 1.5 L Total Bilirubin 0.6 AST 24 ALT 19 Alkaline Phosphatase 84 Total Protein 6.0 L Albumin 3.2 L PTH Related Protein Quality VTE Prophylaxis VTE prophylaxis: pharmacologic ordered
--- NOTE | 2024-08-04 11:52 | PM.IMPN ---
Progress Note: A&P Assessment and Plan (1) Altered mental status: Code(s): R41.82 - Altered mental status, unspecified Status: Acute Assessment and Plan: head CT showed atrophy and chronic white matter changes, no acute intracranial process could be do to electrolyte imbalance versus hypercalcemia, versus TIA patient passed to the bedside swallow with speech therapy today PT and OT ordered echocardiogram ordered brain MRI ordered neurology consulted continue neuro checks q.4 hour continue telemetry monitoring for now 07/28 continue carbidopa levodopa continue neuro checks echocardiogram shown normal LV systolic function with an estimated EF of greater than 70%, grade 1 diastolic dysfunction MRI was canceled Neurology following PT and OT are ordered speech therapy will continue to work with her 07/29 Continue neuro checks Continue PT and OT Continue speech therapy 07/30 No change 08/02 Patient not making much improvement with therapy and has remained sleepy for the last 3-4 days Will likely need to discuss hospice with the 08/03 Not making improvement with therapy. Not eating or taking medication today. Spoke with and agreeable to proceed with hospice consult. Hospice meeting tomorrow. 08/04 Hosp[address] meeting to take place on 08/05 due to not feeling well today. Patient did eat supper last night and talk with nurse a little per nurse. (2) Hypercalcemia: Code(s): E83.52 - Hypercalcemia Status: Acute Assessment and Plan: initial calcium 11.3, now 11.2 Will check thyroid panel, parathyroid, vitamin D Calcitonin ordered daily 07/28 calcium 10.6 continue calcitonin 07/29 Calcium 11.0 Continue to trend Continue calcitonin 07/30 Calcium 11.6 discontinue calcitonin Will start Sensipar 30 mg daily for hyperparathyroidism PTH 82 07/31 Calcium 12.3 No change 08/01 Calcium 12.0 Continue IV fluids with D5W at 125 ml/hr Continue calcitonin daily Will increase sensipar to 60 mg BID 08/02 Continue calcitonin and Sensipar Calcium level 10.8 today Continue to trend 08/03 Continue calcitonin and Sensipar Calcium level 9.9 today Continue IV fluids with D5W at 125 ml/hr Continue to trend 08/04 Decrease Sensipar 30 mg PO q 12. Continue Calcitonin. Calcium level 9.6 today. Continue IV fluids with D5W at 125 ml/hr Continue to trend (3) Hypomagnesemia: Code(s): E83.42 - Hypomagnesemia Status: Acute Assessment and Plan: initial magnesium 1.2 she was given 2g of magnesium while in the ED repeat magnesium 3.5 07/28 magnesium 1.1 this morning patient was given 4 g of magnesium continue to trend 07/29 Magnesium 1.7 Continue to trend 07/30 Magnesium 1.6 Will give 2gm Magnesium now Start Magnesium oxide 400 mg daily 07/31 magnesium 2.2 08/01 Magnesium 1.8 Continue Mag oxide 08/02 Magnesium 1.2 4 g of magnesium given today Recheck in a.m. 08/03 Magnesium 1.7. Monitor labs. 08/04 Magnesium 1.5. Magnesium Sulfate 2 gram IVPB x 1 given. Monitor labs. (4) Mixed hyperlipidemia: Code(s): E78.2 - Mixed hyperlipidemia Status: Acute Assessment and Plan: continue aspirin, atorvastatin, Plavix 07/28 no change to current treatment plan (5) Essential (primary) hypertension: Code(s): I10 - Essential (primary) hypertension Status: Acute Assessment and Plan: blood pressures ranging 152/66 to 208/104 continue lisinopril, 1st dose starting now 07/28 blood pressures ranging 145/95 to 177/60 continue lisinopril will start amlodipine 5 mg 07/29 Continue lisinopril Stop amlodipine and start Coreg 07/30 B/P ranging 132/58-180/78 Increased Coreg dose continue to hold Lisinopril and HCTZ for YARON 07/31 no change to current treatment plan 08/01 Patient was restarted on lisinopril 08/02 No change to current treatment plan 08/03 Blood pressure range 156/67-178/74. Not taking oral medication today. Hydralazine 10 mg ivp q 8 PRN for systolic > 160 or diastolic >100. 08/04 Blood pressure 128/83. (6) Type 2 diabetes mellitus with diabetic neuropathy, unspecified: Code(s): E11.40 - Type 2 diabetes mellitus with diabetic neuropathy, unspecified Status: Acute Assessment and Plan: Blood sugars ranging 121-194 Hgb A1C 7.3 on 04/17/2024 will repeat hemoglobin A1c today Accu checks AC/HS moderate dose SSI ordered restart Lantus at half the dose that she normally takes 20 units at HS Hold Mounjaro and metformin hypoglycemic protocol in place Diabetic diet ordered 07/28 will increase Lantus to 40 units at bedtime blood sugars ranging 208-319 07/29 Will start mealtime dose of 4 units with meals and at bedtime for better glycemic control 07/30 blood sugars ranging 320-396 will increase Lantus to 50 units will increase to high-dose sliding scale insulin 07/31 increased mealtime dose to 10 units with meals and at bedtime 08/02 Blood sugars ranging 219-254 Continue with current treatment plan 08/03 Blood sugars ranging 120-163. 08/04 Blood sugars ranging 228-244. (7) Weakness: Code(s): R53.1 - Weakness Status: Acute Assessment and Plan: PT and OT ordered 07/28 no change (8) RACIEL (obstructive sleep apnea): Code(s): G47.33 - Obstructive sleep apnea (adult) (pediatric) Status: Acute Assessment and Plan: patient has never been treated for her sleep apnea. reports that she has had this for at least 50 years. Long discussion with about the correlation between her RACIEL, hypertension, stroke, and brain fog. Patient having apnea periods with periods of not breathing for 45 seconds or longer. Bipap ordered for use when sleeping. She will need proper sleep study on discharge. 07/31 [facility] for tonight to assess for need of a BiPAP 08/01 Patient did not cooperate with [facility] overnight Continue Bipap at night Medications and imaging reviewed with Dr. Amaya and he recommends outpatient sleep study as RACIEL may be the culprit to her mental status changes. Dr. Amaya she is stable from his standpoint to return home with her when medically stable. 08/02 No change to current treatment Subjective Date/time seen: 08/04/24 11:52 Interval history: Patient arousable to voice. Patient denies pain. Nurse reports that patient was able to eat some supper and talked some last evening. Hospice meeting moved to tomorrow due to not feeling well. Review of Systems Review of Systems: All systems reviewed & are unremarkable except as noted in HPI and below Exam Const: General: comfortable and no acute distress Resp: Effort & Inspection: normal respiratory effort Auscultation: clear to auscultation bilaterally Cardio: Rate: regular rate Rhythm: regular rhythm Other: Telemetry SR 76. GI: GI Palp: Yes Soft to palpation Auscultation: normal bowel sounds Neuro: Other: Alert to voice. Right sided weakness. Extrem: General: no pedal edema Objective Data Vital Signs Vital Signs: Vital Signs - 24 hr 08/03/24 12:00 08/03/24 12:00 08/03/24 16:00 Temperature 99.5 F Pulse Rate 98 84 87 Respiratory Rate 8 L Blood Pressure 156/67 H Pulse Oximetry 99 Oxygen Delivery Oxygen Flow Rate 08/03/24 18:59 08/03/24 19:42 08/03/24 20:00 Temperature 98.7 F 97.7 F Pulse Rate 99 95 Respiratory Rate 9 L 18 Blood Pressure 130/70 168/68 H Pulse Oximetry 97 92 95 Oxygen Delivery Nasal Cannula Oxygen Flow Rate 2 08/03/24 20:00 08/03/24 23:45 08/04/24 00:00 Temperature 97.7 F Pulse Rate 103 H 86 99 Respiratory Rate 18 Blood Pressure 139/82 Pulse Oximetry 92 Oxygen Delivery Oxygen Flow Rate 08/04/24 03:49 08/04/24 04:00 08/04/24 08:00 Temperature 98.0 F Pulse Rate 94 103 H 75 Respiratory Rate 17 Blood Pressure 145/51 H Pulse Oximetry 91 Oxygen Delivery Oxygen Flow Rate Intake/Output Intake/Output: Intake & Output 08/01/24 08/02/24 08/03/24 08/04/24 23:59 23:59 23:59 23:59 Intake Total 1236.7 2652.5 3150 1700 Output Total 1425 3000 4350 850 Balance -188.3 -347.5 -1200 850 Meds/Results Medications: Active Medications Generic Name Dose Route Start Last Admin Trade Name Freq PRN Reason Stop Dose Admin Acetaminophen 650 mg 07/27/24 02:59 07/28/24 19:50 Acetaminophen 325 Mg Tablet PO 650 mg Q4H PRN Administration Mild Pain (1-3) or Fever Aspirin 81 mg 07/28/24 09:00 08/04/24 10:11 Aspirin 81 Mg Enteric Tablet PO Not Given DAILY ZENOBIA Atorvastatin Calcium 80 mg 07/27/24 21:00 08/03/24 21:25 Atorvastatin 40 Mg Tablet PO Not Given HS ZENOBIA Calcitonin [place] 100 units 08/02/24 12:00 08/03/24 12:38 Calcitonin [place] Inj 400 Units/2 Ml Vial SUB-Q 100 units Q24H ZENOBIA Administration Carbidopa/Levodopa 1 tablet 07/27/24 17:00 08/04/24 10:12 Carbidopa/Levodopa 25/100 Mg Tablet PO Not Given TID ZENOBIA Carvedilol 6.25 mg 07/30/24 21:00 08/04/24 10:12 Carvedilol 6.25 Mg Tablet PO Not Given Q12HR ZENOBIA Cinacalcet 30 mg 08/04/24 21:00 Cinacalcet 30 Mg Tablet PO Q12HR ZENOBIA Clopidogrel Bisulfate 75 mg 07/28/24 09:00 08/04/24 10:12 Clopidogrel Bisulfate 75 Mg Tablet PO Not Given DAILY ZENOBIA Dextrose 12.5 gm 07/27/24 13:36 Dextrose 50% 25 Gm/50 Ml Syringe IV PUSH PRN PRN Hypoglycemia Protocol Enoxaparin Sodium 40 mg 07/28/24 09:00 08/04/24 09:18 Enoxaparin 40 Mg/0.4 Ml Syringe SUB-Q 40 mg DAILY ZENOBIA Administration Ferrous Sulfate 325 mg 07/28/24 09:00 08/04/24 10:12 Ferrous Sulfate [address] BY MOUTH Not Given DAILY [facility] Glucagon 1 mg 07/27/24 13:36 Glucagon For Inj 1 Mg Vial IM PRN PRN Hypoglycemia Protocol Glucose 15 gm 07/27/24 13:36 Glucose Oral Gel 15 Gm Of Glucse In 37.5 Gm Tube PO PRN PRN Hypoglycemia Protocol Hydralazine HCl 10 mg 07/29/24 19:07 08/03/24 06:02 Hydralazine Hcl 20 Mg/Ml Vial IV PUSH 10 mg Q8H PRN Administration Blood Pressure - High Dextrose 1,000 mls @ 100 mls/hr 07/27/24 13:36 Dextrose 5% 1,000 Ml IVPB PRN PRN Hypoglycemia Protocol Dextrose 1,000 mls @ 125 mls/hr 08/01/24 13:55 08/04/24 09:19 Dextrose 5% 1,000 Ml IV CONT 125 mls/hr .Q8H ZENOBIA Administration Insulin Aspart 4 - 8 units 07/30/24 17:00 08/04/24 09:18 Insulin Aspart (*Bkc) 100 Units/Ml SUB-Q 5 units TIDWM [facility] Administration Protocol Insulin Aspart 2 - 4 units 07/30/24 21:00 08/03/24 21:28 Insulin Aspart (*Bkc) 100 Units/Ml SUB-Q 2 units HS [facility] Administration Protocol Insulin Aspart 10 units 07/31/24 17:00 08/04/24 09:20 Insulin Aspart (*Bkc) 100 Units/Ml SUB-Q Not Given TIDWM [facility]ENOBIA Insulin Glargine 50 units 07/30/24 21:00 08/03/24 21:29 Insulin Glargine (*Bkc) 100 Units/Ml SUB-Q 50 units HS ZENOBIA Administration Lisinopril 80 mg 07/27/24 13:50 08/04/24 10:12 Lisinopril 20 Mg Tablet PO Not Given DAILY ZENOBIA Magnesium Oxide 400 mg 08/03/24 10:00 08/04/24 10:12 Magnesium Oxide 400 Mg Tablet PO Not Given DAILY ZENOBIA Pantoprazole Sodium 40 mg 07/28/24 09:00 08/04/24 10:12 Pantoprazole 40 Mg Tablet PO Not Given QAM [facility]ENOB[facility] Radiology Results: ITS Impressions Head CT 07/27/24 05:31 Impression: No intracranial hemorrhage, mass, or acute infarct. Atrophy and chronic white matter changes, as above. Chest X-Ray 07/31/24 06:59 IMPRESSION: 1. No acute cardiopulmonary disease. Labs Labs: Laboratory Results - last 24 hr 07/27/24 08/03/24 08/03/24 15:44 16:51 19:40 WBC RBC Hgb Hct MCV MCH MCHC RDW Plt Count MPV Immature Gran % (Auto) Neut % (Auto) Lymph % (Auto) [place] % (Auto) Eos % (Auto) Baso % (Auto) Lymph # (Auto) [place] # (Auto) Eos # (Auto) Baso # (Auto) Abs Immat Gran (auto) Absolute Neuts (auto) Absolute Nucleated RBC Nucleated RBC % Sodium Potassium Chloride Carbon Dioxide Anion Gap BUN Creatinine Estim Creat Clear Calc Estimated GFR Glucose POC Capillary Glucose 120 H 239 H Calcium Magnesium Total Bilirubin AST ALT Alkaline Phosphatase Total Protein Albumin PTH Related Protein TNP 08/04/24 08/04/24 06:06 08:35 WBC 5.7 RBC 3.21 L Hgb 9.8 L Hct 29.7 L MCV 92.5 MCH 30.5 MCHC 33.0 RDW 15.1 H Plt Count 218 MPV 11.2 H Immature Gran % (Auto) 0.4 Neut % (Auto) 73.1 Lymph % (Auto) 10.1 L [place] % (Auto) 12.2 H Eos % (Auto) 3.5 Baso % (Auto) 0.7 Lymph # (Auto) 0.57 L [place] # (Auto) 0.7 H Eos # (Auto) 0.2 Baso # (Auto) 0.0 Abs Immat Gran (auto) 0.02 Absolute Neuts (auto) 4.1 Absolute Nucleated RBC 0.000 Nucleated RBC % 0.0 Sodium 130 L Potassium 3.7 Chloride 94 L Carbon Dioxide 28 Anion Gap 8 BUN 18 H Creatinine 0.89 Estim Creat Clear Calc 43 Estimated GFR > 60 Glucose 154 H POC Capillary Glucose 228 H Calcium 9.6 Magnesium 1.5 L Total Bilirubin 0.6 AST 24 ALT 19 Alkaline Phosphatase 84 Total Protein 6.0 L Albumin 3.2 L PTH Related Protein Quality VTE Prophylaxis VTE prophylaxis: pharmacologic ordered
[2024-08-04 12:05] LABS: Glucose Point of Care 244 mg/dl (65-105)
[2024-08-04] MEDS: CALCITONIN SALMON INJ 400 UNITS/2 ML VIAL 100 UNITS SUB-Q (13:26)
[2024-08-04 17:11] LABS: Glucose Point of Care 237 mg/dl (65-105)
[2024-08-04 21:07] LABS: Glucose Point of Care 187 mg/dl (65-105)
[2024-08-04] MEDS: INSULIN GLARGINE (*BKC) 100 UNITS/ML 50 UNITS SUB-Q (21:07)
[2024-08-05] VITALS (7 sets, daily range): BP systolic 149–159; BP diastolic 68–87; PULSE 67–95; RESP 9–16; TEMP 36.7–37.6; O2SAT 93–98
[2024-08-05] MEDS: DEXTROSE 5% 1,000 ML 1,000 ML 125 ML IV CONT (05:09)
[2024-08-05 05:35] LABS: Basophils Percent Auto 0.4 % (0.2-1.2); Eosinophils Absolute Auto 0.2 K/mm3 (0-0.3); Eosinophils Percent Auto 4.8 % (0-4.4); Hematocrit 27.8 % (37.0-47.0); Hemoglobin 9.6 g/dL (12.0-15.0); Immature Granulocyte Absolute 0.02 K/mm3 (0.00-0.031); Immature Granulocyte Percent A 0.4 % (0-0.5); Lymphocytes Absolute Auto 0.94 K/mm3 (0.9-3.2); Lymphocytes Percent Auto 19.6 % (18.3-44.2); Mean Corpuscular HGB Conc 34.5 g/dl (32-36); Mean Corpuscular Volume 89.7 fl (80-100); Mean Platelet Volume 10.7 fl (7.4-10.4); Monocytes Absolute Auto 0.5 K/mm3 (0.1-0.6); Monocytes Percent Auto 10.6 % (2.6-8.5); Neutrophils Absolute Auto 3.1 K/mm3 (1.3-6.7); Neutrophils Percent Auto 64.2 % (45.5-73.1); Platelet Count Result 199 k/mm3 (150-375); Red Cell Distribution Width 14.6 % (11.5-14.5); White Blood Count 4.8 K/mm3 (4.5-10.0)
[2024-08-05 05:50] LABS: Alanine Aminotransferase 21 U/L (6-35); Albumin Level 2.9 g/dL (3.5-5.1); Alkaline Phosphatase 80 U/L (38-126); Anion Gap 8 mmol/L (4-12); Aspartate Amino Transferase 29 U/L (14-36); Bilirubin,Total 0.6 mg/dL (0.2-1.3); Blood Urea Nitrogen 20 mg/dL (7-17); Calcium 8.9 mg/dL (8.4-10.2); Carbon Dioxide 27 mmol/L (22-30); Chloride 89 mmol/L (98-107); Estimated CRCL calculation 49 ml/min; Estimated Glomerular Filt Rate > 60; Glucose 213 mg/dL (65-110); Magnesium 1.8 mg/dL (1.6-2.3); Potassium 3.6 mmol/L (3.4-5.0); Sodium 124 mmol/L (137-145)
[2024-08-05 09:21] LABS: Glucose Point of Care 249 mg/dl (65-105)
[2024-08-05] MEDS: DEXTROSE 5%/0.9% SOD CHL 1,000 ML 125 ML IV CONT ×2 (09:46→17:46)
[2024-08-05 09:47] LABS: Parathyroid Intact 99.4 pg/mL (14.5-75.2)
[2024-08-05] MEDS: ENOXAPARIN 40 MG/0.4 ML SYRINGE SUB-Q (09:47)
[2024-08-05] MEDS: INSULIN ASPART (*BKC) 100 UNITS/ML SUB-Q ×4 (09:49→21:13)
--- NOTE | 2024-08-05 10:55 | P.PNIM_ITS ---
Progress Note: A&P Assessment and Plan (1) Altered mental status: Code(s): R41.82 - Altered mental status, unspecified Status: Acute Assessment and Plan: * head CT showed atrophy and chronic white matter changes, no acute intracranial process * could be do to electrolyte imbalance versus hypercalcemia, versus TIA * patient passed to the bedside swallow with speech therapy today * PT and OT ordered * echocardiogram ordered * brain MRI ordered * neurology consulted * continue neuro checks q.4 hour * continue telemetry monitoring for now 07/28 * continue carbidopa levodopa * continue neuro checks * echocardiogram shown normal LV systolic function with an estimated EF of greater than 70%, grade 1 diastolic dysfunction * MRI was canceled * Neurology following * PT and OT are ordered * speech therapy will continue to work with her 07/29 * Continue neuro checks * Continue PT and OT * Continue speech therapy 07/30 * No change 08/02 * Patient not making much improvement with therapy and has remained sleepy for the last 3-4 days * Will likely need to discuss hospice with the 08/03 * Not making improvement with therapy. * Not eating or taking medication today. * Spoke with and agreeable to proceed with hospice consult. Hospice meeting tomorrow. 08/04 * Hospice meeting to take place on 08/05 due to not feeling well today. * Patient did eat supper last night and talk with nurse a little per nurse. 08/05 * Hospice meeting tomorrow. * No change. (2) Hypercalcemia: Code(s): E83.52 - Hypercalcemia Status: Acute Assessment and Plan: * initial calcium 11.3, now 11.2 * Will check thyroid panel, parathyroid, vitamin D * Calcitonin ordered daily 07/28 * calcium 10.6 * continue calcitonin 07/29 * Calcium 11.0 * Continue to trend * Continue calcitonin 07/30 * Calcium 11.6 * discontinue calcitonin * Will start Sensipar 30 mg daily for hyperparathyroidism * PTH 82 07/31 * Calcium 12.3 * No change 08/01 * Calcium 12.0 * Continue IV fluids with D5W at 125 ml/hr * Continue calcitonin daily * Will increase sensipar to 60 mg BID 08/02 * Continue calcitonin and Sensipar * Calcium level 10.8 today * Continue to trend 08/03 * Continue calcitonin and Sensipar * Calcium level 9.9 today * Continue IV fluids with D5W at 125 ml/hr * Continue to trend 08/04 * Decrease Sensipar 30 mg PO q 12. Continue Calcitonin. * Calcium level 9.6 today. * Continue IV fluids with D5W at 125 ml/hr * Continue to trend 08/05 * Continue Calcitonin . * Calcium level 8.9 * Stop Sensipar * Continue to trend. (3) Hypomagnesemia: Code(s): E83.42 - Hypomagnesemia Status: Acute Assessment and Plan: * initial magnesium 1.2 * she was given 2g of magnesium while in the ED * repeat magnesium 3.5 07/28 * magnesium 1.1 this morning * patient was given 4 g of magnesium * continue to trend 07/29 * Magnesium 1.7 * Continue to trend 07/30 * Magnesium 1.6 * Will give 2gm Magnesium now * Start Magnesium oxide 400 mg daily 07/31 * magnesium 2.2 08/01 * Magnesium 1.8 * Continue Mag oxide 08/02 * Magnesium 1.2 * 4 g of magnesium given today * Recheck in a.m. 08/03 * Magnesium 1.7. * Monitor labs. 08/04 * Magnesium 1.5. * Magnesium Sulfate 2 gram IVPB x 1 given. * Monitor labs. 08/05 * Magnesium 1.8. * Monitor labs (4) Mixed hyperlipidemia: Code(s): E78.2 - Mixed hyperlipidemia Status: Acute Assessment and Plan: * continue aspirin, atorvastatin, Plavix 07/28 * no change to current treatment plan (5) Essential (primary) hypertension: Code(s): I10 - Essential (primary) hypertension Status: Acute Assessment and Plan: * blood pressures ranging 152/66 to 208/104 * continue lisinopril, 1st dose starting now 07/28 * blood pressures ranging 145/95 to 177/60 * continue lisinopril * will start amlodipine 5 mg 07/29 * Continue lisinopril * Stop amlodipine and start Coreg 07/30 * B/P ranging 132/58-180/78 * Increased Coreg dose * continue to hold Lisinopril and HCTZ for YARON 07/31 * no change to current treatment plan 08/01 * Patient was restarted on lisinopril 08/02 * No change to current treatment plan 08/03 * Blood pressure range 156/67-178/74. * Not taking oral medication today. * Hydralazine 10 mg ivp q 8 PRN for systolic > 160 or diastolic >100. 08/04 * Blood pressure 128/83. 2 * Blood pressure 149/68. * Hydralazine 10 mg ivp q 8 PRN for systolic > 160 or diastolic >100. * Not taking oral medication today. (6) Type 2 diabetes mellitus with diabetic neuropathy, unspecified: Code(s): E11.40 - Type 2 diabetes mellitus with diabetic neuropathy, unspecified Status: Acute Assessment and Plan: * Blood sugars ranging 121-194 * Hgb A1C 7.3 on 04/17/2024 * will repeat hemoglobin A1c today * Accu checks AC/HS * moderate dose SSI ordered * restart Lantus at half the dose that she normally takes 20 units at HS * Hold Mounjaro and metformin * hypoglycemic protocol in place * Diabetic diet ordered 07/28 * will increase Lantus to 40 units at bedtime * blood sugars ranging 208-319 07/29 * Will start mealtime dose of 4 units with meals and at bedtime for better glycemic control 07/30 * blood sugars ranging 320-396 * will increase Lantus to 50 units * will increase to high-dose sliding scale insulin 07/31 * increased mealtime dose to 10 units with meals and at bedtime 08/02 * Blood sugars ranging 219-254 * Continue with current treatment plan 08/03 * Blood sugars ranging 120-163. 08/04 * Blood sugars ranging 228-244. 08/05 * Blood sugars ranging 211-249. (7) Weakness: Code(s): R53.1 - Weakness Status: Acute Assessment and Plan: * PT and OT ordered 07/28 * no change (8) RACIEL (obstructive sleep apnea): Code(s): G47.33 - Obstructive sleep apnea (adult) (pediatric) Status: Acute Assessment and Plan: * patient has never been treated for her sleep apnea. reports that she has had this for at least 50 years. Long discussion with about the correlation between her RACIEL, hypertension, stroke, and brain fog. * Patient having apnea periods with periods of not breathing for 45 seconds or longer. * Bipap ordered for use when sleeping. * She will need proper sleep study on discharge. 07/31 * [facility] for tonight to assess for need of a BiPAP 08/01 * Patient did not cooperate with [facility] overnight * Continue Bipap at night * Medications and imaging reviewed with Dr. Amaya and he recommends outpatient sleep study as RACIEL may be the culprit to her mental status changes. Dr. Amaya she is stable from his standpoint to return home with her when medically stable. 08/02 * No change to current treatment (9) Hyponatremia: Code(s): E87.1 - Hypo-osmolality and hyponatremia Status: Acute Assessment and Plan: * Sodium 1224. * Change IV fluids to D5NS @ 125 ml/hr. * Monitor labs. Subjective Date/time seen: 08/05/24 10:55 Interval history: Patient arousable to voice. Patient denies pain. Hospice meeting moved to tomorrow. Review of Systems Review of Systems: All systems reviewed & are unremarkable except as noted in HPI and below Exam Const: General: comfortable and no acute distress Resp: Effort & Inspection: normal respiratory effort Auscultation: clear to auscultation bilaterally Cardio: Rate: regular rate Rhythm: regular rhythm Other: Telemetry- SR- 81 GI: GI Palp: Yes Soft to palpation Auscultation: normal bowel sounds Neuro: Other: Alert to voice. Right sided weakness. Extrem: General: no pedal edema Objective Data Vital Signs Vital Signs: Vital Signs - 24 hr 08/04/24 12:00 08/04/24 14:00 08/04/24 16:00 Temperature 96.9 F L Pulse Rate 69 84 75 Respiratory Rate 12 Blood Pressure 128/83 Pulse Oximetry 97 Oxygen Delivery 08/04/24 19:59 08/04/24 20:00 08/04/24 20:00 Temperature 97.4 F L Pulse Rate 67 82 Respiratory Rate 8 L Blood Pressure 149/60 H Pulse Oximetry 93 Oxygen Delivery Room Air 08/05/24 00:00 08/05/24 04:00 08/05/24 04:57 Temperature 98.0 F Pulse Rate 67 67 68 Respiratory Rate 10 L Blood Pressure 149/68 H Pulse Oximetry 98 Oxygen Delivery Intake/Output Intake/Output: Intake & Output 08/02/24 08/03/24 08/04/24 08/05/24 23:59 23:59 23:59 23:59 Intake Total 2652.5 3150 2610 1000 Output Total 3000 4350 1175 1650 Balance -347.5 -1200 1435 -650 Meds/Results Medications: Active Medications Generic Name Dose Route Start Last Admin Trade Name Robertoq PRN Reason Stop Dose Admin Acetaminophen 650 mg 07/27/24 02:59 07/28/24 19:50 Acetaminophen 325 Mg Tablet PO 650 mg Q4H PRN Administration Mild Pain (1-3) or Fever Aspirin 81 mg 07/28/24 09:00 08/04/24 10:11 Aspirin 81 Mg Enteric Tablet PO Not Given DAILY ZENOBIA Atorvastatin Calcium 80 mg 07/27/24 21:00 08/04/24 21:07 Atorvastatin 40 Mg Tablet PO Not Given HS ZENOBIA Calcitonin [place] 100 units 08/02/24 12:00 08/04/24 13:26 Calcitonin [place] Inj 400 Units/2 Ml Vial SUB-Q 100 units Q24H ZENOBIA Administration Carbidopa/Levodopa 1 tablet 07/27/24 17:00 08/04/24 17:41 Carbidopa/Levodopa 25/100 Mg Tablet PO Not Given TID ZENOBIA Carvedilol 6.25 mg 07/30/24 21:00 08/04/24 21:07 Carvedilol 6.25 Mg Tablet PO Not Given Q12HR ZENOBIA Clopidogrel Bisulfate 75 mg 07/28/24 09:00 08/04/24 10:12 Clopidogrel Bisulfate 75 Mg Tablet PO Not Given DAILY ZENOBIA Dextrose 12.5 gm 07/27/24 13:36 Dextrose 50% 25 Gm/50 Ml Syringe IV PUSH PRN PRN Hypoglycemia Protocol Enoxaparin Sodium 40 mg 07/28/24 09:00 08/05/24 09:47 Enoxaparin 40 Mg/0.4 Ml Syringe SUB-Q 40 mg DAILY ZENOBIA Administration Ferrous Sulfate 325 mg 07/28/24 09:00 08/04/24 10:12 Ferrous Sulfate [address] BY MOUTH Not Given DAILY ZENOBIA Glucagon 1 mg 07/27/24 13:36 Glucagon For Inj 1 Mg Vial IM PRN PRN Hypoglycemia Protocol Glucose 15 gm 07/27/24 13:36 Glucose Oral Gel 15 Gm Of Glucse In 37.5 Gm Tube PO PRN PRN Hypoglycemia Protocol Hydralazine HCl 10 mg 07/29/24 19:07 08/03/24 06:02 Hydralazine Hcl 20 Mg/Ml Vial IV PUSH 10 mg Q8H PRN Administration Blood Pressure - High Dextrose 1,000 mls @ 100 mls/hr 07/27/24 13:36 Dextrose 5% 1,000 Ml IVPB PRN PRN Hypoglycemia Protocol Dextrose/Sodium Chloride 1,000 mls @ 125 mls/hr 08/05/24 09:00 08/05/24 09:46 Dextrose 5% Sodium Chloride 0.9% IV CONT 125 mls/hr .Q8H ZENOBIA Administration Insulin Aspart 4 - 8 units 07/30/24 17:00 08/05/24 09:49 Insulin Aspart (*Bkc) 100 Units/Ml SUB-Q 4 units TIDWM ZENOBIA Administration Protocol Insulin Aspart 2 - 4 units 07/30/24 21:00 08/04/24 21:07 Insulin Aspart (*Bkc) 100 Units/Ml SUB-Q Not Given HS ZENOBIA Protocol Insulin Aspart 10 units 07/31/24 17:00 08/05/24 09:48 Insulin Aspart (*Bkc) 100 Units/Ml SUB-Q Not Given TIDWM ZENOBIA Insulin Glargine 50 units 07/30/24 21:00 08/04/24 21:07 Insulin Glargine (*Bkc) 100 Units/Ml SUB-Q 50 units HS ZENOBIA Administration Lisinopril 80 mg 07/27/24 13:50 08/04/24 10:12 Lisinopril 20 Mg Tablet PO Not Given DAILY ZENOBIA Magnesium Oxide 400 mg 08/03/24 10:00 08/04/24 10:12 Magnesium Oxide 400 Mg Tablet PO Not Given DAILY ZENOBIA Pantoprazole Sodium 40 mg 07/28/24 09:00 08/04/24 10:12 Pantoprazole 40 Mg Tablet PO Not Given QAM [facility] Radiology Results: ITS Impressions Head CT 07/27/24 05:31 Impression: No intracranial hemorrhage, mass, or acute infarct. Atrophy and chronic white matter changes, as above. Chest X-Ray 07/31/24 06:59 IMPRESSION: 1. No acute cardiopulmonary disease. Labs Labs: Laboratory Results - last 24 hr 08/04/24 08/04/24 08/04/24 11:45 17:08 19:57 WBC RBC Hgb Hct MCV MCH MCHC RDW Plt Count MPV Immature Gran % (Auto) Neut % (Auto) Lymph % (Auto) [place] % (Auto) Eos % (Auto) Baso % (Auto) Lymph # (Auto) [place] # (Auto) Eos # (Auto) Baso # (Auto) Abs Immat Gran (auto) Absolute Neuts (auto) Absolute Nucleated RBC Nucleated RBC % Sodium Potassium Chloride Carbon Dioxide Anion Gap BUN Creatinine Estim Creat Clear Calc Estimated GFR Glucose POC Capillary Glucose 244 H 237 H 187 H Calcium Magnesium Total Bilirubin AST ALT Alkaline Phosphatase Total Protein Albumin PTH Intact 08/05/24 08/05/24 08/05/24 05:18 05:21 09:15 WBC 4.8 RBC 3.10 L Hgb 9.6 L Hct 27.8 L MCV 89.7 MCH 31.0 MCHC 34.5 RDW 14.6 H Plt Count 199 MPV 10.7 H Immature Gran % (Auto) 0.4 Neut % (Auto) 64.2 Lymph % (Auto) 19.6 [place] % (Auto) 10.6 H Eos % (Auto) 4.8 H Baso % (Auto) 0.4 Lymph # (Auto) 0.94 [place] # (Auto) 0.5 Eos # (Auto) 0.2 Baso # (Auto) 0.0 Abs Immat Gran (auto) 0.02 Absolute Neuts (auto) 3.1 Absolute Nucleated RBC 0.000 Nucleated RBC % 0.0 Sodium 124 L Potassium 3.6 Chloride 89 L Carbon Dioxide 27 Anion Gap 8 BUN 20 H Creatinine 0.78 Estim Creat Clear Calc 49 Estimated GFR > 60 Glucose 213 H POC Capillary Glucose 249 H Calcium 8.9 Magnesium 1.8 Total Bilirubin 0.6 AST 29 ALT 21 Alkaline Phosphatase 80 Total Protein 6.0 L Albumin 2.9 L PTH Intact 99.4 H Quality VTE Prophylaxis VTE prophylaxis: pharmacologic ordered
--- NOTE | 2024-08-05 10:55 | PM.IMPN ---
Progress Note: A&P Assessment and Plan (1) Altered mental status: Code(s): R41.82 - Altered mental status, unspecified Status: Acute Assessment and Plan: head CT showed atrophy and chronic white matter changes, no acute intracranial process could be do to electrolyte imbalance versus hypercalcemia, versus TIA patient passed to the bedside swallow with speech therapy today PT and OT ordered echocardiogram ordered brain MRI ordered neurology consulted continue neuro checks q.4 hour continue telemetry monitoring for now 07/28 continue carbidopa levodopa continue neuro checks echocardiogram shown normal LV systolic function with an estimated EF of greater than 70%, grade 1 diastolic dysfunction MRI was canceled Neurology following PT and OT are ordered speech therapy will continue to work with her 07/29 Continue neuro checks Continue PT and OT Continue speech therapy 07/30 No change 08/02 Patient not making much improvement with therapy and has remained sleepy for the last 3-4 days Will likely need to discuss hospice with the 08/03 Not making improvement with therapy. Not eating or taking medication today. Spoke with and agreeable to proceed with hospice consult. Hospice meeting tomorrow. 08/04 [address] meeting to take place on 08/05 due to not feeling well today. Patient did eat supper last night and talk with nurse a little per nurse. 08/05 Hospice meeting tomorrow. No change. (2) Hypercalcemia: Code(s): E83.52 - Hypercalcemia Status: Acute Assessment and Plan: initial calcium 11.3, now 11.2 Will check thyroid panel, parathyroid, vitamin D Calcitonin ordered daily 07/28 calcium 10.6 continue calcitonin 07/29 Calcium 11.0 Continue to trend Continue calcitonin 07/30 Calcium 11.6 discontinue calcitonin Will start Sensipar 30 mg daily for hyperparathyroidism PTH 82 07/31 Calcium 12.3 No change 08/01 Calcium 12.0 Continue IV fluids with D5W at 125 ml/hr Continue calcitonin daily Will increase sensipar to 60 mg BID 08/02 Continue calcitonin and Sensipar Calcium level 10.8 today Continue to trend 08/03 Continue calcitonin and Sensipar Calcium level 9.9 today Continue IV fluids with D5W at 125 ml/hr Continue to trend 08/04 Decrease Sensipar 30 mg PO q 12. Continue Calcitonin. Calcium level 9.6 today. Continue IV fluids with D5W at 125 ml/hr Continue to trend 08/05 Continue Calcitonin . Calcium level 8.9 Stop Sensipar Continue to trend. (3) Hypomagnesemia: Code(s): E83.42 - Hypomagnesemia Status: Acute Assessment and Plan: initial magnesium 1.2 she was given 2g of magnesium while in the ED repeat magnesium 3.5 07/28 magnesium 1.1 this morning patient was given 4 g of magnesium continue to trend 07/29 Magnesium 1.7 Continue to trend 07/30 Magnesium 1.6 Will give 2gm Magnesium now Start Magnesium oxide 400 mg daily 07/31 magnesium 2.2 08/01 Magnesium 1.8 Continue Mag oxide 08/02 Magnesium 1.2 4 g of magnesium given today Recheck in a.m. 08/03 Magnesium 1.7. Monitor labs. 08/04 Magnesium 1.5. Magnesium Sulfate 2 gram IVPB x 1 given. Monitor labs. 08/05 Magnesium 1.8. Monitor labs (4) Mixed hyperlipidemia: Code(s): E78.2 - Mixed hyperlipidemia Status: Acute Assessment and Plan: continue aspirin, atorvastatin, Plavix 07/28 no change to current treatment plan (5) Essential (primary) hypertension: Code(s): I10 - Essential (primary) hypertension Status: Acute Assessment and Plan: blood pressures ranging 152/66 to 208/104 continue lisinopril, 1st dose starting now 07/28 blood pressures ranging 145/95 to 177/60 continue lisinopril will start amlodipine 5 mg 07/29 Continue lisinopril Stop amlodipine and start Coreg 07/30 B/P ranging 132/58-180/78 Increased Coreg dose continue to hold Lisinopril and HCTZ for YARON 07/31 no change to current treatment plan 08/01 Patient was restarted on lisinopril 08/02 No change to current treatment plan 08/03 Blood pressure range 156/67-178/74. Not taking oral medication today. Hydralazine 10 mg ivp q 8 PRN for systolic > 160 or diastolic >100. 08/04 Blood pressure 128/83. 08/05 Blood pressure 149/68. Hydralazine 10 mg ivp q 8 PRN for systolic > 160 or diastolic >100. Not taking oral medication today. (6) Type 2 diabetes mellitus with diabetic neuropathy, unspecified: Code(s): E11.40 - Type 2 diabetes mellitus with diabetic neuropathy, unspecified Status: Acute Assessment and Plan: Blood sugars ranging 121-194 Hgb A1C 7.3 on 04/17/2024 will repeat hemoglobin A1c today Accu checks AC/HS moderate dose SSI ordered restart Lantus at half the dose that she normally takes 20 units at HS Hold Mounjaro and metformin hypoglycemic protocol in place Diabetic diet ordered 07/28 will increase Lantus to 40 units at bedtime blood sugars ranging 208-319 07/29 Will start mealtime dose of 4 units with meals and at bedtime for better glycemic control 07/30 blood sugars ranging 320-396 will increase Lantus to 50 units will increase to high-dose sliding scale insulin 07/31 increased mealtime dose to 10 units with meals and at bedtime 08/02 Blood sugars ranging 219-254 Continue with current treatment plan 08/03 Blood sugars ranging 120-163. 08/04 Blood sugars ranging 228-244. 08/05 Blood sugars ranging 211-249. (7) Weakness: Code(s): R53.1 - Weakness Status: Acute Assessment and Plan: PT and OT ordered 07/28 no change (8) RACIEL (obstructive sleep apnea): Code(s): G47.33 - Obstructive sleep apnea (adult) (pediatric) Status: Acute Assessment and Plan: patient has never been treated for her sleep apnea. reports that she has had this for at least 50 years. Long discussion with about the correlation between her RACIEL, hypertension, stroke, and brain fog. Patient having apnea periods with periods of not breathing for 45 seconds or longer. Bipap ordered for use when sleeping. She will need proper sleep study on discharge. 07/31 [facility] for tonight to assess for need of a BiPAP 08/01 Patient did not cooperate with [facility] overnight Continue Bipap at night Medications and imaging reviewed with Dr. Amaya and he recommends outpatient sleep study as RACIEL may be the culprit to her mental status changes. Dr. Amaya she is stable from his standpoint to return home with her when medically stable. 08/02 No change to current treatment (9) Hyponatremia: Code(s): E87.1 - Hypo-osmolality and hyponatremia Status: Acute Assessment and Plan: Sodium 1224. Change IV fluids to D5NS @ 125 ml/hr. Monitor labs. Subjective Date/time seen: 08/05/24 10:55 Interval history: Patient arousable to voice. Patient denies pain. Hospice meeting moved to tomorrow. Review of Systems Review of Systems: All systems reviewed & are unremarkable except as noted in HPI and below Exam Const: General: comfortable and no acute distress Resp: Effort & Inspection: normal respiratory effort Auscultation: clear to auscultation bilaterally Cardio: Rate: regular rate Rhythm: regular rhythm Other: Telemetry- SR- 81 GI: GI Palp: Yes Soft to palpation Auscultation: normal bowel sounds Neuro: Other: Alert to voice. Right sided weakness. Extrem: General: no pedal edema Objective Data Vital Signs Vital Signs: Vital Signs - 24 hr 08/04/24 12:00 08/04/24 14:00 08/04/24 16:00 Temperature 96.9 F L Pulse Rate 69 84 75 Respiratory Rate 12 Blood Pressure 128/83 Pulse Oximetry 97 Oxygen Delivery 08/04/24 19:59 08/04/24 20:00 08/04/24 20:00 Temperature 97.4 F L Pulse Rate 67 82 Respiratory Rate 8 L Blood Pressure 149/60 H Pulse Oximetry 93 Oxygen Delivery Room Air 08/05/24 00:00 08/05/24 04:00 08/05/24 04:57 Temperature 98.0 F Pulse Rate 67 67 68 Respiratory Rate 10 L Blood Pressure 149/68 H Pulse Oximetry 98 Oxygen Delivery Intake/Output Intake/Output: Intake & Output 08/02/24 08/03/24 08/04/24 08/05/24 23:59 23:59 23:59 23:59 Intake Total 2652.5 3150 2610 1000 Output Total 3000 4350 1175 1650 Balance -347.5 -1200 1435 -650 Meds/Results Medications: Active Medications Generic Name Dose Route Start Last Admin Trade Name Freq PRN Reason Stop Dose Admin Acetaminophen 650 mg 07/27/24 02:59 07/28/24 19:50 Acetaminophen 325 Mg Tablet PO 650 mg Q4H PRN Administration Mild Pain (1-3) or Fever Aspirin 81 mg 07/28/24 09:00 08/04/24 10:11 Aspirin 81 Mg Enteric Tablet PO Not Given DAILY ZENOBIA Atorvastatin Calcium 80 mg 07/27/24 21:00 08/04/24 21:07 Atorvastatin 40 Mg Tablet PO Not Given HS ZENOBIA Calcitonin [place] 100 units 08/02/24 12:00 08/04/24 13:26 Calcitonin [place] Inj 400 Units/2 Ml Vial SUB-Q 100 units Q24H ZENOBIA Administration Carbidopa/Levodopa 1 tablet 07/27/24 17:00 08/04/24 17:41 Carbidopa/Levodopa 25/100 Mg Tablet PO Not Given TID ZENOBIA Carvedilol 6.25 mg 07/30/24 21:00 08/04/24 21:07 Carvedilol 6.25 Mg Tablet PO Not Given Q12HR ZENOBIA Clopidogrel Bisulfate 75 mg 07/28/24 09:00 08/04/24 10:12 Clopidogrel Bisulfate 75 Mg Tablet PO Not Given DAILY ZENOBIA Dextrose 12.5 gm 07/27/24 13:36 Dextrose 50% 25 Gm/50 Ml Syringe IV PUSH PRN PRN Hypoglycemia Protocol Enoxaparin Sodium 40 mg 07/28/24 09:00 08/05/24 09:47 Enoxaparin 40 Mg/0.4 Ml Syringe SUB-Q 40 mg DAILY ZENOBIA Administration Ferrous Sulfate 325 mg 07/28/24 09:00 08/04/24 10:12 Ferrous Sulfate [address] BY MOUTH Not Given DAILY ZENOBIA Glucagon 1 mg 07/27/24 13:36 Glucagon For Inj 1 Mg Vial IM PRN PRN Hypoglycemia Protocol Glucose 15 gm 07/27/24 13:36 Glucose Oral Gel 15 Gm Of Glucse In 37.5 Gm Tube PO PRN PRN Hypoglycemia Protocol Hydralazine HCl 10 mg 07/29/24 19:07 08/03/24 06:02 Hydralazine Hcl 20 Mg/Ml Vial IV PUSH 10 mg Q8H PRN Administration Blood Pressure - High Dextrose 1,000 mls @ 100 mls/hr 07/27/24 13:36 Dextrose 5% 1,000 Ml IVPB PRN PRN Hypoglycemia Protocol Dextrose/Sodium Chloride 1,000 mls @ 125 mls/hr 08/05/24 09:00 08/05/24 09:46 Dextrose 5% Sodium Chloride 0.9% IV CONT 125 mls/hr .Q8H ZENOBIA Administration Insulin Aspart 4 - 8 units 07/30/24 17:00 08/05/24 09:49 Insulin Aspart (*Bkc) 100 Units/Ml SUB-Q 4 units TIDWM ZENOBIA Administration Protocol Insulin Aspart 2 - 4 units 07/30/24 21:00 08/04/24 21:07 Insulin Aspart (*Bkc) 100 Units/Ml SUB-Q Not Given HS [facility] Protocol Insulin Aspart 10 units 07/31/24 17:00 08/05/24 09:48 Insulin Aspart (*Bkc) 100 Units/Ml SUB-Q Not Given TIDWM [facility] Insulin Glargine 50 units 07/30/24 21:00 08/04/24 21:07 Insulin Glargine (*Bkc) 100 Units/Ml SUB-Q 50 units HS [facility] Administration Lisinopril 80 mg 07/27/24 13:50 08/04/24 10:12 Lisinopril 20 Mg Tablet PO Not Given DAILY ZENOBIA Magnesium Oxide 400 mg 08/03/24 10:00 08/04/24 10:12 Magnesium Oxide 400 Mg Tablet PO Not Given DAILY ZENOBIA Pantoprazole Sodium 40 mg 07/28/24 09:00 08/04/24 10:12 Pantoprazole 40 Mg Tablet PO Not Given QAM [facility] Radiology Results: ITS Impressions Head CT 07/27/24 05:31 Impression: No intracranial hemorrhage, mass, or acute infarct. Atrophy and chronic white matter changes, as above. Chest X-Ray 07/31/24 06:59 IMPRESSION: 1. No acute cardiopulmonary disease. Labs Labs: Laboratory Results - last 24 hr 08/04/24 08/04/24 08/04/24 11:45 17:08 19:57 WBC RBC Hgb Hct MCV MCH MCHC RDW Plt Count MPV Immature Gran % (Auto) Neut % (Auto) Lymph % (Auto) [place] % (Auto) Eos % (Auto) Baso % (Auto) Lymph # (Auto) [place] # (Auto) Eos # (Auto) Baso # (Auto) Abs Immat Gran (auto) Absolute Neuts (auto) Absolute Nucleated RBC Nucleated RBC % Sodium Potassium Chloride Carbon Dioxide Anion Gap BUN Creatinine Estim Creat Clear Calc Estimated GFR Glucose POC Capillary Glucose 244 H 237 H 187 H Calcium Magnesium Total Bilirubin AST ALT Alkaline Phosphatase Total Protein Albumin PTH Intact 08/05/24 08/05/24 08/05/24 05:18 05:21 09:15 WBC 4.8 RBC 3.10 L Hgb 9.6 L Hct 27.8 L MCV 89.7 MCH 31.0 MCHC 34.5 RDW 14.6 H Plt Count 199 MPV 10.7 H Immature Gran % (Auto) 0.4 Neut % (Auto) 64.2 Lymph % (Auto) 19.6 [place] % (Auto) 10.6 H Eos % (Auto) 4.8 H Baso % (Auto) 0.4 Lymph # (Auto) 0.94 [place] # (Auto) 0.5 Eos # (Auto) 0.2 Baso # (Auto) 0.0 Abs Immat Gran (auto) 0.02 Absolute Neuts (auto) 3.1 Absolute Nucleated RBC 0.000 Nucleated RBC % 0.0 Sodium 124 L Potassium 3.6 Chloride 89 L Carbon Dioxide 27 Anion Gap 8 BUN 20 H Creatinine 0.78 Estim Creat Clear Calc 49 Estimated GFR > 60 Glucose 213 H POC Capillary Glucose 249 H Calcium 8.9 Magnesium 1.8 Total Bilirubin 0.6 AST 29 ALT 21 Alkaline Phosphatase 80 Total Protein 6.0 L Albumin 2.9 L PTH Intact 99.4 H Quality VTE Prophylaxis VTE prophylaxis: pharmacologic ordered
[2024-08-05 12:03] LABS: Glucose Point of Care 211 mg/dl (65-105)
--- NOTE | 2024-08-05 12:41 | PC.NURSE ---
Patient unable to follow instructions. PO medications not administered and all oral intake on hold as patient is not able to swallow or follow directions to close mouth and/or take sips and swallow. Hospitalist notified, bedside speech evaluation ordered.
[2024-08-05] MEDS: CALCITONIN SALMON INJ 400 UNITS/2 ML VIAL 100 UNITS SUB-Q (12:51)
--- NOTE | 2024-08-05 14:58 | PCSTNOTE ---
Please refer to the Bedside Swallow Evaluation in the EMR. Please note, silent aspiration cannot be ruled out at bedside. The pt was seen for a repeat bedside swallow evaluation; the first evaluation was completed on 07/27/24 and at that time did not reveal any overt s/s of aspiration. Before this exam, the RN stated that she now usually refuses or lets contents leak from her mouth or when she does swallow she coughs and chokes. She was positioned upright in the bed for this swallow test. She was alert but not readily following directions; her verbalizations were garbled. The first attempt was an ice chip but pt refused to open her mouth. Her spouse, who was present presented her with Ensure via a straw from which she took consecutive swallows. Delayed cough and wet/gurgly vocal quality was exhibited. Chocolate pudding was then tested from which she took several tsp amounts; again delayed cough occurred with a delayed wet vocal quality; tsp amounts of Ensure also resulted in delayed cough, throat clearing and wet voice. MBS could be considered; however, her spouse stated she won't participate in that testing as she won't eat/drink barium (ST in agreement). ST encouraged pt to eat so they don't put a tube in your nose with the stated, that's not going to happen . At this time pt is exhibiting overt s/s of aspiration with puree trials and mildly thick liquids. Recommendations: nonoral feeding but deferring to provider.
[2024-08-05 17:39] LABS: Glucose Point of Care 217 mg/dl (65-105)
[2024-08-05 21:10] LABS: Glucose Point of Care 233 mg/dl (65-105)
[2024-08-05] MEDS: INSULIN GLARGINE (*BKC) 100 UNITS/ML 50 UNITS SUB-Q (21:13)
[2024-08-06] MEDS: DEXTROSE 5%/0.9% SOD CHL 1,000 ML 125 ML IV CONT ×3 (01:46→17:18)
[2024-08-06] MEDS: hydrALAZINE HCL 20 MG/ML VIAL 10 MG IV PUSH (04:17)
[2024-08-06 05:22] VITALS: BP 180/75; PULSE 74; RESP 16; TEMP 36.7; O2SAT 98
[2024-08-06 05:44] VITALS: BP 160/59
[2024-08-06 05:53] LABS: Basophils Percent Auto 0.5 % (0.2-1.2); Eosinophils Absolute Auto 0.1 K/mm3 (0-0.3); Eosinophils Percent Auto 1.9 % (0-4.4); Hematocrit 30.4 % (37.0-47.0); Hemoglobin 9.9 g/dL (12.0-15.0); Immature Granulocyte Absolute 0.02 K/mm3 (0.00-0.031); Immature Granulocyte Percent A 0.4 % (0-0.5); Lymphocytes Absolute Auto 0.92 K/mm3 (0.9-3.2); Lymphocytes Percent Auto 16.3 % (18.3-44.2); Mean Corpuscular HGB Conc 32.6 g/dl (32-36); Mean Corpuscular Hemoglobin 31.1 pg (26-34); Mean Corpuscular Volume 95.6 fl (80-100); Mean Platelet Volume 11.1 fl (7.4-10.4); Monocytes Absolute Auto 0.6 K/mm3 (0.1-0.6); Monocytes Percent Auto 10.8 % (2.6-8.5); Neutrophils Percent Auto 70.1 % (45.5-73.1); Platelet Count Result 218 k/mm3 (150-375); Red Blood Count 3.18 M/mm3 (4.2-5.4); White Blood Count 5.7 K/mm3 (4.5-10.0)
[2024-08-06 06:09] LABS: Alanine Aminotransferase 22 U/L (6-35); Albumin Level 2.9 g/dL (3.5-5.1); Alkaline Phosphatase 77 U/L (38-126); Anion Gap 7 mmol/L (4-12); Aspartate Amino Transferase 29 U/L (14-36); Bilirubin,Total 0.6 mg/dL (0.2-1.3); Blood Urea Nitrogen 15 mg/dL (7-17); Calcium 9.3 mg/dL (8.4-10.2); Carbon Dioxide 25 mmol/L (22-30); Chloride 104 mmol/L (98-107); Estimated CRCL calculation 67 ml/min; Estimated Glomerular Filt Rate > 60; Glucose 179 mg/dL (65-110); Magnesium 1.7 mg/dL (1.6-2.3); Potassium 4.1 mmol/L (3.4-5.0); Sodium 136 mmol/L (137-145)
[2024-08-06 08:24] LABS: Glucose Point of Care 181 mg/dl (65-105)
--- NOTE | 2024-08-06 11:21 | P.PNIM_ITS ---
Progress Note: A&P Assessment and Plan (1) Altered mental status: Code(s): R41.82 - Altered mental status, unspecified Status: Acute Assessment and Plan: * head CT showed atrophy and chronic white matter changes, no acute intracranial process * could be do to electrolyte imbalance versus hypercalcemia, versus TIA * patient passed to the bedside swallow with speech therapy today * PT and OT ordered * echocardiogram ordered * brain MRI ordered * neurology consulted * continue neuro checks q.4 hour * continue telemetry monitoring for now 07/28 * continue carbidopa levodopa * continue neuro checks * echocardiogram shown normal LV systolic function with an estimated EF of greater than 70%, grade 1 diastolic dysfunction * MRI was canceled * Neurology following * PT and OT are ordered * speech therapy will continue to work with her 07/29 * Continue neuro checks * Continue PT and OT * Continue speech therapy 07/30 * No change 08/02 * Patient not making much improvement with therapy and has remained sleepy for the last 3-4 days * Will likely need to discuss hospice with the 08/03 * Not making improvement with therapy. * Not eating or taking medication today. * Spoke with and agreeable to proceed with hospice consult. Hospice meeting tomorrow. 08/04 * Hospice meeting to take place on 08/05 due to not feeling well today. * Patient did eat supper last night and talk with nurse a little per nurse. 08/05 * Hospice meeting tomorrow. * No change. 08/06 * Hospice meeting completed today. * Plan is for patient to go home on hospice on Friday. (2) Hypercalcemia: Code(s): E83.52 - Hypercalcemia Status: Acute Assessment and Plan: * initial calcium 11.3, now 11.2 * Will check thyroid panel, parathyroid, vitamin D * Calcitonin ordered daily 07/28 * calcium 10.6 * continue calcitonin 07/29 * Calcium 11.0 * Continue to trend * Continue calcitonin 07/30 * Calcium 11.6 * discontinue calcitonin * Will start Sensipar 30 mg daily for hyperparathyroidism * PTH 82 07/31 * Calcium 12.3 * No change 08/01 * Calcium 12.0 * Continue IV fluids with D5W at 125 ml/hr * Continue calcitonin daily * Will increase sensipar to 60 mg BID 08/02 * Continue calcitonin and Sensipar * Calcium level 10.8 today * Continue to trend 08/03 * Continue calcitonin and Sensipar * Calcium level 9.9 today * Continue IV fluids with D5W at 125 ml/hr * Continue to trend 08/04 * Decrease Sensipar 30 mg PO q 12. Continue Calcitonin. * Calcium level 9.6 today. * Continue IV fluids with D5W at 125 ml/hr * Continue to trend 08/05 * Continue Calcitonin . * Calcium level 8.9 * Stop Sensipar * Continue to trend. 08/06 * Calcium 9.3. * Continue Calcitonin. (3) Hypomagnesemia: Code(s): E83.42 - Hypomagnesemia Status: Acute Assessment and Plan: * initial magnesium 1.2 * she was given 2g of magnesium while in the ED * repeat magnesium 3.5 07/28 * magnesium 1.1 this morning * patient was given 4 g of magnesium * continue to trend 07/29 * Magnesium 1.7 * Continue to trend 07/30 * Magnesium 1.6 * Will give 2gm Magnesium now * Start Magnesium oxide 400 mg daily 07/31 * magnesium 2.2 08/01 * Magnesium 1.8 * Continue Mag oxide 08/02 * Magnesium 1.2 * 4 g of magnesium given today * Recheck in a.m. 08/03 * Magnesium 1.7. * Monitor labs. 08/04 * Magnesium 1.5. * Magnesium Sulfate 2 gram IVPB x 1 given. * Monitor labs. 08/05 * Magnesium 1.8. * Monitor labs 08/06 * Magnesium 1.7. * Monitor labs. (4) Mixed hyperlipidemia: Code(s): E78.2 - Mixed hyperlipidemia Status: Acute Assessment and Plan: * continue aspirin, atorvastatin, Plavix 07/28 * no change to current treatment plan (5) Essential (primary) hypertension: Code(s): I10 - Essential (primary) hypertension Status: Acute Assessment and Plan: * blood pressures ranging 152/66 to 208/104 * continue lisinopril, 1st dose starting now 07/28 * blood pressures ranging 145/95 to 177/60 * continue lisinopril * will start amlodipine 5 mg 07/29 * Continue lisinopril * Stop amlodipine and start Coreg 07/30 * B/P ranging 132/58-180/78 * Increased Coreg dose * continue to hold Lisinopril and HCTZ for YARON 07/31 * no change to current treatment plan 08/01 * Patient was restarted on lisinopril 08/02 * No change to current treatment plan 08/03 * Blood pressure range 156/67-178/74. * Not taking oral medication today. * Hydralazine 10 mg ivp q 8 PRN for systolic > 160 or diastolic >100. 08/04 * Blood pressure 128/83. 08/05 * Blood pressure 149/68. * Hydralazine 10 mg ivp q 8 PRN for systolic > 160 or diastolic >100. * Not taking oral medication today. 08/06 * Blood pressure 165/63. * Hydralazine 10 mg ivp q 8 PRN for systolic > 160 or diastolic >100. * Not taking oral medication today. (6) Type 2 diabetes mellitus with diabetic neuropathy, unspecified: Code(s): E11.40 - Type 2 diabetes mellitus with diabetic neuropathy, unspecified Status: Acute Assessment and Plan: * Blood sugars ranging 121-194 * Hgb A1C 7.3 on 04/17/2024 * will repeat hemoglobin A1c today * Accu checks AC/HS * moderate dose SSI ordered * restart Lantus at half the dose that she normally takes 20 units at HS * Hold Mounjaro and metformin * hypoglycemic protocol in place * Diabetic diet ordered 07/28 * will increase Lantus to 40 units at bedtime * blood sugars ranging 208-319 07/29 * Will start mealtime dose of 4 units with meals and at bedtime for better glycemic control 07/30 * blood sugars ranging 320-396 * will increase Lantus to 50 units * will increase to high-dose sliding scale insulin 07/31 * increased mealtime dose to 10 units with meals and at bedtime 08/02 * Blood sugars ranging 219-254 * Continue with current treatment plan 08/03 * Blood sugars ranging 120-163. 08/04 * Blood sugars ranging 228-244. 08/05 * Blood sugars ranging 211-249. 08/06 * Blood sugars ranging 161-181. (7) Weakness: Code(s): R53.1 - Weakness Status: Acute Assessment and Plan: * PT and OT ordered 07/28 * no change (8) RACIEL (obstructive sleep apnea): Code(s): G47.33 - Obstructive sleep apnea (adult) (pediatric) Status: Acute Assessment and Plan: * patient has never been treated for her sleep apnea. reports that she has had this for at least 50 years. Long discussion with about the correlation between her RACIEL, hypertension, stroke, and brain fog. * Patient having apnea periods with periods of not breathing for 45 seconds or longer. * Bipap ordered for use when sleeping. * She will need proper sleep study on discharge. 07/31 * [facility] for tonight to assess for need of a BiPAP 08/01 * Patient did not cooperate with [facility] overnight * Continue Bipap at night * Medications and imaging reviewed with Dr. Amaya and he recommends outpatient sleep study as RACIEL may be the culprit to her mental status changes. Dr. Amaya she is stable from his standpoint to return home with her when medically stable. 08/02 * No change to current treatment (9) Hyponatremia: Code(s): E87.1 - Hypo-osmolality and hyponatremia Status: Acute Assessment and Plan: * Sodium 124>136. Improving. * Change IV fluids to D5NS @ 125 ml/hr. * Monitor labs. Subjective Date/time seen: 08/06/24 11:21 Interval history: Patient arousable to voice. Patient denies pain. Hospice meeting moved to today. at bedside. Review of Systems Review of Systems: All systems reviewed & are unremarkable except as noted in HPI and below Exam Const: General: comfortable and no acute distress Resp: Effort & Inspection: normal respiratory effort Auscultation: clear to auscultation bilaterally Cardio: Rate: regular rate Rhythm: regular rhythm GI: GI Palp: Yes Soft to palpation Auscultation: normal bowel sounds Extrem: General: no pedal edema Psych: Other: calm Objective Data Vital Signs Vital Signs: Vital Signs - 24 hr 08/05/24 14:00 08/05/24 21:12 08/05/24 21:50 Temperature 98.5 F 99.7 F H Pulse Rate 88 95 92 Respiratory Rate 9 L 16 Blood Pressure 154/87 H 159/73 H Pulse Oximetry 95 93 08/06/24 05:22 08/06/24 05:44 Temperature 98.1 F Pulse Rate 74 Respiratory Rate 16 Blood Pressure 180/75 H 160/59 H Pulse Oximetry 98 Intake/Output Intake/Output: Intake & Output 08/03/24 08/04/24 08/05/24 08/06/24 23:59 23:59 23:59 23:59 Intake Total 3150 2610 1999 1000 Output Total 3824 2440 5049 425 Balance -1200 7393 -6431 607 Meds/Results Medications: Active Medications Generic Name Dose Route Start Last Admin Trade Name Freq PRN Reason Stop Dose Admin Acetaminophen 650 mg 07/27/24 02:59 07/28/24 19:50 Acetaminophen 325 Mg Tablet PO 650 mg Q4H PRN Administration Mild Pain (1-3) or Fever Aspirin 81 mg 07/28/24 09:00 08/06/24 08:40 Aspirin 81 Mg Enteric Tablet PO Not Given DAILY ZENOBIA Atorvastatin Calcium 80 mg 07/27/24 21:00 08/05/24 21:12 Atorvastatin 40 Mg Tablet PO Not Given HS ZENOBIA Calcitonin Lutz 100 units 08/02/24 12:00 08/05/24 12:51 Calcitonin Lutz Inj 400 Units/2 Ml Vial SUB-Q 100 units Q24H ZENOBIA Administration Carbidopa/Levodopa 1 tablet 07/27/24 17:00 08/06/24 08:40 Carbidopa/Levodopa 25/100 Mg Tablet PO Not Given TID ZENOBIA Carvedilol 6.25 mg 07/30/24 21:00 08/06/24 08:40 Carvedilol 6.25 Mg Tablet PO Not Given Q12HR ZENOBIA Clopidogrel Bisulfate 75 mg 07/28/24 09:00 08/06/24 08:41 Clopidogrel Bisulfate 75 Mg Tablet PO Not Given DAILY ZENOBIA Dextrose 12.5 gm 07/27/24 13:36 Dextrose 50% 25 Gm/50 Ml Syringe IV PUSH PRN PRN Hypoglycemia Protocol Enoxaparin Sodium 40 mg 07/28/24 09:00 08/05/24 09:47 Enoxaparin 40 Mg/0.4 Ml Syringe SUB-Q 40 mg DAILY ZENOBIA Administration Ferrous Sulfate 325 mg 07/28/24 09:00 08/06/24 08:41 Ferrous Sulfate [address] BY MOUTH Not Given DAILY ZENOBIA Glucagon 1 mg 07/27/24 13:36 Glucagon For Inj 1 Mg Vial IM PRN PRN Hypoglycemia Protocol Glucose 15 gm 07/27/24 13:36 Glucose Oral Gel 15 Gm Of Glucse In 37.5 Gm Tube PO PRN PRN Hypoglycemia Protocol Hydralazine HCl 10 mg 07/29/24 19:07 08/06/24 04:17 Hydralazine Hcl 20 Mg/Ml Vial IV PUSH 10 mg Q8H PRN Administration Blood Pressure - High Dextrose 1,000 mls @ 100 mls/hr 07/27/24 13:36 Dextrose 5% 1,000 Ml IVPB PRN PRN Hypoglycemia Protocol Dextrose/Sodium Chloride 1,000 mls @ 125 mls/hr 08/05/24 09:00 08/06/24 01:46 Dextrose 5% Sodium Chloride 0.9% IV CONT 125 mls/hr .Q8H ZENOBIA Administration Insulin Aspart 4 - 8 units 07/30/24 17:00 08/06/24 08:40 Insulin Aspart (*Bkc) 100 Units/Ml SUB-Q Not Given TIDWM ZENOBIA Protocol Insulin Aspart 2 - 4 units 07/30/24 21:00 08/05/24 21:13 Insulin Aspart (*Bkc) 100 Units/Ml SUB-Q 2 units HS ZENOBIA Administration Protocol Insulin Aspart 10 units 07/31/24 17:00 08/06/24 08:36 Insulin Aspart (*Bkc) 100 Units/Ml SUB-Q Not Given TIDWM [facility] Insulin Glargine 50 units 07/30/24 21:00 08/05/24 21:13 Insulin Glargine (*Bkc) 100 Units/Ml SUB-Q 50 units HS [facility] Administration Lisinopril 80 mg 07/27/24 13:50 08/06/24 08:41 Lisinopril 20 Mg Tablet PO Not Given DAILY [facility] Magnesium Oxide 400 mg 08/03/24 10:00 08/06/24 08:41 Magnesium Oxide 400 Mg Tablet PO Not Given DAILY [facility] Pantoprazole Sodium 40 mg 07/28/24 09:00 08/06/24 08:41 Pantoprazole 40 Mg Tablet PO Not Given QAM [facility] Radiology Results: ITS Impressions Head CT 07/27/24 05:31 Impression: No intracranial hemorrhage, mass, or acute infarct. Atrophy and chronic white matter changes, as above. Chest X-Ray 07/31/24 06:59 IMPRESSION: 1. No acute cardiopulmonary disease. Labs Labs: Laboratory Results - last 24 hr 08/05/24 08/05/24 08/05/24 11:44 17:24 21:07 WBC RBC Hgb Hct MCV MCH MCHC RDW Plt Count MPV Immature Gran % (Auto) Neut % (Auto) Lymph % (Auto) [place] % (Auto) Eos % (Auto) Baso % (Auto) Lymph # (Auto) [place] # (Auto) Eos # (Auto) Baso # (Auto) Abs Immat Gran (auto) Absolute Neuts (auto) Absolute Nucleated RBC Nucleated RBC % Sodium Potassium Chloride Carbon Dioxide Anion Gap BUN Creatinine Estim Creat Clear Calc Estimated GFR Glucose POC Capillary Glucose 211 H 217 H 233 H Calcium Magnesium Total Bilirubin AST ALT Alkaline Phosphatase Total Protein Albumin 08/06/24 08/06/24 05:29 08:18 WBC 5.7 RBC 3.18 L Hgb 9.9 L Hct 30.4 L MCV 95.6 D MCH 31.1 MCHC 32.6 RDW 15.0 H Plt Count 218 MPV 11.1 H Immature Gran % (Auto) 0.4 Neut % (Auto) 70.1 Lymph % (Auto) 16.3 L [place] % (Auto) 10.8 H Eos % (Auto) 1.9 Baso % (Auto) 0.5 Lymph # (Auto) 0.92 [place] # (Auto) 0.6 Eos # (Auto) 0.1 Baso # (Auto) 0.0 Abs Immat Gran (auto) 0.02 Absolute Neuts (auto) 4.0 Absolute Nucleated RBC 0.000 Nucleated RBC % 0.0 Sodium 136 L Potassium 4.1 Chloride 104 Carbon Dioxide 25 Anion Gap 7 BUN 15 D Creatinine 0.55 L Estim Creat Clear Calc 67 Estimated GFR > 60 Glucose 179 H POC Capillary Glucose 181 H Calcium 9.3 Magnesium 1.7 Total Bilirubin 0.6 AST 29 ALT 22 Alkaline Phosphatase 77 Total Protein 6.0 L Albumin 2.9 L Quality VTE Prophylaxis VTE prophylaxis: pharmacologic ordered
--- NOTE | 2024-08-06 11:21 | PM.IMPN ---
Progress Note: A&P Assessment and Plan (1) Altered mental status: Code(s): R41.82 - Altered mental status, unspecified Status: Acute Assessment and Plan: head CT showed atrophy and chronic white matter changes, no acute intracranial process could be do to electrolyte imbalance versus hypercalcemia, versus TIA patient passed to the bedside swallow with speech therapy today PT and OT ordered echocardiogram ordered brain MRI ordered neurology consulted continue neuro checks q.4 hour continue telemetry monitoring for now 07/28 continue carbidopa levodopa continue neuro checks echocardiogram shown normal LV systolic function with an estimated EF of greater than 70%, grade 1 diastolic dysfunction MRI was canceled Neurology following PT and OT are ordered speech therapy will continue to work with her 07/29 Continue neuro checks Continue PT and OT Continue speech therapy 07/30 No change 08/02 Patient not making much improvement with therapy and has remained sleepy for the last 3-4 days Will likely need to discuss hospice with the 08/03 Not making improvement with therapy. Not eating or taking medication today. Spoke with and agreeable to proceed with hospice consult. Hospice meeting tomorrow. 08/04 [address] meeting to take place on 08/05 due to not feeling well today. Patient did eat supper last night and talk with nurse a little per nurse. 08/05 Hospice meeting tomorrow. No change. 08/06 Hospice meeting completed today. Plan is for patient to go home on hospice on Friday. (2) Hypercalcemia: Code(s): E83.52 - Hypercalcemia Status: Acute Assessment and Plan: initial calcium 11.3, now 11.2 Will check thyroid panel, parathyroid, vitamin D Calcitonin ordered daily 07/28 calcium 10.6 continue calcitonin 07/29 Calcium 11.0 Continue to trend Continue calcitonin 07/30 Calcium 11.6 discontinue calcitonin Will start Sensipar 30 mg daily for hyperparathyroidism PTH 82 07/31 Calcium 12.3 No change 08/01 Calcium 12.0 Continue IV fluids with D5W at 125 ml/hr Continue calcitonin daily Will increase sensipar to 60 mg BID 08/02 Continue calcitonin and Sensipar Calcium level 10.8 today Continue to trend 08/03 Continue calcitonin and Sensipar Calcium level 9.9 today Continue IV fluids with D5W at 125 ml/hr Continue to trend 08/04 Decrease Sensipar 30 mg PO q 12. Continue Calcitonin. Calcium level 9.6 today. Continue IV fluids with D5W at 125 ml/hr Continue to trend 08/05 Continue Calcitonin . Calcium level 8.9 Stop Sensipar Continue to trend. 08/06 Calcium 9.3. Continue Calcitonin. (3) Hypomagnesemia: Code(s): E83.42 - Hypomagnesemia Status: Acute Assessment and Plan: initial magnesium 1.2 she was given 2g of magnesium while in the ED repeat magnesium 3.5 07/28 magnesium 1.1 this morning patient was given 4 g of magnesium continue to trend 07/29 Magnesium 1.7 Continue to trend 07/30 Magnesium 1.6 Will give 2gm Magnesium now Start Magnesium oxide 400 mg daily 07/31 magnesium 2.2 08/01 Magnesium 1.8 Continue Mag oxide 08/02 Magnesium 1.2 4 g of magnesium given today Recheck in a.m. 08/03 Magnesium 1.7. Monitor labs. 08/04 Magnesium 1.5. Magnesium Sulfate 2 gram IVPB x 1 given. Monitor labs. 08/05 Magnesium 1.8. Monitor labs 08/06 Magnesium 1.7. Monitor labs. (4) Mixed hyperlipidemia: Code(s): E78.2 - Mixed hyperlipidemia Status: Acute Assessment and Plan: continue aspirin, atorvastatin, Plavix 07/28 no change to current treatment plan (5) Essential (primary) hypertension: Code(s): I10 - Essential (primary) hypertension Status: Acute Assessment and Plan: blood pressures ranging 152/66 to 208/104 continue lisinopril, 1st dose starting now 07/28 blood pressures ranging 145/95 to 177/60 continue lisinopril will start amlodipine 5 mg 07/29 Continue lisinopril Stop amlodipine and start Coreg 07/30 B/P ranging 132/58-180/78 Increased Coreg dose continue to hold Lisinopril and HCTZ for YARON 07/31 no change to current treatment plan 08/01 Patient was restarted on lisinopril 08/02 No change to current treatment plan 08/03 Blood pressure range 156/67-178/74. Not taking oral medication today. Hydralazine 10 mg ivp q 8 PRN for systolic > 160 or diastolic >100. 08/04 Blood pressure 128/83. 08/05 Blood pressure 149/68. Hydralazine 10 mg ivp q 8 PRN for systolic > 160 or diastolic >100. Not taking oral medication today. 08/06 Blood pressure 165/63. Hydralazine 10 mg ivp q 8 PRN for systolic > 160 or diastolic >100. Not taking oral medication today. (6) Type 2 diabetes mellitus with diabetic neuropathy, unspecified: Code(s): E11.40 - Type 2 diabetes mellitus with diabetic neuropathy, unspecified Status: Acute Assessment and Plan: Blood sugars ranging 121-194 Hgb A1C 7.3 on 04/17/2024 will repeat hemoglobin A1c today Accu checks AC/HS moderate dose SSI ordered restart Lantus at half the dose that she normally takes 20 units at HS Hold Mounjaro and metformin hypoglycemic protocol in place Diabetic diet ordered 07/28 will increase Lantus to 40 units at bedtime blood sugars ranging 208-319 07/29 Will start mealtime dose of 4 units with meals and at bedtime for better glycemic control 07/30 blood sugars ranging 320-396 will increase Lantus to 50 units will increase to high-dose sliding scale insulin 07/31 increased mealtime dose to 10 units with meals and at bedtime 08/02 Blood sugars ranging 219-254 Continue with current treatment plan 08/03 Blood sugars ranging 120-163. 2 Blood sugars ranging 228-244. 08/05 Blood sugars ranging 211-249. 2 Blood sugars ranging 161-181. (7) Weakness: Code(s): R53.1 - Weakness Status: Acute Assessment and Plan: PT and OT ordered 07/28 no change (8) RACIEL (obstructive sleep apnea): Code(s): G47.33 - Obstructive sleep apnea (adult) (pediatric) Status: Acute Assessment and Plan: patient has never been treated for her sleep apnea. reports that she has had this for at least 50 years. Long discussion with about the correlation between her RACIEL, hypertension, stroke, and brain fog. Patient having apnea periods with periods of not breathing for 45 seconds or longer. Bipap ordered for use when sleeping. She will need proper sleep study on discharge. 07/31 [facility] for tonight to assess for need of a BiPAP 08/01 Patient did not cooperate with [facility] overnight Continue Bipap at night Medications and imaging reviewed with Dr. Amaya and he recommends outpatient sleep study as RACIEL may be the culprit to her mental status changes. Dr. Amaya she is stable from his standpoint to return home with her when medically stable. 08/02 No change to current treatment (9) Hyponatremia: Code(s): E87.1 - Hypo-osmolality and hyponatremia Status: Acute Assessment and Plan: Sodium 124>136. Improving. Change IV fluids to D5NS @ 125 ml/hr. Monitor labs. Subjective Date/time seen: 08/06/24 11:21 Interval history: Patient arousable to voice. Patient denies pain. Hospice meeting moved to today. at bedside. Review of Systems Review of Systems: All systems reviewed & are unremarkable except as noted in HPI and below Exam Const: General: comfortable and no acute distress Resp: Effort & Inspection: normal respiratory effort Auscultation: clear to auscultation bilaterally Cardio: Rate: regular rate Rhythm: regular rhythm GI: GI Palp: Yes Soft to palpation Auscultation: normal bowel sounds Extrem: General: no pedal edema Psych: Other: calm Objective Data Vital Signs Vital Signs: Vital Signs - 24 hr 08/05/24 14:00 08/05/24 21:12 08/05/24 21:50 Temperature 98.5 F 99.7 F H Pulse Rate 88 95 92 Respiratory Rate 9 L 16 Blood Pressure 154/87 H 159/73 H Pulse Oximetry 95 93 08/06/24 05:22 08/06/24 05:44 Temperature 98.1 F Pulse Rate 74 Respiratory Rate 16 Blood Pressure 180/75 H 160/59 H Pulse Oximetry 98 Intake/Output Intake/Output: Intake & Output 08/03/24 08/04/24 08/05/24 08/06/24 23:59 23:59 23:59 23:59 Intake Total 3150 2610 2000 1000 Output Total 4350 1175 4650 425 Balance -1200 1435 -2650 575 Meds/Results Medications: Active Medications Generic Name Dose Route Start Last Admin Trade Name Freq PRN Reason Stop Dose Admin Acetaminophen 650 mg 07/27/24 02:59 07/28/24 19:50 Acetaminophen 325 Mg Tablet PO 650 mg Q4H PRN Administration Mild Pain (1-3) or Fever Aspirin 81 mg 07/28/24 09:00 08/06/24 08:40 Aspirin 81 Mg Enteric Tablet PO Not Given DAILY ZENOBIA Atorvastatin Calcium 80 mg 07/27/24 21:00 08/05/24 21:12 Atorvastatin 40 Mg Tablet PO Not Given HS ZENOBIA Calcitonin [place] 100 units 08/02/24 12:00 08/05/24 12:51 Calcitonin [place] Inj 400 Units/2 Ml Vial SUB-Q 100 units Q24H ZENOBIA Administration Carbidopa/Levodopa 1 tablet 07/27/24 17:00 08/06/24 08:40 Carbidopa/Levodopa 25/100 Mg Tablet PO Not Given TID ZENOBIA Carvedilol 6.25 mg 07/30/24 21:00 08/06/24 08:40 Carvedilol 6.25 Mg Tablet PO Not Given Q12HR [facility] Clopidogrel Bisulfate 75 mg 07/28/24 09:00 08/06/24 08:41 Clopidogrel Bisulfate 75 Mg Tablet PO Not Given DAILY [facility] Dextrose 12.5 gm 07/27/24 13:36 Dextrose 50% 25 Gm/50 Ml Syringe IV PUSH PRN PRN Hypoglycemia Protocol Enoxaparin Sodium 40 mg 07/28/24 09:00 08/05/24 09:47 Enoxaparin 40 Mg/0.4 Ml Syringe SUB-Q 40 mg DAILY ZENOBIA Administration Ferrous Sulfate 325 mg 07/28/24 09:00 08/06/24 08:41 Ferrous Sulfate [address] BY MOUTH Not Given DAILY [facility] Glucagon 1 mg 07/27/24 13:36 Glucagon For Inj 1 Mg Vial IM PRN PRN Hypoglycemia Protocol Glucose 15 gm 07/27/24 13:36 Glucose Oral Gel 15 Gm Of Glucse In 37.5 Gm Tube PO PRN PRN Hypoglycemia Protocol Hydralazine HCl 10 mg 07/29/24 19:07 08/06/24 04:17 Hydralazine Hcl 20 Mg/Ml Vial IV PUSH 10 mg Q8H PRN Administration Blood Pressure - High Dextrose 1,000 mls @ 100 mls/hr 07/27/24 13:36 Dextrose 5% 1,000 Ml IVPB PRN PRN Hypoglycemia Protocol Dextrose/Sodium Chloride 1,000 mls @ 125 mls/hr 08/05/24 09:00 08/06/24 01:46 Dextrose 5% Sodium Chloride 0.9% IV CONT 125 mls/hr .Q8H ZENOBIA Administration Insulin Aspart 4 - 8 units 07/30/24 17:00 08/06/24 08:40 Insulin Aspart (*Bkc) 100 Units/Ml SUB-Q Not Given TIDWM [facility] Protocol Insulin Aspart 2 - 4 units 07/30/24 21:00 08/05/24 21:13 Insulin Aspart (*Bkc) 100 Units/Ml SUB-Q 2 units HS [facility] Administration Protocol Insulin Aspart 10 units 07/31/24 17:00 08/06/24 08:36 Insulin Aspart (*Bkc) 100 Units/Ml SUB-Q Not Given TIDWM ZENOBIA Insulin Glargine 50 units 07/30/24 21:00 08/05/24 21:13 Insulin Glargine (*Bkc) 100 Units/Ml SUB-Q 50 units HS [facility] Administration Lisinopril 80 mg 07/27/24 13:50 08/06/24 08:41 Lisinopril 20 Mg Tablet PO Not Given DAILY ZENOBIA Magnesium Oxide 400 mg 08/03/24 10:00 08/06/24 08:41 Magnesium Oxide 400 Mg Tablet PO Not Given DAILY ZENOBIA Pantoprazole Sodium 40 mg 07/28/24 09:00 08/06/24 08:41 Pantoprazole 40 Mg Tablet PO Not Given QAM [facility] Radiology Results: ITS Impressions Head CT 07/27/24 05:31 Impression: No intracranial hemorrhage, mass, or acute infarct. Atrophy and chronic white matter changes, as above. Chest X-Ray 07/31/24 06:59 IMPRESSION: 1. No acute cardiopulmonary disease. Labs Labs: Laboratory Results - last 24 hr 08/05/24 08/05/24 08/05/24 11:44 17:24 21:07 WBC RBC Hgb Hct MCV MCH MCHC RDW Plt Count MPV Immature Gran % (Auto) Neut % (Auto) Lymph % (Auto) [place] % (Auto) Eos % (Auto) Baso % (Auto) Lymph # (Auto) [place] # (Auto) Eos # (Auto) Baso # (Auto) Abs Immat Gran (auto) Absolute Neuts (auto) Absolute Nucleated RBC Nucleated RBC % Sodium Potassium Chloride Carbon Dioxide Anion Gap BUN Creatinine Estim Creat Clear Calc Estimated GFR Glucose POC Capillary Glucose 211 H 217 H 233 H Calcium Magnesium Total Bilirubin AST ALT Alkaline Phosphatase Total Protein Albumin 08/06/24 08/06/24 05:29 08:18 WBC 5.7 RBC 3.18 L Hgb 9.9 L Hct 30.4 L MCV 95.6 D MCH 31.1 MCHC 32.6 RDW 15.0 H Plt Count 218 MPV 11.1 H Immature Gran % (Auto) 0.4 Neut % (Auto) 70.1 Lymph % (Auto) 16.3 L [place] % (Auto) 10.8 H Eos % (Auto) 1.9 Baso % (Auto) 0.5 Lymph # (Auto) 0.92 [place] # (Auto) 0.6 Eos # (Auto) 0.1 Baso # (Auto) 0.0 Abs Immat Gran (auto) 0.02 Absolute Neuts (auto) 4.0 Absolute Nucleated RBC 0.000 Nucleated RBC % 0.0 Sodium 136 L Potassium 4.1 Chloride 104 Carbon Dioxide 25 Anion Gap 7 BUN 15 D Creatinine 0.55 L Estim Creat Clear Calc 67 Estimated GFR > 60 Glucose 179 H POC Capillary Glucose 181 H Calcium 9.3 Magnesium 1.7 Total Bilirubin 0.6 AST 29 ALT 22 Alkaline Phosphatase 77 Total Protein 6.0 L Albumin 2.9 L Quality VTE Prophylaxis VTE prophylaxis: pharmacologic ordered
[2024-08-06 12:14] LABS: Glucose Point of Care 161 mg/dl (65-105)
[2024-08-06] MEDS: CALCITONIN SALMON INJ 400 UNITS/2 ML VIAL 100 UNITS SUB-Q (12:40)
[2024-08-06] MEDS: ENOXAPARIN 40 MG/0.4 ML SYRINGE SUB-Q (12:43)
--- NOTE | 2024-08-06 13:02 | PCNFU ---
Nutrition Follow-Up Complete: Suboptimal Intake as related to AMS as evidenced by NPO/swallow study. Goal: Adequate Intake of at least 75% of meals/supplements Patient has limited progress towards goal. Pt current nutrition is NPO. Last recorded weight is 72 kg, no new weight to report. Bowel Motility: +BM reported 08/06 Labs Reviewed:Glu 179, Cr 0.55, Alb2.9, Na 136 Meds Noted:No meds given NPO. Skin: WNL Additional Notes: Patient made NPO. Spoke with nursing hospice has been consulted, plan to be admitted to hospice over the weekend. No further nutritional interventions needed at this time.
[2024-08-06 14:00] VITALS: BP 165/63; PULSE 91; RESP 18; TEMP 36.1; O2SAT 95
[2024-08-06 17:05] LABS: Glucose Point of Care 153 mg/dl (65-105)
[2024-08-06 19:49] LABS: Glucose Point of Care 145 mg/dl (65-105)
[2024-08-06 22:00] VITALS: BP 160/80; PULSE 95; RESP 28; TEMP 36.6; O2SAT 92
[2024-08-07] MEDS: SCOPOLAMINE 1 MG PATCH 1 PATCH TRANSDERM (00:19)
[2024-08-07] MEDS: DEXTROSE 5%/0.9% SOD CHL 1,000 ML 125 ML IV CONT (01:30)
[2024-08-07] MEDS: FUROSEMIDE INJ 40 MG/4 ML VIAL 20 MG IV PUSH (02:17)
--- NOTE | 2024-08-07 08:01 | PM.DDS ---
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 Summary Hospital Course: Initial labs showed normal white blood cell count of 8.5, hemoglobin 11.6, potassium 5.7, creatinine 1.66, EGFR 30, blood sugars ranging 121-148, lactic acid was normal at 1.6, magnesium was 1.2, calcium level 11.3, troponin was negative x2, proBNP 361, procalcitonin 0.1. UA was obtained which showed 1+ urine protein, trace urine ketone, trace leukocytes, Urine cast greater than 20, otherwise negative. respiratory panel was negative for influenza a and B, RSV, COVID. EKG showed sinus rhythm with a rate of 81, QTC 400. Patient was given 1 L of normal saline, 2 g of magnesium while in the ED. neurology was consulted. Chest X-ray was negative. Head CT which was negative for any acute intracranial hemorrhage, mass, acute infarct, shown atrophy and chronic white matter changes. Echocardiogram 07/27/24: Summary 1. Left ventricular chamber dimension is normal. 2. Left ventricular systolic function is normal, estimated at >70%. 3. The left ventricular diastolic function is grade I diastolic dysfunction. 4. Right ventricular systolic function is normal. 5. The mitral valve annulus is severely calcified. 6. There is mild tricuspid valve regurgitation. Chest X-Ray 07/31/24 06:59 IMPRESSION: 1. No acute cardiopulmonary disease. Blood cultures and urine culture negative. Patient declined and got to where she could not safely swallow food or medications. did not want a feeding tube for nutrition. met with [facility] on Sunday 08/06 and was agreeable to hospice. Plan was for patient to go home on 08/08 once room was cleaned out at home and ready for patient to go home on hospice. Additional Data Confirmation of as documented by pronouncing clinician: Pupillary Reflex, Palpable Pulses, Response to Stimuli, Heart Tones and Breath Sounds Family: contacted Name of Provider Notified: Brielle Reynolds MANUFACTURING SOFTWARE ENGINEER Time Provider Notified: 07:04 Was code activated?: No Provider Requests Autopsy: No Family Requests Autopsy: No Retail Maintenance Technician Notified: Yes Date [facility] Notified of : 08/07/24 Time [facility] Notified of : 07:09 Advance directives: Yes Hospice patient?: No (Was discharging on Friday with [facility]. )
[2024-08-11 14:08] LABS: Parathyroid Hormone Related Pr 8 pg/mL (11-20)
== END 2024-08-07 06:45 | disposition expired | DRG 66 ==
LOC: ANHED 22:41 → ANH3MED 07-27 04:37
PROVIDERS: General Practice; Nurse Practitioner Acute Care; Admitting Provider Internal Medicine; Emergency Provider Emergency Medicine; PCP Family Medicine; Visit Provider Nurse Practitioner Family
DX: I63.9 Cerebral infarction, unspecified (principal); R26.89 Other abnormalities of gait and mobility; R47.89 Other speech disturbances; R41.89 Other symptoms and signs involving cognitive functions and awareness; E83.42 Hypomagnesemia; E11.40 Type 2 diabetes mellitus with diabetic neuropathy, unspecified; E78.2 Mixed hyperlipidemia; E86.0 Dehydration; E83.52 Hypercalcemia; G47.33 Obstructive sleep apnea (adult) (pediatric); E07.9 Disorder of thyroid, unspecified; Z79.4 Long term (current) use of insulin; Z79.85 Long-term (current) use of injectable non-insulin antidiabetic drugs; Z79.84 Long term (current) use of oral hypoglycemic drugs; Z86.73 Personal history of transient ischemic attack (TIA), and cerebral infarction without residual deficits; Z79.82 Long term (current) use of aspirin; Z79.02 Long term (current) use of antithrombotics/antiplatelets; Z96.653 Presence of artificial knee joint, bilateral; Z20.822 Contact with and (suspected) exposure to COVID-19
CPT/HCPCS: 36415; 36600; 70450; 71045; 80048; 80053; 81001; 82306; 82330; 82805; 82948; 83036; 83519; 83605; 83735; 83880; 83970; 84145; 84436; 84443; 84480; 84481; 84484; 85018; 85025; 85610; 85730; 87040; 87086; 87637; 92610; 93005; 94660; 94762; 96361; 96365; 96375; 97110; 97163; 97166; 97530; 99285; A9270; C8929; G0378; J0360; J0630; J1650; J1815; J1940; J2060; J3475; J7030; J7042; J7070; Q9957